=== PATIENT | male | born 1955 | race Caucasian/White ===

== ENCOUNTER → 2018-07-01 09:05 | Outpatient (CLI) | payer OTHER, SELFPAY ==
[2018-07-01 10:30] LABS: BUN Creatinine Ratio 22.5 (6-22); Blood Urea Nitrogen 27 mg/dL (9-20); Calcium 9.3 mg/dL (8.4-10.2); Carbon Dioxide 26 mmol/L (22-32); Chloride 105 mmol/L (98-107); Estimated Glomerular Filt Rate > 60.0 mL/min (>60); Glucose 111 mg/dL (80-110); HEMOLYSIS < 15 (0-50); Potassium 4.7 mmol/L (3.4-5.1); Sodium 139 mmol/L (137-145)
== END ==
PROVIDERS: Visit Provider Internal Medicine
DX: E11.9 Type 2 diabetes mellitus without complications (principal); I10 Essential (primary) hypertension
CPT/HCPCS: 36415; 80048; 83036; 83735

== ENCOUNTER → 2018-10-28 17:09 | Outpatient (CLI) | payer OTHER, SELFPAY ==
[2018-10-28 17:46] LABS: Add Manual Diff / Slide Review NO; Eosinophils Percent Auto 2.3 % (2-4); Hematocrit 39.1 % (41-53); Hemoglobin 13.2 g/dL (13.5-17.5); Lymphocytes Percent Auto 21.7 % (25-40); Mean Corpuscular HGB Conc 33.8 % (30-36); Mean Corpuscular Hemoglobin 30.4 PG (26-34); Mean Corpuscular Volume 89.9 fL (80-100); Monocytes Percent Auto 7.2 % (3-14); Neutrophils Absolute Auto 6500 /uL (3000-5900); Neutrophils Percent Auto 67.8 % (50-75); Platelet Count 205 X10^3/uL (150-400); Red Blood Cell Count 4.35 X10^6/uL (4.5-5.9); Red Cell Distribution Width 13.2 % (11.6-14.8); White Blood Cell Count 9.6 X10^3/uL (4.5-11.0)
[2018-10-28 18:18] LABS: Alanine Aminotransferase 30 IU/L (21-72); Albumin 4.3 g/dL (3.5-5.0); Albumin Globulin Ratio 1.7 (1.0-2.8); Alkaline Phosphatase 89 U/L (38-126); Aspartate Aminotransferase 23 IU/L (17-59); BUN Creatinine Ratio 17.5 (6-22); Bilirubin Total 0.2 mg/dL (0.2-1.3); Blood Urea Nitrogen 21 mg/dL (9-20); Calcium 9.9 mg/dL (8.4-10.2); Carbon Dioxide 26 mmol/L (22-32); Chloride 105 mmol/L (98-107); Estimated Glomerular Filt Rate > 60.0 mL/min (>60); Globulin 2.6 g/dL (1.7-4.1); Glucose 93 mg/dL (80-110); HEMOLYSIS < 15 (0-50); Magnesium 1.6 mg/dL (1.6-2.3); Potassium 4.9 mmol/L (3.4-5.1); Sodium 142 mmol/L (137-145); Total Protein 6.9 g/dL (6.3-8.2)
[2018-10-28 18:46] LABS: Thyroid Stimulating Hormone 2.14 uIU/mL (0.47-4.68)
[2018-10-28 19:10] LABS: Creatinine Urine Random 166.3 mg/dL
[2018-10-28 19:15] LABS: Microalbumin Urine Random 5.5 mg/dL (0-1.6)
== END ==
PROVIDERS: Family Provider Internal Medicine; PCP Orthopaedic Surgery; Visit Provider Internal Medicine
DX: E11.9 Type 2 diabetes mellitus without complications (principal); I10 Essential (primary) hypertension; I48.91 Unspecified atrial fibrillation; E66.9 Obesity, unspecified; E83.42 Hypomagnesemia
CPT/HCPCS: 36415; 80053; 82043; 82570; 83036; 83735; 84443; 85025

== ENCOUNTER 2018-12-18 16:45 | Outpatient (RCR) | payer OTHER, SELFPAY ==
--- NOTE | 2018-09-16 17:30 | PT.OPPOC ---
Current Diagnoses Pain in left knee (09/16/18) Stiffness of right knee, not elsewhere classified (09/16/18) Stiffness of left knee, not elsewhere classified (09/16/18) Weakness (09/16/18) Presence of right artificial knee joint (09/16/18) Presence of left artificial knee joint (09/16/18) Provider Visit Care Team Role Provider Type Spenser Dominguez MD Attending Provider Non-Staff Primary Care Provider Specialty: Orthopedics Address: [address] [place] [address] , [place], [address] Email: Plan Of Care PT-OP-T Assessment and Plan Start: 09/16/18 17:41 Freq: Status: Active Protocol: Document 09/16/18 16:45 DCW (Rec: 09/17/18 15:51 DCW [id number]) Physical Therapy Assessment Rehab Potential Rehabilitation Potential Excellent Evaluation Complexity Number of Personal Factors/Comorbidities 3 or More Number of Body Systems Impaired 1-2 Clinical Presentation at Evaluation Stable Impairments Impairments Activity Tolerance Functional Activities Gait Pain Strength Goals Four Impairment Increased pain at work due to stairs Short Term Goal (STG) Pt to ascend/descend 3 flights of stairs with no railing without increased pain STG Duration 10/18/18 Three Impairment 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 Bicycle Designer Goal (LTG) Pt to tolerate standing on a moving boat for two hours with no increase in pain LTG Duration 11/17/18 Two Impairment Left knee weakness Short Term Goal (STG) Left knee extension MMT to 4/5 STG Duration 10/18/18 Bicycle Designer Goal (LTG) Left knee extension MMT to 5/5 LTG Duration 11/17/18 One Impairment Pt does not have an appropriate Home Exercise Program Short Term Goal (STG) Pt to be independent and compliant with an appropriate HEP STG Duration 10/18/18 Assessment Summary Assessment Pt presents with left knee pain and stiffness nine years s/p B TKA. Pain is limiting pt 's ability on stairs, participation in boating and hunting, and making work difficult. Pt's goal to strengthen his quads should help improve stability in his knee, which may lead to decreased pain. Pt has been told there may be excess cement from his knee replacement, which may need to be surgically removed, however her is hopeful that therapy will help him avoid surgery. Physical Therapy Plan Frequency and Duration Frequency of Treatment 2x/Week Duration of Treatment 10 weeks Plan of Care Start Date 09/16/18 Plan of Care End Date 11/25/18 Therapeutic Interventions Therapeutic Interventions Aquatic Therapy Balance Training Gait Training Home Exercise Program Joint Mobilizations Manual Therapy Patient/Caregiver Education Self-Care/Home Management Soft Tissue Mobilization Therapeutic Activities Therapeutic Exercises Next Visit Focus/Plan Next Note Type Treatment Note Next Visit Plan Shuttle Balance, Quad strengthening, STM to left calf to decrease tone Plan of Care Dates Plan of Care Start Date 09/16/18 Plan of Care End Date 11/25/18 Please Sign and Return: I have reviewed this Plan of Care and certify that the skilled therapy services above are required to meet the patient?s needs. Physician Signature Date Printed Name and Credentials Clinical Instructor Signature Printed Name and Credentials
--- NOTE | 2018-09-16 17:30 | PT.OIE ---
Current Diagnoses Pain in left knee (09/16/18) Stiffness of right knee, not elsewhere classified (09/16/18) Stiffness of left knee, not elsewhere classified (09/16/18) Weakness (09/16/18) Presence of right artificial knee joint (09/16/18) Presence of left artificial knee joint (09/16/18) Provider Visit Care Team Role Provider Type Spenser Dominguez MD Attending Provider Non-Staff Primary Care Provider Specialty: Orthopedics Address: [address] [place] [address], [place], [address] Email: Physical Therapy Initial Evaluation PT-OP-A Visit Information Start: 09/16/18 17:41 Freq: Status: Active Protocol: Document 09/16/18 16:45 DCW (Rec: 09/16/18 17:58 DCW [id number]) Out-Patient Physical Therapy Visit Information Visit Information Visit Type Initial Evaluation Visit Start Time 16:45 Visit Stop Time 17:30 Total Visit Minutes 45 Visit Number 1 Number of COMPUTER SYSTEMS SECURITY ADMINISTRATOR Visits 0 Evaluation Information Evaluation Date 09/16/18 PT-OP-B Current Condition Start: 09/16/18 17:41 Freq: Status: Active Protocol: Document 09/16/18 16:45 DCW (Rec: 09/16/18 17:58 DCW [id number]) Current Condition History of Current Condition Onset Date Worsening over last three years Current Complaints Pain and weakness of L knee 9 years s/p TKA History of Current Condition Pt is a 62 year old male presenting with a three year history of progressive pain in his left anteriolateral knee. Pt notes he had bilateral TKAs six months apart in 2008, but his left knee trouble began in 1977, when he blew out the whole thing,and had a knee reconstruction using tissue harvested from his hamstring. Pt notes he got relief from his TKA for a few years, however for the past three, he has had difficulty with his knee buckling, and it is very painful when walking any distance, even on flat ground, and especially when descending steps. Pt notes he is now always consious of how I'm walking, and he needs to hold onto the railing when on steps. Prior Treatments and Tests Cortisone shot last month - Per pt, helped for three weeks . Future Testing and Treatments Planned Potential exploritory surgery if conservative trestment does not help. Treatment Goals Patient/Caregiver Goals I want to get my quads stronger, so they're back to where they used to be, so I can keep working, because I'm just not mentally ready to go on disability. Pt also notes he cannot currently stand on boats, or go hiking or hunting , which were all activities he used to enjoy. Prior Functional Status Baseline Function- ADL's Independent Baseline Function- Mobility Independent Current Functional Impairments (Reported) Functional Limitations- Mobility/Gait Pain ascending/descending stairs, requires railing. Knee occasionally chyna Functional Limitations- Recreation/ Unable to stand on boats, Hobbies unable to hike/leyva Personal Factors Other Personal Factors That May Effect Pacemaker, DM II, Hx of cancer Therapy/Recovery , Hx Low back pain, neuropathy PT-OP-C Subjective Start: 09/16/18 17:41 Freq: Status: Active Protocol: Document 09/16/18 16:45 DCW (Rec: 09/17/18 15:51 DCW [id number]) OP-PT Subjective Patient Comments Patient Comments Pt notes pain has been worsening over the last three years Patient Reported Progress Worse PT-OP-F Manual Assessment Start: 09/16/18 17:41 Freq: Status: Active Protocol: Document 09/16/18 16:45 DCW (Rec: 09/17/18 15:51 DCW [id number]) Manual Assessments Soft Tissue Assessment Soft Tissue Mobility Assessment Moderate tone and palpable tenderness 2/4 - Pain with wincing at medial gastroc Joint Mobility Assessment Joint Mobility Assessment Knee joint stability WNL, complaints of lateral pain with valgus stretch PT-OP-K Range of Motion Start: 09/16/18 17:41 Freq: Status: Active Protocol: Document 09/16/18 16:45 DCW (Rec: 09/17/18 15:51 DCW [id number]) Knee Goniometric Range of Motion Knee Measured in Degrees Right Knee ROM WFL No Patient Position Supine Flexion Active (degrees) 106 Extension Active (degrees) 0 Left Knee ROM WFL No Patient Position Supine Flexion Active (degrees) 102 Extension Active (degrees) 0 PT-OP-L Special Tests Start: 09/16/18 17:41 Freq: Status: Active Protocol: Document 09/16/18 16:45 DCW (Rec: 09/17/18 15:51 [id number] Special Tests Knee Special Tests Varus- 0 Degrees Test Results Negative Valgus- 0 Degrees Test Results Negative for instability, complaint of lateral pain Posterior Draw Test Results Negative Patellar Grind Test Test Results Negative Ang's Test Results Negative Mariano Test Test Results Negative Anterior Draw Test Results Negative PT-OP-M Strength Start: 09/16/18 17:41 Freq: Status: Active Protocol: Document 09/16/18 16:45 DCW (Rec: 09/17/18 15:51 DC [id number]) Hip Strength Hip Manual Muscle Testing Right Flexion (L2) 5 Normal Extension (S1) 5 Normal Abduction 5 Normal Adduction 5 Normal External Rotation 4+ Good+ Internal Rotation 5 Normal Left Flexion (L2) 5 Normal Extension (S1) 5 Normal Abduction 5 Normal Adduction 5 Normal External Rotation 5 Normal Internal Rotation 5 Normal Knee Strength Knee Manual Muscle Testing Right Flexion (S2) 5 Normal Extension (L3) 5 Normal Left Flexion (S2) 5 Normal Extension (L3) 3+ Fair+ PT-OP-Q Treatments Start: 09/16/18 17:41 Freq: Status: Active Protocol: Document 09/16/18 16:45 DCW (Rec: 09/17/18 15:51 [id number]) Therapeutic Exercises Supine Exercises Bridging /c Adduction Supine Exercise Name Bridging /c Add ball squeeze Equipment Used Small ball Reps/Minutes x15 SLR /c External Rotation Supine Exercise Name SLR /c ER of foot Side bilateral Comments x20 Straight Leg Raise Supine Exercise Name SLR Side bilateral Comments x20 Standing Exercises Terminal Knee Extension Standing Exercise Name TKE Side bilateral Resistance Lv 3 Equipment Used T-band PT-OP-T Assessment and Plan Start: 09/16/18 17:41 Freq: Status: Active Protocol: Document 09/16/18 16:45 DCW (Rec: 09/17/18 15:51 [id number] Physical Therapy Assessment Rehab Potential Rehabilitation Potential Excellent Evaluation Complexity Number of Personal Factors/Comorbidities 3 or More Number of Body Systems Impaired 1-2 Clinical Presentation at Evaluation Stable Impairments Impairments Activity Tolerance Functional Activities Gait Pain Strength Goals Four Impairment Increased pain at work due to stairs Short Term Goal (STG) Pt to ascend/descend 3 flights of stairs with no railing without increased pain STG Duration 10/18/18 Three Impairment 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 Retirement Goal (LTG) Pt to tolerate standing on a moving boat for two hours with no increase in pain LTG Duration 11/17/18 Two Impairment Left knee weakness Short Term Goal (STG) Left knee extension MMT to 4/5 STG Duration 10/18/18 Retirement Goal (LTG) Left knee extension MMT to 5/5 LTG Duration 11/17/18 One Impairment Pt does not have an appropriate Home Exercise Program Short Term Goal (STG) Pt to be independent and compliant with an appropriate HEP STG Duration 10/18/18 Assessment Summary Assessment Pt presents with left knee pain and stiffness nine years s/p B TKA. Pain is limiting pt 's ability on stairs, participation in boating and hunting, and making work difficult. Pt's goal to strengthen his quads should help improve stability in his knee, which may lead to decreased pain. Pt has been told there may be excess cement from his knee replacement, which may need to be surgically removed, however her is hopeful that therapy will help him avoid surgery. Physical Therapy Plan Frequency and Duration Frequency of Treatment 2x/Week Duration of Treatment 10 weeks Plan of Care Start Date 09/16/18 Plan of Care End Date 11/25/18 Therapeutic Interventions Therapeutic Interventions Aquatic Therapy Balance Training Gait Training Home Exercise Program Joint Mobilizations Manual Therapy Patient/Caregiver Education Self-Care/Home Management Soft Tissue Mobilization Therapeutic Activities Therapeutic Exercises Next Visit Focus/Plan Next Note Type Treatment Note Next Visit Plan Shuttle Balance, Quad strengthening, STM to left calf to decrease tone
--- NOTE | 2018-09-18 17:30 | PT.OTN ---
Current Diagnoses Presence of left artificial knee joint (09/18/18) Physical Therapy Treatment Note PT-OP-A Visit Information Start: 09/16/18 17:41 Freq: Status: Active Protocol: Document 09/18/18 16:45 DCW (Rec: 09/18/18 17:30 DCW [id number]) Out-Patient Physical Therapy Visit Information Visit Information Visit Type Treatment Note Visit Start Time 16:45 Visit Stop Time 17:30 Total Visit Minutes 45 Visit Number 2 Number of PULLING UNIT OPERATOR Visits 0 Evaluation Information Evaluation Date 09/16/18 PT-OP-B Current Condition Start: 09/16/18 17:41 Freq: Status: Active Protocol: Document 09/16/18 16:45 DCW (Rec: 09/16/18 17:58 DCW [id number]) Current Condition History of Current Condition Onset Date Worsening over last three years Current Complaints Pain and weakness of L knee 9 years s/p TKA History of Current Condition Pt is a 62 year old male presenting with a three year history of progressive pain in his left anteriolateral knee. Pt notes he had bilateral TKAs six months apart in 2008, but his left knee trouble began in 1977, when he blew out the whole thing,and had a knee reconstruction using tissue harvested from his hamstring. Pt notes he got relief from his TKA for a few years, however for the past three, he has had difficulty with his knee buckling, and it is very painful when walking any distance, even on flat ground, and especially when descending steps. Pt notes he is now always conscious of how I'm walking, and he needs to hold onto the railing when on steps. Prior Treatments and Tests Cortisone shot last month - Per pt, helped for three weeks . Future Testing and Treatments Planned Potential exploratory surgery if conservative treatment does not help. Treatment Goals Patient/Caregiver Goals I want to get my quads stronger, so they're back to where they used to be, so I can keep working, because I'm just not mentally ready to go on disability. Pt also notes he cannot currently stand on boats, or go hiking or hunting , which were all activities he used to enjoy. Prior Functional Status Baseline Function- ADL's Independent Baseline Function- Mobility Independent Current Functional Impairments (Reported) Functional Limitations- Mobility/Gait Pain ascending/descending stairs, requires railing. Knee occasionally chyna Functional Limitations- Recreation/ Unable to stand on boats, Hobbies unable to hike/leyva Personal Factors Other Personal Factors That May Effect Pacemaker, DM II, Hx of cancer Therapy/Recovery , Hx Low back pain, neuropathy PT-OP-C Subjective Start: 09/16/18 17:41 Freq: Status: Active Protocol: Document 09/18/18 16:45 DCW (Rec: 09/18/18 17:30 DCW [id number]) OP-PT Subjective Patient Comments Patient Comments Pt reports his knees are a little stiff after performing his HEP, because he had not been doing anything for so long. PT-OP-F Manual Assessment Start: 09/16/18 17:41 Freq: Status: Active Protocol: Document 09/16/18 16:45 DCW (Rec: 09/17/18 15:51 DCW [id number]) Manual Assessments Soft Tissue Assessment Soft Tissue Mobility Assessment Moderate tone and palpable tenderness 2/4 - Pain with wincing at medial gastroc Joint Mobility Assessment Joint Mobility Assessment Knee joint stability WNL, complaints of lateral pain with valgus stretch PT-OP-K Range of Motion Start: 09/16/18 17:41 Freq: Status: Active Protocol: Document 09/16/18 16:45 DCW (Rec: 09/17/18 15:51 DCW [id number]) Knee Goniometric Range of Motion Knee Measured in Degrees Right Knee ROM WFL No Patient Position Supine Flexion Active (degrees) 106 Extension Active (degrees) 0 Left Knee ROM WFL No Patient Position Supine Flexion Active (degrees) 102 Extension Active (degrees) 0 PT-OP-L Special Tests Start: 09/16/18 17:41 Freq: Status: Active Protocol: Document 09/16/18 16:45 DCW (Rec: 09/17/18 15:51 DCW [id number]) Special Tests Knee Special Tests Varus- 0 Degrees Test Results Negative Valgus- 0 Degrees Test Results Negative for instability, complaint of lateral pain Posterior Draw Test Results Negative Patellar Grind Test Test Results Negative Ang's Test Results Negative Mariano Test Test Results Negative Anterior Draw Test Results Negative PT-OP-M Strength Start: 09/16/18 17:41 Freq: Status: Active Protocol: Document 09/16/18 16:45 DCW (Rec: 09/17/18 15:51 DCW [id number]) Hip Strength Hip Manual Muscle Testing Right Flexion (L2) 5 Normal Extension (S1) 5 Normal Abduction 5 Normal Adduction 5 Normal External Rotation 4+ Good+ Internal Rotation 5 Normal Left Flexion (L2) 5 Normal Extension (S1) 5 Normal Abduction 5 Normal Adduction 5 Normal External Rotation 5 Normal Internal Rotation 5 Normal Knee Strength Knee Manual Muscle Testing Right Flexion (S2) 5 Normal Extension (L3) 5 Normal Left Flexion (S2) 5 Normal Extension (L3) 3+ Fair+ PT-OP-Q Treatments Start: 09/16/18 17:41 Freq: Status: Active Protocol: Document 09/18/18 16:45 DCW (Rec: 09/18/18 17:30 DCW [id number]) Cardio Equipment Recumbent Bicycle Duration (Minutes) 5 Resistance 5 Seat Position 8 Gym Equipment Shuttle Recovery Unilateral Squats Resistance 87# Shuttle Recovery Platform Stable Bilateral Squats Resistance 150# Shuttle Recovery Platform Stable Shuttle Balance Red Details Wide JOSÉ LUIS, Staggered Stance, Lateral Weight Shift Therapeutic Ball Bridging with Hamstring Curls Exercise Details Bridging /c HS curls Ball Size/Color Red - 55 cm Body Position Supine Bridging Exercise Details Bridging /c feet on ball Ball Size/Color Red - 55 cm Body Position Supine Therapeutic Exercises Standing Exercises Lunges Standing Exercise Name Lunge Side bilateral Comments Down to foam stacked 5-high PT-OP-T Assessment and Plan Start: 09/16/18 17:41 Freq: Status: Active Protocol: Document 09/18/18 16:45 DCW (Rec: 09/18/18 17:30 DCW [id number]) Physical Therapy Assessment Impairments Impairments Activity Tolerance Functional Activities Gait Pain Strength Goals Four Impairment Increased pain at work due to stairs Short Term Goal (STG) Pt to ascend/descend 3 flights of stairs with no railing without increased pain STG Duration 10/18/18 Three Impairment 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 Care Home Goal (LTG) Pt to tolerate standing on a moving boat for two hours with no increase in pain LTG Duration 11/17/18 Two Impairment Left knee weakness Short Term Goal (STG) Left knee extension MMT to 4/5 STG Duration 10/18/18 Director Franchise Sales Goal (LTG) Left knee extension MMT to 5/5 LTG Duration 11/17/18 One Impairment Pt does not have an appropriate Home Exercise Program Short Term Goal (STG) Pt to be independent and compliant with an appropriate HEP STG Duration 10/18/18 Assessment Summary Assessment Pt tolerated new exercises with minimal complaints, did note some biting pain when on the Shuttle balance. Physical Therapy Plan Frequency and Duration Frequency of Treatment 2x/Week Duration of Treatment 10 weeks Plan of Care Start Date 09/16/18 Plan of Care End Date 11/25/18 Therapeutic Interventions Therapeutic Interventions Aquatic Therapy Balance Training Gait Training Home Exercise Program Joint Mobilizations Manual Therapy Patient/Caregiver Education Self-Care/Home Management Soft Tissue Mobilization Therapeutic Activities Therapeutic Exercises Next Visit Focus/Plan Next Note Type Treatment Note Next Visit Plan Shuttle Balance, Quad strengthening, STM to left calf to decrease tone
--- NOTE | 2018-09-23 17:33 | PT.OTN ---
Current Diagnoses Presence of left artificial knee joint (09/23/18) Physical Therapy Treatment Note PT-OP-A Visit Information Start: 09/16/18 17:41 Freq: Status: Active Protocol: Document 09/23/18 16:45 DCW (Rec: 09/23/18 17:33 DCW [id number]) Out-Patient Physical Therapy Visit Information Visit Information Visit Type Treatment Note Visit Start Time 16:45 Visit Stop Time 17:40 Total Visit Minutes 55 Visit Number 3 Number of VAT WASHER Visits 0 Evaluation Information Evaluation Date 09/16/18 PT-OP-B Current Condition Start: 09/16/18 17:41 Freq: Status: Active Protocol: Document 09/16/18 16:45 DCW (Rec: 09/16/18 17:58 DCW [id number]) Current Condition History of Current Condition Onset Date Worsening over last three years Current Complaints Pain and weakness of L knee 9 years s/p TKA History of Current Condition Pt is a 62 year old male presenting with a three year history of progressive pain in his left anteriolateral knee. Pt notes he had bilateral TKAs six months apart in 2008, but his left knee trouble began in 1977, when he blew out the whole thing,and had a knee reconstruction using tissue harvested from his hamstring. Pt notes he got relief from his TKA for a few years, however for the past three, he has had difficulty with his knee buckling, and it is very painful when walking any distance, even on flat ground, and especially when descending steps. Pt notes he is now always conscious of how I'm walking, and he needs to hold onto the railing when on steps. Prior Treatments and Tests Cortisone shot last month - Per pt, helped for three weeks . Future Testing and Treatments Planned Potential exploratory surgery if conservative treatment does not help. Treatment Goals Patient/Caregiver Goals I want to get my quads stronger, so they're back to where they used to be, so I can keep working, because I'm just not mentally ready to go on disability. Pt also notes he cannot currently stand on boats, or go hiking or hunting , which were all activities he used to enjoy. Prior Functional Status Baseline Function- ADL's Independent Baseline Function- Mobility Independent Current Functional Impairments (Reported) Functional Limitations- Mobility/Gait Pain ascending/descending stairs, requires railing. Knee occasionally chyna Functional Limitations- Recreation/ Unable to stand on boats, Hobbies unable to hike/leyva Personal Factors Other Personal Factors That May Effect Pacemaker, DM II, Hx of cancer Therapy/Recovery , Hx Low back pain, neuropathy PT-OP-C Subjective Start: 09/16/18 17:41 Freq: Status: Active Protocol: Document 09/23/18 16:45 DCW (Rec: 09/23/18 17:33 DCW [id number]) OP-PT Subjective Patient Comments Patient Comments The knee is simmering down today after it was just really biting me yesterday at work. PT-OP-F Manual Assessment Start: 09/16/18 17:41 Freq: Status: Active Protocol: Document 09/16/18 16:45 DCW (Rec: 09/17/18 15:51 DCW [id number]) Manual Assessments Soft Tissue Assessment Soft Tissue Mobility Assessment Moderate tone and palpable tenderness 2/4 - Pain with wincing at medial gastroc Joint Mobility Assessment Joint Mobility Assessment Knee joint stability WNL, complaints of lateral pain with valgus stretch PT-OP-K Range of Motion Start: 09/16/18 17:41 Freq: Status: Active Protocol: Document 09/16/18 16:45 DCW (Rec: 09/17/18 15:51 DCW [id number]) Knee Goniometric Range of Motion Knee Measured in Degrees Right Knee ROM WFL No Patient Position Supine Flexion Active (degrees) 106 Extension Active (degrees) 0 Left Knee ROM WFL No Patient Position Supine Flexion Active (degrees) 102 Extension Active (degrees) 0 PT-OP-L Special Tests Start: 09/16/18 17:41 Freq: Status: Active Protocol: Document 09/16/18 16:45 DCW (Rec: 09/17/18 15:51 DCW [id number]) Special Tests Knee Special Tests Varus- 0 Degrees Test Results Negative Valgus- 0 Degrees Test Results Negative for instability, complaint of lateral pain Posterior Draw Test Results Negative Patellar Grind Test Test Results Negative Ang's Test Results Negative Mariano Test Test Results Negative Anterior Draw Test Results Negative PT-OP-M Strength Start: 09/16/18 17:41 Freq: Status: Active Protocol: Document 09/16/18 16:45 DCW (Rec: 09/17/18 15:51 DCW [id number]) Hip Strength Hip Manual Muscle Testing Right Flexion (L2) 5 Normal Extension (S1) 5 Normal Abduction 5 Normal Adduction 5 Normal External Rotation 4+ Good+ Internal Rotation 5 Normal Left Flexion (L2) 5 Normal Extension (S1) 5 Normal Abduction 5 Normal Adduction 5 Normal External Rotation 5 Normal Internal Rotation 5 Normal Knee Strength Knee Manual Muscle Testing Right Flexion (S2) 5 Normal Extension (L3) 5 Normal Left Flexion (S2) 5 Normal Extension (L3) 3+ Fair+ PT-OP-Q Treatments Start: 09/16/18 17:41 Freq: Status: Active Protocol: Document 09/23/18 16:45 DCW (Rec: 09/23/18 17:33 DCW [id number]) Cardio Equipment Recumbent Bicycle Duration (Minutes) 6 Resistance 5 Seat Position 8 Gym Equipment Shuttle Recovery Unilateral Squats Resistance 87# Shuttle Recovery Platform Stable Bilateral Squats Resistance 150# Shuttle Recovery Platform Stable Shuttle Balance Red Details Wide JOSÉ LUIS (EO/EC), Staggered Stance, Lateral Weight Shift Therapeutic Exercises Standing Exercises Lunges Standing Exercise Name Step Lunges Side bilateral Other Exercises Resisted Forward/Retro Ambulation Other Exercise Name Resisted Fwd/Retro Amb Resistance Yellow Equipment Used T-band Resisted Side-stepping Other Exercise Name Resisted side-stepping Resistance Yellow Equipment Used T-band PT-OP-R Modalities Start: 09/16/18 17:41 Freq: Status: Active Protocol: Document 09/23/18 16:45 DCW (Rec: 09/23/18 17:33 DCW [id number]) Hot Pack/Cold Pack Treatment Cold Pack Location Left knee Patient Position Hooklying Treatment Duration (minutes) 10 Patient Tolerance Good PT-OP-T Assessment and Plan Start: 09/16/18 17:41 Freq: Status: Active Protocol: Document 09/23/18 16:45 DCW (Rec: 09/23/18 17:33 DCW [id number]) Physical Therapy Assessment Impairments Impairments Activity Tolerance Functional Activities Gait Pain Strength Goals Four Impairment Increased pain at work due to stairs Short Term Goal (STG) Pt to ascend/descend 3 flights of stairs with no railing without increased pain STG Duration 10/18/18 Three Impairment 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 Retirement Goal (LTG) Pt to tolerate standing on a moving boat for two hours with no increase in pain LTG Duration 11/17/18 Two Impairment Left knee weakness Short Term Goal (STG) Left knee extension MMT to 4/5 STG Duration 10/18/18 Retirement Goal (LTG) Left knee extension MMT to 5/5 LTG Duration 11/17/18 One Impairment Pt does not have an appropriate Home Exercise Program Short Term Goal (STG) Pt to be independent and compliant with an appropriate HEP STG Duration 10/18/18 Assessment Summary Assessment Skipped lungdeanna today, after pt complained of persistent pain following his last visit, but pt tolerated other new exercises well. Physical Therapy Plan Frequency and Duration Frequency of Treatment 2x/Week Duration of Treatment 10 weeks Plan of Care Start Date 09/16/18 Plan of Care End Date 11/25/18 Therapeutic Interventions Therapeutic Interventions Aquatic Therapy Balance Training Gait Training Home Exercise Program Joint Mobilizations Manual Therapy Patient/Caregiver Education Self-Care/Home Management Soft Tissue Mobilization Therapeutic Activities Therapeutic Exercises Next Visit Focus/Plan Next Note Type Treatment Note Next Visit Plan Shuttle Balance, Quad strengthening, STM to left calf to decrease tone
--- NOTE | 2018-09-30 17:30 | PT.OTN ---
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 Pt notes he had bilateral TKAs six months apart in 2008, but his left knee trouble began in 1977, when he blew out the whole thing,and had a knee reconstruction using tissue harvested from his hamstring. Pt notes he got relief from his TKA for a few years, however for the past three, he has had difficulty with his knee buckling, and it is very painful when walking any distance, even on flat ground, and especially when descending steps. Pt notes he is now always conscious of how I'm walking, and he needs to hold onto the railing when on steps. Prior Treatments and Tests Cortisone shot last month - Per pt, helped for three weeks . Future Testing and Treatments Planned Potential exploratory surgery if conservative treatment does not help. Treatment Goals Patient/Caregiver Goals I want to get my quads stronger, so they're back to where they used to be, so I can keep working, because I'm just not mentally ready to go on disability. Pt also notes he cannot currently stand on boats, or go hiking or hunting , which were all activities he used to enjoy. Prior Functional Status Baseline Function- ADL's Independent Baseline Function- Mobility Independent Current Functional Impairments (Reported) Functional Limitations- Mobility/Gait Pain ascending/descending stairs, requires railing. Knee occasionally chyna Functional Limitations- Recreation/ Unable to stand on boats, Hobbies unable to hike/leyva Personal Factors Other Personal Factors That May Effect Pacemaker, DM II, Hx of cancer Therapy/Recovery , Hx Low back pain, neuropathy PT-OP-C Subjective Start: 09/16/18 17:41 Freq: Status: Active Protocol: Document 09/30/18 16:45 DCW (Rec: 09/30/18 17:26 DCW [id number]) OP-PT Subjective Patient Comments Patient Comments Pt reports his knee will occasionally give a pop, and it is just such a weird feeling, because I never know when it's going to happen. PT-OP-F Manual Assessment Start: 09/16/18 17:41 Freq: Status: Active Protocol: Document 09/16/18 16:45 DCW (Rec: 09/17/18 15:51 DCW [id number]) Manual Assessments Soft Tissue Assessment Soft Tissue Mobility Assessment Moderate tone and palpable tenderness 2/4 - Pain with wincing at medial gastroc Joint Mobility Assessment Joint Mobility Assessment Knee joint stability WNL, complaints of lateral pain with valgus stretch PT-OP-K Range of Motion Start: 09/16/18 17:41 Freq: Status: Active Protocol: Document 09/16/18 16:45 DCW (Rec: 09/17/18 15:51 DCW [id number]) Knee Goniometric Range of Motion Knee Measured in Degrees Right Knee ROM WFL No Patient Position Supine Flexion Active (degrees) 106 Extension Active (degrees) 0 Left Knee ROM WFL No Patient Position Supine Flexion Active (degrees) 102 Extension Active (degrees) 0 PT-OP-L Special Tests Start: 09/16/18 17:41 Freq: Status: Active Protocol: Document 09/16/18 16:45 DCW (Rec: 09/17/18 15:51 DCW [id number]) Special Tests Knee Special Tests Varus- 0 Degrees Test Results Negative Valgus- 0 Degrees Test Results Negative for instability, complaint of lateral pain Posterior Draw Test Results Negative Patellar Grind Test Test Results Negative Ang's Test Results Negative Mariano Test Test Results Negative Anterior Draw Test Results Negative PT-OP-M Strength Start: 09/16/18 17:41 Freq: Status: Active Protocol: Document 09/16/18 16:45 DCW (Rec: 09/17/18 15:51 DCW [id number]) Hip Strength Hip Manual Muscle Testing Right Flexion (L2) 5 Normal Extension (S1) 5 Normal Abduction 5 Normal Adduction 5 Normal External Rotation 4+ Good+ Internal Rotation 5 Normal Left Flexion (L2) 5 Normal Extension (S1) 5 Normal Abduction 5 Normal Adduction 5 Normal External Rotation 5 Normal Internal Rotation 5 Normal Knee Strength Knee Manual Muscle Testing Right Flexion (S2) 5 Normal Extension (L3) 5 Normal Left Flexion (S2) 5 Normal Extension (L3) 3+ Fair+ PT-OP-Q Treatments Start: 09/16/18 17:41 Freq: Status: Active Protocol: Document 09/30/18 16:45 DCW (Rec: 09/30/18 17:26 DCW [id number]) Cardio Equipment Recumbent Bicycle Duration (Minutes) 7 Resistance 5 Seat Position 8 Gym Equipment Shuttle Recovery Unilateral Squats Resistance 87# Shuttle Recovery Platform Stable Bilateral Squats Resistance 150# Shuttle Recovery Platform Stable Shuttle Balance Red Details Wide JOSÉ LUIS (EO/EC), Staggered Stance, Lateral Weight Shift Therapeutic Exercises Standing Exercises Lunges Standing Exercise Name Step Lunges Side bilateral Other Exercises Resisted Forward/Retro Ambulation Other Exercise Name Resisted Fwd/Retro Amb Resistance Yellow Equipment Used T-band Resisted Side-stepping Other Exercise Name Resisted side-stepping Resistance Yellow Equipment Used T-band PT-OP-R Modalities Start: 09/16/18 17:41 Freq: Status: Active Protocol: Document 09/30/18 16:45 DCW (Rec: 09/30/18 17:26 DCW [id number]) Hot Pack/Cold Pack Treatment Cold Pack Location Left knee Patient Position Hooklying Treatment Duration (minutes) 10 Patient Tolerance Good PT-OP-T Assessment and Plan Start: 09/16/18 17:41 Freq: Status: Active Protocol: Document 09/30/18 16:45 DCW (Rec: 09/30/18 17:26 DCW [id number]) Physical Therapy Assessment Impairments Impairments Activity Tolerance Functional Activities Gait Pain Strength Goals Four Impairment Increased pain at work due to stairs Short Term Goal (STG) Pt to ascend/descend 3 flights of stairs with no railing without increased pain STG Duration 10/18/18 Three Impairment 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 Operations 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 Physical Therapy Plan Frequency and Duration Frequency of Treatment 2x/Week Duration of Treatment 10 weeks Plan of Care Start Date 09/16/18 Plan of Care End Date 11/25/18 Therapeutic Interventions Therapeutic Interventions Aquatic Therapy Balance Training Gait Training Home Exercise Program Joint Mobilizations Manual Therapy Patient/Caregiver Education Self-Care/Home Management Soft Tissue Mobilization Therapeutic Activities Therapeutic Exercises Next Visit Focus/Plan Next Note Type Treatment Note Next Visit Plan Shuttle Balance, Quad strengthening, STM to left calf to decrease tone
--- NOTE | 2018-10-07 17:36 | PT.OTN ---
Current Diagnoses Presence of left artificial knee joint (10/07/18) Physical Therapy Treatment Note PT-OP-A Visit Information Start: 09/16/18 17:41 Freq: Status: Active Protocol: Document 10/07/18 16:45 DCW (Rec: 10/07/18 17:36 DCW [id number]) Out-Patient Physical Therapy Visit Information Visit Information Visit Type Treatment Note Visit Start Time 16:45 Visit Stop Time 17:30 Total Visit Minutes 45 Visit Number 5 Number of DIRECTOR GAME Visits 0 Evaluation Information Evaluation Date 09/16/18 PT-OP-B Current Condition Start: 09/16/18 17:41 Freq: Status: Active Protocol: Document 09/16/18 16:45 DCW (Rec: 09/16/18 17:58 DCW [id number]) Current Condition History of Current Condition Onset Date Worsening over last three years Current Complaints Pain and weakness of L knee 9 years s/p TKA History of Current Condition Pt is a 62 year old male presenting with a three year history of progressive pain in his left anteriolateral knee. Pt notes he had bilateral TKAs six months apart in 2008, but his left knee trouble began in 1977, when he blew out the whole thing,and had a knee reconstruction using tissue harvested from his hamstring. Pt notes he got relief from his TKA for a few years, however for the past three, he has had difficulty with his knee buckling, and it is very painful when walking any distance, even on flat ground, and especially when descending steps. Pt notes he is now always conscious of how I'm walking, and he needs to hold onto the railing when on steps. Prior Treatments and Tests Cortisone shot last month - Per pt, helped for three weeks . Future Testing and Treatments Planned Potential exploratory surgery if conservative treatment does not help. Treatment Goals Patient/Caregiver Goals I want to get my quads stronger, so they're back to where they used to be, so I can keep working, because I'm just not mentally ready to go on disability. Pt also notes he cannot currently stand on boats, or go hiking or hunting , which were all activities he used to enjoy. Prior Functional Status Baseline Function- ADL's Independent Baseline Function- Mobility Independent Current Functional Impairments (Reported) Functional Limitations- Mobility/Gait Pain ascending/descending stairs, requires railing. Knee occasionally chyna Functional Limitations- Recreation/ Unable to stand on boats, Hobbies unable to hike/leyva Personal Factors Other Personal Factors That May Effect Pacemaker, DM II, Hx of cancer Therapy/Recovery , Hx Low back pain, neuropathy PT-OP-C Subjective Start: 09/16/18 17:41 Freq: Status: Active Protocol: Document 10/07/18 16:45 DCW (Rec: 10/07/18 17:36 DCW [id number]) OP-PT Subjective Patient Comments Patient Comments Pt feels like he is slowly improving. PT-OP-F Manual Assessment Start: 09/16/18 17:41 Freq: Status: Active Protocol: Document 09/16/18 16:45 DCW (Rec: 09/17/18 15:51 DCW [id number]) Manual Assessments Soft Tissue Assessment Soft Tissue Mobility Assessment Moderate tone and palpable tenderness 2/4 - Pain with wincing at medial gastroc Joint Mobility Assessment Joint Mobility Assessment Knee joint stability WNL, complaints of lateral pain with valgus stretch PT-OP-K Range of Motion Start: 09/16/18 17:41 Freq: Status: Active Protocol: Document 09/16/18 16:45 DCW (Rec: 09/17/18 15:51 DCW [id number]) Knee Goniometric Range of Motion Knee Measured in Degrees Right Knee ROM WFL No Patient Position Supine Flexion Active (degrees) 106 Extension Active (degrees) 0 Left Knee ROM WFL No Patient Position Supine Flexion Active (degrees) 102 Extension Active (degrees) 0 PT-OP-L Special Tests Start: 09/16/18 17:41 Freq: Status: Active Protocol: Document 09/16/18 16:45 DCW (Rec: 09/17/18 15:51 DCW [id number]) Special Tests Knee Special Tests Varus- 0 Degrees Test Results Negative Valgus- 0 Degrees Test Results Negative for instability, complaint of lateral pain Posterior Draw Test Results Negative Patellar Grind Test Test Results Negative Ang's Test Results Negative Mariano Test Test Results Negative Anterior Draw Test Results Negative PT-OP-M Strength Start: 09/16/18 17:41 Freq: Status: Active Protocol: Document 09/16/18 16:45 DCW (Rec: 09/17/18 15:51 DCW [id number]) Hip Strength Hip Manual Muscle Testing Right Flexion (L2) 5 Normal Extension (S1) 5 Normal Abduction 5 Normal Adduction 5 Normal External Rotation 4+ Good+ Internal Rotation 5 Normal Left Flexion (L2) 5 Normal Extension (S1) 5 Normal Abduction 5 Normal Adduction 5 Normal External Rotation 5 Normal Internal Rotation 5 Normal Knee Strength Knee Manual Muscle Testing Right Flexion (S2) 5 Normal Extension (L3) 5 Normal Left Flexion (S2) 5 Normal Extension (L3) 3+ Fair+ PT-OP-Q Treatments Start: 09/16/18 17:41 Freq: Status: Active Protocol: Document 10/07/18 16:45 DCW (Rec: 10/07/18 17:36 DCW [id number]) Cardio Equipment Recumbent Bicycle Duration (Minutes) 8 Resistance 6 Seat Position 9 Gym Equipment Shuttle Recovery Unilateral Squats Resistance 100# Shuttle Recovery Platform Stable Bilateral Squats Resistance 175# Shuttle Recovery Platform Stable Shuttle Balance Red Details Wide JOSÉ LUIS (EO/EC), Staggered Stance, Lateral Weight Shift Therapeutic Ball Bridging with Hamstring Curls Exercise Details Bridging /c HS curls Ball Size/Color Red - 55 cm Body Position Supine Bridging Exercise Details Bridging /c feet on ball Ball Size/Color Red - 55 cm Body Position Supine Therapeutic Exercises Other Exercises Resisted Forward/Retro Ambulation Other Exercise Name Resisted Fwd/Retro Amb Resistance Yellow Equipment Used T-band Resisted Side-stepping Other Exercise Name Resisted side-stepping Resistance Yellow Equipment Used T-band PT-OP-R Modalities Start: 09/16/18 17:41 Freq: Status: Active Protocol: Document 09/30/18 16:45 DCW (Rec: 09/30/18 17:26 DCW [id number]) Hot Pack/Cold Pack Treatment Cold Pack Location Left knee Patient Position Hooklying Treatment Duration (minutes) 10 Patient Tolerance Good PT-OP-T Assessment and Plan Start: 09/16/18 17:41 Freq: Status: Active Protocol: Document 10/07/18 16:45 DCW (Rec: 10/07/18 17:36 DCW [id number]) Physical Therapy Assessment Impairments Impairments Activity Tolerance Functional Activities Gait Pain Strength Goals Four Impairment Increased pain at work due to stairs Short Term Goal (STG) Pt to ascend/descend 3 flights of stairs with no railing without increased pain STG Duration 10/18/18 Three Impairment 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 Terrazzo Layer Goal (LTG) Pt to tolerate standing on a moving boat for two hours with no increase in pain LTG Duration 11/17/18 Two Impairment Left knee weakness Short Term Goal (STG) Left knee extension MMT to 4/5 STG Duration 10/18/18 Terrazzo Layer Goal (LTG) Left knee extension MMT to 5/5 LTG Duration 11/17/18 One Impairment Pt does not have an appropriate Home Exercise Program Short Term Goal (STG) Pt to be independent and compliant with an appropriate HEP STG Duration 10/18/18 Assessment Summary Assessment Pt doing well, compliant with HEP. Continues to complain of occasional biting pain in left lateral knee, however appears to be less frequent. Physical Therapy Plan Frequency and Duration Frequency of Treatment 2x/Week Duration of Treatment 10 weeks Plan of Care Start Date 09/16/18 Plan of Care End Date 11/25/18 Therapeutic Interventions Therapeutic Interventions Aquatic Therapy Balance Training Gait Training Home Exercise Program Joint Mobilizations Manual Therapy Patient/Caregiver Education Self-Care/Home Management Soft Tissue Mobilization Therapeutic Activities Therapeutic Exercises Next Visit Focus/Plan Next Note Type Treatment Note Next Visit Plan Shuttle Balance, Quad strengthening, STM to left calf to decrease tone
--- NOTE | 2018-10-09 12:36 | PT.OTN ---
Current Diagnoses Presence of left artificial knee joint (10/09/18) Physical Therapy Treatment Note PT-OP-A Visit Information Start: 09/16/18 17:41 Freq: Status: Active Protocol: Document 10/09/18 12:00 DCW (Rec: 10/09/18 12:36 DCW [id number]) Out-Patient Physical Therapy Visit Information Visit Information Visit Type Treatment Note Visit Start Time 12:00 Visit Stop Time 12:45 Total Visit Minutes 45 Visit Number 6 Number of IN HOME AIDE Visits 0 Evaluation Information Evaluation Date 09/16/18 PT-OP-B Current Condition Start: 09/16/18 17:41 Freq: Status: Active Protocol: Document 09/16/18 16:45 DCW (Rec: 09/16/18 17:58 DCW [id number]) Current Condition History of Current Condition Onset Date Worsening over last three years Current Complaints Pain and weakness of L knee 9 years s/p TKA History of Current Condition Pt is a 62 year old male presenting with a three year history of progressive pain in his left anteriolateral knee. Pt notes he had bilateral TKAs six months apart in 2008, but his left knee trouble began in 1977, when he blew out the whole thing,and had a knee reconstruction using tissue harvested from his hamstring. Pt notes he got relief from his TKA for a few years, however for the past three, he has had difficulty with his knee buckling, and it is very painful when walking any distance, even on flat ground, and especially when descending steps. Pt notes he is now always conscious of how I'm walking, and he needs to hold onto the railing when on steps. Prior Treatments and Tests Cortisone shot last month - Per pt, helped for three weeks . Future Testing and Treatments Planned Potential exploratory surgery if conservative treatment does not help. Treatment Goals Patient/Caregiver Goals I want to get my quads stronger, so they're back to where they used to be, so I can keep working, because I'm just not mentally ready to go on disability. Pt also notes he cannot currently stand on boats, or go hiking or hunting , which were all activities he used to enjoy. Prior Functional Status Baseline Function- ADL's Independent Baseline Function- Mobility Independent Current Functional Impairments (Reported) Functional Limitations- Mobility/Gait Pain ascending/descending stairs, requires railing. Knee occasionally chyna Functional Limitations- Recreation/ Unable to stand on boats, Hobbies unable to hike/leyva Personal Factors Other Personal Factors That May Effect Pacemaker, DM II, Hx of cancer Therapy/Recovery , Hx Low back pain, neuropathy PT-OP-C Subjective Start: 09/16/18 17:41 Freq: Status: Active Protocol: Document 10/09/18 12:00 DCW (Rec: 10/09/18 12:36 DCW [id number]) OP-PT Subjective Patient Comments Patient Comments Pt reports he is wobbly, but feeling pretty good. PT-OP-F Manual Assessment Start: 09/16/18 17:41 Freq: Status: Active Protocol: Document 09/16/18 16:45 DCW (Rec: 09/17/18 15:51 DCW [id number]) Manual Assessments Soft Tissue Assessment Soft Tissue Mobility Assessment Moderate tone and palpable tenderness 2/4 - Pain with wincing at medial gastroc Joint Mobility Assessment Joint Mobility Assessment Knee joint stability WNL, complaints of lateral pain with valgus stretch PT-OP-K Range of Motion Start: 09/16/18 17:41 Freq: Status: Active Protocol: Document 09/16/18 16:45 DCW (Rec: 09/17/18 15:51 DCW [id number]) Knee Goniometric Range of Motion Knee Measured in Degrees Right Knee ROM WFL No Patient Position Supine Flexion Active (degrees) 106 Extension Active (degrees) 0 Left Knee ROM WFL No Patient Position Supine Flexion Active (degrees) 102 Extension Active (degrees) 0 PT-OP-L Special Tests Start: 09/16/18 17:41 Freq: Status: Active Protocol: Document 09/16/18 16:45 DCW (Rec: 09/17/18 15:51 DCW [id number]) Special Tests Knee Special Tests Varus- 0 Degrees Test Results Negative Valgus- 0 Degrees Test Results Negative for instability, complaint of lateral pain Posterior Draw Test Results Negative Patellar Grind Test Test Results Negative Ang's Test Results Negative Mariano Test Test Results Negative Anterior Draw Test Results Negative PT-OP-M Strength Start: 09/16/18 17:41 Freq: Status: Active Protocol: Document 09/16/18 16:45 DCW (Rec: 09/17/18 15:51 DCW [id number]) Hip Strength Hip Manual Muscle Testing Right Flexion (L2) 5 Normal Extension (S1) 5 Normal Abduction 5 Normal Adduction 5 Normal External Rotation 4+ Good+ Internal Rotation 5 Normal Left Flexion (L2) 5 Normal Extension (S1) 5 Normal Abduction 5 Normal Adduction 5 Normal External Rotation 5 Normal Internal Rotation 5 Normal Knee Strength Knee Manual Muscle Testing Right Flexion (S2) 5 Normal Extension (L3) 5 Normal Left Flexion (S2) 5 Normal Extension (L3) 3+ Fair+ PT-OP-Q Treatments Start: 09/16/18 17:41 Freq: Status: Active Protocol: Document 10/09/18 12:00 DCW (Rec: 10/09/18 12:36 DCW [id number]) Cardio Equipment Recumbent Bicycle Duration (Minutes) 6 Resistance 6 Seat Position 9 Gym Equipment Shuttle Recovery Unilateral Squats Resistance 100# Shuttle Recovery Platform Stable Bilateral Squats Resistance 175# Shuttle Recovery Platform Stable Shuttle Balance Red Details Wide JOSÉ LUIS (EO/EC), Staggered Stance, Lateral Weight Shift Therapeutic Ball Bridging with Hamstring Curls Exercise Details Bridging /c HS curls Ball Size/Color Red - 55 cm Body Position Supine Bridging Exercise Details Bridging /c feet on ball Ball Size/Color Red - 55 cm Body Position Supine Therapeutic Exercises Other Exercises Resisted Forward/Retro Ambulation Other Exercise Name Resisted Fwd/Retro Amb Resistance Green Equipment Used T-band Resisted Side-stepping Other Exercise Name Resisted side-stepping Resistance Green Equipment Used T-band PT-OP-R Modalities Start: 09/16/18 17:41 Freq: Status: Active Protocol: Document 09/30/18 16:45 DCW (Rec: 09/30/18 17:26 DCW [id number]) Hot Pack/Cold Pack Treatment Cold Pack Location Left knee Patient Position Hooklying Treatment Duration (minutes) 10 Patient Tolerance Good PT-OP-T Assessment and Plan Start: 09/16/18 17:41 Freq: Status: Active Protocol: Document 10/09/18 12:00 DCW (Rec: 10/09/18 12:36 DCW [id number]) Physical Therapy Assessment Impairments Impairments Activity Tolerance Functional Activities Gait Pain Strength Goals Four Impairment Increased pain at work due to stairs Short Term Goal (STG) Pt to ascend/descend 3 flights of stairs with no railing without increased pain STG Duration 10/18/18 Three Impairment 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 Pt should be rested by next week following the break. Physical Therapy Plan Frequency and Duration Frequency of Treatment 2x/Week Duration of Treatment 10 weeks Plan of Care Start Date 09/16/18 Plan of Care End Date 11/25/18 Therapeutic Interventions Therapeutic Interventions Aquatic Therapy Balance Training Gait Training Home Exercise Program Joint Mobilizations Manual Therapy Patient/Caregiver Education Self-Care/Home Management Soft Tissue Mobilization Therapeutic Activities Therapeutic Exercises Next Visit Focus/Plan Next Note Type Treatment Note Next Visit Plan Shuttle Balance, Quad strengthening, STM to left calf to decrease tone
--- NOTE | 2018-10-21 17:28 | PT.OTN ---
Current Diagnoses Presence of left artificial knee joint (10/21/18) Physical Therapy Treatment Note PT-OP-A Visit Information Start: 09/16/18 17:41 Freq: Status: Active Protocol: Document 10/21/18 16:45 DCW (Rec: 10/21/18 17:27 DCW [id number]) Out-Patient Physical Therapy Visit Information Visit Information Visit Type Treatment Note Visit Start Time 16:45 Visit Stop Time 17:35 Total Visit Minutes 50 Visit Number 7 Number of COUNTER STITCHER Visits 0 Evaluation Information Evaluation Date 09/16/18 PT-OP-B Current Condition Start: 09/16/18 17:41 Freq: Status: Active Protocol: Document 09/16/18 16:45 DCW (Rec: 09/16/18 17:58 DCW [id number]) Current Condition History of Current Condition Onset Date Worsening over last three years Current Complaints Pain and weakness of L knee 9 years s/p TKA History of Current Condition Pt is a 62 year old male presenting with a three year history of progressive pain in his left anteriolateral knee. Pt notes he had bilateral TKAs six months apart in 2008, but his left knee trouble began in 1977, when he blew out the whole thing,and had a knee reconstruction using tissue harvested from his hamstring. Pt notes he got relief from his TKA for a few years, however for the past three, he has had difficulty with his knee buckling, and it is very painful when walking any distance, even on flat ground, and especially when descending steps. Pt notes he is now always conscious of how I'm walking, and he needs to hold onto the railing when on steps. Prior Treatments and Tests Cortisone shot last month - Per pt, helped for three weeks . Future Testing and Treatments Planned Potential exploratory surgery if conservative treatment does not help. Treatment Goals Patient/Caregiver Goals I want to get my quads stronger, so they're back to where they used to be, so I can keep working, because I'm just not mentally ready to go on disability. Pt also notes he cannot currently stand on boats, or go hiking or hunting , which were all activities he used to enjoy. Prior Functional Status Baseline Function- ADL's Independent Baseline Function- Mobility Independent Current Functional Impairments (Reported) Functional Limitations- Mobility/Gait Pain ascending/descending stairs, requires railing. Knee occasionally chyna Functional Limitations- Recreation/ Unable to stand on boats, Hobbies unable to hike/leyva Personal Factors Other Personal Factors That May Effect Pacemaker, DM II, Hx of cancer Therapy/Recovery , Hx Low back pain, neuropathy PT-OP-C Subjective Start: 09/16/18 17:41 Freq: Status: Active Protocol: Document 10/21/18 16:45 DCW (Rec: 10/21/18 17:27 DCW [id number]) OP-PT Subjective Patient Comments Patient Comments I can tell my legs are getting stronger, and that's the good part, but that doggone knee where it keeps biting me, that's still there. PT-OP-F Manual Assessment Start: 09/16/18 17:41 Freq: Status: Active Protocol: Document 09/16/18 16:45 DCW (Rec: 09/17/18 15:51 DCW [id number]) Manual Assessments Soft Tissue Assessment Soft Tissue Mobility Assessment Moderate tone and palpable tenderness 2/4 - Pain with wincing at medial gastroc Joint Mobility Assessment Joint Mobility Assessment Knee joint stability WNL, complaints of lateral pain with valgus stretch PT-OP-K Range of Motion Start: 09/16/18 17:41 Freq: Status: Active Protocol: Document 09/16/18 16:45 DCW (Rec: 09/17/18 15:51 DCW [id number]) Knee Goniometric Range of Motion Knee Measured in Degrees Right Knee ROM WFL No Patient Position Supine Flexion Active (degrees) 106 Extension Active (degrees) 0 Left Knee ROM WFL No Patient Position Supine Flexion Active (degrees) 102 Extension Active (degrees) 0 PT-OP-L Special Tests Start: 09/16/18 17:41 Freq: Status: Active Protocol: Document 09/16/18 16:45 DCW (Rec: 09/17/18 15:51 DCW [id number]) Special Tests Knee Special Tests Varus- 0 Degrees Test Results Negative Valgus- 0 Degrees Test Results Negative for instability, complaint of lateral pain Posterior Draw Test Results Negative Patellar Grind Test Test Results Negative Ang's Test Results Negative Mariano Test Test Results Negative Anterior Draw Test Results Negative PT-OP-M Strength Start: 09/16/18 17:41 Freq: Status: Active Protocol: Document 09/16/18 16:45 DCW (Rec: 09/17/18 15:51 DCW [id number]) Hip Strength Hip Manual Muscle Testing Right Flexion (L2) 5 Normal Extension (S1) 5 Normal Abduction 5 Normal Adduction 5 Normal External Rotation 4+ Good+ Internal Rotation 5 Normal Left Flexion (L2) 5 Normal Extension (S1) 5 Normal Abduction 5 Normal Adduction 5 Normal External Rotation 5 Normal Internal Rotation 5 Normal Knee Strength Knee Manual Muscle Testing Right Flexion (S2) 5 Normal Extension (L3) 5 Normal Left Flexion (S2) 5 Normal Extension (L3) 3+ Fair+ PT-OP-Q Treatments Start: 09/16/18 17:41 Freq: Status: Active Protocol: Document 10/21/18 16:45 DCW (Rec: 10/21/18 17:27 DCW [id number]) Cardio Equipment Recumbent Bicycle Duration (Minutes) 7 Resistance 8 Seat Position 9 Gym Equipment Shuttle Recovery Unilateral Squats Resistance 100# Shuttle Recovery Platform Stable Bilateral Squats Resistance 175# Shuttle Recovery Platform Stable Therapeutic Ball Reverse Leg Press Exercise Details Hip, knee flexion/extension vs T-band resistance with feet on ball Ball Size/Color Red - 55 cm Body Position Supine Bridging with Hamstring Curls Exercise Details Bridging /c HS curls Ball Size/Color Red - 55 cm Body Position Supine Bridging Exercise Details Bridging /c feet on ball Ball Size/Color Red - 55 cm Body Position Supine Therapeutic Exercises Other Exercises Resisted Forward/Retro Ambulation Other Exercise Name Resisted Fwd/Retro Amb Resistance Green Equipment Used T-band Resisted Side-stepping Other Exercise Name Resisted side-stepping Resistance Green Equipment Used T-band PT-OP-R Modalities Start: 09/16/18 17:41 Freq: Status: Active Protocol: Document 10/21/18 16:45 DCW (Rec: 10/21/18 17:28 DCW [id number]) Hot Pack/Cold Pack Treatment Cold Pack Location Left knee Patient Position Hooklying Treatment Duration (minutes) 10 Patient Tolerance Good PT-OP-T Assessment and Plan Start: 09/16/18 17:41 Freq: Status: Active Protocol: Document 10/21/18 16:45 DCW (Rec: 10/21/18 17:27 DCW [id number]) Physical Therapy Assessment Impairments Impairments Activity Tolerance Functional Activities Gait Pain Strength Goals Four Impairment Increased pain at work due to stairs Short Term Goal (STG) Pt to ascend/descend 3 flights of stairs with no railing without increased pain STG Duration 10/18/18 Three Impairment 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 Halfway Goal (LTG) Pt to tolerate standing on a moving boat for two hours with no increase in pain LTG Duration 11/17/18 Two Impairment Left knee weakness Short Term Goal (STG) Left knee extension MMT to 4/5 STG Duration 10/18/18 Halfway Goal (LTG) Left knee extension MMT to 5/5 LTG Duration 11/17/18 One Impairment Pt does not have an appropriate Home Exercise Program Short Term Goal (STG) Pt to be independent and compliant with an appropriate HEP STG Duration 10/18/18 Assessment Summary Assessment Pt performed much better today vs last visit, decreased fatigue and improved quality of movement. Physical Therapy Plan Frequency and Duration Frequency of Treatment 2x/Week Duration of Treatment 10 weeks Plan of Care Start Date 09/16/18 Plan of Care End Date 11/25/18 Therapeutic Interventions Therapeutic Interventions Aquatic Therapy Balance Training Gait Training Home Exercise Program Joint Mobilizations Manual Therapy Patient/Caregiver Education Self-Care/Home Management Soft Tissue Mobilization Therapeutic Activities Therapeutic Exercises Next Visit Focus/Plan Next Note Type Treatment Note Next Visit Plan Shuttle Balance, Quad strengthening, STM to left calf to decrease tone
--- NOTE | 2018-10-23 17:28 | PT.OTN ---
Current Diagnoses Presence of left artificial knee joint (10/23/18) Physical Therapy Treatment Note PT-OP-A Visit Information Start: 09/16/18 17:41 Freq: Status: Active Protocol: Document 10/23/18 16:45 DCW (Rec: 10/23/18 17:28 DCW [id number]) Out-Patient Physical Therapy Visit Information Visit Information Visit Type Treatment Note Visit Start Time 16:45 Visit Stop Time 17:35 Total Visit Minutes 50 Visit Number 8 Number of TELEVISION ENGINEER Visits 0 Evaluation Information Evaluation Date 09/16/18 PT-OP-B Current Condition Start: 09/16/18 17:41 Freq: Status: Active Protocol: Document 09/16/18 16:45 DCW (Rec: 09/16/18 17:58 DCW [id number]) Current Condition History of Current Condition Onset Date Worsening over last three years Current Complaints Pain and weakness of L knee 9 years s/p TKA History of Current Condition Pt is a 62 year old male presenting with a three year history of progressive pain in his left anteriolateral knee. Pt notes he had bilateral TKAs six months apart in 2008, but his left knee trouble began in 1977, when he blew out the whole thing,and had a knee reconstruction using tissue harvested from his hamstring. Pt notes he got relief from his TKA for a few years, however for the past three, he has had difficulty with his knee buckling, and it is very painful when walking any distance, even on flat ground, and especially when descending steps. Pt notes he is now always conscious of how I'm walking, and he needs to hold onto the railing when on steps. Prior Treatments and Tests Cortisone shot last month - Per pt, helped for three weeks . Future Testing and Treatments Planned Potential exploratory surgery if conservative treatment does not help. Treatment Goals Patient/Caregiver Goals I want to get my quads stronger, so they're back to where they used to be, so I can keep working, because I'm just not mentally ready to go on disability. Pt also notes he cannot currently stand on boats, or go hiking or hunting , which were all activities he used to enjoy. Prior Functional Status Baseline Function- ADL's Independent Baseline Function- Mobility Independent Current Functional Impairments (Reported) Functional Limitations- Mobility/Gait Pain ascending/descending stairs, requires railing. Knee occasionally chyna Functional Limitations- Recreation/ Unable to stand on boats, Hobbies unable to hike/leyva Personal Factors Other Personal Factors That May Effect Pacemaker, DM II, Hx of cancer Therapy/Recovery , Hx Low back pain, neuropathy PT-OP-C Subjective Start: 09/16/18 17:41 Freq: Status: Active Protocol: Document 10/23/18 16:45 DCW (Rec: 10/23/18 17:28 DCW [id number]) OP-PT Subjective Patient Comments Patient Comments Pt feels his knee is improving overall, will still experience occasional instances of sharp biting pain. PT-OP-F Manual Assessment Start: 09/16/18 17:41 Freq: Status: Active Protocol: Document 09/16/18 16:45 DCW (Rec: 09/17/18 15:51 DCW [id number]) Manual Assessments Soft Tissue Assessment Soft Tissue Mobility Assessment Moderate tone and palpable tenderness 2/4 - Pain with wincing at medial gastroc Joint Mobility Assessment Joint Mobility Assessment Knee joint stability WNL, complaints of lateral pain with valgus stretch PT-OP-K Range of Motion Start: 09/16/18 17:41 Freq: Status: Active Protocol: Document 09/16/18 16:45 DCW (Rec: 09/17/18 15:51 DCW [id number]) Knee Goniometric Range of Motion Knee Measured in Degrees Right Knee ROM WFL No Patient Position Supine Flexion Active (degrees) 106 Extension Active (degrees) 0 Left Knee ROM WFL No Patient Position Supine Flexion Active (degrees) 102 Extension Active (degrees) 0 PT-OP-L Special Tests Start: 09/16/18 17:41 Freq: Status: Active Protocol: Document 09/16/18 16:45 DCW (Rec: 09/17/18 15:51 DCW [id number]) Special Tests Knee Special Tests Varus- 0 Degrees Test Results Negative Valgus- 0 Degrees Test Results Negative for instability, complaint of lateral pain Posterior Draw Test Results Negative Patellar Grind Test Test Results Negative Ang's Test Results Negative Mariano Test Test Results Negative Anterior Draw Test Results Negative PT-OP-M Strength Start: 09/16/18 17:41 Freq: Status: Active Protocol: Document 09/16/18 16:45 DCW (Rec: 09/17/18 15:51 DCW [id number]) Hip Strength Hip Manual Muscle Testing Right Flexion (L2) 5 Normal Extension (S1) 5 Normal Abduction 5 Normal Adduction 5 Normal External Rotation 4+ Good+ Internal Rotation 5 Normal Left Flexion (L2) 5 Normal Extension (S1) 5 Normal Abduction 5 Normal Adduction 5 Normal External Rotation 5 Normal Internal Rotation 5 Normal Knee Strength Knee Manual Muscle Testing Right Flexion (S2) 5 Normal Extension (L3) 5 Normal Left Flexion (S2) 5 Normal Extension (L3) 3+ Fair+ PT-OP-Q Treatments Start: 09/16/18 17:41 Freq: Status: Active Protocol: Document 10/23/18 16:45 DCW (Rec: 10/23/18 17:28 DCW [id number]) Cardio Equipment Recumbent Bicycle Duration (Minutes) 7 Resistance 8 Seat Position 9 Gym Equipment Shuttle Recovery Unilateral Squats Resistance 100# Shuttle Recovery Platform Stable Bilateral Squats Resistance 187# Shuttle Recovery Platform Stable Shuttle Balance Red Details Wide JOSÉ LUIS (EO/EC), Staggered Stance, Lateral Weight Shift Therapeutic Ball Bridging with Hamstring Curls Exercise Details Bridging /c HS curls Ball Size/Color Red - 55 cm Body Position Supine Bridging Exercise Details Bridging /c feet on ball Ball Size/Color Red - 55 cm Body Position Supine Therapeutic Exercises Other Exercises Resisted Forward/Retro Ambulation Other Exercise Name Resisted Fwd/Retro Amb Resistance Green Equipment Used T-band Resisted Side-stepping Other Exercise Name Resisted side-stepping Resistance Green Equipment Used T-band PT-OP-R Modalities Start: 09/16/18 17:41 Freq: Status: Active Protocol: Document 10/23/18 16:45 DCW (Rec: 10/23/18 17:28 DCW [id number]) Hot Pack/Cold Pack Treatment Cold Pack Location Left knee Patient Position Hooklying Treatment Duration (minutes) 10 Patient Tolerance Good PT-OP-T Assessment and Plan Start: 09/16/18 17:41 Freq: Status: Active Protocol: Document 10/23/18 16:45 DCW (Rec: 10/23/18 17:28 DCW [id number]) Physical Therapy Assessment Impairments Impairments Activity Tolerance Functional Activities Gait Pain Strength Goals Four Impairment Increased pain at work due to stairs Short Term Goal (STG) Pt to ascend/descend 3 flights of stairs with no railing without increased pain STG Duration 10/18/18 Three Impairment 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 Net Development Manager Goal (LTG) Pt to tolerate standing on a moving boat for two hours with no increase in pain LTG Duration 11/17/18 Two Impairment Left knee weakness Short Term Goal (STG) Left knee extension MMT to 4/5 STG Duration 10/18/18 Half-Way Goal (LTG) Left knee extension MMT to 5/5 LTG Duration 11/17/18 One Impairment Pt does not have an appropriate Home Exercise Program Short Term Goal (STG) Pt to be independent and compliant with an appropriate HEP STG Duration 10/18/18 Assessment Summary Assessment Pt has progressed well so far, decreased frequency of sharp pain and improvement with increased resistance. Physical Therapy Plan Frequency and Duration Frequency of Treatment 2x/Week Duration of Treatment 10 weeks Plan of Care Start Date 09/16/18 Plan of Care End Date 11/25/18 Therapeutic Interventions Therapeutic Interventions Aquatic Therapy Balance Training Gait Training Home Exercise Program Joint Mobilizations Manual Therapy Patient/Caregiver Education Self-Care/Home Management Soft Tissue Mobilization Therapeutic Activities Therapeutic Exercises Next Visit Focus/Plan Next Note Type Treatment Note Next Visit Plan Shuttle Balance, Quad strengthening, STM to left calf to decrease tone
--- NOTE | 2018-10-30 17:24 | PT.OTN ---
Current Diagnoses Presence of left artificial knee joint (10/30/18) Physical Therapy Treatment Note PT-OP-A Visit Information Start: 09/16/18 17:41 Freq: Status: Active Protocol: Document 10/30/18 16:45 DCW (Rec: 10/30/18 17:24 DCW [id number]) Out-Patient Physical Therapy Visit Information Visit Information Visit Type Treatment Note Visit Start Time 16:45 Visit Stop Time 17:35 Total Visit Minutes 50 Visit Number 9 Number of MOBILE UNIT ASSISTANT Visits 0 Evaluation Information Evaluation Date 09/16/18 PT-OP-B Current Condition Start: 09/16/18 17:41 Freq: Status: Active Protocol: Document 09/16/18 16:45 DCW (Rec: 09/16/18 17:58 DCW [id number]) Current Condition History of Current Condition Onset Date Worsening over last three years Current Complaints Pain and weakness of L knee 9 years s/p TKA History of Current Condition Pt is a 62 year old male presenting with a three year history of progressive pain in his left anteriolateral knee. Pt notes he had bilateral TKAs six months apart in 2008, but his left knee trouble began in 1977, when he blew out the whole thing,and had a knee reconstruction using tissue harvested from his hamstring. Pt notes he got relief from his TKA for a few years, however for the past three, he has had difficulty with his knee buckling, and it is very painful when walking any distance, even on flat ground, and especially when descending steps. Pt notes he is now always conscious of how I'm walking, and he needs to hold onto the railing when on steps. Prior Treatments and Tests Cortisone shot last month - Per pt, helped for three weeks . Future Testing and Treatments Planned Potential exploratory surgery if conservative treatment does not help. Treatment Goals Patient/Caregiver Goals I want to get my quads stronger, so they're back to where they used to be, so I can keep working, because I'm just not mentally ready to go on disability. Pt also notes he cannot currently stand on boats, or go hiking or hunting , which were all activities he used to enjoy. Prior Functional Status Baseline Function- ADL's Independent Baseline Function- Mobility Independent Current Functional Impairments (Reported) Functional Limitations- Mobility/Gait Pain ascending/descending stairs, requires railing. Knee occasionally chyna Functional Limitations- Recreation/ Unable to stand on boats, Hobbies unable to hike/leyva Personal Factors Other Personal Factors That May Effect Pacemaker, DM II, Hx of cancer Therapy/Recovery , Hx Low back pain, neuropathy PT-OP-C Subjective Start: 09/16/18 17:41 Freq: Status: Active Protocol: Document 10/30/18 16:45 DCW (Rec: 10/30/18 17:24 DCW [id number]) OP-PT Subjective Patient Comments Patient Comments Pt reports he has had a little setback after going up and down a lot of stairs at work recently. PT-OP-F Manual Assessment Start: 09/16/18 17:41 Freq: Status: Active Protocol: Document 09/16/18 16:45 DCW (Rec: 09/17/18 15:51 DCW [id number]) Manual Assessments Soft Tissue Assessment Soft Tissue Mobility Assessment Moderate tone and palpable tenderness 2/4 - Pain with wincing at medial gastroc Joint Mobility Assessment Joint Mobility Assessment Knee joint stability WNL, complaints of lateral pain with valgus stretch PT-OP-K Range of Motion Start: 09/16/18 17:41 Freq: Status: Active Protocol: Document 09/16/18 16:45 DCW (Rec: 09/17/18 15:51 DCW [id number]) Knee Goniometric Range of Motion Knee Measured in Degrees Right Knee ROM WFL No Patient Position Supine Flexion Active (degrees) 106 Extension Active (degrees) 0 Left Knee ROM WFL No Patient Position Supine Flexion Active (degrees) 102 Extension Active (degrees) 0 PT-OP-L Special Tests Start: 09/16/18 17:41 Freq: Status: Active Protocol: Document 09/16/18 16:45 DCW (Rec: 09/17/18 15:51 DCW [id number]) Special Tests Knee Special Tests Varus- 0 Degrees Test Results Negative Valgus- 0 Degrees Test Results Negative for instability, complaint of lateral pain Posterior Draw Test Results Negative Patellar Grind Test Test Results Negative Ang's Test Results Negative Mariano Test Test Results Negative Anterior Draw Test Results Negative PT-OP-M Strength Start: 09/16/18 17:41 Freq: Status: Active Protocol: Document 09/16/18 16:45 DCW (Rec: 10/30/18 15:51 DCW [id number]) Hip Strength Hip Manual Muscle Testing Right Flexion (L2) 5 Normal Extension (S1) 5 Normal Abduction 5 Normal Adduction 5 Normal External Rotation 4+ Good+ Internal Rotation 5 Normal Left Flexion (L2) 5 Normal Extension (S1) 5 Normal Abduction 5 Normal Adduction 5 Normal External Rotation 5 Normal Internal Rotation 5 Normal Knee Strength Knee Manual Muscle Testing Right Flexion (S2) 5 Normal Extension (L3) 5 Normal Left Flexion (S2) 5 Normal Extension (L3) 3+ Fair+ PT-OP-Q Treatments Start: 09/16/18 17:41 Freq: Status: Active Protocol: Document 10/30/18 16:45 DCW (Rec: 10/30/18 17:24 DCW [id number]) Cardio Equipment Recumbent Bicycle Duration (Minutes) 7 Resistance 8 Seat Position 9 Gym Equipment Shuttle Recovery Unilateral Squats Resistance 100# Shuttle Recovery Platform Stable Bilateral Squats Resistance 187# Shuttle Recovery Platform Stable Shuttle Balance Red Details Wide JOSÉ LUIS (EO/EC), Staggered Stance, Lateral Weight Shift Therapeutic Ball Reverse Leg Press Exercise Details Hip, knee flexion/extension vs T-band resistance with feet on ball Ball Size/Color Red - 55 cm Body Position Supine Bridging with Hamstring Curls Exercise Details Bridging /c HS curls Ball Size/Color Red - 55 cm Body Position Supine Bridging Exercise Details Bridging /c feet on ball Ball Size/Color Red - 55 cm Body Position Supine Therapeutic Exercises Other Exercises Resisted Forward/Retro Ambulation Other Exercise Name Resisted Fwd/Retro Amb Resistance Green Equipment Used T-band Resisted Side-stepping Other Exercise Name Resisted side-stepping Resistance Green Equipment Used T-band Comments /c mini squat PT-OP-R Modalities Start: 09/16/18 17:41 Freq: Status: Active Protocol: Document 10/30/18 16:45 DCW (Rec: 10/30/18 17:24 DCW [id number]) Hot Pack/Cold Pack Treatment Cold Pack Location Left knee Patient Position Hooklying Treatment Duration (minutes) 10 Patient Tolerance Good PT-OP-T Assessment and Plan Start: 09/16/18 17:41 Freq: Status: Active Protocol: Document 10/30/18 16:45 DCW (Rec: 10/30/18 17:24 DCW [id number]) Physical Therapy Assessment Impairments Impairments Activity Tolerance Functional Activities Gait Pain Strength Goals Four Impairment Increased pain at work due to stairs Short Term Goal (STG) Pt to ascend/descend 3 flights of stairs with no railing without increased pain STG Duration 10/18/18 Three Impairment 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 Correction Goal (LTG) Pt to tolerate standing on a moving boat for two hours with no increase in pain LTG Duration 11/17/18 Two Impairment Left knee weakness Short Term Goal (STG) Left knee extension MMT to 4/5 STG Duration 10/18/18 Correction Goal (LTG) Left knee extension MMT to 5/5 LTG Duration 11/17/18 One Impairment Pt does not have an appropriate Home Exercise Program Short Term Goal (STG) Pt to be independent and compliant with an appropriate HEP STG Duration 10/18/18 Assessment Summary Assessment Pt did have mild increase in complaints of a sharp, biting pain in his knee today, but was able to perform all activities Physical Therapy Plan Frequency and Duration Frequency of Treatment 2x/Week Duration of Treatment 10 weeks Plan of Care Start Date 09/16/18 Plan of Care End Date 11/25/18 Therapeutic Interventions Therapeutic Interventions Aquatic Therapy Balance Training Gait Training Home Exercise Program Joint Mobilizations Manual Therapy Patient/Caregiver Education Self-Care/Home Management Soft Tissue Mobilization Therapeutic Activities Therapeutic Exercises Next Visit Focus/Plan Next Note Type Treatment Note Next Visit Plan Shuttle Balance, Quad strengthening, STM to left calf to decrease tone
--- NOTE | 2018-11-05 17:28 | PT.OTN ---
Current Diagnoses Presence of left artificial knee joint (11/05/18) Physical Therapy Treatment Note PT-OP-A Visit Information Start: 09/16/18 17:41 Freq: Status: Active Protocol: Document 11/05/18 16:45 DCW (Rec: 11/05/18 17:28 DCW [id number]) Out-Patient Physical Therapy Visit Information Visit Information Visit Type Treatment Note Visit Start Time 16:45 Visit Stop Time 17:35 Total Visit Minutes 50 Visit Number 10 Number of DOLLYMAN Visits 0 Evaluation Information Evaluation Date 09/16/18 PT-OP-B Current Condition Start: 09/16/18 17:41 Freq: Status: Active Protocol: Document 09/16/18 16:45 DCW (Rec: 09/16/18 17:58 DCW [id number]) Current Condition History of Current Condition Onset Date Worsening over last three years Current Complaints Pain and weakness of L knee 9 years s/p TKA History of Current Condition Pt is a 62 year old male presenting with a three year history of progressive pain in his left anteriolateral knee. Pt notes he had bilateral TKAs six months apart in 2008, but his left knee trouble began in 1977, when he blew out the whole thing,and had a knee reconstruction using tissue harvested from his hamstring. Pt notes he got relief from his TKA for a few years, however for the past three, he has had difficulty with his knee buckling, and it is very painful when walking any distance, even on flat ground, and especially when descending steps. Pt notes he is now always conscious of how I'm walking, and he needs to hold onto the railing when on steps. Prior Treatments and Tests Cortisone shot last month - Per pt, helped for three weeks . Future Testing and Treatments Planned Potential exploratory surgery if conservative treatment does not help. Treatment Goals Patient/Caregiver Goals I want to get my quads stronger, so they're back to where they used to be, so I can keep working, because I'm just not mentally ready to go on disability. Pt also notes he cannot currently stand on boats, or go hiking or hunting , which were all activities he used to enjoy. Prior Functional Status Baseline Function- ADL's Independent Baseline Function- Mobility Independent Current Functional Impairments (Reported) Functional Limitations- Mobility/Gait Pain ascending/descending stairs, requires railing. Knee occasionally chyna Functional Limitations- Recreation/ Unable to stand on boats, Hobbies unable to hike/leyva Personal Factors Other Personal Factors That May Effect Pacemaker, DM II, Hx of cancer Therapy/Recovery , Hx Low back pain, neuropathy PT-OP-C Subjective Start: 09/16/18 17:41 Freq: Status: Active Protocol: Document 11/05/18 16:45 DCW (Rec: 11/05/18 17:28 DCW [id number]) OP-PT Subjective Patient Comments Patient Comments Pt reports he has had a little biting in his knee going downstairs, but feels good today since he didn't need to go to work. Does admit he feels a little weak today for some reason. PT-OP-F Manual Assessment Start: 09/16/18 17:41 Freq: Status: Active Protocol: Document 09/16/18 16:45 DCW (Rec: 09/17/18 15:51 DCW [id number]) Manual Assessments Soft Tissue Assessment Soft Tissue Mobility Assessment Moderate tone and palpable tenderness 2/4 - Pain with wincing at medial gastroc Joint Mobility Assessment Joint Mobility Assessment Knee joint stability WNL, complaints of lateral pain with valgus stretch PT-OP-K Range of Motion Start: 09/16/18 17:41 Freq: Status: Active Protocol: Document 09/16/18 16:45 DCW (Rec: 09/17/18 15:51 DCW [id number]) Knee Goniometric Range of Motion Knee Measured in Degrees Right Knee ROM WFL No Patient Position Supine Flexion Active (degrees) 106 Extension Active (degrees) 0 Left Knee ROM WFL No Patient Position Supine Flexion Active (degrees) 102 Extension Active (degrees) 0 PT-OP-L Special Tests Start: 09/16/18 17:41 Freq: Status: Active Protocol: Document 09/16/18 16:45 DCW (Rec: 09/17/18 15:51 DCW [id number]) Special Tests Knee Special Tests Varus- 0 Degrees Test Results Negative Valgus- 0 Degrees Test Results Negative for instability, complaint of lateral pain Posterior Draw Test Results Negative Patellar Grind Test Test Results Negative Ang's Test Results Negative Mariano Test Test Results Negative Anterior Draw Test Results Negative PT-OP-M Strength Start: 09/16/18 17:41 Freq: Status: Active Protocol: Document 09/16/18 16:45 DCW (Rec: 09/17/18 15:51 DCW [id number]) Hip Strength Hip Manual Muscle Testing Right Flexion (L2) 5 Normal Extension (S1) 5 Normal Abduction 5 Normal Adduction 5 Normal External Rotation 4+ Good+ Internal Rotation 5 Normal Left Flexion (L2) 5 Normal Extension (S1) 5 Normal Abduction 5 Normal Adduction 5 Normal External Rotation 5 Normal Internal Rotation 5 Normal Knee Strength Knee Manual Muscle Testing Right Flexion (S2) 5 Normal Extension (L3) 5 Normal Left Flexion (S2) 5 Normal Extension (L3) 3+ Fair+ PT-OP-Q Treatments Start: 09/16/18 17:41 Freq: Status: Active Protocol: Document 11/05/18 16:45 DCW (Rec: 11/05/18 17:28 DCW [id number]) Cardio Equipment Recumbent Bicycle Duration (Minutes) 7 Resistance 9 Seat Position 8 Gym Equipment Shuttle Recovery Unilateral Squats Resistance 100# Shuttle Recovery Platform Stable Bilateral Squats Resistance 187# Shuttle Recovery Platform Stable Shuttle Balance Red Details Wide JOSÉ LUIS (EO/EC), Staggered Stance, Lateral Weight Shift Therapeutic Ball Bridging with Hamstring Curls Exercise Details Bridging /c HS curls Ball Size/Color Red - 55 cm Body Position Supine Therapeutic Exercises Standing Exercises Lunges Standing Exercise Name Lunges Side bilateral Comments stopped d/t knee pain Other Exercises Resisted Forward/Retro Ambulation Other Exercise Name Resisted Fwd/Retro Amb Resistance Green Equipment Used T-band Resisted Side-stepping Other Exercise Name Resisted side-stepping Resistance Green Equipment Used T-band Comments /c mini squat PT-OP-R Modalities Start: 09/16/18 17:41 Freq: Status: Active Protocol: Document 11/05/18 16:45 DCW (Rec: 11/05/18 17:28 DCW [id number]) Hot Pack/Cold Pack Treatment Cold Pack Location Left knee Patient Position Hooklying Treatment Duration (minutes) 10 Patient Tolerance Good PT-OP-T Assessment and Plan Start: 09/16/18 17:41 Freq: Status: Active Protocol: Document 11/05/18 16:45 DCW (Rec: 11/05/18 17:28 DCW [id number]) Physical Therapy Assessment Impairments Impairments Activity Tolerance Functional Activities Gait Pain Strength Goals Four Impairment Increased pain at work due to stairs Short Term Goal (STG) Pt to ascend/descend 3 flights of stairs with no railing without increased pain STG Duration 10/18/18 Three Impairment 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 Care Home Goal (LTG) Pt to tolerate standing on a moving boat for two hours with no increase in pain LTG Duration 11/17/18 Two Impairment Left knee weakness Short Term Goal (STG) Left knee extension MMT to 4/5 STG Duration 10/18/18 Interpretive Naturalist Goal (LTG) Left knee extension MMT to 5/5 LTG Duration 11/17/18 One Impairment Pt does not have an appropriate Home Exercise Program Short Term Goal (STG) Pt to be independent and compliant with an appropriate HEP STG Duration 10/18/18 Assessment Summary Assessment Pt had no decrease in his ability during today's session despite complaints of feeling weak today. Physical Therapy Plan Frequency and Duration Frequency of Treatment 2x/Week Duration of Treatment 10 weeks Plan of Care Start Date 09/16/18 Plan of Care End Date 11/25/18 Therapeutic Interventions Therapeutic Interventions Aquatic Therapy Balance Training Gait Training Home Exercise Program Joint Mobilizations Manual Therapy Patient/Caregiver Education Self-Care/Home Management Soft Tissue Mobilization Therapeutic Activities Therapeutic Exercises Next Visit Focus/Plan Next Note Type Treatment Note Next Visit Plan Shuttle Balance, Quad strengthening, STM to left calf to decrease tone
--- NOTE | 2018-11-13 17:30 | PT.OTN ---
Current Diagnoses Presence of left artificial knee joint (11/13/18) Physical Therapy Treatment Note PT-OP-A Visit Information Start: 09/16/18 17:41 Freq: Status: Active Protocol: Document 11/13/18 16:45 DCW (Rec: 11/13/18 17:30 DCW [id number]) Out-Patient Physical Therapy Visit Information Visit Information Visit Type Treatment Note Visit Start Time 16:45 Visit Stop Time 17:35 Total Visit Minutes 50 Visit Number 11 Number of YARD LABOR SUPERVISOR Visits 0 Evaluation Information Evaluation Date 09/16/18 PT-OP-B Current Condition Start: 09/16/18 17:41 Freq: Status: Active Protocol: Document 09/16/18 16:45 DCW (Rec: 09/16/18 17:58 DCW [id number]) Current Condition History of Current Condition Onset Date Worsening over last three years Current Complaints Pain and weakness of L knee 9 years s/p TKA History of Current Condition Pt is a 62 year old male presenting with a three year history of progressive pain in his left anteriolateral knee. Pt notes he had bilateral TKAs six months apart in 2008, but his left knee trouble began in 1977, when he blew out the whole thing,and had a knee reconstruction using tissue harvested from his hamstring. Pt notes he got relief from his TKA for a few years, however for the past three, he has had difficulty with his knee buckling, and it is very painful when walking any distance, even on flat ground, and especially when descending steps. Pt notes he is now always conscious of how I'm walking, and he needs to hold onto the railing when on steps. Prior Treatments and Tests Cortisone shot last month - Per pt, helped for three weeks . Future Testing and Treatments Planned Potential exploratory surgery if conservative treatment does not help. Treatment Goals Patient/Caregiver Goals I want to get my quads stronger, so they're back to where they used to be, so I can keep working, because I'm just not mentally ready to go on disability. Pt also notes he cannot currently stand on boats, or go hiking or hunting , which were all activities he used to enjoy. Prior Functional Status Baseline Function- ADL's Independent Baseline Function- Mobility Independent Current Functional Impairments (Reported) Functional Limitations- Mobility/Gait Pain ascending/descending stairs, requires railing. Knee occasionally chyna Functional Limitations- Recreation/ Unable to stand on boats, Hobbies unable to hike/elyva Personal Factors Other Personal Factors That May Effect Pacemaker, DM II, Hx of cancer Therapy/Recovery , Hx Low back pain, neuropathy PT-OP-C Subjective Start: 09/16/18 17:41 Freq: Status: Active Protocol: Document 11/13/18 16:45 DCW (Rec: 11/13/18 17:30 DCW [id number]) OP-PT Subjective Patient Comments Patient Comments Pt reports his knee is feeling really well at the moment. PT-OP-F Manual Assessment Start: 09/16/18 17:41 Freq: Status: Active Protocol: Document 09/16/18 16:45 DCW (Rec: 09/17/18 15:51 DCW [id number]) Manual Assessments Soft Tissue Assessment Soft Tissue Mobility Assessment Moderate tone and palpable tenderness 2/4 - Pain with wincing at medial gastroc Joint Mobility Assessment Joint Mobility Assessment Knee joint stability WNL, complaints of lateral pain with valgus stretch PT-OP-K Range of Motion Start: 09/16/18 17:41 Freq: Status: Active Protocol: Document 09/16/18 16:45 DCW (Rec: 09/17/18 15:51 DCW [id number]) Knee Goniometric Range of Motion Knee Measured in Degrees Right Knee ROM WFL No Patient Position Supine Flexion Active (degrees) 106 Extension Active (degrees) 0 Left Knee ROM WFL No Patient Position Supine Flexion Active (degrees) 102 Extension Active (degrees) 0 PT-OP-L Special Tests Start: 09/16/18 17:41 Freq: Status: Active Protocol: Document 09/16/18 16:45 DCW (Rec: 09/17/18 15:51 DCW [id number]) Special Tests Knee Special Tests Varus- 0 Degrees Test Results Negative Valgus- 0 Degrees Test Results Negative for instability, complaint of lateral pain Posterior Draw Test Results Negative Patellar Grind Test Test Results Negative Ang's Test Results Negative Mariano Test Test Results Negative Anterior Draw Test Results Negative PT-OP-M Strength Start: 09/16/18 17:41 Freq: Status: Active Protocol: Document 09/16/18 16:45 DCW (Rec: 09/17/18 15:51 DCW [id number]) Hip Strength Hip Manual Muscle Testing Right Flexion (L2) 5 Normal Extension (S1) 5 Normal Abduction 5 Normal Adduction 5 Normal External Rotation 4+ Good+ Internal Rotation 5 Normal Left Flexion (L2) 5 Normal Extension (S1) 5 Normal Abduction 5 Normal Adduction 5 Normal External Rotation 5 Normal Internal Rotation 5 Normal Knee Strength Knee Manual Muscle Testing Right Flexion (S2) 5 Normal Extension (L3) 5 Normal Left Flexion (S2) 5 Normal Extension (L3) 3+ Fair+ PT-OP-Q Treatments Start: 09/16/18 17:41 Freq: Status: Active Protocol: Document 11/13/18 16:45 DCW (Rec: 11/13/18 17:30 DCW [id number]) Cardio Equipment Recumbent Bicycle Duration (Minutes) 7 Resistance 9 Seat Position 10 Gym Equipment Shuttle Recovery Unilateral Squats Resistance 100# Shuttle Recovery Platform Stable Bilateral Squats Resistance 187# Shuttle Recovery Platform Stable Shuttle Balance Red Details Wide JOSÉ LUIS (EO/EC), Staggered Stance, Lateral Weight Shift Therapeutic Ball Bridging with Hamstring Curls Exercise Details Bridging /c HS curls Ball Size/Color Red - 55 cm Body Position Supine Therapeutic Exercises Other Exercises Resisted Forward/Retro Ambulation Other Exercise Name Resisted Fwd/Retro Amb Resistance Green Equipment Used T-band Resisted Side-stepping Other Exercise Name Resisted side-stepping Resistance Green Equipment Used T-band Comments /c mini squat PT-OP-R Modalities Start: 09/16/18 17:41 Freq: Status: Active Protocol: Document 11/13/18 16:45 DCW (Rec: 11/13/18 17:30 DCW [id number]) Hot Pack/Cold Pack Treatment Cold Pack Location Left knee Patient Position Hooklying Treatment Duration (minutes) 10 Patient Tolerance Good PT-OP-T Assessment and Plan Start: 09/16/18 17:41 Freq: Status: Active Protocol: Document 11/13/18 16:45 DCW (Rec: 11/13/18 17:30 DCW [id number]) Physical Therapy Assessment Impairments Impairments Activity Tolerance Functional Activities Gait Pain Strength Goals Four Impairment Increased pain at work due to stairs Short Term Goal (STG) Pt to ascend/descend 3 flights of stairs with no railing without increased pain STG Duration 10/18/18 Three Impairment 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 Snf Goal (LTG) Pt to tolerate standing on a moving boat for two hours with no increase in pain LTG Duration 11/17/18 Two Impairment Left knee weakness Short Term Goal (STG) Left knee extension MMT to 4/5 STG Duration 10/18/18 Underbaster Goal (LTG) Left knee extension MMT to 5/5 LTG Duration 11/17/18 One Impairment Pt does not have an appropriate Home Exercise Program Short Term Goal (STG) Pt to be independent and compliant with an appropriate HEP STG Duration 10/18/18 Assessment Summary Assessment Pt experiencing decreased frequency of knee pain and giving out, and notes he has an easier time walking along the beach with his . Physical Therapy Plan Frequency and Duration Frequency of Treatment 2x/Week Duration of Treatment 10 weeks Plan of Care Start Date 09/16/18 Plan of Care End Date 11/25/18 Therapeutic Interventions Therapeutic Interventions Aquatic Therapy Balance Training Gait Training Home Exercise Program Joint Mobilizations Manual Therapy Patient/Caregiver Education Self-Care/Home Management Soft Tissue Mobilization Therapeutic Activities Therapeutic Exercises Next Visit Focus/Plan Next Note Type Treatment Note Next Visit Plan Shuttle Balance, Quad strengthening, STM to left calf to decrease tone
--- NOTE | 2018-11-27 17:28 | PT.OTN ---
Current Diagnoses Presence of left artificial knee joint (11/27/18) Physical Therapy Treatment Note PT-OP-A Visit Information Start: 09/16/18 17:41 Freq: Status: Active Protocol: Document 11/27/18 16:40 DCW (Rec: 11/27/18 17:26 DCW [id number]) Out-Patient Physical Therapy Visit Information Visit Information Visit Type Treatment Note Visit Start Time 16:40 Visit Stop Time 17:30 Total Visit Minutes 50 Visit Number 12 Number of JEWEL FLAT SURFACER Visits 0 Evaluation Information Evaluation Date 09/16/18 PT-OP-B Current Condition Start: 09/16/18 17:41 Freq: Status: Active Protocol: Document 09/16/18 16:45 DCW (Rec: 09/16/18 17:58 DCW [id number]) Current Condition History of Current Condition Onset Date Worsening over last three years Current Complaints Pain and weakness of L knee 9 years s/p TKA History of Current Condition Pt is a 62 year old male presenting with a three year history of progressive pain in his left anteriolateral knee. Pt notes he had bilateral TKAs six months apart in 2008, but his left knee trouble began in 1977, when he blew out the whole thing,and had a knee reconstruction using tissue harvested from his hamstring. Pt notes he got relief from his TKA for a few years, however for the past three, he has had difficulty with his knee buckling, and it is very painful when walking any distance, even on flat ground, and especially when descending steps. Pt notes he is now always conscious of how I'm walking, and he needs to hold onto the railing when on steps. Prior Treatments and Tests Cortisone shot last month - Per pt, helped for three weeks . Future Testing and Treatments Planned Potential exploratory surgery if conservative treatment does not help. Treatment Goals Patient/Caregiver Goals I want to get my quads stronger, so they're back to where they used to be, so I can keep working, because I'm just not mentally ready to go on disability. Pt also notes he cannot currently stand on boats, or go hiking or hunting , which were all activities he used to enjoy. Prior Functional Status Baseline Function- ADL's Independent Baseline Function- Mobility Independent Current Functional Impairments (Reported) Functional Limitations- Mobility/Gait Pain ascending/descending stairs, requires railing. Knee occasionally chyna Functional Limitations- Recreation/ Unable to stand on boats, Hobbies unable to hike/leyva Personal Factors Other Personal Factors That May Effect Pacemaker, DM II, Hx of cancer Therapy/Recovery , Hx Low back pain, neuropathy PT-OP-C Subjective Start: 09/16/18 17:41 Freq: Status: Active Protocol: Document 11/27/18 16:40 DCW (Rec: 11/27/18 17:26 DCW [id number]) OP-PT Subjective Patient Comments Patient Comments Pt reports his knee is doing well, despite being sick the past week and needing to cancel his PT appointments. PT-OP-F Manual Assessment Start: 09/16/18 17:41 Freq: Status: Active Protocol: Document 11/27/18 16:40 DCW (Rec: 11/27/18 17:27 DCW [id number]) Manual Assessments Soft Tissue Assessment Soft Tissue Mobility Assessment Moderate tone and palpable tenderness 1/4 - Complaint of pain at medial gastroc Joint Mobility Assessment Joint Mobility Assessment Knee joint stability WNL PT-OP-K Range of Motion Start: 09/16/18 17:41 Freq: Status: Active Protocol: Document 11/27/18 16:40 DCW (Rec: 11/27/18 17:27 DCW [id number]) Knee Goniometric Range of Motion Knee Measured in Degrees Right Knee ROM WFL No Patient Position Supine Flexion Active (degrees) 106 Extension Active (degrees) 0 Left Knee ROM WFL No Patient Position Supine Flexion Active (degrees) 116 Extension Active (degrees) 0 PT-OP-L Special Tests Start: 09/16/18 17:41 Freq: Status: Active Protocol: Document 11/27/18 16:40 DCW (Rec: 11/27/18 17:27 DCW [id number]) Special Tests Knee Special Tests Varus- 0 Degrees Test Results Negative Valgus- 0 Degrees Test Results Negative Posterior Draw Test Results Negative Patellar Grind Test Test Results Negative Ang's Test Results Negative Mariano Test Test Results Negative Anterior Draw Test Results Negative PT-OP-M Strength Start: 09/16/18 17:41 Freq: Status: Active Protocol: Document 11/27/18 16:40 DCW (Rec: 11/27/18 17:27 DCW [id number]) Hip Strength Hip Manual Muscle Testing Right Flexion (L2) 5 Normal Extension (S1) 5 Normal Abduction 5 Normal Adduction 5 Normal External Rotation 4+ Good+ Internal Rotation 5 Normal Left Flexion (L2) 5 Normal Extension (S1) 5 Normal Abduction 5 Normal Adduction 5 Normal External Rotation 5 Normal Internal Rotation 5 Normal Knee Strength Knee Manual Muscle Testing Right Flexion (S2) 5 Normal Extension (L3) 5 Normal Left Flexion (S2) 5 Normal Extension (L3) 5 Normal PT-OP-Q Treatments Start: 09/16/18 17:41 Freq: Status: Active Protocol: Document 11/27/18 16:40 DCW (Rec: 11/27/18 17:26 DCW [id number]) Cardio Equipment Recumbent Bicycle Duration (Minutes) 7 Resistance 10 Seat Position 8 Gym Equipment Shuttle Recovery Unilateral Squats Resistance 100# Shuttle Recovery Platform Stable Bilateral Squats Resistance 187# Shuttle Recovery Platform Stable Shuttle Balance Red Details Wide JOSÉ LUIS (EO/EC), Staggered Stance, Lateral Weight Shift Therapeutic Ball Bridging with Hamstring Curls Exercise Details Bridging /c HS curls Ball Size/Color Red - 55 cm Body Position Supine Therapeutic Exercises Other Exercises Resisted Side-stepping Other Exercise Name Resisted side-stepping Resistance Green Equipment Used T-band Comments /c mini squat PT-OP-R Modalities Start: 09/16/18 17:41 Freq: Status: Active Protocol: Document 11/27/18 16:40 DCW (Rec: 11/27/18 17:26 DCW [id number]) Hot Pack/Cold Pack Treatment Cold Pack Location Left knee Patient Position Hooklying Treatment Duration (minutes) 10 Patient Tolerance Good PT-OP-T Assessment and Plan Start: 09/16/18 17:41 Freq: Status: Active Protocol: Document 11/27/18 16:40 DCW (Rec: 11/27/18 17:26 DCW [id number]) Physical Therapy Assessment Impairments Impairments Activity Tolerance Functional Activities Gait Pain Strength Goals Four Impairment Increased pain at work due to stairs Short Term Goal (STG) Pt to ascend/descend 3 flights of stairs with no railing without increased pain STG Duration 12/28/18 - Improving Three Impairment 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 Transition Of Care Specialist Goal (LTG) Pt to tolerate standing on a moving boat for two hours with no increase in pain LTG Duration 01/25/19 - Improving Two Impairment Left knee weakness Short Term Goal (STG) Left knee extension MMT to 4/5 STG Duration Met Transition Of Care Specialist Goal (LTG) Left knee extension MMT to 5/5 LTG Duration Met One Impairment Pt does not have an appropriate Home Exercise Program Short Term Goal (STG) Pt to be independent and compliant with an appropriate HEP STG Duration Met Assessment Summary Assessment Pt improving greatly since initial evaluation, greatly decreased pain and fewer instances of biting. Pt strength has improved, mostly due to improved pain control, and L active flexion improved from 102 to 116 degrees. Physical Therapy Plan Frequency and Duration Frequency of Treatment 2x/Week Duration of Treatment 12 weeks Plan of Care Start Date 11/27/18 Plan of Care End Date 02/19/19 Therapeutic Interventions Therapeutic Interventions Aquatic Therapy Balance Training Gait Training Home Exercise Program Joint Mobilizations Manual Therapy Patient/Caregiver Education Self-Care/Home Management Soft Tissue Mobilization Therapeutic Activities Therapeutic Exercises Next Visit Focus/Plan Next Note Type Treatment Note Next Visit Plan Shuttle Balance, Quad strengthening, STM to left calf to decrease tone
--- NOTE | 2018-11-27 17:28 | PT.OPPOC ---
Current Diagnoses Presence of left artificial knee joint (11/27/18) Provider Visit Care Team Role Provider Type Spenser Dominguez MD Attending Provider Non-Staff Primary Care Provider Specialty: Orthopedics Address: [facility] [address], [place], [address] Email: Plan Of Care PT-OP-T Assessment and Plan Start: 09/16/18 17:41 Freq: Status: Active Protocol: Document 11/27/18 16:40 DCW (Rec: 11/27/18 17:26 DCW [id number]) Physical Therapy Assessment Impairments Impairments Activity Tolerance Functional Activities Gait Pain Strength Goals Four Impairment Increased pain at work due to stairs Short Term Goal (STG) Pt to ascend/descend 3 flights of stairs with no railing without increased pain STG Duration 12/28/18 - Improving Three Impairment 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 Lapping Machine Operator Goal (LTG) Pt to tolerate standing on a moving boat for two hours with no increase in pain LTG Duration 01/25/19 - Improving Two Impairment Left knee weakness Short Term Goal (STG) Left knee extension MMT to 4/5 STG Duration Met Gear Lapping Machine Operator Goal (LTG) Left knee extension MMT to 5/5 LTG Duration Met One Impairment Pt does not have an appropriate Home Exercise Program Short Term Goal (STG) Pt to be independent and compliant with an appropriate HEP STG Duration Met Assessment Summary Assessment Pt improving greatly since initial evaluation, greatly decreased pain and fewer instances of biting. Pt strength has improved, mostly due to improved pain control, and L active flexion improved from 102 to 116 degrees. Physical Therapy Plan Frequency and Duration Frequency of Treatment 2x/Week Duration of Treatment 12 weeks Plan of Care Start Date 11/27/18 Plan of Care End Date 02/19/19 Therapeutic Interventions Therapeutic Interventions Aquatic Therapy Balance Training Gait Training Home Exercise Program Joint Mobilizations Manual Therapy Patient/Caregiver Education Self-Care/Home Management Soft Tissue Mobilization Therapeutic Activities Therapeutic Exercises Next Visit Focus/Plan Next Note Type Treatment Note Next Visit Plan Shuttle Balance, Quad strengthening, STM to left calf to decrease tone Plan of Care Dates Plan of Care Start Date 11/27/18 Plan of Care End Date 02/19/19 Please Sign and Return: I have reviewed this Plan of Care and certify that the skilled therapy services above are required to meet the patient?s needs. Physician Signature Date Printed Name and Credentials Clinical Instructor Signature Printed Name and Credentials
--- NOTE | 2018-12-02 17:26 | PT.OTN ---
Current Diagnoses Presence of left artificial knee joint (12/02/18) Physical Therapy Treatment Note PT-OP-A Visit Information Start: 09/16/18 17:41 Freq: Status: Active Protocol: Document 12/02/18 16:45 DCW (Rec: 12/02/18 17:26 DCW [id number]) Out-Patient Physical Therapy Visit Information Visit Information Visit Type Treatment Note Visit Start Time 16:45 Visit Stop Time 17:35 Total Visit Minutes 50 Visit Number 13 Number of BOX OFFICE CLERK Visits 0 Evaluation Information Evaluation Date 09/16/18 PT-OP-B Current Condition Start: 09/16/18 17:41 Freq: Status: Active Protocol: Document 09/16/18 16:45 DCW (Rec: 09/16/18 17:58 DCW [id number]) Current Condition History of Current Condition Onset Date Worsening over last three years Current Complaints Pain and weakness of L knee 9 years s/p TKA History of Current Condition Pt is a 62 year old male presenting with a three year history of progressive pain in his left anteriolateral knee. Pt notes he had bilateral TKAs six months apart in 2008, but his left knee trouble began in 1977, when he blew out the whole thing,and had a knee reconstruction using tissue harvested from his hamstring. Pt notes he got relief from his TKA for a few years, however for the past three, he has had difficulty with his knee buckling, and it is very painful when walking any distance, even on flat ground, and especially when descending steps. Pt notes he is now always conscious of how I'm walking, and he needs to hold onto the railing when on steps. Prior Treatments and Tests Cortisone shot last month - Per pt, helped for three weeks . Future Testing and Treatments Planned Potential exploratory surgery if conservative treatment does not help. Treatment Goals Patient/Caregiver Goals I want to get my quads stronger, so they're back to where they used to be, so I can keep working, because I'm just not mentally ready to go on disability. Pt also notes he cannot currently stand on boats, or go hiking or hunting , which were all activities he used to enjoy. Prior Functional Status Baseline Function- ADL's Independent Baseline Function- Mobility Independent Current Functional Impairments (Reported) Functional Limitations- Mobility/Gait Pain ascending/descending stairs, requires railing. Knee occasionally chyna Functional Limitations- Recreation/ Unable to stand on boats, Hobbies unable to hike/leyva Personal Factors Other Personal Factors That May Effect Pacemaker, DM II, Hx of cancer Therapy/Recovery , Hx Low back pain, neuropathy PT-OP-C Subjective Start: 09/16/18 17:41 Freq: Status: Active Protocol: Document 12/02/18 16:45 DCW (Rec: 12/02/18 17:26 DCW [id number]) OP-PT Subjective Patient Comments Patient Comments Pt reports no new problems, his knee has been doing well. PT-OP-F Manual Assessment Start: 09/16/18 17:41 Freq: Status: Active Protocol: Document 11/27/18 16:40 DCW (Rec: 11/27/18 17:27 DCW [id number]) Manual Assessments Soft Tissue Assessment Soft Tissue Mobility Assessment Moderate tone and palpable tenderness 1/4 - Complaint of pain at medial gastroc Joint Mobility Assessment Joint Mobility Assessment Knee joint stability WNL PT-OP-K Range of Motion Start: 09/16/18 17:41 Freq: Status: Active Protocol: Document 11/27/18 16:40 DCW (Rec: 11/27/18 17:27 DCW [id number]) Knee Goniometric Range of Motion Knee Measured in Degrees Right Knee ROM WFL No Patient Position Supine Flexion Active (degrees) 106 Extension Active (degrees) 0 Left Knee ROM WFL No Patient Position Supine Flexion Active (degrees) 116 Extension Active (degrees) 0 PT-OP-L Special Tests Start: 09/16/18 17:41 Freq: Status: Active Protocol: Document 11/27/18 16:40 DCW (Rec: 11/27/18 17:27 DCW [id number]) Special Tests Knee Special Tests Varus- 0 Degrees Test Results Negative Valgus- 0 Degrees Test Results Negative Posterior Draw Test Results Negative Patellar Grind Test Test Results Negative Ang's Test Results Negative Mariano Test Test Results Negative Anterior Draw Test Results Negative PT-OP-M Strength Start: 09/16/18 17:41 Freq: Status: Active Protocol: Document 11/27/18 16:40 DCW (Rec: 11/27/18 17:27 DCW [id number]) Hip Strength Hip Manual Muscle Testing Right Flexion (L2) 5 Normal Extension (S1) 5 Normal Abduction 5 Normal Adduction 5 Normal External Rotation 4+ Good+ Internal Rotation 5 Normal Left Flexion (L2) 5 Normal Extension (S1) 5 Normal Abduction 5 Normal Adduction 5 Normal External Rotation 5 Normal Internal Rotation 5 Normal Knee Strength Knee Manual Muscle Testing Right Flexion (S2) 5 Normal Extension (L3) 5 Normal Left Flexion (S2) 5 Normal Extension (L3) 5 Normal PT-OP-Q Treatments Start: 09/16/18 17:41 Freq: Status: Active Protocol: Document 12/02/18 16:45 DCW (Rec: 12/02/18 17:26 DCW [id number]) Cardio Equipment Recumbent Bicycle Duration (Minutes) 7 Resistance 10 Seat Position 10 Gym Equipment Shuttle Recovery Unilateral Squats Resistance 112# Shuttle Recovery Platform Stable Bilateral Squats Resistance 187# Shuttle Recovery Platform Unstable Shuttle Balance Red Details Wide JOSÉ LUIS (EO/EC), Staggered Stance, Lateral Weight Shift Therapeutic Ball Bridging with Hamstring Curls Exercise Details Bridging /c HS curls Ball Size/Color Red - 55 cm Body Position Supine Therapeutic Exercises Standing Exercises Lunges Standing Exercise Name Mini Lunge Side bilateral Equipment Used BOSU (Blue) Other Exercises Resisted Forward/Retro Ambulation Other Exercise Name Resisted Fwd/Retro Amb Resistance Blue Equipment Used T-band Resisted Side-stepping Other Exercise Name Resisted side-stepping Resistance Blue Equipment Used T-band Comments /c mini squat PT-OP-R Modalities Start: 09/16/18 17:41 Freq: Status: Active Protocol: Document 12/02/18 16:45 DCW (Rec: 12/02/18 17:26 DCW [id number]) Hot Pack/Cold Pack Treatment Cold Pack Location Left knee Patient Position Hooklying Treatment Duration (minutes) 10 Patient Tolerance Good PT-OP-T Assessment and Plan Start: 09/16/18 17:41 Freq: Status: Active Protocol: Document 12/02/18 16:45 DCW (Rec: 12/02/18 17:26 DCW [id number]) Physical Therapy Assessment Impairments Impairments Activity Tolerance Functional Activities Gait Pain Strength Goals Four Impairment Increased pain at work due to stairs Short Term Goal (STG) Pt to ascend/descend 3 flights of stairs with no railing without increased pain STG Duration 12/28/18 - Improving Three Impairment 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 Nursing Home Goal (LTG) Pt to tolerate standing on a moving boat for two hours with no increase in pain LTG Duration 01/25/19 - Improving Two Impairment Left knee weakness Short Term Goal (STG) Left knee extension MMT to 4/5 STG Duration Met Ip Technology Transactions Attorney Goal (LTG) Left knee extension MMT to 5/5 LTG Duration Met One Impairment Pt does not have an appropriate Home Exercise Program Short Term Goal (STG) Pt to be independent and compliant with an appropriate HEP STG Duration Met Assessment Summary Assessment Pt able to tolerate increased resistance in most activities today with no complaints of his normal biting knee pain. Physical Therapy Plan Frequency and Duration Frequency of Treatment 2x/Week Duration of Treatment 12 weeks Plan of Care Start Date 11/27/18 Plan of Care End Date 02/19/19 Therapeutic Interventions Therapeutic Interventions Aquatic Therapy Balance Training Gait Training Home Exercise Program Joint Mobilizations Manual Therapy Patient/Caregiver Education Self-Care/Home Management Soft Tissue Mobilization Therapeutic Activities Therapeutic Exercises Next Visit Focus/Plan Next Note Type Treatment Note Next Visit Plan Shuttle Balance, Quad strengthening, STM to left calf to decrease tone
--- NOTE | 2018-12-09 17:28 | PT.OTN ---
Current Diagnoses Presence of left artificial knee joint (12/09/18) Physical Therapy Treatment Note PT-OP-A Visit Information Start: 09/16/18 17:41 Freq: Status: Active Protocol: Document 12/09/18 16:45 DCW (Rec: 12/09/18 17:28 DCW [id number]) Out-Patient Physical Therapy Visit Information Visit Information Visit Type Treatment Note Visit Start Time 16:45 Visit Stop Time 17:35 Total Visit Minutes 50 Visit Number 14 Number of HEBREW TEACHER Visits 0 Evaluation Information Evaluation Date 09/16/18 PT-OP-B Current Condition Start: 09/16/18 17:41 Freq: Status: Active Protocol: Document 09/16/18 16:45 DCW (Rec: 09/16/18 17:58 DCW [id number]) Current Condition History of Current Condition Onset Date Worsening over last three years Current Complaints Pain and weakness of L knee 9 years s/p TKA History of Current Condition Pt is a 62 year old male presenting with a three year history of progressive pain in his left anteriolateral knee. Pt notes he had bilateral TKAs six months apart in 2008, but his left knee trouble began in 1977, when he blew out the whole thing,and had a knee reconstruction using tissue harvested from his hamstring. Pt notes he got relief from his TKA for a few years, however for the past three, he has had difficulty with his knee buckling, and it is very painful when walking any distance, even on flat ground, and especially when descending steps. Pt notes he is now always conscious of how I'm walking, and he needs to hold onto the railing when on steps. Prior Treatments and Tests Cortisone shot last month - Per pt, helped for three weeks . Future Testing and Treatments Planned Potential exploratory surgery if conservative treatment does not help. Treatment Goals Patient/Caregiver Goals I want to get my quads stronger, so they're back to where they used to be, so I can keep working, because I'm just not mentally ready to go on disability. Pt also notes he cannot currently stand on boats, or go hiking or hunting , which were all activities he used to enjoy. Prior Functional Status Baseline Function- ADL's Independent Baseline Function- Mobility Independent Current Functional Impairments (Reported) Functional Limitations- Mobility/Gait Pain ascending/descending stairs, requires railing. Knee occasionally chyna Functional Limitations- Recreation/ Unable to stand on boats, Hobbies unable to hike/leyva Personal Factors Other Personal Factors That May Effect Pacemaker, DM II, Hx of cancer Therapy/Recovery , Hx Low back pain, neuropathy PT-OP-C Subjective Start: 09/16/18 17:41 Freq: Status: Active Protocol: Document 12/09/18 16:45 DCW (Rec: 12/09/18 17:28 DCW [id number]) OP-PT Subjective Patient Comments Patient Comments The knee is feeling much better, and stronger with all these exercises, but it still just bothers the heck out of me when I'm going down stairs. Pt feels he may just need to go see the surgeon and see what can be done. PT-OP-F Manual Assessment Start: 09/16/18 17:41 Freq: Status: Active Protocol: Document 11/27/18 16:40 DCW (Rec: 11/27/18 17:27 DCW [id number]) Manual Assessments Soft Tissue Assessment Soft Tissue Mobility Assessment Moderate tone and palpable tenderness 1/4 - Complaint of pain at medial gastroc Joint Mobility Assessment Joint Mobility Assessment Knee joint stability WNL PT-OP-K Range of Motion Start: 09/16/18 17:41 Freq: Status: Active Protocol: Document 11/27/18 16:40 DCW (Rec: 11/27/18 17:27 DCW [id number]) Knee Goniometric Range of Motion Knee Measured in Degrees Right Knee ROM WFL No Patient Position Supine Flexion Active (degrees) 106 Extension Active (degrees) 0 Left Knee ROM WFL No Patient Position Supine Flexion Active (degrees) 116 Extension Active (degrees) 0 PT-OP-L Special Tests Start: 09/16/18 17:41 Freq: Status: Active Protocol: Document 11/27/18 16:40 DCW (Rec: 11/27/18 17:27 DCW [id number]) Special Tests Knee Special Tests Varus- 0 Degrees Test Results Negative Valgus- 0 Degrees Test Results Negative Posterior Draw Test Results Negative Patellar Grind Test Test Results Negative Ang's Test Results Negative Mariano Test Test Results Negative Anterior Draw Test Results Negative PT-OP-M Strength Start: 09/16/18 17:41 Freq: Status: Active Protocol: Document 11/27/18 16:40 DCW (Rec: 11/27/18 17:27 DCW [id number]) Hip Strength Hip Manual Muscle Testing Right Flexion (L2) 5 Normal Extension (S1) 5 Normal Abduction 5 Normal Adduction 5 Normal External Rotation 4+ Good+ Internal Rotation 5 Normal Left Flexion (L2) 5 Normal Extension (S1) 5 Normal Abduction 5 Normal Adduction 5 Normal External Rotation 5 Normal Internal Rotation 5 Normal Knee Strength Knee Manual Muscle Testing Right Flexion (S2) 5 Normal Extension (L3) 5 Normal Left Flexion (S2) 5 Normal Extension (L3) 5 Normal PT-OP-Q Treatments Start: 09/16/18 17:41 Freq: Status: Active Protocol: Document 12/09/18 16:45 DCW (Rec: 12/09/18 17:28 DCW [id number]) Cardio Equipment Recumbent Bicycle Duration (Minutes) 8 Resistance 10 Seat Position 10 Gym Equipment Shuttle Recovery Unilateral Squats Resistance 112# Shuttle Recovery Platform Stable Bilateral Squats Resistance 187# Shuttle Recovery Platform Unstable Shuttle Balance Red Details Wide JOSÉ LUIS (EO/EC), Staggered Stance, Lateral Weight Shift Therapeutic Ball Bridging with Hamstring Curls Exercise Details Bridging /c HS curls Ball Size/Color Red - 55 cm Body Position Supine Therapeutic Exercises Standing Exercises Lunges Standing Exercise Name Mini Lunge Side bilateral Equipment Used BOSU (Blue) Other Exercises Resisted Forward/Retro Ambulation Other Exercise Name Resisted Fwd/Retro Amb Resistance Blue Equipment Used T-band Resisted Side-stepping Other Exercise Name Resisted side-stepping Resistance Blue Equipment Used T-band PT-OP-R Modalities Start: 09/16/18 17:41 Freq: Status: Active Protocol: Document 12/09/18 16:45 DCW (Rec: 12/09/18 17:28 DCW [id number]) Hot Pack/Cold Pack Treatment Cold Pack Location Left knee Patient Position Hooklying Treatment Duration (minutes) 10 Patient Tolerance Good PT-OP-T Assessment and Plan Start: 09/16/18 17:41 Freq: Status: Active Protocol: Document 12/09/18 16:45 DCW (Rec: 12/09/18 17:28 DCW [id number]) Physical Therapy Assessment Impairments Impairments Activity Tolerance Functional Activities Gait Pain Strength Goals Four Impairment Increased pain at work due to stairs Short Term Goal (STG) Pt to ascend/descend 3 flights of stairs with no railing without increased pain STG Duration 2/9/19 - Improving Three Impairment 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 Intermediate Goal (LTG) Pt to tolerate standing on a moving boat for two hours with no increase in pain LTG Duration 01/25/19 - Improving Two Impairment Left knee weakness Short Term Goal (STG) Left knee extension MMT to 4/5 STG Duration Met Intermediate Goal (LTG) Left knee extension MMT to 5/5 LTG Duration Met One Impairment Pt does not have an appropriate Home Exercise Program Short Term Goal (STG) Pt to be independent and compliant with an appropriate HEP STG Duration Met Assessment Summary Assessment Pt may benefit from return to Ortho to determine how to stop complaints of biting pain. Physical Therapy Plan Frequency and Duration Frequency of Treatment 2x/Week Duration of Treatment 12 weeks Plan of Care Start Date 11/27/18 Plan of Care End Date 02/19/19 Therapeutic Interventions Therapeutic Interventions Aquatic Therapy Balance Training Gait Training Home Exercise Program Joint Mobilizations Manual Therapy Patient/Caregiver Education Self-Care/Home Management Soft Tissue Mobilization Therapeutic Activities Therapeutic Exercises Next Visit Focus/Plan Next Note Type Treatment Note Next Visit Plan Shuttle Balance, Quad strengthening, STM to left calf to decrease tone
--- NOTE | 2018-12-11 17:28 | PT.OTN ---
Current Diagnoses Presence of left artificial knee joint (12/11/18) Physical Therapy Treatment Note PT-OP-A Visit Information Start: 09/16/18 17:41 Freq: Status: Active Protocol: Document 12/11/18 16:45 DCW (Rec: 12/11/18 17:28 DCW [id number]) Out-Patient Physical Therapy Visit Information Visit Information Visit Type Treatment Note Visit Start Time 16:45 Visit Stop Time 17:35 Total Visit Minutes 50 Visit Number 15 Number of AIR CONDITIONING UNIT TESTER Visits 0 Evaluation Information Evaluation Date 09/16/18 PT-OP-B Current Condition Start: 09/16/18 17:41 Freq: Status: Active Protocol: Document 09/16/18 16:45 DCW (Rec: 09/16/18 17:58 DCW [id number]) Current Condition History of Current Condition Onset Date Worsening over last three years Current Complaints Pain and weakness of L knee 9 years s/p TKA History of Current Condition Pt is a 62 year old male presenting with a three year history of progressive pain in his left anteriolateral knee. Pt notes he had bilateral TKAs six months apart in 2008, but his left knee trouble began in 1977, when he blew out the whole thing,and had a knee reconstruction using tissue harvested from his hamstring. Pt notes he got relief from his TKA for a few years, however for the past three, he has had difficulty with his knee buckling, and it is very painful when walking any distance, even on flat ground, and especially when descending steps. Pt notes he is now always conscious of how I'm walking, and he needs to hold onto the railing when on steps. Prior Treatments and Tests Cortisone shot last month - Per pt, helped for three weeks . Future Testing and Treatments Planned Potential exploratory surgery if conservative treatment does not help. Treatment Goals Patient/Caregiver Goals I want to get my quads stronger, so they're back to where they used to be, so I can keep working, because I'm just not mentally ready to go on disability. Pt also notes he cannot currently stand on boats, or go hiking or hunting , which were all activities he used to enjoy. Prior Functional Status Baseline Function- ADL's Independent Baseline Function- Mobility Independent Current Functional Impairments (Reported) Functional Limitations- Mobility/Gait Pain ascending/descending stairs, requires railing. Knee occasionally chyna Functional Limitations- Recreation/ Unable to stand on boats, Hobbies unable to hike/leyva Personal Factors Other Personal Factors That May Effect Pacemaker, DM II, Hx of cancer Therapy/Recovery , Hx Low back pain, neuropathy PT-OP-C Subjective Start: 09/16/18 17:41 Freq: Status: Active Protocol: Document 12/11/18 16:45 DCW (Rec: 12/11/18 17:28 DCW [id number]) OP-PT Subjective Patient Comments Patient Comments The knee feels good, I didn't need to do as many stairs today. PT-OP-F Manual Assessment Start: 09/16/18 17:41 Freq: Status: Active Protocol: Document 11/27/18 16:40 DCW (Rec: 11/27/18 17:27 DCW [id number]) Manual Assessments Soft Tissue Assessment Soft Tissue Mobility Assessment Moderate tone and palpable tenderness 1/4 - Complaint of pain at medial gastroc Joint Mobility Assessment Joint Mobility Assessment Knee joint stability WNL PT-OP-K Range of Motion Start: 09/16/18 17:41 Freq: Status: Active Protocol: Document 11/27/18 16:40 DCW (Rec: 11/27/18 17:27 DCW [id number]) Knee Goniometric Range of Motion Knee Measured in Degrees Right Knee ROM WFL No Patient Position Supine Flexion Active (degrees) 106 Extension Active (degrees) 0 Left Knee ROM WFL No Patient Position Supine Flexion Active (degrees) 116 Extension Active (degrees) 0 PT-OP-L Special Tests Start: 09/16/18 17:41 Freq: Status: Active Protocol: Document 11/27/18 16:40 DCW (Rec: 11/27/18 17:27 DCW [id number]) Special Tests Knee Special Tests Varus- 0 Degrees Test Results Negative Valgus- 0 Degrees Test Results Negative Posterior Draw Test Results Negative Patellar Grind Test Test Results Negative Ang's Test Results Negative Mariano Test Test Results Negative Anterior Draw Test Results Negative PT-OP-M Strength Start: 09/16/18 17:41 Freq: Status: Active Protocol: Document 11/27/18 16:40 DCW (Rec: 11/27/18 17:27 DCW [id number]) Hip Strength Hip Manual Muscle Testing Right Flexion (L2) 5 Normal Extension (S1) 5 Normal Abduction 5 Normal Adduction 5 Normal External Rotation 4+ Good+ Internal Rotation 5 Normal Left Flexion (L2) 5 Normal Extension (S1) 5 Normal Abduction 5 Normal Adduction 5 Normal External Rotation 5 Normal Internal Rotation 5 Normal Knee Strength Knee Manual Muscle Testing Right Flexion (S2) 5 Normal Extension (L3) 5 Normal Left Flexion (S2) 5 Normal Extension (L3) 5 Normal PT-OP-Q Treatments Start: 09/16/18 17:41 Freq: Status: Active Protocol: Document 12/11/18 16:45 DCW (Rec: 12/11/18 17:28 DCW [id number]) Cardio Equipment Recumbent Bicycle Duration (Minutes) 8 Resistance 10 Seat Position 10 Gym Equipment Shuttle Recovery Unilateral Squats Resistance 112# Shuttle Recovery Platform Stable Bilateral Squats Resistance 187# Shuttle Recovery Platform Unstable Shuttle Balance Red Details Wide JOSÉ LUIS (EO/EC), Staggered Stance, Lateral Weight Shift Therapeutic Ball Bridging with Hamstring Curls Exercise Details Bridging /c HS curls Ball Size/Color Red - 55 cm Body Position Supine Therapeutic Exercises Standing Exercises Lunges Standing Exercise Name Mini Lunge Side bilateral Equipment Used Stairs Other Exercises Resisted Forward/Retro Ambulation Other Exercise Name Resisted Fwd/Retro Amb Resistance Double Blue Equipment Used T-band Resisted Side-stepping Other Exercise Name Resisted side-stepping Resistance Double Blue Equipment Used T-band PT-OP-R Modalities Start: 09/16/18 17:41 Freq: Status: Active Protocol: Document 12/11/18 16:45 DCW (Rec: 12/11/18 17:28 DCW [id number]) Hot Pack/Cold Pack Treatment Cold Pack Location Left knee Patient Position Hooklying Treatment Duration (minutes) 10 Patient Tolerance Good PT-OP-T Assessment and Plan Start: 09/16/18 17:41 Freq: Status: Active Protocol: Document 12/11/18 16:45 DCW (Rec: 12/11/18 17:28 DCW [id number]) Physical Therapy Assessment Impairments Impairments Activity Tolerance Functional Activities Gait Pain Strength Goals Four Impairment Increased pain at work due to stairs Short Term Goal (STG) Pt to ascend/descend 3 flights of stairs with no railing without increased pain STG Duration 12/28/18 - Improving Three Impairment 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 Halfway Goal (LTG) Pt to tolerate standing on a moving boat for two hours with no increase in pain LTG Duration 01/25/19 - Improving Two Impairment Left knee weakness Short Term Goal (STG) Left knee extension MMT to 4/5 STG Duration Met Halfway Goal (LTG) Left knee extension MMT to 5/5 LTG Duration Met One Impairment Pt does not have an appropriate Home Exercise Program Short Term Goal (STG) Pt to be independent and compliant with an appropriate HEP STG Duration Met Assessment Summary Assessment Pt had increased complaints of knee pain during today's session, pt unsure of cause of aggravation. Physical Therapy Plan Frequency and Duration Frequency of Treatment 2x/Week Duration of Treatment 12 weeks Plan of Care Start Date 11/27/18 Plan of Care End Date 02/19/19 Therapeutic Interventions Therapeutic Interventions Aquatic Therapy Balance Training Gait Training Home Exercise Program Joint Mobilizations Manual Therapy Patient/Caregiver Education Self-Care/Home Management Soft Tissue Mobilization Therapeutic Activities Therapeutic Exercises Next Visit Focus/Plan Next Note Type Treatment Note Next Visit Plan Shuttle Balance, Quad strengthening, STM to left calf to decrease tone
--- NOTE | 2018-12-18 17:38 | PT.OTN ---
Current Diagnoses Presence of left artificial knee joint (12/18/18) Physical Therapy Treatment Note PT-OP-A Visit Information Start: 09/16/18 17:41 Freq: Status: Active Protocol: Document 12/18/18 16:45 DCW (Rec: 12/18/18 17:38 DCW [id number]) Out-Patient Physical Therapy Visit Information Visit Information Visit Type Treatment Note Visit Start Time 16:45 Visit Stop Time 17:35 Total Visit Minutes 50 Visit Number 16 Number of DESK LIEUTENANT Visits 0 Evaluation Information Evaluation Date 09/16/18 PT-OP-B Current Condition Start: 09/16/18 17:41 Freq: Status: Active Protocol: Document 09/16/18 16:45 DCW (Rec: 09/16/18 17:58 DCW [id number]) Current Condition History of Current Condition Onset Date Worsening over last three years Current Complaints Pain and weakness of L knee 9 years s/p TKA History of Current Condition Pt is a 62 year old male presenting with a three year history of progressive pain in his left anteriolateral knee. Pt notes he had bilateral TKAs six months apart in 2008, but his left knee trouble began in 1977, when he blew out the whole thing,and had a knee reconstruction using tissue harvested from his hamstring. Pt notes he got relief from his TKA for a few years, however for the past three, he has had difficulty with his knee buckling, and it is very painful when walking any distance, even on flat ground, and especially when descending steps. Pt notes he is now always conscious of how I'm walking, and he needs to hold onto the railing when on steps. Prior Treatments and Tests Cortisone shot last month - Per pt, helped for three weeks . Future Testing and Treatments Planned Potential exploratory surgery if conservative treatment does not help. Treatment Goals Patient/Caregiver Goals I want to get my quads stronger, so they're back to where they used to be, so I can keep working, because I'm just not mentally ready to go on disability. Pt also notes he cannot currently stand on boats, or go hiking or hunting , which were all activities he used to enjoy. Prior Functional Status Baseline Function- ADL's Independent Baseline Function- Mobility Independent Current Functional Impairments (Reported) Functional Limitations- Mobility/Gait Pain ascending/descending stairs, requires railing. Knee occasionally chyna Functional Limitations- Recreation/ Unable to stand on boats, Hobbies unable to hike/leyva Personal Factors Other Personal Factors That May Effect Pacemaker, DM II, Hx of cancer Therapy/Recovery , Hx Low back pain, neuropathy PT-OP-C Subjective Start: 09/16/18 17:41 Freq: Status: Active Protocol: Document 12/18/18 16:45 DCW (Rec: 12/18/18 17:38 DCW [id number]) OP-PT Subjective Patient Comments Patient Comments Pt has descided that despite the improvement in his ROM and strength, he continues to get the painful biting sensation along his left knee PT-OP-F Manual Assessment Start: 09/16/18 17:41 Freq: Status: Active Protocol: Document 12/18/18 16:45 DCW (Rec: 12/18/18 17:00 DCW [id number]) Manual Assessments Soft Tissue Assessment Soft Tissue Mobility Assessment Moderate tone and palpable tenderness 1/4 - Complaint of pain at medial gastroc Joint Mobility Assessment Joint Mobility Assessment Knee joint stability WNL PT-OP-K Range of Motion Start: 09/16/18 17:41 Freq: Status: Active Protocol: Document 12/18/18 16:45 DCW (Rec: 12/18/18 17:00 DCW [id number]) Knee Goniometric Range of Motion Knee Measured in Degrees Right Knee ROM WFL No Patient Position Supine Flexion Active (degrees) 107 Extension Active (degrees) 0 Left Knee ROM WFL No Patient Position Supine Flexion Active (degrees) 115 Extension Active (degrees) 0 PT-OP-L Special Tests Start: 09/16/18 17:41 Freq: Status: Active Protocol: Document 12/18/18 16:45 DCW (Rec: 12/18/18 17:00 DCW [id number]) Special Tests Knee Special Tests Varus- 0 Degrees Test Results Negative Valgus- 0 Degrees Test Results Negative Posterior Draw Test Results Negative Patellar Grind Test Test Results Negative Ang's Test Results Negative Mariano Test Test Results Negative Anterior Draw Test Results Negative PT-OP-M Strength Start: 09/16/18 17:41 Freq: Status: Active Protocol: Document 12/18/18 16:45 DCW (Rec: 12/18/18 17:00 DCW [id number]) Hip Strength Hip Manual Muscle Testing Right Flexion (L2) 5 Normal Extension (S1) 5 Normal Abduction 5 Normal Adduction 5 Normal External Rotation 4+ Good+ Internal Rotation 5 Normal Left Flexion (L2) 5 Normal Extension (S1) 5 Normal Abduction 5 Normal Adduction 5 Normal External Rotation 5 Normal Internal Rotation 5 Normal Knee Strength Knee Manual Muscle Testing Right Flexion (S2) 5 Normal Extension (L3) 5 Normal Left Flexion (S2) 5 Normal Extension (L3) 5 Normal PT-OP-Q Treatments Start: 09/16/18 17:41 Freq: Status: Active Protocol: Document 12/18/18 16:45 DCW (Rec: 12/18/18 17:38 DCW [id number]) Cardio Equipment Recumbent Bicycle Duration (Minutes) 8 Resistance 10 Seat Position 10 Gym Equipment Shuttle Recovery Unilateral Squats Resistance 112# Shuttle Recovery Platform Stable Bilateral Squats Resistance 187# Shuttle Recovery Platform Unstable Shuttle Balance Red Details Wide JOSÉ LUIS (EO/EC), Staggered Stance, Lateral Weight Shift Therapeutic Ball Bridging with Hamstring Curls Exercise Details Bridging /c HS curls Ball Size/Color Red - 55 cm Body Position Supine PT-OP-R Modalities Start: 09/16/18 17:41 Freq: Status: Active Protocol: Document 12/18/18 16:45 DCW (Rec: 12/18/18 17:38 DCW [id number]) Hot Pack/Cold Pack Treatment Cold Pack Location Left knee Patient Position Hooklying Treatment Duration (minutes) 10 Patient Tolerance Good PT-OP-T Assessment and Plan Start: 09/16/18 17:41 Freq: Status: Active Protocol: Document 12/18/18 16:45 DCW (Rec: 12/18/18 17:38 DCW [id number]) Physical Therapy Assessment Impairments Impairments Activity Tolerance Functional Activities Gait Pain Strength Goals Four Impairment Increased pain at work due to stairs Short Term Goal (STG) Pt to ascend/descend 3 flights of stairs with no railing without increased pain STG Duration 12/28/18 - Improving Three Impairment 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 Floor Care Technician Goal (LTG) Pt to tolerate standing on a moving boat for two hours with no increase in pain LTG Duration 01/25/19 - Improving Two Impairment Left knee weakness Short Term Goal (STG) Left knee extension MMT to 4/5 STG Duration Met Floor Care Technician Goal (LTG) Left knee extension MMT to 5/5 LTG Duration Met One Impairment Pt does not have an appropriate Home Exercise Program Short Term Goal (STG) Pt to be independent and compliant with an appropriate HEP STG Duration Met Assessment Summary Assessment Over the course of therapy, pt has made some progress in ROM (L knee flexion 102-115) and overall strength of his bilateral LEs, as well as decreased tenderness to palpation since his initial evaluation, 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 Additionally, his ongoing complaints of a biting pain in his left knee, particularly on stairs, while it has decreased, it still bothers him regularly enough that he would like to return to his orthopedic surgeon to discuss other options. Ptwill discharge from skilled PT at this time, and will require a new referral in order to return to therapy at a later date. Physical Therapy Plan Frequency and Duration Frequency of Treatment 2x/Week Duration of Treatment 12 weeks Plan of Care Start Date 11/27/18 Plan of Care End Date 02/19/19 Therapeutic Interventions Therapeutic Interventions Aquatic Therapy Balance Training Gait Training Home Exercise Program Joint Mobilizations Manual Therapy Patient/Caregiver Education Self-Care/Home Management Soft Tissue Mobilization Therapeutic Activities Therapeutic Exercises Discharge Physical Therapy Discharge Reasons Plateau in Progress Next Visit Focus/Plan Next Note Type Discharge Summary
== END 2019-01-08 09:55 ==
LOC: PHYS 16:45
PROVIDERS: PCP Orthopaedic Surgery; Visit Provider Orthopaedic Surgery
DX: Z96.652 Presence of left artificial knee joint (principal)
CPT/HCPCS: 97010; 97110; 97112; 97161

== ENCOUNTER → 2019-02-17 08:00 | Outpatient (CLI) | payer OTHER, SELFPAY ==
--- NOTE | 2019-02-17 | DI.US.S_ITS ---
PROCEDURE: US RENAL COMPLETE INDICATIONS: HISTORY OF BLADDER CANCER TECHNIQUE: Real-time scanning was performed of the kidneys and bladder, with image documentation. COMPARISON: [facility], CT, PE STUDY (CTA CHEST), 03/26/2016, 18:28. [facility], CT, KIDNEY/ URETER/BLADDER, 02/14/2012, 12:40. [facility], CT, ABDOMEN/PELVIS WITH CONTRAST, 02/16/2012, 11:13. FINDINGS: Kidneys: Kidneys are normal in size. Right kidney measures 12.8 cm long; left kidney measures 12.5 cm long. Right renal cortical thickness is 1.9 cm; left renal cortical thickness is 1.7 cm. Renal cortical echotexture is normal. No hydronephrosis or nephrolithiasis. No suspicious solid mass lesions. Bilateral simple appearing renal cysts are seen. The largest on the right measures up to 3.1 cm anteriorly. The largest on the left measures 3.9 cm anteriorly. Bladder: Pre-void bladder volume is 146 mL. Post-void residual is 74 mL. Pre-void images demonstrate no intraluminal masses or stones. On pre-void images, neither of the ureteral jets are noted with color Doppler interrogation. (Of note, ureteral jets may not be detectable in up to 25% of cases due to insufficient differences in specific gravity between ureteral and bladder urine). Miscellaneous: No free pelvic fluid. IMPRESSION: To the limits of this ultrasound study, no bladder masses are seen. Moderate postvoid residual measuring 74 cc. Several simple appearing bilateral renal cysts are seen. Dictated by: Gino Hutson M.D. on 02/17/2019 at 8:03 Approved by: Gino Hutson M.D. on 02/17/2019 at 8:05
== END ==
PROVIDERS: PCP Internal Medicine; Visit Provider Urology
DX: N28.1 Cyst of kidney, acquired (principal); Z85.51 Personal history of malignant neoplasm of bladder
CPT/HCPCS: 76770

== ENCOUNTER 2019-07-11 15:15 | Outpatient (RCR) | payer OTHER, SELFPAY ==
--- NOTE | 2019-05-28 17:45 | PT.OIE ---
Current Diagnoses Muscle weakness (generalized) (05/28/19) Presence of left artificial knee joint (05/28/19) Provider Visit Care Team Role Provider Type Hallie Gonzalez PA-C Referring Provider Non-Staff Specialty: Medical Address: [address] [place] [address], [place], [address] Email: Seamus Bolivar MD Primary Care Provider Physician Specialty: Internal Medicine Address: [address] [place] [address], [id number] Email: Spenser Dominguez MD Attending Provider Non-Staff Specialty: Orthopedics Address: [address] [place] [address], [id number] Email: Physical Therapy Initial Evaluation PT-OP-A Visit Information Start: 05/29/19 12:10 Freq: Status: Active Protocol: Document 05/28/19 16:45 DCW (Rec: 05/29/19 12:37 DCW [id number]) Out-Patient Physical Therapy Visit Information Visit Information Visit Type Initial Evaluation Visit Start Time 16:45 Visit Stop Time 17:35 Total Visit Minutes 50 Visit Number 1 Number of CARPET LAYER HELPER Visits 0 Evaluation Information Evaluation Date 05/28/19 PT-OP-B Current Condition Start: 05/29/19 12:10 Freq: Status: Active Protocol: Document 05/28/19 16:45 DCW (Rec: 05/29/19 12:37 DC [id number]) Current Condition History of Current Condition Onset Date 04/10/19 Current Complaints Left TKA History of Current Condition Pt is a 63 year old male presenting 7 weeks s/p L TKA. Pt had previously been seen at this clinic for conservative treatment of his left knee, which ultimately failed, and he chose to undergo a TKA. Pt was initially scheduled for a PT evaluation on 04/22/19, unfortunately pt was at work and forgot about his appointment, resulting in a long lay-off between surgery and the start of therapy. Luckily, due to pt's history of prior PT, pt was very good with doing home activities, and comes in today with full ROM and no gait or balance difficulties. Pt reports he used a walker for one day, then crutches for three days, and finally a cane for three days, and by one week post surgery was walking without an assistive device and no limp. Pt also reports he returned to work five days post-op. Pt complaints that his biggest difficulty at the moment is stairs due to left quad weakness. Pt would like to return to walking to work, which is three miles, and hiking in the hills in an effort to lose weight. Prior Treatments and Tests L TKA 04/10/19 Treatment Goals Patient/Caregiver Goals Walk three miles to work, ascend/descend stairs with no difficulty, return to hiking Prior Functional Status Baseline Function- ADL's Independent Baseline Function- Mobility Independent Current Functional Impairments (Reported) Functional Limitations- Mobility/Gait Unable to eccentrically lower his body when descending stairs without use of rail Functional Limitations- Recreation/ Unable to tolerate walking Hobbies three miles to work or hiking PT-OP-C Subjective Start: 05/29/19 12:10 Freq: Status: Active Protocol: Document 05/28/19 16:45 DCW (Rec: 05/29/19 12:37 DCW [id number]) OP-PT Subjective Patient Comments Patient Comments The 'bite' that I've had in my knee for years isn't there anymore. I'm already feeling so much better than I was before surgery. Patient Reported Progress Improving Patient Questionnaires Lower Extremity Functional Scale LEFS Score 49/80 = 61.25% LEFS Impairment 20 to 39% Impaired (Score 48- 62) OP-PT Pain Assessment Pain Assessment Grid Paper Pain Assessment Grid Completed Yes Location Left Anterior Knee Intensity 2 Scale Used Numeric (1 - 10) Pain Alleviating Factors Cold Inactivity PT-OP-F Manual Assessment Start: 05/29/19 12:10 Freq: Status: Active Protocol: Document 05/28/19 16:45 DCW (Rec: 05/29/19 12:37 DCW [id number]) Manual Assessments Joint Mobility Assessment Joint Mobility Assessment Excellent joint mobility, knee flexion only limited due to soft tissue of pt's thigh, pt has full knee extension PT-OP-G Mobility & Gait Start: 05/29/19 12:10 Freq: Status: Active Protocol: Document 05/28/19 16:45 DCW (Rec: 05/29/19 12:37 DCW [id number]) OP Gait Assessment Gait Gait Assistance Required: Independent Able to Maintain Weight Bearing Status Yes During Gait Assistive Devices Assistive Device None Gait Deviations General Gait Pattern Within Normal Limits Stair Climbing Evaluation Evaluation Level of Assist On Stairs Independent Devices Stair Climbing Assistive Devices Left Railing Right Railing Technique/Endurance Stair Climbing Direction Ascend and Descend Stair Climbing Technique Step Over Step Number of Steps Climbed 12 Stair Climbing Set # Repetitions (reps) 1 Comments Stair Climbing Comments Pt has uncontrolled descent when attempting to not use a railing PT-OP-J Posture/Palpation/Skin Start: 05/29/19 12:37 Freq: Status: Active Protocol: Document 05/28/19 16:45 DCW (Rec: 05/29/19 12:39 DCW [id number]) Skin Assessment Circumference Measurement 3 Location Left knee 10 cm inferior to joint line Measurement (Centimeters) 50.3 Comments Right:46.6 2 Location Left knee 10 cm superior to joint line Measurement (Centimeters) 63.4 Comments Right: 64.2 1 Location Left knee joint line Measurement (Centimeters) 57.0 Comments Right: 49.5 PT-OP-K Range of Motion Start: 05/29/19 12:10 Freq: Status: Active Protocol: Document 05/28/19 16:45 DCW (Rec: 05/29/19 12:37 DCW [id number]) Knee Goniometric Range of Motion Knee Right Knee ROM WFL Yes Patient Position Sitting Flexion Active (degrees) 115 Extension Active (degrees) 0 Left Knee ROM WFL Yes Patient Position Sitting Flexion Active (degrees) 115 Extension Active (degrees) 0 PT-OP-M Strength Start: 05/29/19 12:10 Freq: Status: Active Protocol: Document 05/28/19 16:45 DCW (Rec: 05/29/19 12:37 DCW [id number]) Knee Strength Knee Manual Muscle Testing Right Comments Single Leg Leg Press Max: 187# (max of machine) Single Leg Extension Max: 90# Left Comments Single Leg Leg Press Max: 137# Single Leg Extension Max: 20# PT-OP-Q Treatments Start: 05/29/19 12:10 Freq: Status: Active Protocol: Document 05/28/19 16:45 DCW (Rec: 05/29/19 12:37 DCW [id number]) Cardio Equipment Recumbent Bicycle Duration (Minutes) 6 Resistance 7 Gym Equipment Cable Column (Body Solid) Leg Extension Details Single leg max Resistance L: 20#, R: 90# Shuttle Recovery Unilateral Squats Details Single leg max Resistance L: 137#, R: 187# Shuttle Recovery Platform Stable PT-OP-R Modalities Start: 05/29/19 12:10 Freq: Status: Active Protocol: Document 05/28/19 16:45 DCW (Rec: 05/29/19 12:37 DCW [id number]) Hot Pack/Cold Pack Treatment Cold Pack Location Left knee Patient Position Hooklying Treatment Duration (minutes) 10 PT-OP-T Assessment and Plan Start: 05/29/19 12:10 Freq: Status: Active Protocol: Document 05/28/19 16:45 DCW (Rec: 05/29/19 12:37 DCW [id number]) Physical Therapy Assessment Rehab Potential Rehabilitation Potential Excellent Evaluation Complexity Number of Personal Factors/Comorbidities 0 Number of Body Systems Impaired 1-2 Clinical Presentation at Evaluation Stable Impairments Impairments Gait Strength Goals Two Impairment 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 descend stairs without use of rail due to left quad weakness Short Term Goal (STG) Pt to improve single leg max on the leg press to 175# STG Duration 06/29/19 Sales Floor Team Leader Goal (LTG) Pt to improve single leg max on the leg extension to 70# One Impairment 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 walk to work Sales Floor Team Leader Goal (LTG) Pt to report ability to walk the three miles to and from work with no increased knee pain LTG Duration 07/30/19 Assessment Summary Assessment Pt is doing incredibly well 7 weeks s/p L TKA with no formal skilled therapy. Pt has full ROM, no gait difficulty, and limited pain. Pt's biggest complaints are an inability to ambulate over uneven surfaces , difficulty on stairs ( especially descending), and fatigue resulting in being unable to walk the three miles from his home to work. Pt should progress quickly, with the typical necessary focuses of post TKA therapy not being a large issue (ROM, Gait), and skilled therapy should mainly focus on left quad strength and increasing activity tolerance. Pt does exhibit some mild L edema, which should decline as pt continues to heal. Physical Therapy Plan Frequency and Duration Frequency of Treatment 2x/Week Duration of Treatment 2 months Plan of Care Start Date 05/29/19 Plan of Care End Date 07/30/19 Therapeutic Interventions Therapeutic Interventions Aquatic Therapy Balance Training Home Exercise Program Joint Mobilizations Manual Therapy Neuromuscular Re-education Therapeutic Activities Therapeutic Exercises Modalities Cold Pack/Ice Massage Electric Stimulation Hot Packs Next Visit Focus/Plan Next Note Type Treatment Note Next Visit Plan LE/Quad strengthening
--- NOTE | 2019-05-28 17:45 | PT.OPPOC ---
Current Diagnoses Muscle weakness (generalized) (05/28/19) Presence of left artificial knee joint (05/28/19) Provider Visit Care Team Role Provider Type Hlalie Gonzalez PA-C Referring Provider Non-Staff Specialty: Medical Address: [address] [place] [address], [place], [address] Email: Seamus Bolivar MD Primary Care Provider Physician Specialty: Internal Medicine Address: [address] [place] [address], [id number] Email: Spenser Dominguez MD Attending Provider Non-Staff Specialty: Orthopedics Address: [address] [place] [address], [id number] Email: Plan Of Care PT-OP-T Assessment and Plan Start: 05/29/19 12:10 Freq: Status: Active Protocol: Document 05/28/19 16:45 DCW (Rec: 05/29/19 12:37 DCW [id number]) Physical Therapy Assessment Rehab Potential Rehabilitation Potential Excellent Evaluation Complexity Number of Personal Factors/Comorbidities 0 Number of Body Systems Impaired 1-2 Clinical Presentation at Evaluation Stable Impairments Impairments Gait Strength Goals Two Impairment 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 descend stairs without use of rail due to left quad weakness Short Term Goal (STG) Pt to improve single leg max on the leg press to 175# STG Duration 06/29/19 Bread Wrapper Goal (LTG) Pt to improve single leg max on the leg extension to 70# One Impairment 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 walk to work Bread Wrapper Goal (LTG) Pt to report ability to walk the three miles to and from work with no increased knee pain LTG Duration 07/30/19 Assessment Summary Assessment Pt is doing incredibly well 7 weeks s/p L TKA with no formal skilled therapy. Pt has full ROM, no gait difficulty, and limited pain. Pt's biggest complaints are an inability to ambulate over uneven surfaces , difficulty on stairs ( especially descending), and fatigue resulting in being unable to walk the three miles from his home to work. Pt should progress quickly, with the typical necessary focuses of post TKA therapy not being a large issue (ROM, Gait), and skilled therapy should mainly focus on left quad strength and increasing activity tolerance. Pt does exhibit some mild L edema, which should decline as pt continues to heal. Physical Therapy Plan Frequency and Duration Frequency of Treatment 2x/Week Duration of Treatment 2 months Plan of Care Start Date 05/29/19 Plan of Care End Date 07/30/19 Therapeutic Interventions Therapeutic Interventions Aquatic Therapy Balance Training Home Exercise Program Joint Mobilizations Manual Therapy Neuromuscular Re-education Therapeutic Activities Therapeutic Exercises Modalities Cold Pack/Ice Massage Electric Stimulation Hot Packs Next Visit Focus/Plan Next Note Type Treatment Note Next Visit Plan LE/Quad strengthening Plan of Care Dates Plan of Care Start Date 05/29/19 Plan of Care End Date 07/30/19 Please Sign and Return: I have reviewed this Plan of Care and certify that the skilled therapy services above are required to meet the patient?s needs. Physician Signature Date Printed Name and Credentials Clinical Instructor Signature Printed Name and Credentials
--- NOTE | 2019-06-02 17:31 | PT.OTN ---
Current Diagnoses Muscle weakness (generalized) (06/02/19) Presence of left artificial knee joint (06/02/19) Physical Therapy Treatment Note PT-OP-A Visit Information Start: 05/29/19 12:10 Freq: Status: Active Protocol: Document 06/02/19 16:50 DCW (Rec: 06/02/19 17:31 DCW [id number]) Out-Patient Physical Therapy Visit Information Visit Information Visit Type Treatment Note Visit Start Time 16:50 Visit Stop Time 17:40 Total Visit Minutes 50 Visit Number 2 Number of SOLAR SALES Visits 0 Evaluation Information Evaluation Date 05/28/19 PT-OP-B Current Condition Start: 05/29/19 12:10 Freq: Status: Active Protocol: Document 05/28/19 16:45 DCW (Rec: 05/29/19 12:37 DCW [id number]) Current Condition History of Current Condition Onset Date 04/10/19 Current Complaints Left TKA History of Current Condition Pt is a 63 year old male presenting 7 weeks s/p L TKA. Pt had previously been seen at this clinic for conservative treatment of his left knee, which ultimately failed, and he chose to undergo a TKA. Pt was initially scheduled for a PT evaluation on 04/22/19, unfortunately pt was at work and forgot about his appointment, resulting in a long lay-off between surgery and the start of therapy. Luckily, due to pt's history of prior PT, pt was very good with doing home activities, and comes in today with full ROM and no gait or balance difficulties. Pt reports he used a walker for one day, then crutches for three days, and finally a cane for three days, and by one week post surgery was walking without an assistive device and no limp. Pt also reports he returned to work five days post-op. Pt complaints that his biggest difficulty at the moment is stairs due to left quad weakness. Pt would like to return to walking to work, which is three miles, and hiking in the hills in an effort to lose weight. Prior Treatments and Tests L TKA 04/10/19 Treatment Goals Patient/Caregiver Goals Walk three miles to work, ascend/descend stairs with no difficulty, return to hiking Prior Functional Status Baseline Function- ADL's Independent Baseline Function- Mobility Independent Current Functional Impairments (Reported) Functional Limitations- Mobility/Gait Unable to eccentrically lower his body when descending stairs without use of rail Functional Limitations- Recreation/ Unable to tolerate walking Hobbies three miles to work or hiking PT-OP-C Subjective Start: 05/29/19 12:10 Freq: Status: Active Protocol: Document 06/02/19 16:50 DCW (Rec: 06/02/19 17:31 DCW [id number]) OP-PT Subjective Patient Comments Patient Comments Pt reports he has been walking around at work with a 4# ankle weight, and performs LAQs every chance I get. PT-OP-F Manual Assessment Start: 05/29/19 12:10 Freq: Status: Active Protocol: Document 05/28/19 16:45 DCW (Rec: 05/29/19 12:37 DCW [id number]) Manual Assessments Joint Mobility Assessment Joint Mobility Assessment Excellent joint mobility, knee flexion only limited due to soft tissue of pt's thigh, pt has full knee extension PT-OP-G Mobility & Gait Start: 05/29/19 12:10 Freq: Status: Active Protocol: Document 05/28/19 16:45 DCW (Rec: 05/29/19 12:37 DCW [id number]) OP Gait Assessment Gait Gait Assistance Required: Independent Able to Maintain Weight Bearing Status Yes During Gait Assistive Devices Assistive Device None Gait Deviations General Gait Pattern Within Normal Limits Stair Climbing Evaluation Evaluation Level of Assist On Stairs Independent Devices Stair Climbing Assistive Devices Left Railing Right Railing Technique/Endurance Stair Climbing Direction Ascend and Descend Stair Climbing Technique Step Over Step Number of Steps Climbed 12 Stair Climbing Set # Repetitions (reps) 1 Comments Stair Climbing Comments Pt has uncontrolled descent when attempting to not use a railing PT-OP-J Posture/Palpation/Skin Start: 05/29/19 12:37 Freq: Status: Active Protocol: Document 05/28/19 16:45 DCW (Rec: 05/29/19 12:39 DCW [id number]) Skin Assessment Circumference Measurement 3 Location Left knee 10 cm inferior to joint line Measurement (Centimeters) 50.3 Comments Right:46.6 2 Location Left knee 10 cm superior to joint line Measurement (Centimeters) 63.4 Comments Right: 64.2 1 Location Left knee joint line Measurement (Centimeters) 57.0 Comments Right: 49.5 PT-OP-K Range of Motion Start: 05/29/19 12:10 Freq: Status: Active Protocol: Document 05/28/19 16:45 DCW (Rec: 05/29/19 12:37 DCW [id number]) Knee Goniometric Range of Motion Knee Right Knee ROM WFL Yes Patient Position Sitting Flexion Active (degrees) 115 Extension Active (degrees) 0 Left Knee ROM WFL Yes Patient Position Sitting Flexion Active (degrees) 115 Extension Active (degrees) 0 PT-OP-M Strength Start: 05/29/19 12:10 Freq: Status: Active Protocol: Document 05/28/19 16:45 DCW (Rec: 05/29/19 12:37 DCW [id number]) Knee Strength Knee Manual Muscle Testing Right Comments Single Leg Leg Press Max: 187# (max of machine) Single Leg Extension Max: 90# Left Comments Single Leg Leg Press Max: 137# Single Leg Extension Max: 20# PT-OP-Q Treatments Start: 05/29/19 12:10 Freq: Status: Active Protocol: Document 06/02/19 16:50 DCW (Rec: 06/02/19 17:31 DCW [id number]) Cardio Equipment Recumbent Bicycle Duration (Minutes) 6 Resistance 10 Gym Equipment Cable Column (Body Solid) Leg Extension Resistance 15# L, 45# R Shuttle Recovery Unilateral Squats Resistance 100# Shuttle Recovery Platform Stable Therapeutic Ball Reverse Leg Press Exercise Details Hip, knee flexion/extension vs T-band resistance with feet on ball Ball Size/Color Red - 55 cm Body Position Supine Bridging Exercise Details Bridging /c feet on ball Ball Size/Color Red - 55 cm Body Position Supine Therapeutic Exercises Supine Exercises Bridging Supine Exercise Name Bridging /c R knee extension Standing Exercises Step-downs Standing Exercise Name Eccentric lowering Side left Equipment Used 4 step Comments rails for stability Terminal Knee Extension Standing Exercise Name TKE Side left Resistance Lv 4 Equipment Used T-band PT-OP-R Modalities Start: 05/29/19 12:10 Freq: Status: Active Protocol: Document 05/28/19 16:45 DCW (Rec: 05/29/19 12:37 DCW [id number]) Hot Pack/Cold Pack Treatment Cold Pack Location Left knee Patient Position Hooklying Treatment Duration (minutes) 10 PT-OP-T Assessment and Plan Start: 05/29/19 12:10 Freq: Status: Active Protocol: Document 06/02/19 16:50 DCW (Rec: 06/02/19 17:31 DCW [id number]) Physical Therapy Assessment Impairments Impairments Gait Strength Goals Two Impairment 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 descend stairs without use of rail due to left quad weakness Short Term Goal (STG) Pt to improve single leg max on the leg press to 175# STG Duration 06/29/19 [facility] Goal (LTG) Pt to improve single leg max on the leg extension to 70# One Impairment 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 walk to work 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 Pt continues to progress well, but did have difficulty with the step-downs, even on the shorter steps. Physical Therapy Plan Frequency and Duration Frequency of Treatment 2x/Week Duration of Treatment 2 months Plan of Care Start Date 05/29/19 Plan of Care End Date 07/30/19 Therapeutic Interventions Therapeutic Interventions Aquatic Therapy Balance Training Home Exercise Program Joint Mobilizations Manual Therapy Neuromuscular Re-education Therapeutic Activities Therapeutic Exercises Modalities Cold Pack/Ice Massage Electric Stimulation Hot Packs Next Visit Focus/Plan Next Note Type Treatment Note Next Visit Plan LE/Quad strengthening
--- NOTE | 2019-06-06 14:30 | PT.OTN ---
Current Diagnoses Muscle weakness (generalized) (06/06/19) Presence of left artificial knee joint (06/06/19) Physical Therapy Treatment Note PT-OP-A Visit Information Start: 05/29/19 12:10 Freq: Status: Active Protocol: Document 06/06/19 09:00 AMB (Rec: 06/06/19 14:30 AMB [email or web address]) Out-Patient Physical Therapy Visit Information Visit Information Visit Type Treatment Note Visit Start Time 09:00 Visit Stop Time 09:45 Total Visit Minutes 40 Visit Number 3 Number of LEGAL ASSISTANT Visits 0 PT-OP-B Current Condition Start: 05/29/19 12:10 Freq: Status: Active Protocol: Document 05/28/19 16:45 DCW (Rec: 05/29/19 12:37 DCW [id number]) Current Condition History of Current Condition Onset Date 04/10/19 Current Complaints Left TKA History of Current Condition Pt is a 63 year old male presenting 7 weeks s/p L TKA. Pt had previously been seen at this clinic for conservative treatment of his left knee, which ultimately failed, and he chose to undergo a TKA. Pt was initially scheduled for a PT evaluation on 04/22/19, unfortunately pt was at work and forgot about his appointment, resulting in a long lay-off between surgery and the start of therapy. Luckily, due to pt's history of prior PT, pt was very good with doing home activities, and comes in today with full ROM and no gait or balance difficulties. Pt reports he used a walker for one day, then crutches for three days, and finally a cane for three days, and by one week post surgery was walking without an assistive device and no limp. Pt also reports he returned to work five days post-op. Pt complaints that his biggest difficulty at the moment is stairs due to left quad weakness. Pt would like to return to walking to work, which is three miles, and hiking in the hills in an effort to lose weight. Prior Treatments and Tests L TKA 04/10/19 Treatment Goals Patient/Caregiver Goals Walk three miles to work, ascend/descend stairs with no difficulty, return to hiking Prior Functional Status Baseline Function- ADL's Independent Baseline Function- Mobility Independent Current Functional Impairments (Reported) Functional Limitations- Mobility/Gait Unable to eccentrically lower his body when descending stairs without use of rail Functional Limitations- Recreation/ Unable to tolerate walking Hobbies three miles to work or hiking PT-OP-C Subjective Start: 05/29/19 12:10 Freq: Status: Active Protocol: Document 06/06/19 09:00 AMB (Rec: 06/06/19 14:30 AMB [email or web address]) OP-PT Subjective Patient Comments Patient Comments Pt reports his goal is to walk to and from work [address]. He is walking around a lot at work, but has not tried walking to work yet. Stairs are still difficult. PT-OP-F Manual Assessment Start: 05/29/19 12:10 Freq: Status: Active Protocol: Document 05/28/19 16:45 DCW (Rec: 05/29/19 12:37 DCW [id number]) Manual Assessments Joint Mobility Assessment Joint Mobility Assessment Excellent joint mobility, knee flexion only limited due to soft tissue of pt's thigh, pt has full knee extension PT-OP-G Mobility & Gait Start: 05/29/19 12:10 Freq: Status: Active Protocol: Document 05/28/19 16:45 DCW (Rec: 05/29/19 12:37 DCW [id number]) OP Gait Assessment Gait Gait Assistance Required: Independent Able to Maintain Weight Bearing Status Yes During Gait Assistive Devices Assistive Device None Gait Deviations General Gait Pattern Within Normal Limits Stair Climbing Evaluation Evaluation Level of Assist On Stairs Independent Devices Stair Climbing Assistive Devices Left Railing Right Railing Technique/Endurance Stair Climbing Direction Ascend and Descend Stair Climbing Technique Step Over Step Number of Steps Climbed 12 Stair Climbing Set # Repetitions (reps) 1 Comments Stair Climbing Comments Pt has uncontrolled descent when attempting to not use a railing PT-OP-J Posture/Palpation/Skin Start: 05/29/19 12:37 Freq: Status: Active Protocol: Document 05/28/19 16:45 DCW (Rec: 05/29/19 12:39 DCW [id number]) Skin Assessment Circumference Measurement 3 Location Left knee 10 cm inferior to joint line Measurement (Centimeters) 50.3 Comments Right:46.6 2 Location Left knee 10 cm superior to joint line Measurement (Centimeters) 63.4 Comments Right: 64.2 1 Location Left knee joint line Measurement (Centimeters) 57.0 Comments Right: 49.5 PT-OP-K Range of Motion Start: 05/29/19 12:10 Freq: Status: Active Protocol: Document 05/28/19 16:45 DCW (Rec: 05/29/19 12:37 DCW [id number]) Knee Goniometric Range of Motion Knee Right Knee ROM WFL Yes Patient Position Sitting Flexion Active (degrees) 115 Extension Active (degrees) 0 Left Knee ROM WFL Yes Patient Position Sitting Flexion Active (degrees) 115 Extension Active (degrees) 0 PT-OP-M Strength Start: 05/29/19 12:10 Freq: Status: Active Protocol: Document 05/28/19 16:45 DCW (Rec: 05/29/19 12:37 DCW [id number]) Knee Strength Knee Manual Muscle Testing Right Comments Single Leg Leg Press Max: 187# (max of machine) Single Leg Extension Max: 90# Left Comments Single Leg Leg Press Max: 137# Single Leg Extension Max: 20# PT-OP-Q Treatments Start: 05/29/19 12:10 Freq: Status: Active Protocol: Document 06/06/19 09:00 AMB (Rec: 06/06/19 14:30 AMB [email or web address]) Cardio Equipment Recumbent Bicycle Duration (Minutes) 6 Resistance 10 Gym Equipment Cable Column (Body Solid) Leg Extension Resistance 15# L, 45# R Reps/Time 2x5on L, 2x12 on R Shuttle Recovery Unilateral Squats Resistance 100# Shuttle Recovery Platform Stable Reps/Time 2x15 Therapeutic Exercises Standing Exercises Step-downs Standing Exercise Name Eccentric lowering Side left Equipment Used 4 step Comments rails for stability PT-OP-R Modalities Start: 05/29/19 12:10 Freq: Status: Active Protocol: Document 05/28/19 16:45 DCW (Rec: 05/29/19 12:37 DCW [id number]) Hot Pack/Cold Pack Treatment Cold Pack Location Left knee Patient Position Hooklying Treatment Duration (minutes) 10 PT-OP-T Assessment and Plan Start: 05/29/19 12:10 Freq: Status: Active Protocol: Document 06/06/19 09:00 AMB (Rec: 06/06/19 14:30 AMB [email or web address]) Physical Therapy Assessment Assessment Summary Assessment Pt with pain by the end of the visit, but ice is helpful. Continues with weakness with knee extension and stairs. Physical Therapy Plan Next Visit Focus/Plan Next Note Type Treatment Note Next Visit Plan LE/Quad strengthening
--- NOTE | 2019-06-11 09:59 | PT.OTN ---
Current Diagnoses Muscle weakness (generalized) (06/11/19) Presence of left artificial knee joint (06/11/19) Physical Therapy Treatment Note PT-OP-A Visit Information Start: 05/29/19 12:10 Freq: Status: Active Protocol: Document 06/11/19 09:00 AMB (Rec: 06/11/19 09:10 AMB [id number]) Out-Patient Physical Therapy Visit Information Visit Information Visit Type Treatment Note Visit Start Time 09:00 Visit Stop Time 09:45 Total Visit Minutes 40 Visit Number 4 Number of FRONT OFFICE ASSOCIATE Visits 0 PT-OP-B Current Condition Start: 05/29/19 12:10 Freq: Status: Active Protocol: Document 05/28/19 16:45 DCW (Rec: 05/29/19 12:37 DCW [id number]) Current Condition History of Current Condition Onset Date 04/10/19 Current Complaints Left TKA History of Current Condition Pt is a 63 year old male presenting 7 weeks s/p L TKA. Pt had previously been seen at this clinic for conservative treatment of his left knee, which ultimately failed, and he chose to undergo a TKA. Pt was initially scheduled for a PT evaluation on 04/22/19, unfortunately pt was at work and forgot about his appointment, resulting in a long lay-off between surgery and the start of therapy. Luckily, due to pt's history of prior PT, pt was very good with doing home activities, and comes in today with full ROM and no gait or balance difficulties. Pt reports he used a walker for one day, then crutches for three days, and finally a cane for three days, and by one week post surgery was walking without an assistive device and no limp. Pt also reports he returned to work five days post-op. Pt complaints that his biggest difficulty at the moment is stairs due to left quad weakness. Pt would like to return to walking to work, which is three miles, and hiking in the hills in an effort to lose weight. Prior Treatments and Tests L TKA 04/10/19 Treatment Goals Patient/Caregiver Goals Walk three miles to work, ascend/descend stairs with no difficulty, return to hiking Prior Functional Status Baseline Function- ADL's Independent Baseline Function- Mobility Independent Current Functional Impairments (Reported) Functional Limitations- Mobility/Gait Unable to eccentrically lower his body when descending stairs without use of rail Functional Limitations- Recreation/ Unable to tolerate walking Hobbies three miles to work or hiking PT-OP-C Subjective Start: 05/29/19 12:10 Freq: Status: Active Protocol: Document 06/11/19 09:00 AMB (Rec: 06/11/19 09:10 AMB [id number]) OP-PT Subjective Patient Comments Patient Comments Pt reports a bit sore after last visit but not bad. PT-OP-F Manual Assessment Start: 05/29/19 12:10 Freq: Status: Active Protocol: Document 05/28/19 16:45 DCW (Rec: 05/29/19 12:37 DCW [id number]) Manual Assessments Joint Mobility Assessment Joint Mobility Assessment Excellent joint mobility, knee flexion only limited due to soft tissue of pt's thigh, pt has full knee extension PT-OP-G Mobility & Gait Start: 05/29/19 12:10 Freq: Status: Active Protocol: Document 05/28/19 16:45 DCW (Rec: 05/29/19 12:37 DCW [id number]) OP Gait Assessment Gait Gait Assistance Required: Independent Able to Maintain Weight Bearing Status Yes During Gait Assistive Devices Assistive Device None Gait Deviations General Gait Pattern Within Normal Limits Stair Climbing Evaluation Evaluation Level of Assist On Stairs Independent Devices Stair Climbing Assistive Devices Left Railing Right Railing Technique/Endurance Stair Climbing Direction Ascend and Descend Stair Climbing Technique Step Over Step Number of Steps Climbed 12 Stair Climbing Set # Repetitions (reps) 1 Comments Stair Climbing Comments Pt has uncontrolled descent when attempting to not use a railing PT-OP-J Posture/Palpation/Skin Start: 05/29/19 12:37 Freq: Status: Active Protocol: Document 05/28/19 16:45 DCW (Rec: 05/29/19 12:39 DCW [id number]) Skin Assessment Circumference Measurement 3 Location Left knee 10 cm inferior to joint line Measurement (Centimeters) 50.3 Comments Right:46.6 2 Location Left knee 10 cm superior to joint line Measurement (Centimeters) 63.4 Comments Right: 64.2 1 Location Left knee joint line Measurement (Centimeters) 57.0 Comments Right: 49.5 PT-OP-K Range of Motion Start: 05/29/19 12:10 Freq: Status: Active Protocol: Document 05/28/19 16:45 DCW (Rec: 05/29/19 12:37 DCW [id number]) Knee Goniometric Range of Motion Knee Right Knee ROM WFL Yes Patient Position Sitting Flexion Active (degrees) 115 Extension Active (degrees) 0 Left Knee ROM WFL Yes Patient Position Sitting Flexion Active (degrees) 115 Extension Active (degrees) 0 PT-OP-M Strength Start: 05/29/19 12:10 Freq: Status: Active Protocol: Document 05/28/19 16:45 DCW (Rec: 05/29/19 12:37 DCW [id number]) Knee Strength Knee Manual Muscle Testing Right Comments Single Leg Leg Press Max: 187# (max of machine) Single Leg Extension Max: 90# Left Comments Single Leg Leg Press Max: 137# Single Leg Extension Max: 20# PT-OP-Q Treatments Start: 05/29/19 12:10 Freq: Status: Active Protocol: Document 06/11/19 09:00 AMB (Rec: 06/11/19 09:42 AMB [id number]) Gym Equipment Cable Column (Body Solid) Leg Curl Details 30# Reps/Time 2x10 Leg Extension Resistance 10# on L Reps/Time 2x5 Shuttle Recovery Unilateral Squats Resistance 100# Shuttle Recovery Platform Stable Reps/Time 2x15 on L, 125#x10 Therapeutic Exercises Supine Exercises 1 Supine Exercise Name manual resisted knee extension Reps/Minutes 10 Standing Exercises 1 Standing Exercise Name wall squat Reps/Minutes 10 Step-downs Standing Exercise Name Eccentric lowering Side left Equipment Used 4 step Comments rails for stability PT-OP-R Modalities Start: 05/29/19 12:10 Freq: Status: Active Protocol: Document 05/28/19 16:45 DCW (Rec: 05/29/19 12:37 DCW [id number]) Hot Pack/Cold Pack Treatment Cold Pack Location Left knee Patient Position Hooklying Treatment Duration (minutes) 10 PT-OP-T Assessment and Plan Start: 05/29/19 12:10 Freq: Status: Active Protocol: Document 06/11/19 09:00 AMB (Rec: 06/11/19 09:49 AMB [email or web address]) Physical Therapy Assessment Assessment Summary Assessment Bassem had increased pain today with knee extension today. Tried to increase to 20# but pt unable due to pain. Encouraged pt to work on strengthening where he feels the muscle burn rather than pain at the lateral aspect of the knee that chronically swells. Physical Therapy Plan Next Visit Focus/Plan Next Note Type Treatment Note Next Visit Plan LE/Quad strengthening, continue to assess pain with stairs
--- NOTE | 2019-06-25 18:24 | PT.OTN ---
Current Diagnoses Muscle weakness (generalized) (06/25/19) Presence of left artificial knee joint (06/25/19) Physical Therapy Treatment Note PT-OP-A Visit Information Start: 05/29/19 12:10 Freq: Status: Active Protocol: Document 06/25/19 17:35 HH (Rec: 06/25/19 18:24 HH [email or web address]) Out-Patient Physical Therapy Visit Information Visit Information Visit Type Treatment Note Visit Start Time 17:35 Visit Stop Time 18:15 Total Visit Minutes 40 Visit Number 5 Number of CURING MACHINE OPERATOR Visits 0 PT-OP-B Current Condition Start: 05/29/19 12:10 Freq: Status: Active Protocol: Document 05/28/19 16:45 DCW (Rec: 05/29/19 12:37 DCW [id number]) Current Condition History of Current Condition Onset Date 04/10/19 Current Complaints Left TKA History of Current Condition Pt is a 63 year old male presenting 7 weeks s/p L TKA. Pt had previously been seen at this clinic for conservative treatment of his left knee, which ultimately failed, and he chose to undergo a TKA. Pt was initially scheduled for a PT evaluation on 04/22/19, unfortunately pt was at work and forgot about his appointment, resulting in a long lay-off between surgery and the start of therapy. Luckily, due to pt's history of prior PT, pt was very good with doing home activities, and comes in today with full ROM and no gait or balance difficulties. Pt reports he used a walker for one day, then crutches for three days, and finally a cane for three days, and by one week post surgery was walking without an assistive device and no limp. Pt also reports he returned to work five days post-op. Pt complaints that his biggest difficulty at the moment is stairs due to left quad weakness. Pt would like to return to walking to work, which is three miles, and hiking in the hills in an effort to lose weight. Prior Treatments and Tests L TKA 04/10/19 Treatment Goals Patient/Caregiver Goals Walk three miles to work, ascend/descend stairs with no difficulty, return to hiking Prior Functional Status Baseline Function- ADL's Independent Baseline Function- Mobility Independent Current Functional Impairments (Reported) Functional Limitations- Mobility/Gait Unable to eccentrically lower his body when descending stairs without use of rail Functional Limitations- Recreation/ Unable to tolerate walking Hobbies three miles to work or hiking PT-OP-C Subjective Start: 05/29/19 12:10 Freq: Status: Active Protocol: Document 06/25/19 17:35 HH (Rec: 06/25/19 18:24 HH [id number]) OP-PT Subjective Patient Comments Patient Comments I still have a lot of pain going downstairs. Seated knee extension with cable from last time hurts my knee a lot. Pt is going to see 07/02 PT-OP-F Manual Assessment Start: 05/29/19 12:10 Freq: Status: Active Protocol: Document 05/28/19 16:45 DCW (Rec: 05/29/19 12:37 DCW [id number]) Manual Assessments Joint Mobility Assessment Joint Mobility Assessment Excellent joint mobility, knee flexion only limited due to soft tissue of pt's thigh, pt has full knee extension PT-OP-G Mobility & Gait Start: 05/29/19 12:10 Freq: Status: Active Protocol: Document 05/28/19 16:45 DCW (Rec: 05/29/19 12:37 DCW [id number]) OP Gait Assessment Gait Gait Assistance Required: Independent Able to Maintain Weight Bearing Status Yes During Gait Assistive Devices Assistive Device None Gait Deviations General Gait Pattern Within Normal Limits Stair Climbing Evaluation Evaluation Level of Assist On Stairs Independent Devices Stair Climbing Assistive Devices Left Railing Right Railing Technique/Endurance Stair Climbing Direction Ascend and Descend Stair Climbing Technique Step Over Step Number of Steps Climbed 12 Stair Climbing Set # Repetitions (reps) 1 Comments Stair Climbing Comments Pt has uncontrolled descent when attempting to not use a railing PT-OP-J Posture/Palpation/Skin Start: 05/29/19 12:37 Freq: Status: Active Protocol: Document 05/28/19 16:45 DCW (Rec: 05/29/19 12:39 DCW [id number]) Skin Assessment Circumference Measurement 3 Location Left knee 10 cm inferior to joint line Measurement (Centimeters) 50.3 Comments Right:46.6 2 Location Left knee 10 cm superior to joint line Measurement (Centimeters) 63.4 Comments Right: 64.2 1 Location Left knee joint line Measurement (Centimeters) 57.0 Comments Right: 49.5 PT-OP-K Range of Motion Start: 05/29/19 12:10 Freq: Status: Active Protocol: Document 05/28/19 16:45 DCW (Rec: 05/29/19 12:37 DCW [id number]) Knee Goniometric Range of Motion Knee Right Knee ROM WFL Yes Patient Position Sitting Flexion Active (degrees) 115 Extension Active (degrees) 0 Left Knee ROM WFL Yes Patient Position Sitting Flexion Active (degrees) 115 Extension Active (degrees) 0 PT-OP-M Strength Start: 05/29/19 12:10 Freq: Status: Active Protocol: Document 05/28/19 16:45 DCW (Rec: 05/29/19 12:37 DCW [id number]) Knee Strength Knee Manual Muscle Testing Right Comments Single Leg Leg Press Max: 187# (max of machine) Single Leg Extension Max: 90# Left Comments Single Leg Leg Press Max: 137# Single Leg Extension Max: 20# PT-OP-Q Treatments Start: 05/29/19 12:10 Freq: Status: Active Protocol: Document 06/25/19 17:35 HH (Rec: 06/25/19 18:24 HH [email or web address]) Gym Equipment Shuttle Recovery Unilateral Squats Details with resisted hip abduction Resistance 75# Shuttle Recovery Platform Stable Therapeutic Exercises Supine Exercises hip ER Supine Exercise Name hip ER Side bilateral Equipment Used belt Comments belt locks ankle then active hip ER Sitting Exercises seated tibia IR Side left Equipment Used with slider Reps/Minutes 5 mins Comments cues on tibia and ankle IR Manual Therapy Treatment Joint Mobilizations tibial IR with ext Direction IR Grade III Body Position Sitting Comments tibial IR with active knee extension tibia ir Direction IR Grade III Body Position Sitting Comments tibial IR PT-OP-R Modalities Start: 05/29/19 12:10 Freq: Status: Active Protocol: Document 05/28/19 16:45 DCW (Rec: 05/29/19 12:37 DCW [id number]) Hot Pack/Cold Pack Treatment Cold Pack Location Left knee Patient Position Hooklying Treatment Duration (minutes) 10 PT-OP-T Assessment and Plan Start: 05/29/19 12:10 Freq: Status: Active Protocol: Document 06/25/19 17:35 HH (Rec: 06/25/19 18:24 HH [email or web address]) Physical Therapy Assessment Assessment Summary Assessment Pt reports significant reduced in L knee pain during stairs and active knee extension after tibial IR joint mobilization. Added HEP with seated tibial IR and supine hip ER. Physical Therapy Plan Next Visit Focus/Plan Next Note Type Treatment Note Next Visit Plan reassess pt's knee pain cont tibial IR joint mob as anahi knee foot alignment reeducation during standing, stair, ambulation
--- NOTE | 2019-06-27 10:13 | PT.OTN ---
Current Diagnoses Muscle weakness (generalized) (06/27/19) Presence of left artificial knee joint (06/27/19) Physical Therapy Treatment Note PT-OP-A Visit Information Start: 05/29/19 12:10 Freq: Status: Active Protocol: Document 06/27/19 09:00 DCW (Rec: 06/27/19 10:12 DCW [id number]) Out-Patient Physical Therapy Visit Information Visit Information Visit Type Treatment Note Visit Start Time 09:00 Visit Stop Time 09:45 Total Visit Minutes 45 Visit Number 6 Number of POLICY CANCELLATION CLERK Visits 0 PT-OP-B Current Condition Start: 05/29/19 12:10 Freq: Status: Active Protocol: Document 05/28/19 16:45 DCW (Rec: 05/29/19 12:37 DCW [id number]) Current Condition History of Current Condition Onset Date 04/10/19 Current Complaints Left TKA History of Current Condition Pt is a 63 year old male presenting 7 weeks s/p L TKA. Pt had previously been seen at this clinic for conservative treatment of his left knee, which ultimately failed, and he chose to undergo a TKA. Pt was initially scheduled for a PT evaluation on 04/22/19, unfortunately pt was at work and forgot about his appointment, resulting in a long lay-off between surgery and the start of therapy. Luckily, due to pt's history of prior PT, pt was very good with doing home activities, and comes in today with full ROM and no gait or balance difficulties. Pt reports he used a walker for one day, then crutches for three days, and finally a cane for three days, and by one week post surgery was walking without an assistive device and no limp. Pt also reports he returned to work five days post-op. Pt complaints that his biggest difficulty at the moment is stairs due to left quad weakness. Pt would like to return to walking to work, which is three miles, and hiking in the hills in an effort to lose weight. Prior Treatments and Tests L TKA 04/10/19 Treatment Goals Patient/Caregiver Goals Walk three miles to work, ascend/descend stairs with no difficulty, return to hiking Prior Functional Status Baseline Function- ADL's Independent Baseline Function- Mobility Independent Current Functional Impairments (Reported) Functional Limitations- Mobility/Gait Unable to eccentrically lower his body when descending stairs without use of rail Functional Limitations- Recreation/ Unable to tolerate walking Hobbies three miles to work or hiking PT-OP-C Subjective Start: 05/29/19 12:10 Freq: Status: Active Protocol: Document 06/27/19 09:00 DCW (Rec: 06/27/19 10:12 DCW [id number]) OP-PT Subjective Patient Comments Patient Comments Pt has been still experiencing a lot of pain and biting at his lateral knee inferior to the joint line, which was his main complaint prior to surgery, and had gone away following surgery, but has recently returned. PT-OP-F Manual Assessment Start: 05/29/19 12:10 Freq: Status: Active Protocol: Document 05/28/19 16:45 DCW (Rec: 05/29/19 12:37 DCW [id number]) Manual Assessments Joint Mobility Assessment Joint Mobility Assessment Excellent joint mobility, knee flexion only limited due to soft tissue of pt's thigh, pt has full knee extension PT-OP-G Mobility & Gait Start: 05/29/19 12:10 Freq: Status: Active Protocol: Document 05/28/19 16:45 DCW (Rec: 05/29/19 12:37 DCW [id number]) OP Gait Assessment Gait Gait Assistance Required: Independent Able to Maintain Weight Bearing Status Yes During Gait Assistive Devices Assistive Device None Gait Deviations General Gait Pattern Within Normal Limits Stair Climbing Evaluation Evaluation Level of Assist On Stairs Independent Devices Stair Climbing Assistive Devices Left Railing Right Railing Technique/Endurance Stair Climbing Direction Ascend and Descend Stair Climbing Technique Step Over Step Number of Steps Climbed 12 Stair Climbing Set # Repetitions (reps) 1 Comments Stair Climbing Comments Pt has uncontrolled descent when attempting to not use a railing PT-OP-J Posture/Palpation/Skin Start: 05/29/19 12:37 Freq: Status: Active Protocol: Document 05/28/19 16:45 DCW (Rec: 05/29/19 12:39 DCW [id number]) Skin Assessment Circumference Measurement 3 Location Left knee 10 cm inferior to joint line Measurement (Centimeters) 50.3 Comments Right:46.6 2 Location Left knee 10 cm superior to joint line Measurement (Centimeters) 63.4 Comments Right: 64.2 1 Location Left knee joint line Measurement (Centimeters) 57.0 Comments Right: 49.5 PT-OP-K Range of Motion Start: 05/29/19 12:10 Freq: Status: Active Protocol: Document 05/28/19 16:45 DCW (Rec: 05/29/19 12:37 DCW [id number]) Knee Goniometric Range of Motion Knee Right Knee ROM WFL Yes Patient Position Sitting Flexion Active (degrees) 115 Extension Active (degrees) 0 Left Knee ROM WFL Yes Patient Position Sitting Flexion Active (degrees) 115 Extension Active (degrees) 0 PT-OP-M Strength Start: 05/29/19 12:10 Freq: Status: Active Protocol: Document 05/28/19 16:45 DCW (Rec: 05/29/19 12:37 DCW [id number]) Knee Strength Knee Manual Muscle Testing Right Comments Single Leg Leg Press Max: 187# (max of machine) Single Leg Extension Max: 90# Left Comments Single Leg Leg Press Max: 137# Single Leg Extension Max: 20# PT-OP-Q Treatments Start: 05/29/19 12:10 Freq: Status: Active Protocol: Document 06/27/19 09:00 DCW (Rec: 06/27/19 10:12 DCW [id number]) Cardio Equipment Recumbent Bicycle Duration (Minutes) 6 Resistance 10 Gym Equipment Shuttle Recovery Unilateral Squats Details with resisted hip abduction Resistance 87# Shuttle Recovery Platform Stable Reps/Time focus on foot positioning Therapeutic Exercises Standing Exercises 1 Standing Exercise Name wall squat Reps/Minutes 10 Comments add ball squeeze Step-downs Standing Exercise Name Eccentric lowering Side left Equipment Used 4 step Comments rails for stability Lunges Standing Exercise Name Lunges onto step Side bilateral Comments focus on neutral foot placement Manual Therapy Treatment Soft Tissue Mobilization Gastroc Body Location L lateral gastroc/soleous Mobilization Type Strumming Sustained Pressure Trigger Point Release Intensity/Depth Moderate Body Position Sitting Joint Mobilizations tibial IR with ext Direction IR Grade III Body Position Sitting Comments tibial IR with active knee extension Taping 1 Body Location Medial Patella pull Type of Tape [place] PT-OP-R Modalities Start: 05/29/19 12:10 Freq: Status: Active Protocol: Document 05/28/19 16:45 DCW (Rec: 05/29/19 12:37 DCW [id number]) Hot Pack/Cold Pack Treatment Cold Pack Location Left knee Patient Position Hooklying Treatment Duration (minutes) 10 PT-OP-T Assessment and Plan Start: 05/29/19 12:10 Freq: Status: Active Protocol: Document 06/27/19 09:00 DCW (Rec: 06/27/19 10:12 DCW [id number]) Physical Therapy Assessment Impairments Impairments Gait Strength Goals Two Impairment 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 descend stairs without use of rail due to left quad weakness Short Term Goal (STG) Pt to improve single leg max on the leg press to 175# STG Duration 06/29/19 [facility] Goal (LTG) Pt to improve single leg max on the leg extension to 70# One Impairment 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 walk to work [facility] Goal (LTG) Pt to report ability to walk the three miles to and from work with no increased knee pain LTG Duration 07/30/19 Assessment Summary Assessment Pt appears to be having some patellofemoral dysfunction with resulting pain along his lateral knee due to VMO weakness. PT felt much better with Zambrano taping to pull patella medially. Focus on VMO strengthening and proper foot /leg alignment during gait and stairs. Physical Therapy Plan Frequency and Duration Frequency of Treatment 2x/Week Duration of Treatment 2 months Plan of Care Start Date 05/29/19 Plan of Care End Date 07/30/19 Therapeutic Interventions Therapeutic Interventions Aquatic Therapy Balance Training Home Exercise Program Joint Mobilizations Manual Therapy Neuromuscular Re-education Therapeutic Activities Therapeutic Exercises Modalities Cold Pack/Ice Massage Electric Stimulation Hot Packs Next Visit Focus/Plan Next Note Type Treatment Note Next Visit Plan VMO strengthening, foot positioning to decrease ER
--- NOTE | 2019-07-04 11:41 | PT.OTN ---
Current Diagnoses Muscle weakness (generalized) (07/03/19) Presence of left artificial knee joint (07/03/19) Physical Therapy Treatment Note PT-OP-A Visit Information Start: 05/29/19 12:10 Freq: Status: Active Protocol: Document 07/03/19 16:45 HH (Rec: 07/04/19 11:41 HH [id number]) Out-Patient Physical Therapy Visit Information Visit Information Visit Type Treatment Note Visit Start Time 16:45 Visit Stop Time 17:32 Total Visit Minutes 47 Visit Number 7 Number of BIOMEDICAL ANALYTICAL SCIENTIST Visits 0 PT-OP-B Current Condition Start: 05/29/19 12:10 Freq: Status: Active Protocol: Document 05/28/19 16:45 DCW (Rec: 05/29/19 12:37 DCW [id number]) Current Condition History of Current Condition Onset Date 04/10/19 Current Complaints Left TKA History of Current Condition Pt is a 63 year old male presenting 7 weeks s/p L TKA. Pt had previously been seen at this clinic for conservative treatment of his left knee, which ultimately failed, and he chose to undergo a TKA. Pt was initially scheduled for a PT evaluation on 04/22/19, unfortunately pt was at work and forgot about his appointment, resulting in a long lay-off between surgery and the start of therapy. Luckily, due to pt's history of prior PT, pt was very good with doing home activities, and comes in today with full ROM and no gait or balance difficulties. Pt reports he used a walker for one day, then crutches for three days, and finally a cane for three days, and by one week post surgery was walking without an assistive device and no limp. Pt also reports he returned to work five days post-op. Pt complaints that his biggest difficulty at the moment is stairs due to left quad weakness. Pt would like to return to walking to work, which is three miles, and hiking in the hills in an effort to lose weight. Prior Treatments and Tests L TKA 04/10/19 Treatment Goals Patient/Caregiver Goals Walk three miles to work, ascend/descend stairs with no difficulty, return to hiking Prior Functional Status Baseline Function- ADL's Independent Baseline Function- Mobility Independent Current Functional Impairments (Reported) Functional Limitations- Mobility/Gait Unable to eccentrically lower his body when descending stairs without use of rail Functional Limitations- Recreation/ Unable to tolerate walking Hobbies three miles to work or hiking PT-OP-C Subjective Start: 05/29/19 12:10 Freq: Status: Active Protocol: Document 07/03/19 16:45 HH (Rec: 07/04/19 11:41 HH [id number]) OP-PT Subjective Patient Comments Patient Comments Pt had an cortisone injection yesterday. He also stated the taping helped him for 5 days with less pain during stair climing. PT-OP-F Manual Assessment Start: 05/29/19 12:10 Freq: Status: Active Protocol: Document 05/28/19 16:45 DCW (Rec: 05/29/19 12:37 DCW [id number]) Manual Assessments Joint Mobility Assessment Joint Mobility Assessment Excellent joint mobility, knee flexion only limited due to soft tissue of pt's thigh, pt has full knee extension PT-OP-G Mobility & Gait Start: 05/29/19 12:10 Freq: Status: Active Protocol: Document 05/28/19 16:45 DCW (Rec: 05/29/19 12:37 DCW [id number]) OP Gait Assessment Gait Gait Assistance Required: Independent Able to Maintain Weight Bearing Status Yes During Gait Assistive Devices Assistive Device None Gait Deviations General Gait Pattern Within Normal Limits Stair Climbing Evaluation Evaluation Level of Assist On Stairs Independent Devices Stair Climbing Assistive Devices Left Railing Right Railing Technique/Endurance Stair Climbing Direction Ascend and Descend Stair Climbing Technique Step Over Step Number of Steps Climbed 12 Stair Climbing Set # Repetitions (reps) 1 Comments Stair Climbing Comments Pt has uncontrolled descent when attempting to not use a railing PT-OP-J Posture/Palpation/Skin Start: 05/29/19 12:37 Freq: Status: Active Protocol: Document 05/28/19 16:45 DCW (Rec: 05/29/19 12:39 DCW [id number]) Skin Assessment Circumference Measurement 3 Location Left knee 10 cm inferior to joint line Measurement (Centimeters) 50.3 Comments Right:46.6 2 Location Left knee 10 cm superior to joint line Measurement (Centimeters) 63.4 Comments Right: 64.2 1 Location Left knee joint line Measurement (Centimeters) 57.0 Comments Right: 49.5 PT-OP-K Range of Motion Start: 05/29/19 12:10 Freq: Status: Active Protocol: Document 05/28/19 16:45 DCW (Rec: 05/29/19 12:37 DCW [id number]) Knee Goniometric Range of Motion Knee Right Knee ROM WFL Yes Patient Position Sitting Flexion Active (degrees) 115 Extension Active (degrees) 0 Left Knee ROM WFL Yes Patient Position Sitting Flexion Active (degrees) 115 Extension Active (degrees) 0 PT-OP-M Strength Start: 05/29/19 12:10 Freq: Status: Active Protocol: Document 05/28/19 16:45 DCW (Rec: 05/29/19 12:37 DCW [id number]) Knee Strength Knee Manual Muscle Testing Right Comments Single Leg Leg Press Max: 187# (max of machine) Single Leg Extension Max: 90# Left Comments Single Leg Leg Press Max: 137# Single Leg Extension Max: 20# PT-OP-Q Treatments Start: 05/29/19 12:10 Freq: Status: Active Protocol: Document 07/03/19 16:45 HH (Rec: 07/04/19 11:41 HH [id number]) Therapeutic Exercises Supine Exercises Bridging Equipment Used band at thighs Reps/Minutes 3 secs hold x 6 x2 Comments cues for hip abd Bridging /c Adduction Equipment Used ball between thighs Reps/Minutes 3 secs hold x 6 x 2 Straight Leg Raise Supine Exercise Name with foot ER Side left Equipment Used ball between thighs Reps/Minutes 10 x2 Standing Exercises 1 Standing Exercise Name wall squat Reps/Minutes 10 Comments add ball squeeze Terminal Knee Extension Side left Equipment Used pink band Reps/Minutes 5 mins Comments foot ER to facilitate VMO Therapeutic Activity Therapeutic Activity stair climbing Reps/Minutes 4 flights x 4 steps Comments cues on foot alignment Manual Therapy Treatment Joint Mobilizations tibial IR with ext Direction IR Grade III Body Position Sitting Taping 1 Body Location Medial Patella pull Type of Tape [place] PT-OP-R Modalities Start: 05/29/19 12:10 Freq: Status: Active Protocol: Document 05/28/19 16:45 DCW (Rec: 05/29/19 12:37 DCW [id number]) Hot Pack/Cold Pack Treatment Cold Pack Location Left knee Patient Position Hooklying Treatment Duration (minutes) 10 PT-OP-T Assessment and Plan Start: 05/29/19 12:10 Freq: Status: Active Protocol: Document 07/03/19 16:45 HH (Rec: 07/04/19 11:41 [id number]) Physical Therapy Assessment Assessment Summary Assessment cont needed cues on foot alignment during eccentric movements. [place] tape cont to reduce his pain during stair climbing Physical Therapy Plan Next Visit Focus/Plan Next Note Type Treatment Note Next Visit Plan assess tape VMO strengthening, foot positioning to decrease ER discuss d/c planning?
--- NOTE | 2019-07-09 17:31 | PT.OTN ---
Current Diagnoses Muscle weakness (generalized) (07/09/19) Presence of left artificial knee joint (07/09/19) Physical Therapy Treatment Note PT-OP-A Visit Information Start: 05/29/19 12:10 Freq: Status: Active Protocol: Document 07/09/19 16:45 DCW (Rec: 07/09/19 17:31 DCW [id number]) Out-Patient Physical Therapy Visit Information Visit Information Visit Type Treatment Note Visit Start Time 16:45 Visit Stop Time 17:30 Total Visit Minutes 45 Visit Number 8 Number of SUPERVISOR WEBBING Visits 0 PT-OP-B Current Condition Start: 05/29/19 12:10 Freq: Status: Active Protocol: Document 05/28/19 16:45 DCW (Rec: 05/29/19 12:37 DCW [id number]) Current Condition History of Current Condition Onset Date 04/10/19 Current Complaints Left TKA History of Current Condition Pt is a 63 year old male presenting 7 weeks s/p L TKA. Pt had previously been seen at this clinic for conservative treatment of his left knee, which ultimately failed, and he chose to undergo a TKA. Pt was initially scheduled for a PT evaluation on 04/22/19, unfortunately pt was at work and forgot about his appointment, resulting in a long lay-off between surgery and the start of therapy. Luckily, due to pt's history of prior PT, pt was very good with doing home activities, and comes in today with full ROM and no gait or balance difficulties. Pt reports he used a walker for one day, then crutches for three days, and finally a cane for three days, and by one week post surgery was walking without an assistive device and no limp. Pt also reports he returned to work five days post-op. Pt complaints that his biggest difficulty at the moment is stairs due to left quad weakness. Pt would like to return to walking to work, which is three miles, and hiking in the hills in an effort to lose weight. Prior Treatments and Tests L TKA 04/10/19 Treatment Goals Patient/Caregiver Goals Walk three miles to work, ascend/descend stairs with no difficulty, return to hiking Prior Functional Status Baseline Function- ADL's Independent Baseline Function- Mobility Independent Current Functional Impairments (Reported) Functional Limitations- Mobility/Gait Unable to eccentrically lower his body when descending stairs without use of rail Functional Limitations- Recreation/ Unable to tolerate walking Hobbies three miles to work or hiking PT-OP-C Subjective Start: 05/29/19 12:10 Freq: Status: Active Protocol: Document 07/09/19 16:45 DCW (Rec: 07/09/19 17:31 DCW [id number]) OP-PT Subjective Patient Comments Patient Comments It feels a heck of a lot better than it has in years. Pt notes that stairs have been going much better, but it's still not quite there yet. PT-OP-F Manual Assessment Start: 05/29/19 12:10 Freq: Status: Active Protocol: Document 05/28/19 16:45 DCW (Rec: 05/29/19 12:37 DCW [id number]) Manual Assessments Joint Mobility Assessment Joint Mobility Assessment Excellent joint mobility, knee flexion only limited due to soft tissue of pt's thigh, pt has full knee extension PT-OP-G Mobility & Gait Start: 05/29/19 12:10 Freq: Status: Active Protocol: Document 05/28/19 16:45 DCW (Rec: 05/29/19 12:37 DCW [id number]) OP Gait Assessment Gait Gait Assistance Required: Independent Able to Maintain Weight Bearing Status Yes During Gait Assistive Devices Assistive Device None Gait Deviations General Gait Pattern Within Normal Limits Stair Climbing Evaluation Evaluation Level of Assist On Stairs Independent Devices Stair Climbing Assistive Devices Left Railing Right Railing Technique/Endurance Stair Climbing Direction Ascend and Descend Stair Climbing Technique Step Over Step Number of Steps Climbed 12 Stair Climbing Set # Repetitions (reps) 1 Comments Stair Climbing Comments Pt has uncontrolled descent when attempting to not use a railing PT-OP-J Posture/Palpation/Skin Start: 05/29/19 12:37 Freq: Status: Active Protocol: Document 05/28/19 16:45 DCW (Rec: 05/29/19 12:39 DCW [id number]) Skin Assessment Circumference Measurement 3 Location Left knee 10 cm inferior to joint line Measurement (Centimeters) 50.3 Comments Right:46.6 2 Location Left knee 10 cm superior to joint line Measurement (Centimeters) 63.4 Comments Right: 64.2 1 Location Left knee joint line Measurement (Centimeters) 57.0 Comments Right: 49.5 PT-OP-K Range of Motion Start: 05/29/19 12:10 Freq: Status: Active Protocol: Document 05/28/19 16:45 DCW (Rec: 05/29/19 12:37 DCW [id number]) Knee Goniometric Range of Motion Knee Right Knee ROM WFL Yes Patient Position Sitting Flexion Active (degrees) 115 Extension Active (degrees) 0 Left Knee ROM WFL Yes Patient Position Sitting Flexion Active (degrees) 115 Extension Active (degrees) 0 PT-OP-M Strength Start: 05/29/19 12:10 Freq: Status: Active Protocol: Document 05/28/19 16:45 DCW (Rec: 05/29/19 12:37 DCW [id number]) Knee Strength Knee Manual Muscle Testing Right Comments Single Leg Leg Press Max: 187# (max of machine) Single Leg Extension Max: 90# Left Comments Single Leg Leg Press Max: 137# Single Leg Extension Max: 20# PT-OP-Q Treatments Start: 05/29/19 12:10 Freq: Status: Active Protocol: Document 07/09/19 16:45 DCW (Rec: 07/09/19 17:31 DCW [id number]) Cardio Equipment Recumbent Bicycle Duration (Minutes) 6 Resistance 10 Gym Equipment Cable Column (Body Solid) Leg Curl Resistance on L Reps/Time 2x10 Leg Extension Resistance 15# on L Reps/Time 2x10 Shuttle Recovery Unilateral Squats Details with resisted hip adduction Resistance 87# Shuttle Recovery Platform Stable Reps/Time focus on foot positioning Bilateral Squats Details Adductor Ball Squeeze Resistance 150# Shuttle Recovery Platform Stable Therapeutic Ball Reverse Leg Press Exercise Details Hip, knee flexion/extension vs T-band resistance with feet on ball Ball Size/Color Red - 55 cm Lv 5 T-band Body Position Supine Bridging with Hamstring Curls Exercise Details Bridging /c HS curls and Adductor ball squeeze Ball Size/Color 55 cm - Red Body Position Supine Bridging Exercise Details Bridging /c Adductor Ball Squeeze Ball Size/Color 55 cm - Red Body Position Supine Therapeutic Activity Therapeutic Activity stair climbing Reps/Minutes 4 flights x 4 steps Comments cues on foot alignment Manual Therapy Treatment Taping 1 Body Location Medial Patella pull Type of Tape Kinesio Tape PT-OP-R Modalities Start: 05/29/19 12:10 Freq: Status: Active Protocol: Document 05/28/19 16:45 DCW (Rec: 05/29/19 12:37 DCW [id number]) Hot Pack/Cold Pack Treatment Cold Pack Location Left knee Patient Position Hooklying Treatment Duration (minutes) 10 PT-OP-T Assessment and Plan Start: 05/29/19 12:10 Freq: Status: Active Protocol: Document 07/09/19 16:45 DCW (Rec: 07/09/19 17:31 DCW [id number]) Physical Therapy Assessment Impairments Impairments Gait Strength Goals Two Impairment 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 descend stairs without use of rail due to left quad weakness Short Term Goal (STG) Pt to improve single leg max on the leg press to 175# STG Duration 06/29/19 [facility] Goal (LTG) Pt to improve single leg max on the leg extension to 70# One Impairment 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 walk to work [facility] Goal (LTG) Pt to report ability to walk the three miles to and from work with no increased knee pain LTG Duration 07/30/19 Assessment Summary Assessment Pt making great progress, likely nearing discharge from skilled therapy. Pt will return on Sunday for HEP review, testing, and training with self-taping, and then will likely be discharged. Physical Therapy Plan Frequency and Duration Frequency of Treatment 2x/Week Duration of Treatment 2 months Plan of Care Start Date 05/29/19 Plan of Care End Date 07/30/19 Therapeutic Interventions Therapeutic Interventions Aquatic Therapy Balance Training Home Exercise Program Joint Mobilizations Manual Therapy Neuromuscular Re-education Therapeutic Activities Therapeutic Exercises Modalities Cold Pack/Ice Massage Electric Stimulation Hot Packs Next Visit Focus/Plan Next Note Type Treatment Note Next Visit Plan VMO strengthening, foot positioning to decrease ER
--- NOTE | 2019-07-11 15:51 | PT.OTN ---
Current Diagnoses Muscle weakness (generalized) (07/11/19) Presence of left artificial knee joint (07/11/19) Physical Therapy Treatment Note PT-OP-A Visit Information Start: 05/29/19 12:10 Freq: Status: Active Protocol: Document 07/11/19 15:15 DCW (Rec: 07/11/19 15:51 DCW [id number]) Out-Patient Physical Therapy Visit Information Visit Information Visit Type Discharge Summary Visit Start Time 15:15 Visit Stop Time 15:45 Total Visit Minutes 30 Visit Number 9 Number of [employer]ACH[employer] TENDER Visits 0 PT-OP-B Current Condition Start: 05/29/19 12:10 Freq: Status: Active Protocol: Document 05/28/19 16:45 DCW (Rec: 05/29/19 12:37 DCW [id number]) Current Condition History of Current Condition Onset Date 04/10/19 Current Complaints Left TKA History of Current Condition Pt is a 63 year old male presenting 7 weeks s/p L TKA. Pt had previously been seen at this clinic for conservative treatment of his left knee, which ultimately failed, and he chose to undergo a TKA. Pt was initially scheduled for a PT evaluation on 04/22/19, unfortunately pt was at work and forgot about his appointment, resulting in a long lay-off between surgery and the start of therapy. Luckily, due to pt's history of prior PT, pt was very good with doing home activities, and comes in today with full ROM and no gait or balance difficulties. Pt reports he used a walker for one day, then crutches for three days, and finally a cane for three days, and by one week post surgery was walking without an assistive device and no limp. Pt also reports he returned to work five days post-op. Pt complaints that his biggest difficulty at the moment is stairs due to left quad weakness. Pt would like to return to walking to work, which is three miles, and hiking in the hills in an effort to lose weight. Prior Treatments and Tests L TKA 04/10/19 Treatment Goals Patient/Caregiver Goals Walk three miles to work, ascend/descend stairs with no difficulty, return to hiking Prior Functional Status Baseline Function- ADL's Independent Baseline Function- Mobility Independent Current Functional Impairments (Reported) Functional Limitations- Mobility/Gait Unable to eccentrically lower his body when descending stairs without use of rail Functional Limitations- Recreation/ Unable to tolerate walking Hobbies three miles to work or hiking PT-OP-C Subjective Start: 05/29/19 12:10 Freq: Status: Active Protocol: Document 07/11/19 15:15 DCW (Rec: 07/11/19 15:51 DCW [id number]) OP-PT Subjective Patient Comments Patient Comments Pt notes he is feeling great, and agreeable to discharge. Since I initially injured it in the 70s, I've constantly had to think about my steps and what I need to do to avoid it hurting. It will be nice to just be able to go without thinking about it too much. PT-OP-F Manual Assessment Start: 05/29/19 12:10 Freq: Status: Active Protocol: Document 05/28/19 16:45 DCW (Rec: 05/29/19 12:37 DCW [id number]) Manual Assessments Joint Mobility Assessment Joint Mobility Assessment Excellent joint mobility, knee flexion only limited due to soft tissue of pt's thigh, pt has full knee extension PT-OP-G Mobility & Gait Start: 05/29/19 12:10 Freq: Status: Active Protocol: Document 05/28/19 16:45 DCW (Rec: 05/29/19 12:37 DCW [id number]) OP Gait Assessment Gait Gait Assistance Required: Independent Able to Maintain Weight Bearing Status Yes During Gait Assistive Devices Assistive Device None Gait Deviations General Gait Pattern Within Normal Limits Stair Climbing Evaluation Evaluation Level of Assist On Stairs Independent Devices Stair Climbing Assistive Devices Left Railing Right Railing Technique/Endurance Stair Climbing Direction Ascend and Descend Stair Climbing Technique Step Over Step Number of Steps Climbed 12 Stair Climbing Set # Repetitions (reps) 1 Comments Stair Climbing Comments Pt has uncontrolled descent when attempting to not use a railing PT-OP-J Posture/Palpation/Skin Start: 05/29/19 12:37 Freq: Status: Active Protocol: Document 07/11/19 15:15 DCW (Rec: 07/11/19 15:28 DCW [id number]) Skin Assessment Circumference Measurement 3 Location Left knee 10 cm inferior to joint line Measurement (Centimeters) 47.3 Comments Right: 45.3 2 Location Left knee 10 cm superior to joint line Measurement (Centimeters) 63.1 Comments Right: 61.5 1 Location Left knee joint line Measurement (Centimeters) 50.8 Comments Right: 51.2 PT-OP-K Range of Motion Start: 05/29/19 12:10 Freq: Status: Active Protocol: Document 05/28/19 16:45 DCW (Rec: 05/29/19 12:37 DCW [id number]) Knee Goniometric Range of Motion Knee Right Knee ROM WFL Yes Patient Position Sitting Flexion Active (degrees) 115 Extension Active (degrees) 0 Left Knee ROM WFL Yes Patient Position Sitting Flexion Active (degrees) 115 Extension Active (degrees) 0 PT-OP-M Strength Start: 05/29/19 12:10 Freq: Status: Active Protocol: Document 07/11/19 15:15 DCW (Rec: 07/11/19 15:28 DCW [id number]) Knee Strength Knee Manual Muscle Testing Right Comments Single Leg Leg Press Max: 187# (max of machine) Single Leg Extension Max: 90# Left Comments Single Leg Leg Press Max: 175# Single Leg Extension Max: 50# PT-OP-Q Treatments Start: 05/29/19 12:10 Freq: Status: Active Protocol: Document 07/11/19 15:15 DCW (Rec: 07/11/19 15:51 DCW [id number]) Cardio Equipment Recumbent Bicycle Duration (Minutes) 10 Resistance 8 Gym Equipment Cable Column (Body Solid) Leg Extension Resistance 15# on L Reps/Time 2x10 Shuttle Recovery Unilateral Squats Details with resisted hip adduction Resistance 87# Shuttle Recovery Platform Stable Reps/Time focus on foot positioning Manual Therapy Treatment Other Other Manual Treatments Testing, Circumfrential measurement, MMT PT-OP-R Modalities Start: 05/29/19 12:10 Freq: Status: Active Protocol: Document 05/28/19 16:45 DCW (Rec: 05/29/19 12:37 DCW [id number]) Hot Pack/Cold Pack Treatment Cold Pack Location Left knee Patient Position Hooklying Treatment Duration (minutes) 10 PT-OP-T Assessment and Plan Start: 05/29/19 12:10 Freq: Status: Active Protocol: Document 07/11/19 15:15 DCW (Rec: 07/11/19 15:51 DCW [id number]) Physical Therapy Assessment Impairments Impairments Gait Strength Goals Two Impairment 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 descend stairs without use of rail due to left quad weakness Short Term Goal (STG) Pt to improve single leg max on the leg press to 175# STG Duration Met [employer] Goal (LTG) Pt to improve single leg max on the leg extension to 70# LTG Duration Improving, 20#->50# One Impairment 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 walk to work Half-Way Goal (LTG) Pt to report ability to walk the three miles to and from work with no increased knee pain LTG Duration 07/30/19 Improving Progress Towards Goals Progress Towards Goals Progressing Toward Goals Assessment Summary Assessment Pt doing incredibly well s/p L TKA, minimal deficit in normal function, has appropriate HEP for VMO strengthening. Pt agreeable to discharge at this time. Physical Therapy Plan Frequency and Duration Frequency of Treatment 2x/Week Duration of Treatment 2 months Plan of Care Start Date 05/29/19 Plan of Care End Date 07/30/19 Therapeutic Interventions Therapeutic Interventions Aquatic Therapy Balance Training Home Exercise Program Joint Mobilizations Manual Therapy Neuromuscular Re-education Therapeutic Activities Therapeutic Exercises Modalities Cold Pack/Ice Massage Electric Stimulation Hot Packs Discharge Physical Therapy Discharge Reasons Goals Met Next Visit Focus/Plan Next Note Type Discharge Summary
== END 2019-07-12 12:36 ==
LOC: PHYS 15:15
PROVIDERS: PCP Internal Medicine; Referring Provider Physician Assistant; Visit Provider Orthopaedic Surgery
DX: Z96.652 Presence of left artificial knee joint (principal); M62.81 Muscle weakness (generalized)
CPT/HCPCS: 97010; 97110; 97140; 97161

== ENCOUNTER → 2019-11-10 07:17 | Outpatient (CLI) | payer OTHER, SELFPAY ==
[2019-11-10 07:58] LABS: Alanine Aminotransferase 25 IU/L (<50); Albumin 3.9 g/dL (3.5-5.0); Albumin Globulin Ratio 1.3 (1.0-2.8); Alkaline Phosphatase 75 U/L (38-126); Aspartate Aminotransferase 23 IU/L (17-59); BUN Creatinine Ratio 15.4 (6-22); Bilirubin Total 0.5 mg/dL (0.2-1.3); Blood Urea Nitrogen 20 mg/dL (9-20); Calcium 9.3 mg/dL (8.4-10.2); Carbon Dioxide 26 mmol/L (22-32); Chloride 107 mmol/L (98-107); Cholesterol 144 mg/dL (140-199); Estimated Glomerular Filt Rate 55.8 mL/min (>60); Globulin 2.9 g/dL (1.7-4.1); Glucose 135 mg/dL (80-110); HDL Cholesterol 53 mg/dL (40-60); HEMOLYSIS < 15 (0-50); LDL Cholesterol Calculated 65 mg/dL (<100); Magnesium 1.5 mg/dL (1.6-2.3); Potassium 4.9 mmol/L (3.4-5.1); Sodium 139 mmol/L (137-145); Total Protein 6.8 g/dL (6.3-8.2); Triglycerides 130 mg/dL (35-150)
== END ==
PROVIDERS: PCP Internal Medicine; Visit Provider Internal Medicine
DX: E11.9 Type 2 diabetes mellitus without complications (principal); E78.00 Pure hypercholesterolemia, unspecified
CPT/HCPCS: 36415; 80053; 80061; 83036; 83735

== ENCOUNTER → 2020-07-14 06:59 | Outpatient (CLI) | payer OTHER, SELFPAY ==
[2020-07-14 07:33] LABS: Hemoglobin A1C% w Est Avg Glu 5.8 % (4.0-6.0)
[2020-07-14 07:41] LABS: Alanine Aminotransferase 19 IU/L (<50); Albumin 3.9 g/dL (3.5-5.0); Albumin Globulin Ratio 1.5 (1.0-2.8); Alkaline Phosphatase 80 U/L (38-126); Aspartate Aminotransferase 22 IU/L (17-59); BUN Creatinine Ratio 15.4 (6-22); Bilirubin Total 0.3 mg/dL (0.2-1.3); Blood Urea Nitrogen 19 mg/dL (9-20); Calcium 9.3 mg/dL (8.4-10.2); Carbon Dioxide 26 mmol/L (22-32); Chloride 109 mmol/L (98-107); Cholesterol 132 mg/dL (140-199); Estimated Glomerular Filt Rate 59.4 mL/min (>60); Globulin 2.6 g/dL (1.7-4.1); Glucose 99 mg/dL (80-110); HDL Cholesterol 61 mg/dL (40-60); HEMOLYSIS < 15 (0-50); LDL Cholesterol Calculated 44 mg/dL (<100); Potassium 5.1 mmol/L (3.4-5.1); Sodium 141 mmol/L (137-145); Total Protein 6.5 g/dL (6.3-8.2); Triglycerides 134 mg/dL (35-150)
[2020-07-14 07:47] LABS: Creatinine Urine Random 182.1 mg/dL
[2020-07-14 07:52] LABS: Microalbumi Creatinin Ratio Ur 16.4 ug/mg CR (<30)
== END ==
PROVIDERS: PCP Internal Medicine; Referring Provider Internal Medicine; Visit Provider Internal Medicine
DX: E78.5 Hyperlipidemia, unspecified (principal); E11.9 Type 2 diabetes mellitus without complications; I10 Essential (primary) hypertension
CPT/HCPCS: 36415; 80053; 80061; 82043; 82570; 83036

== ENCOUNTER → 2020-11-17 08:26 | Outpatient (CLI) | payer OTHER, SELFPAY ==
--- NOTE | 2020-11-17 08:29 | DI.CT.S_ITS ---
PROCEDURE: CT ABDOMEN PELVIS WO CON INDICATIONS: Personal history of malignant neoplasm of bladder TECHNIQUE: Noncontrast 5 mm thick sections acquired from the diaphragms to the symphysis. 5 mm coronal and sagittal reformats were then performed. For radiation dose reduction, the following was used: automated exposure control, adjustment of mA and/or kV according to patient size. COMPARISON: [facility], US, US RENAL COMPLETE, 02/17/2019, 8:10. [facility], CT, PE STUDY (CTA CHEST), 03/26/2016, 18:28. FINDINGS: Image quality: Excellent. ABDOMEN: Lung bases: Lung bases are clear. Heart size is normal. Solid organs: Liver is normal in size. Gallbladder negative . Pancreas is normal in contours. Spleen is normal in size. Low-attenuation left adrenal nodule presumably adenoma is unchanged Bilateral numerous simple appearing cysts, as demonstrated on a prior ultrasound 02/17/19. No hydronephrosis identified. No urolithiasis is seen. Circumferential bladder wall thickening although limited evaluation given partially collapsed state. Peritoneum and bowel: Unenhanced bowel loops demonstrate normal wall thickness and caliber. No free fluid or air. Normal appendix. Nodes and vessels: No retroperitoneal or mesenteric adenopathy by size criteria. Aorta and inferior vena cava are normal in caliber. Fat containing complex midline, supraumbilical ventral hernia. For example this measures approximately 3.7 x 3.3 cm on image 41 series 2 and 6.3 x 1.6 cm on image 27 series 2. Exact measurements difficult however due to irregular configuration. PELVIS: Genitourinary: Enlargement of the prostate. Small fat containing left inguinal hernia. Bones: No vertebral body compression fracture. Spondylytic changes and facet arthropathy. IMPRESSION: Circumferential mural thickening of the bladder although limited evaluation given partially collapsed state. Please correlate clinically and with urinalysis data Bilateral presumed renal cysts although limited evaluation given absence of IV contrast. Bilateral perinephric stranding, probably chronic given the appearance from prior study dated 03/26/16. Complex supraumbilical fat containing ventral hernia Enlargement of the prostate. Small fat containing left inguinal hernia No specific evidence of active metastatic disease Dictated by: Pérez Goss M.D. on 11/17/2020 at 15:16 Approved by: Pérez Goss M.D. on 11/17/2020 at 15:30
== END ==
PROVIDERS: PCP Internal Medicine; Referring Provider Internal Medicine; Visit Provider Urology
DX: K43.9 Ventral hernia without obstruction or gangrene (principal); K40.90 Unilateral inguinal hernia, without obstruction or gangrene, not specified as recurrent; Z85.51 Personal history of malignant neoplasm of bladder; N28.9 Disorder of kidney and ureter, unspecified
CPT/HCPCS: 74176

== ENCOUNTER → 2020-12-29 08:16 | Outpatient (CLI) | payer OTHER, SELFPAY ==
[2020-12-29 10:38] LABS: Prostate Specific Antigen 7.67 ng/mL (0.10-4.00)
== END ==
PROVIDERS: PCP Internal Medicine; Referring Provider Urology; Visit Provider Urology
DX: R97.20 Elevated prostate specific antigen [PSA] (principal)
CPT/HCPCS: 36415; 84153

== ENCOUNTER → 2021-01-12 15:19 | Outpatient (CLI) | payer OTHER, SELFPAY ==
[2021-01-12 15:49] LABS: COVID19 -Nasal RAPID Negative (Negative)
== END ==
PROVIDERS: PCP Internal Medicine; Visit Provider Surgery
DX: Z20.822 Contact with and (suspected) exposure to COVID-19 (principal)
CPT/HCPCS: 87635; C9803

== ENCOUNTER 2021-01-13 08:11 | Day surgery (SDC) | payer OTHER, SELFPAY ==
--- NOTE | 2021-01-13 | PATH_ITS ---
[facility] Accession Number: [id number] . 01 Material submitted: . PART A: colon - POLYPS TRANSVERSE COLON PART B: colon - POLYP ASCENDING COLON PART C: colon - POLYP AT 100CM PART D: colon - TRANSVERSE COLON @ 90CM PART E: colon - POLYP @ 70CM PART F: colon - POLYP @ 50CM PART G: colon - POLYPS @ 20CM . 01 Clinical history: . SDC . 02 Diagnosis: A. Transverse Colon, Polyps, Biopsies: Tubular adenoma in nine of multiple fragments. . B. Ascending Colon, Polyp, Biopsy: Sessile serrated adenoma. . C. Colon, Polyp at 100 cm, Biopsy: Tubular adenoma. . D. Transverse Colon, 90 cm, Biopsy: Fragments of tubulovillous adenoma, tubular adenoma and sessile serrated adenoma. No evidence of malignancy or high-grade dysplasia. . E. Colon Polyp at 70 cm, Biopsy: Tubular adenoma. . F. Colon, Polyp at 50 cm, Biopsy: Tubulovillous adenoma. No evidence of malignancy or high-grade dysplasia. . G. Colon, Polyps at 20 cm, Biopsies: Multiple fragments of tubular adenoma. Hyperplastic polyp in three fragments. [facility] 01/18/2021 1119 Local . 02 Electronically signed: . Modesta Fuller MD, Pathologist NPI- [id number] . 01 Gross description: . Part A: POLYPS TRANSVERSE COLON: Received in formalin are multiple fragment(s) of norwood, soft tissue measuring 1.0 x 0.8 x 0.2 cm in aggregate submitted entirely in 1 cassette(s) Part B: POLYP ASCENDING COLON: Received in formalin are 7 fragment(s) of [place]wood, soft tissue measuring 0.3 x 0.3 x 0.1 cm to 0.2 x 0.2 x 0.1 cm submitted entirely in 1 cassette(s) Part C: POLYP AT 100CM: Received in formalin are 2 fragment(s) of norwood, soft tissue measuring 0.5 x 0.3 x 0.1 cm to 0.3 x 0.3 x 0.2 cm submitted entirely in 1 cassette(s) Part D: TRANSVERSE COLON @ 90CM: Received in formalin are multiple fragment(s) of norwood, soft tissue measuring 0.8 x 0.5 x 0.5 cm to 0.3 x 0.3 x 0.2 cm submitted entirely in 2 cassette(s) Part E: POLYP @ 70CM: Received in formalin is 1 fragment(s) of norwood, soft tissue measuring 0.5 x 0.4 x 0.4 cm which is inked, bisected and submitted entirely in 1 cassette(s) Part F: POLYP @ 50CM: Received in formalin are 2 fragment(s) of yellow, homogenous tissue measuring 0.5 x 0.3 x 1.0 cm to 0.5 x 0.3 x 0.2 cm which is inked, transversely sectioned and submitted entirely in 2 cassette(s) Part G: POLYPS @ 20CM: Received in formalin are multiple fragment(s) of yellow, homogenous tissue measuring 1.0 x 0.8 x 0.7 cm to 0.3 x 0.3 x 0.3 cm which are inked, transversely sectioned and submitted entirely in 2 cassette(s) /QBJ . . A. Received in formalin are multiple fragments of norwood soft tissue measuring 1.0 x 0.8 x 0.2 cm in aggregate. All tissue is entirely submitted in cassette A1. B. Received in formalin and labeled with polyp ascending colon are seven fragments of norwood soft tissue measuring 0.3 x 0.3 x 0.1 to 0.2 x 0.2 x 0.1 cm. All seven fragments are entirely submitted in cassette A1. C. Received in formalin and labeled with polyp at 100 cm are two fragments of norwood soft tissue measuring 0.5 x 0.3 x 0.1 to 0.3 x 0.3 x 0.2 cm. Both fragments are entirely submitted in cassette C1. D. Received in formalin and labeled with transverse colon at 90 cm are multiple fragments of norwood soft tissue measuring 0.8 x 0.5 x 0.5 cm to 0.3 x 0.3 x 0.2 cm. The smaller fragments are submitted in aggregate in cassette D1. The three smaller fragments are submitted in cassette D2. E. Received in formalin and labeled with polyp at 70 cm is one fragment of norwood soft tissue measuring 0.5 x 0.4 x 0.4 cm. The tissue is inked, bisected and entirely submitted in cassette E1. F. Received in formalin and labeled with polyp at 50 cm are two fragments of norwood soft tissue. The first piece measures 0.5 x 0.3 x 1.0 cm and the second piece measures 0.5 x 0.3 x 0.2 cm. The larger piece is inked, serially sectioned into four slices and entirely submitted in cassette F1. The smaller piece is entirely submitted in cassette F2. G. Received in formalin and labeled with polyps at 20 cm are multiple fragments of norwood soft tissue measuring 1.0 x 0.8 x 0.7 cm to 0.3 x 0.3 x 0.3 cm. The largest piece is inked, serially sectioned into four slices and entirely submitted in cassette G1. During sectioning an additional piece fragments from the tissue resulting in a total of five pieces. The smaller fragments are entirely submitted in aggregate in cassette G2. (BJ:[id number]) /QBJ 01/17/2021 0925 Local . 02 Pathologist provided ICD-10: D12.2, D12.3, D12.6 . 02 CPT . 483943, 163825, 360245, 336143, 491831, [id number], [id number] Performed at: 01 [facility] [address] [place] [address], [place], [place] [id number] MD Melchor Harrison MD Phone: [phone] Performed at: 02 [facility] [place] [id number] [place], [place] [id number] MD Modesta Fuller MD Phone: [phone]
[2021-01-13 08:27] VITALS: BP 128/67; PULSE 60; RESP 18; TEMP 35.9; O2SAT 98; BMI 38.5
[2021-01-13] MEDS: LACTATED RINGERS 1,000 ML 200 ML IV (08:44)
--- NOTE | 2021-01-13 09:06 | PM.PREOP ---
Pre-operative Note COVID-19 COVID-19 status: Negative Result date/Date tested (Pos, Neg/Pending): 01/12/21 Interval Note History & Physical reviewed/Exam performed by Physician: Yes Changes to H&P: No ASA Class (for procedural sedation): III
[2021-01-13] MEDS: fentaNYL 250 MCG/5 ML INJ IV (09:40)
[2021-01-13] MEDS: MIDAZOLAM 5 MG/5 ML VIAL IV (09:42)
--- NOTE | 2021-01-13 10:26 | PM.OP.ENDO ---
Operative Date/Time/Diagnoses Date of procedure: 01/13/21 Time of procedure: 10:27 Pre-op diagnosis: Screening colonoscopy. This is his 1st colonoscopy. Post-op diagnosis: same (Multiple large polyps.) Procedure & Clinicians Study performed: Colonoscopy with cold biopsy and hot snare polypectomy Same procedure as scheduled: Yes Indications: Screening Procedure Notes SCOAP/Timeout: Performed Procedure in detail: The patient was placed in the left lateral decubitus position and underwent IV sedation directed by the surgeon consisting of fentanyl and Versed. Digital exam was remarkable for a lax sphincter tone and a prostate I could not feel well due to the short length of my finger. The scope was inserted and advanced through the rectum into the sigmoid, descending, transverse, and ascending colon. In the transverse colon there were 2 small polyps across from 1 another which I biopsied and appeared to be completely removed. A stiffener was added and we made our way into the cecum.. The cecum was reached identified by the ileocecal valve and the appendiceal opening. The scope was gradually brought out. Polyps were found at the ascending colon near the cecum, at 100 cm from the anal verge in the transverse colon, transverse colon at 90 cm, a polyp at 70 cm and at 50 cm in finally multiple polyps at 20 cm. Hot snare was used to remove most of these polyps because of their size. Two were larger than the others and ink was injected just distal to the lesion. Only 1 ink injection was made at each site. These were the polyps at 90 cm and in the rectum near 20 cm. Of note, magnet was placed on the patient's pacemaker each time cautery was used.. The scope ultimately was retroflexed in the rectum. The appearance was normal. The scope was removed and the patient tolerated the procedure well. A total of 10 polyps were removed. They were placed in 7 separate containers. Scope withdrawal time: 10 minutes(total 48) Sedation minutes: 65 Findings: polyp Specimen(s): other (Polyps) Complications: none Post-procedure Recommendations: Colonscopy in 1 year (Due to the large number polyps encountered) Follow up: as needed Disposition: PACU
[2021-01-13 10:28] VITALS: BP 128/62; PULSE 69; RESP 14; TEMP 36.6; O2SAT 96
[2021-01-13 10:33] VITALS: PULSE 67; RESP 16; O2SAT 95
--- NOTE | 2021-01-13 10:34 | SUR.PHASEI ---
Received to PACU after sedation anesthesia. Pt awake and alert. Monitor a-fib with rare paced beat and occasional PVC.
[2021-01-13 10:38] VITALS: BP 124/54; PULSE 70; RESP 12; O2SAT 96
[2021-01-13 10:43] VITALS: BP 118/58; PULSE 60; RESP 16; O2SAT 95
[2021-01-13 10:49] VITALS: BP 109/42; PULSE 64; RESP 17; TEMP 36.2; O2SAT 95
== END 2021-01-13 11:00 | disposition home or self-care (01) ==
PROVIDERS: PCP Internal Medicine; Referring Provider Internal Medicine; Visit Provider Specialist
PROC: 0DJD8ZZ Inspection of Lower Intestinal Tract, Via Natural or Artificial Opening Endoscopic (ICD-10-PCS; CPT 45378; principal; 2021-01-13 09:15)
DX: Z12.11 Encounter for screening for malignant neoplasm of colon (principal); Z95.0 Presence of cardiac pacemaker; I48.91 Unspecified atrial fibrillation; E11.9 Type 2 diabetes mellitus without complications; Z79.4 Long term (current) use of insulin; D12.3 Benign neoplasm of transverse colon; D12.2 Benign neoplasm of ascending colon; D12.6 Benign neoplasm of colon, unspecified
CPT/HCPCS: 45385; 45380; 99152; 99153; J2250; J3010

== ENCOUNTER → 2021-02-16 16:38 | Outpatient (CLI) | payer OTHER, SELFPAY ==
[2021-02-16 17:55] LABS: Add Manual Diff / Slide Review NO; Basophils Absolute Auto 100 /uL (0-100); Basophils Percent Auto 0.6 % (0-2); Eosinophils Absolute Auto 300 /uL (0-450); Eosinophils Percent Auto 2.5 % (2-4); Hematocrit 42.9 % (41-53); Hemoglobin 14.4 g/dL (13.5-17.5); Lymphocytes Absolute Auto 1800 /uL (1100-4500); Lymphocytes Percent Auto 14.7 % (25-40); Mean Corpuscular HGB Conc 33.5 % (30-36); Mean Corpuscular Hemoglobin 30.5 PG (26-34); Monocytes Absolute Auto 700 /uL (0-900); Monocytes Percent Auto 6.2 % (3-14); Neutrophils Absolute Auto 9100 /uL (1500-7000); Platelet Count 206 X10^3/uL (150-400); Red Blood Cell Count 4.72 X10^6/uL (4.5-5.9); Red Cell Distribution Width 13.2 % (11.6-14.8)
[2021-02-16 18:07] LABS: Alanine Aminotransferase 18 IU/L (<50); Albumin 4.5 g/dL (3.5-5.0); Albumin Globulin Ratio 1.4 (1.0-2.8); Alkaline Phosphatase 70 U/L (38-126); Aspartate Aminotransferase 26 IU/L (17-59); BUN Creatinine Ratio 21.3 (6-22); Bilirubin Total 0.4 mg/dL (0.2-1.3); Blood Urea Nitrogen 27 mg/dL (9-20); Calcium 10.1 mg/dL (8.4-10.2); Carbon Dioxide 24 mmol/L (22-32); Chloride 105 mmol/L (98-107); Estimated Glomerular Filt Rate 57.1 mL/min (>60); Globulin 3.2 g/dL (1.7-4.1); Glucose 87 mg/dL (80-110); HEMOLYSIS < 15 (0-50); Potassium 4.6 mmol/L (3.4-5.1); Sodium 137 mmol/L (137-145); Total Protein 7.7 g/dL (6.3-8.2)
[2021-02-16 18:55] LABS: Vitamin B12 672 pg/mL (239-931)
[2021-02-16 19:44] LABS: TSH w/ Reflex to FT4 2.61 uIU/mL (0.47-4.68)
[2021-02-17 14:25] LABS: Albumin 4.1 g/dL (2.9-4.4); Alpha-1-Globulin 0.3 g/dL (0.0-0.4); Alpha-2-Globulin 0.7 g/dL (0.4-1.0); Protein, Total 7.1 g/dL (6.0-8.5)
== END ==
PROVIDERS: PCP Internal Medicine; Referring Provider Internal Medicine; Visit Provider Internal Medicine
DX: E03.9 Hypothyroidism, unspecified (principal); E53.8 Deficiency of other specified B group vitamins; D47.2 Monoclonal gammopathy; R55 Syncope and collapse
CPT/HCPCS: 36415; 80053; 82607; 84155; 84165; 84443; 85025

== ENCOUNTER → 2021-02-18 15:39 | Outpatient (CLI) | payer OTHER, SELFPAY ==
[2021-02-18] MEDS: COVID-19 VACC #1, MRNA(MOD) 100 MCG/0.5 ML VIAL IM (15:44)
== END ==
PROVIDERS: PCP Internal Medicine; Visit Provider Internal Medicine
DX: Z23 Encounter for immunization (principal)
CPT/HCPCS: 0011A; 91301

== ENCOUNTER → 2021-03-18 10:47 | Outpatient (CLI) | payer OTHER, SELFPAY ==
[2021-03-18] MEDS: COVID-19 VACC #2, MRNA(MOD) 100 MCG/0.5 ML VIAL IM (11:03)
== END ==
PROVIDERS: PCP Internal Medicine; Visit Provider Internal Medicine
DX: Z23 Encounter for immunization (principal)
CPT/HCPCS: 0012A; 91301

== ENCOUNTER → 2021-05-13 09:30 | Outpatient (CLI) | payer OTHER, SELFPAY ==
[2021-05-13 10:23] LABS: BUN Creatinine Ratio 18.1 (6-22); Blood Urea Nitrogen 28 mg/dL (9-20); Calcium 9.5 mg/dL (8.4-10.2); Carbon Dioxide 27 mmol/L (22-32); Chloride 106 mmol/L (98-107); Estimated Glomerular Filt Rate 45.4 mL/min (>60); Glucose 133 mg/dL (80-110); HEMOLYSIS < 15 (0-50); Magnesium 1.5 mg/dL (1.6-2.3); Potassium 5.2 mmol/L (3.4-5.1); Sodium 138 mmol/L (137-145)
== END ==
PROVIDERS: PCP Internal Medicine; Referring Provider Internal Medicine; Visit Provider Internal Medicine
DX: E83.42 Hypomagnesemia (principal); E87.5 Hyperkalemia
CPT/HCPCS: 36415; 80048; 83735

== ENCOUNTER → 2022-12-21 07:00 | Outpatient (CLI) | payer MEDICARE, OTHER, SELFPAY ==
[2022-12-21 19:21] LABS: Cortisol AM (Before 10AM) 14.3 ug/dL (4.46-22.7)
== END ==
PROVIDERS: PCP Family Medicine; Referring Provider Internal Medicine; Visit Provider Internal Medicine
DX: R42 Dizziness and giddiness (principal)
CPT/HCPCS: 36415; 82533

== ENCOUNTER → 2023-05-21 09:28 | Outpatient (CLI) | payer MEDICARE, OTHER, SELFPAY ==
[2023-05-21 10:48] LABS: BUN Creatinine Ratio 19.7 (6-22); Blood Urea Nitrogen 26 mg/dL (9-20); Calcium 9.2 mg/dL (8.4-10.2); Carbon Dioxide 28 mmol/L (22-32); Chloride 103 mmol/L (98-107); Estimated Glomerular Filt Rate 59 mL/min (>60); Glucose 160 mg/dL (80-110); HEMOLYSIS < 15 (0-50); Potassium 4.8 mmol/L (3.4-5.1); Sodium 137 mmol/L (137-145)
== END ==
PROVIDERS: PCP Family Medicine; Referring Provider Internal Medicine; Visit Provider Internal Medicine
DX: I49.5 Sick sinus syndrome (principal)
CPT/HCPCS: 36415; 80048

== ENCOUNTER 2023-06-26 08:15 | Outpatient (CLI) | payer MEDICARE, OTHER, SELFPAY ==
[2023-06-26] VITALS (9 sets, daily range): BP systolic 130–155; BP diastolic 75–82; PULSE 60–66; RESP 12–19; TEMP 36.1–36.6; O2SAT 95–99; BMI 35.3
--- NOTE | 2023-06-26 | DI.CT.S_ITS ---
PROCEDURE: CT LUMBAR MYELOGRAM INDICATIONS: LUMBAR RADICULOPATHY TECHNIQUE: After the intrathecal administration of 15 mL intrathecal contrast, 3 mm thick sections acquired from T12 to the sacrum. Sagittal and coronal reformats were then constructed. For radiation dose reduction, the following was used: automated exposure control. COMPARISON: [facility], , [place] INJECT SPINE FOR CT MYELO, 06/26/2023, 9:19. [facility], CT, CT IVP, 10/10/2022, 15:19. [facility], CT, CT ABDOMEN PELVIS WO CON, 11/17/2020, 8:30. FINDINGS: Image quality: Excellent. There is adequate intrathecal injection. There is some epidural injection, as well. Imaging is diagnostic. Bones: Trace retrolisthesis of L5 on S1.. No suspicious bony lesions. No acute fractures. Spinal Cord: Conus terminates at L1. Normal caliber thoracic cord without cord compromise. Soft tissues: No retroperitoneal masses. Visualized aorta demonstrates normal caliber. T10-T11: No canal stenosis or foraminal stenosis. T11-T12: No canal stenosis or foraminal stenosis. T12-L1: No canal stenosis or foraminal stenosis. L1-L2: Posterior disc plus osteophyte. Mild facet and ligamentous hypertrophy. Mild canal stenosis. No significant foraminal stenosis. L2-L3: No canal stenosis or foraminal stenosis. L3-L4: Mild disc bulge. No significant canal stenosis or foraminal stenosis. L4-L5: Disc bulge. Facet and ligament hypertrophy. Moderate canal stenosis. Mild bilateral foraminal stenosis. L5-S1: Facet hypertrophy. Trace retrolisthesis of L5 on S1. No canal stenosis. Moderate right foraminal stenosis. Mild left foraminal stenosis. Miscellaneous: Nerve roots appear unremarkable throughout. No nerve root clumping to suggest arachnoiditis. IMPRESSION: 1. Some of the injection is epidural in location. Most of the contrast is within the thecal sac. Study is adequate for diagnosis. 2. Canal stenosis is mild at L1-L2 and moderate at L4-L5. 3. Mild multilevel facet arthropathy. 4. There is moderate right foraminal stenosis at L5-S1. Dictated by: Jair Jean-Baptiste M.D. on 06/26/2023 at 12:23 Approved by: Jair Jean-Baptiste M.D. on 06/26/2023 at 12:40
--- NOTE | 2023-06-26 08:17 | DI.RAD.S_ITS ---
PROCEDURE: [place] INJECT SPINE FOR CT MYELO INDICATIONS: BACK PAIN COMPARISON: None. TECHNIQUE: The indications, alternatives, benefits, risks and complications of the procedure were explained to the patient. Written informed consent was obtained and placed in the chart. The patient was placed in a prone position on the fluoroscopy table, and a level was chosen for percutaneous access under fluoroscopic guidance. The skin was prepped and draped in a sterile fashion. After local anaesthetic, a spinal needle was then used to enter the intrathecal space, with return of clear cerebrospinal fluid. 15 mL of Isovue M-200 were administered intrathecally under fluoroscopic visualization. The needle was then withdrawn, and a bandage applied to the puncture site. Fluoroscopic spot films were then acquired in various positions. FINDINGS: Standing frontal, lateral, and oblique views demonstrate no significant central canal stenoses. Access level: L3-4 Medications: 1% lidocaine for local anaesthesia. Complications: None. Patient was transferred to CT for subsequent CT myelogram. IMPRESSION: Successful fluoroscopically guided administration of iodinated contrast into the lumbar spine central canal for CT myelogram. Dictated by: Misael Paredes M.D. on 06/26/2023 at 13:46 Approved by: Misael Paredes M.D. on 06/26/2023 at 13:46
[2023-06-26 08:53] LABS: Platelet Count 221 X10^3/uL (150-400)
[2023-06-26 09:00] LABS: Prothrombin Time 11.6 SECONDS (10.1-12.7)
--- NOTE | 2023-06-26 10:06 | SUR.PHASEII ---
Pt from radiolody in stretcher. Alert, oriented. Denies new pain or numbness or tingling. Dressing C/D/I. Fluids given.
--- NOTE | 2023-06-26 11:18 | SUR.PHASEII ---
1010. puncture site bandaid dry and intact. pt laying with HOB approx 30 degrees. instructed will have to remain in this position x 2 hours.. Lunch ordered. See vital sign record. vital signs stable. No complaints voiced.
--- NOTE | 2023-06-26 11:21 | SUR.PHASEII ---
1100. Pt eating lunch. No complaints voiced. cont's to rest, side-lying position. VSS
[2023-06-26] MEDS: LIDOCAINE 1% (PF) 5 ML 1 ML SUBCUT (13:20)
== END 2023-06-26 12:15 | disposition home or self-care (01) ==
PROVIDERS: PCP Family Medicine; Referring Provider Orthopaedic Surgery; Visit Provider Orthopaedic Surgery
DX: M54.16 Radiculopathy, lumbar region (principal)
CPT/HCPCS: 36415; 62284; 72133; 77003; 85049; 85610; A9270

== ENCOUNTER → 2023-07-31 13:12 | Outpatient (CLI) | payer MEDICARE, OTHER, SELFPAY ==
[2023-07-31 13:32] LABS: Hematocrit 37.8 % (41-53); Hemoglobin 12.9 g/dL (13.5-17.5); Lymphocytes Percent Auto 20.3 % (25-40); Mean Corpuscular HGB Conc 34.1 % (30-36); Mean Corpuscular Hemoglobin 30.4 PG (26-34); Neutrophils Percent Auto 69.8 % (50-75); Platelet Count 179 X10^3/uL (150-400); Red Blood Cell Count 4.25 X10^6/uL (4.5-5.9); Red Cell Distribution Width 13.5 % (11.6-14.8); White Blood Cell Count 7.4 X10^3/uL (4.5-11.0)
[2023-07-31 13:33] LABS: Add Manual Diff / Slide Review NO; Basophils Absolute Auto 100 /uL (0-100); Basophils Percent Auto 0.8 % (0-2); Eosinophils Absolute Auto 300 /uL (0-450); Eosinophils Percent Auto 3.5 % (2-4); Lymphocytes Absolute Auto 1500 /uL (1100-4500); Monocytes Absolute Auto 400 /uL (0-900); Monocytes Percent Auto 5.6 % (3-14); Neutrophils Absolute Auto 5200 /uL (1500-7000)
[2023-07-31 13:42] LABS: INR 1.3 (0.9-1.3); Prothrombin Time 14.6 SECONDS (10.1-12.7)
[2023-07-31 13:44] LABS: PTT Partial Thromboplastin Tim 37 SECONDS (26-36)
[2023-07-31 13:59] LABS: BUN Creatinine Ratio 20.9 (6-22); Blood Urea Nitrogen 27 mg/dL (9-20); Calcium 9.6 mg/dL (8.4-10.2); Carbon Dioxide 29 mmol/L (22-32); Chloride 105 mmol/L (98-107); Estimated Glomerular Filt Rate > 60 mL/min (>60); Glucose 132 mg/dL (80-110); HEMOLYSIS < 15 (0-50); Potassium 5.1 mmol/L (3.4-5.1); Sodium 139 mmol/L (137-145)
[2023-07-31 14:01] LABS: Hemoglobin A1C% w Est Avg Glu 6.9 % (4.0-6.0)
[2023-07-31 14:33] LABS: Appearance Urine UA SL CLOUDY; Bilirubin Urine UA NEGATIVE (NEGATIVE); Color Urine UA YELLOW; Glucose Urine UA NEGATIVE (Negative); Ketones Urine UA NEGATIVE (NEGATIVE); Leukocyte Esterase Urine UA 1+ (NEGATIVE); Nitrite Urine UA POSITIVE (Negative); Occult Blood Urine UA NEGATIVE (Negative); Protein Urine UA NEGATIVE (Negative); Specific Gravity Urine UA 1.015 (1.000-1.035); Urobilinogen Urine UA 0.2 E.U./dL (0.2); pH Urine UA 6.5 (4.5-8.0)
[2023-07-31 14:46] LABS: Bacteria Urine Few (2-10); Culture Indicated Urine Specimen Cultured; RBC Urine None Seen (0-5/HPF); Squamous Epithelial Cell Urine 0-1 /HPF (0-5/HPF); WBC Urine 5-10/HPF (0-5/HPF)
== END ==
PROVIDERS: Radiology Diagnostic Radiology; Family Provider Family Medicine; PCP Family Medicine; Referring Provider Orthopaedic Surgery; Visit Provider Orthopaedic Surgery
DX: Z01.818 Encounter for other preprocedural examination (principal); Z01.812 Encounter for preprocedural laboratory examination; N39.0 Urinary tract infection, site not specified; R73.9 Hyperglycemia, unspecified
CPT/HCPCS: 36415; 80048; 81001; 83036; 85025; 85610; 85730; 87077; 87086; 87147; 87186; 93005; 93010

== ENCOUNTER 2023-08-06 09:45 | Outpatient (RCR) | payer MEDICARE, OTHER, SELFPAY ==
--- NOTE | 2023-07-16 09:45 | PT.OPPOC ---
Physical, Occupational & Speech Therapy At [facility] Current Diagnoses Unilateral primary osteoarthritis, right hip (07/16/23) Pain in right hip (07/16/23) Visit Care Team Role Provider Type Sydney Montesinos DO Family Provider Physician Primary Care Provider Specialty: Family Practice Address: [address] [place] [address], [facility] [address], [place], [address] Email: [email or web address] Priti Tilley MD Attending Provider Physician Referring Provider Specialty: Orthopedics Orthopedic Surgery Address: [address] [place] [address], [id number] Email: [email or web address] Plan Of Care PT-OP-T Assessment and Plan Start: 07/13/23 16:48 Freq: Status: Active Protocol: Document 07/16/23 09:45 AM (Rec: 07/16/23 11:15 AM [id number]) Physical Therapy Assessment Rehab Potential Rehabilitation Potential Fair Evaluation Complexity Number of Personal Factors/Comorbidities 3 or More Number of Body Systems Impaired 1-2 Clinical Presentation at Evaluation Stable Impairments Impairments Activity Tolerance,Balance, Functional Activities, Functional Mobility,Gait,Pain, ROM,Soft Tissue Mobility, Strength Goals Six Impairment HEP Impairment Pt has not been doing HEP because he is unsure of appropriate exercises. Torch Straightener Goal (LTG) Pt independent with HEP. LTG Duration 08/13/23 Five Impairment Bike Impairment 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 use stationary recumbent bike secondary to increase in hip pain. Short Term Goal (STG) Pt able to ride stationary bike for 5 min without increase in R hip pain. STG Duration 07/30/23 Torch Straightener Goal (LTG) Pt able to ride stationary bike at home for 10 min without increase in R hip pain . LTG Duration 08/13/23 Four Impairment Balance Impairment 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 SLS on R secondary to pain and balance impairment. Short Term Goal (STG) Pt able to SLS for 5 seconds on R LE. STG Duration 07/30/23 Chcf Goal (LTG) Pt able to SLS for 10 seconds on R LE. Three Impairment Pain assessment Impairment Pt with reported pain at 8/10 at worst. Short Term Goal (STG) Pt to report pain at worst at 5/10. STG Duration 07/30/23 Torch Straightener Goal (LTG) Pt to report pain at worst at 3/10. LTG Duration 08/13/23 Two Impairment LEFS Impairment Pt with LEFS score of 26/80. Short Term Goal (STG) Pt with LEFS score of 38/80. STG Duration 07/30/23 Torch Straightener Goal (LTG) Pt with LEFS of 48/80. LTG Duration 08/13/23 One Impairment Gait Impairment 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 walk more than 100 ft before need to stop secondary to pain. Short Term Goal (STG) Pt able to ambulate 300 ft before need to stop secondary to pain. STG Duration 07/30/23 Chcf Goal (LTG) Pt able to ambulate 500 ft before need to stop secondary to pain. LTG Duration 08/13/23 Assessment Summary Assessment Bassem Holloway presents to PT to address R hip pain. Pt demonstrates R hip ROM limitations, particularly with functional hip flexion, secondary to pain. Pt demonstrates weakness at R LE compared to L. Pt with reduction of symptoms with gentle grade II manual hip traction today. Pt with tenderness along glutes, hip flexors and ITB with palpation . Pt demonstrates antalgic gait pattern, ambulating with SPC. Pt with difficulty with STS transfer without utilization of UE, secondary to pain and strength. Pt has not yet scheduled SUSIE, though is considering procedure if symptoms do not improve with conservative care. Pt would benefit from continue PT to progress hip mobility and strength to improve tolerance to functional and higher level recreational activities. Physical Therapy Plan Frequency and Duration Frequency of Treatment 2x/Week Duration of treatment (weeks) 4 Plan of Care Start Date 07/16/23 Plan of Care End Date 08/13/23 Therapeutic Interventions Therapeutic Interventions Balance Training,Gait Training ,Home Exercise Program,Joint Mobilizations,Manual Therapy, Neuromuscular Re-education, Patient/Caregiver Education, Self-Care/Home Management,Soft Tissue Mobilization, Therapeutic Activities, Therapeutic Exercises Modalities Cold Pack/Ice Massage,Hot Packs Next Visit Focus/Plan Next Note Type Treatment Note Next Visit Plan Progress hip ROM and strength as tolerated, initiate STM and joint mobilization as appropriate, progress pre-SUSIE HEP. Plan of Care Dates Plan of Care Start Date 07/16/23 Plan of Care End Date 08/13/23 Electronically Signed by: Atiya Huggins, PT 07/16/23 1119 If you are in agreement with this Plan of Care, please return a signed and dated copy. I have reviewed this Plan of Care and certify that the skilled therapy services above are required to meet the patient?s needs. Physician Signature Date Printed Name and Credentials Clinical Instructor Signature Printed Name and Credentials
--- NOTE | 2023-07-16 09:45 | PT.OIE ---
Current Diagnoses Unilateral primary osteoarthritis, right hip (07/16/23) Pain in right hip (07/16/23) Past Medical History (Last Updated 06/12/23 @ 15:14 by Sydney Montesinos DO) Bladder cancer (~2015) CKD (chronic kidney disease) stage 3, GFR 30-59 ml/min CTS (carpal tunnel syndrome) (~2009) Depression (~2009) Hernia History of elevated PSA (~2021) History of urinary incontinence (~2009) Hypertension (~1999) Low testosterone (~1999) Orthostatic syncope Paroxysmal A-fib (~2015) Sleep apnea (~1999) Type 2 diabetes mellitus without complication, with no history of insulin use (~1999) Past Surgical History (Last Updated 04/17/23 @ 21:11 by Deborah Jackson) Anesthesia H/O knee surgery History of cystoscopy History of hernia repair (~1984) History of permanent cardiac pacemaker placement (~2015) History of testicular biopsy (~1982) Visit Care Team Role Provider Type Sydney Montesinos DO Family Provider Physician Primary Care Provider Specialty: Family Practice Address: [address] [place] [address], [address], [address] Email: [email or web address] Priti Tilley MD Attending Provider Physician Referring Provider Specialty: Orthopedics Orthopedic Surgery Address: [address] [place] [address], [id number] Email: [email or web address] Physical Therapy Initial Evaluation PT-OP-A Visit Information Start: 07/13/23 16:48 Freq: Status: Active Protocol: Document 07/16/23 09:45 AM (Rec: 07/16/23 11:15 AM [id number]) Out-Patient Physical Therapy Visit Information Visit Information Visit Type Initial Evaluation Visit Start Time 09:45 Visit Stop Time 10:35 Total Visit Minutes 45 Visit Number 1 Number of ELECTRIC TRIPPER MACHINE 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 SUSIE TBD History of Current Condition Pt reports that he was having LBP in Dec 2022. He had gone to the chiropractor for a while, though started noticing an increase in R hip. Pt had a cortisone injection that made his hip feel worse. Pt tried elliptical and recumbent bike, which made him feel worse. Pt had previous bilateral TKA Prior Treatments and Tests Chiropractor, cortisone injection, x-ray showed bone on bone. Treatment Goals Patient/Caregiver Goals walk, short hikes, riding bike , walking on the beach Prior Functional Status Baseline Function- ADL's Independent Baseline Function- Mobility Independent Baseline Function- Gait Pt was not using SPC prior to hip pain. Current Functional Impairments (Reported) Functional Limitations- Mobility/Gait Pt reports that he is only able to walk 100 ft before pain makes him want to stop. Functional Limitations- Recreation/ Walking on the beach, biking Hobbies PT-OP-C Subjective Start: 07/13/23 16:48 Freq: Status: Active Protocol: Document 07/16/23 09:45 AM (Rec: 07/16/23 11:15 AM [id number]) Patient Questionnaires Lower Extremity Functional Scale LEFS Score 26 LEFS Impairment 60 to 79% Impaired (Score 17- 31) OP-PT Pain Assessment Pain Assessment Grid Paper Pain Assessment Grid Completed Yes Location Right Hip Pain Location Details Pt reports R groin and lateral hip pain. Pt reports radicular LBP symptoms. Intensity 6 Scale Used Numeric (0 - 10) Description Aching,Radiating,Sharp,Tender Description- Other Pt reports pain increases to 8 /10 at worst. Frequency Constant Radiating Location Pt also has sciatic pain Pain Aggravating Factors ADL's,Activity,Exercise, Standing,Sitting,Walking, Bending Other Pain Aggravating Factors Pt reports difficulty with sleep. Pt sleeps only a couple hours at a time Pain Alleviating Factors Cold,Heat,Medication,Rest Other Pain Alleviating Factors Tylenol Patient Stated Pain Goal walking, riding bike, walking on beach Home Pain Medication Use Pain Medications Used Yes: Tylenol Home Pain Medication Frequency PRN, Pt tried gabapentin though had side effects. PT-OP-D Balance Start: 07/13/23 16:48 Freq: Status: Active Protocol: Document 07/16/23 09:45 AM (Rec: 07/16/23 11:15 AM [id number]) OP-PT Balance Assessment Standing Balance Static Standing Balance Ability Poor Dynamic Standing Balance Ability Poor Balance Tests Single Limb Standing Single Limb- Right 0 Single Limb- Left 4 Oshea Fall Scale Copyright Permission PT-OP-E Functional Tests Start: 07/13/23 16:48 Freq: Status: Active Protocol: Document 07/16/23 09:45 AM (Rec: 07/16/23 11:15 AM [id number]) Functional Tests Five Times Sit to Stand Test Score 25.66 Comments hi-low table at 24.5 inches PT-OP-F Manual Assessment Start: 07/13/23 16:48 Freq: Status: Active Protocol: Document 07/16/23 09:45 AM (Rec: 07/16/23 11:15 AM [id number]) Manual Assessments Joint Mobility Assessment Joint Mobility Assessment R hip, hypomobile all directions, traction decreased symptoms PT-OP-G Mobility & Gait Start: 07/13/23 16:48 Freq: Status: Active Protocol: Document 07/16/23 09:45 AM (Rec: 07/16/23 11:15 AM [id number]) OP Mobility Evaluation Bed Mobility Supine to and from Sit Independent, though uses hands to assist R LE OP Gait Assessment Gait Gait Assistance Required: Independent Assistive Devices Assistive Device Straight Cane Gait Deviations General Gait Pattern Antalgic Factors Limiting Gait Function Factors Limiting Gait Function Decreased Activity Tolerance, Decreased Strength,Limited Range of Motion,Pain PT-OP-J Posture/Palpation/Skin Start: 07/13/23 16:48 Freq: Status: Active Protocol: Document 07/16/23 09:45 AM (Rec: 07/16/23 11:15 AM [id number]) Posture Evaluation Position Standing L-Spine Posture Flattened Ankle/Foot Posture (L) Pronated,(R) Pronated,(L) Calcaneal Eversion,(R) Calcaneal Eversion Palpation Assessment Location One Palpation Location R ITB, hip flexors, glute med/ min Palpation Findings Edema,Tenderness Palpation Details Edema at BLE PT-OP-K Range of Motion Start: 07/13/23 16:48 Freq: Status: Active Protocol: Document 07/16/23 09:45 AM (Rec: 07/16/23 11:15 AM [id number]) Hip Goniometric Range of Motion Hip Left Active Hip ROM WFL Yes Flexion w/Knee Flexed 120 Internal Rotation 30 External Rotation 38 Comments Hamstring 90/90: 30 deg Right Active Hip ROM WFL No Testing Position Sitting and supine Flexion w/Knee Flexed 85 Abduction 35 Internal Rotation 28 External Rotation 25 Comments Hamstring 90/90: 28 deg Hip ROM Limitations Hip ROM Limitations Soft Tissue Tightness,Bony Restriction,Pain PT-OP-L Special Tests Start: 07/13/23 16:48 Freq: Status: Active Protocol: Document 07/16/23 09:45 AM (Rec: 07/16/23 11:15 AM [id number]) Special Tests Hip Special Tests MARK Test Results + on R Scour Test Test Results Positive R PT-OP-M Strength Start: 07/13/23 16:48 Freq: Status: Active Protocol: Document 07/16/23 09:45 AM (Rec: 07/16/23 11:15 AM [id number]) Hip Strength Hip Manual Muscle Testing Left Flexion (L2) 4- Good- Extension (S1) 4 Good Abduction 4- Good- Adduction 4 Good External Rotation 4+ Good+ Internal Rotation 4+ Good+ Right Flexion (L2) 3 Fair Extension (S1) 3+ Fair+ Abduction 4- Good- Adduction 4 Good External Rotation 4- Good- Internal Rotation 4- Good- Comments Painful ROM Knee Strength Knee Manual Muscle Testing Left Flexion (S2) 4+ Good+ Extension (L3) 4+ Good+ Right Flexion (S2) 4+ Good+ Extension (L3) 4- Good- PT-OP-Q Treatments Start: 07/13/23 16:48 Freq: Status: Active Protocol: Document 07/16/23 09:45 AM (Rec: 07/16/23 11:15 AM [id number]) Therapeutic Exercises Supine Exercises 4 Supine Exercise Name SAQ Side right Equipment Used pillow under knee Reps/Minutes 5x5 sec hold 3 Supine Exercise Name Hip adduction isometric Side bilateral Equipment Used pillow between knees Reps/Minutes 5x5 sec 2 Supine Exercise Name BKFO Side bilateral Reps/Minutes 5 1 Supine Exercise Name PPT Side bilateral Reps/Minutes 5x5 sec hold Comments In hookling position PT-OP-T Assessment and Plan Start: 07/13/23 16:48 Freq: Status: Active Protocol: Document 07/16/23 09:45 AM (Rec: 07/16/23 11:15 AM [id number]) Physical Therapy Assessment Rehab Potential Rehabilitation Potential Fair Evaluation Complexity Number of Personal Factors/Comorbidities 3 or More Number of Body Systems Impaired 1-2 Clinical Presentation at Evaluation Stable Impairments Impairments Activity Tolerance,Balance, Functional Activities, Functional Mobility,Gait,Pain, ROM,Soft Tissue Mobility, Strength Goals Six Impairment HEP Impairment Pt has not been doing HEP because he is unsure of appropriate exercises. Lead Nurse Goal (LTG) Pt independent with HEP. LTG Duration 08/13/23 Five Impairment Bike Impairment 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 use stationary recumbent bike secondary to increase in hip pain. Short Term Goal (STG) Pt able to ride stationary bike for 5 min without increase in R hip pain. STG Duration 07/30/23 Snf Goal (LTG) Pt able to ride stationary bike at home for 10 min without increase in R hip pain . LTG Duration 08/13/23 Four Impairment Balance Impairment 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 SLS on R secondary to pain and balance impairment. Short Term Goal (STG) Pt able to SLS for 5 seconds on R LE. STG Duration 07/30/23 Lead Nurse Goal (LTG) Pt able to SLS for 10 seconds on R LE. Three Impairment Pain assessment Impairment Pt with reported pain at 8/10 at worst. Short Term Goal (STG) Pt to report pain at worst at 5/10. STG Duration 07/30/23 Snf Goal (LTG) Pt to report pain at worst at 3/10. LTG Duration 08/13/23 Two Impairment LEFS Impairment Pt with LEFS score of 26/80. Short Term Goal (STG) Pt with LEFS score of 38/80. STG Duration 07/30/23 Lead Nurse Goal (LTG) Pt with LEFS of 48/80. LTG Duration 08/13/23 One Impairment Gait Impairment 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 walk more than 100 ft before need to stop secondary to pain. Short Term Goal (STG) Pt able to ambulate 300 ft before need to stop secondary to pain. STG Duration 07/30/23 Snf Goal (LTG) Pt able to ambulate 500 ft before need to stop secondary to pain. LTG Duration 08/13/23 Assessment Summary Assessment Bassem Holloway presents to PT to address R hip pain. Pt demonstrates R hip ROM limitations, particularly with functional hip flexion, secondary to pain. Pt demonstrates weakness at R LE compared to L. Pt with reduction of symptoms with gentle grade II manual hip traction today. Pt with tenderness along glutes, hip flexors and ITB with palpation . Pt demonstrates antalgic gait pattern, ambulating with SPC. Pt with difficulty with STS transfer without utilization of UE, secondary to pain and strength. Pt has not yet scheduled SUSIE, though is considering procedure if symptoms do not improve with conservative care. Pt would benefit from continue PT to progress hip mobility and strength to improve tolerance to functional and higher level recreational activities. Physical Therapy Plan Frequency and Duration Frequency of Treatment 2x/Week Duration of treatment (weeks) 4 Plan of Care Start Date 07/16/23 Plan of Care End Date 08/13/23 Therapeutic Interventions Therapeutic Interventions Balance Training,Gait Training ,Home Exercise Program,Joint Mobilizations,Manual Therapy, Neuromuscular Re-education, Patient/Caregiver Education, Self-Care/Home Management,Soft Tissue Mobilization, Therapeutic Activities, Therapeutic Exercises Modalities Cold Pack/Ice Massage,Hot Packs Next Visit Focus/Plan Next Note Type Treatment Note Next Visit Plan Progress hip ROM and strength as tolerated, initiate STM and joint mobilization as appropriate, progress pre-SUSIE HEP.
--- NOTE | 2023-07-19 09:49 | PT.OTN ---
Current Diagnoses Unilateral primary osteoarthritis, right hip (07/19/23) Pain in right hip (07/19/23) Physical Therapy Treatment Note PT-OP-A Visit Information Start: 07/13/23 16:48 Freq: Status: Active Protocol: Document 07/19/23 09:49 AM (Rec: 07/19/23 11:44 AM [id number]) Out-Patient Physical Therapy Visit Information Visit Information Visit Type Treatment Note Visit Start Time 09:49 Visit Stop Time 10:34 Total Visit Minutes 45 Precautions Precautions Pacemaker PT-OP-B Current Condition Start: 07/13/23 16:48 Freq: Status: Active Protocol: Document 07/19/23 09:49 AM (Rec: 07/19/23 11:44 AM [id number]) Current Condition History of Current Condition Onset Date Dec 2022 Current Complaints R hip pain. SUSIE TBD History of Current Condition Pt reports that he was having LBP in Dec 2022. He had gone to the chiropractor for a while, though started noticing an increase in R hip. Pt had a cortisone injection that made his hip feel worse. Pt tried elliptical and recumbent bike, which made him feel worse. Pt had previous bilateral TKA Prior Treatments and Tests Chiropractor, cortisone injection, x-ray showed bone on bone. PT-OP-C Subjective Start: 07/13/23 16:48 Freq: Status: Active Protocol: Document 07/19/23 09:49 AM (Rec: 07/19/23 11:44 AM [id number]) OP-PT Subjective Patient Comments Patient Comments Pt reports pain at 5/10 today. Pt has been taking tylenol only. Pt reports that he has been sore since IE. PT-OP-D Balance Start: 07/13/23 16:48 Freq: Status: Active Protocol: Document 07/16/23 09:45 AM (Rec: 07/16/23 11:15 AM [id number]) OP-PT Balance Assessment Standing Balance Static Standing Balance Ability Poor Dynamic Standing Balance Ability Poor Balance Tests Single Limb Standing Single Limb- Right 0 Single Limb- Left 4 Oshea Fall Scale Copyright Permission PT-OP-E Functional Tests Start: 07/13/23 16:48 Freq: Status: Active Protocol: Document 07/16/23 09:45 AM (Rec: 07/16/23 11:15 AM [id number]) Functional Tests Five Times Sit to Stand Test Score 25.66 Comments hi-low table at 24.5 inches PT-OP-F Manual Assessment Start: 07/13/23 16:48 Freq: Status: Active Protocol: Document 07/16/23 09:45 AM (Rec: 07/16/23 11:15 AM [id number]) Manual Assessments Joint Mobility Assessment Joint Mobility Assessment R hip, hypomobile all directions, traction decreased symptoms PT-OP-G Mobility & Gait Start: 07/13/23 16:48 Freq: Status: Active Protocol: Document 07/16/23 09:45 AM (Rec: 07/16/23 11:15 AM [id number]) OP Mobility Evaluation Bed Mobility Supine to and from Sit Independent, though uses hands to assist R LE OP Gait Assessment Gait Gait Assistance Required: Independent Assistive Devices Assistive Device Straight Cane Gait Deviations General Gait Pattern Antalgic Factors Limiting Gait Function Factors Limiting Gait Function Decreased Activity Tolerance, Decreased Strength,Limited Range of Motion,Pain PT-OP-J Posture/Palpation/Skin Start: 07/13/23 16:48 Freq: Status: Active Protocol: Document 07/16/23 09:45 AM (Rec: 07/16/23 11:15 AM [id number]) Posture Evaluation Position Standing L-Spine Posture Flattened Ankle/Foot Posture (L) Pronated,(R) Pronated,(L) Calcaneal Eversion,(R) Calcaneal Eversion Palpation Assessment Location One Palpation Location R ITB, hip flexors, glute med/ min Palpation Findings Edema,Tenderness Palpation Details Edema at BLE PT-OP-K Range of Motion Start: 07/13/23 16:48 Freq: Status: Active Protocol: Document 07/16/23 09:45 AM (Rec: 07/16/23 11:15 AM [id number]) Hip Goniometric Range of Motion Hip Left Active Hip ROM WFL Yes Flexion w/Knee Flexed 120 Internal Rotation 30 External Rotation 38 Comments Hamstring 90/90: 30 deg Right Active Hip ROM WFL No Testing Position Sitting and supine Flexion w/Knee Flexed 85 Abduction 35 Internal Rotation 28 External Rotation 25 Comments Hamstring 90/90: 28 deg Hip ROM Limitations Hip ROM Limitations Soft Tissue Tightness,Bony Restriction,Pain PT-OP-L Special Tests Start: 07/13/23 16:48 Freq: Status: Active Protocol: Document 07/16/23 09:45 AM (Rec: 07/16/23 11:15 AM [id number]) Special Tests Hip Special Tests MARK Test Results + on R Scour Test Test Results Positive R PT-OP-M Strength Start: 07/13/23 16:48 Freq: Status: Active Protocol: Document 07/16/23 09:45 AM (Rec: 07/16/23 11:15 AM [id number]) Hip Strength Hip Manual Muscle Testing Left Flexion (L2) 4- Good- Extension (S1) 4 Good Abduction 4- Good- Adduction 4 Good External Rotation 4+ Good+ Internal Rotation 4+ Good+ Right Flexion (L2) 3 Fair Extension (S1) 3+ Fair+ Abduction 4- Good- Adduction 4 Good External Rotation 4- Good- Internal Rotation 4- Good- Comments Painful ROM Knee Strength Knee Manual Muscle Testing Left Flexion (S2) 4+ Good+ Extension (L3) 4+ Good+ Right Flexion (S2) 4+ Good+ Extension (L3) 4- Good- PT-OP-Q Treatments Start: 07/13/23 16:48 Freq: Status: Active Protocol: Document 07/19/23 09:49 AM (Rec: 07/19/23 11:44 AM [id number]) Cardio Equipment Recumbent Stepper (Sci-Fit) Duration (Minutes) 5 Resistance 1 Seat Position 15 Therapeutic Exercises Supine Exercises Hooklying abduction isometric Supine Exercise Name Hooklying abduction isometric with manual resistance Side bilateral Resistance Manual Equipment Used 10x3 sec Hamstring set Supine Exercise Name Hamstring set Side right Reps/Minutes 5x5 sec Comments hooklying glute set Supine Exercise Name glute set Side bilateral Reps/Minutes 10x3 sec 4 Supine Exercise Name SAQ Side right Equipment Used pillow under knee Reps/Minutes 10x5 sec hold 3 Supine Exercise Name Hip adduction isometric Side bilateral Equipment Used pillow between knees Reps/Minutes 5x5 sec 1 Supine Exercise Name PPT Side bilateral Reps/Minutes 10x5 sec hold Comments In hookling position Manual Therapy Treatment Soft Tissue Mobilization R hip Body Location R ITB, quads, HS, glutes, hip flexor Intensity/Depth Deep Body Position Sidelying PT-OP-T Assessment and Plan Start: 07/13/23 16:48 Freq: Status: Active Protocol: Document 07/19/23 09:49 AM (Rec: 07/19/23 11:44 AM [id number]) Physical Therapy Assessment Impairments Impairments Activity Tolerance,Balance, Functional Activities, Functional Mobility,Gait,Pain, ROM,Soft Tissue Mobility, Strength Goals Six Impairment HEP Impairment Pt has not been doing HEP because he is unsure of appropriate exercises. Chief Scientist Goal (LTG) Pt independent with HEP. LTG Duration 08/13/23 Five Impairment Bike Impairment 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 use stationary recumbent bike secondary to increase in hip pain. Short Term Goal (STG) Pt able to ride stationary bike for 5 min without increase in R hip pain. STG Duration 07/30/23 Detention Goal (LTG) Pt able to ride stationary bike at home for 10 min without increase in R hip pain . LTG Duration 08/13/23 Four Impairment Balance Impairment 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 SLS on R secondary to pain and balance impairment. Short Term Goal (STG) Pt able to SLS for 5 seconds on R LE. STG Duration 07/30/23 Detention Goal (LTG) Pt able to SLS for 10 seconds on R LE. Three Impairment Pain assessment Impairment Pt with reported pain at 8/10 at worst. Short Term Goal (STG) Pt to report pain at worst at 5/10. STG Duration 07/30/23 Chief Scientist Goal (LTG) Pt to report pain at worst at 3/10. LTG Duration 08/13/23 Two Impairment LEFS Impairment Pt with LEFS score of 26/80. Short Term Goal (STG) Pt with LEFS score of 38/80. STG Duration 07/30/23 Chief Scientist Goal (LTG) Pt with LEFS of 48/80. LTG Duration 08/13/23 One Impairment Gait Impairment 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 walk more than 100 ft before need to stop secondary to pain. Short Term Goal (STG) Pt able to ambulate 300 ft before need to stop secondary to pain. STG Duration 07/30/23 Detention Goal (LTG) Pt able to ambulate 500 ft before need to stop secondary to pain. LTG Duration 08/13/23 Assessment Summary Assessment Pt demonstrated improved gait pattern following tx session today. Pt with tenderness along glutes and ITB with STM. Pt requires assistance at R LE with hip flexion in supine to decrease pain at R hip. Pt with pain with AROM hip flexors. Pt able to tolerate isometrics well without production of increase symptoms. Pain relief was primary focus in tx today. Will continue to progress strength as tolerated. Physical Therapy Plan Frequency and Duration Frequency of Treatment 2x/Week Duration of treatment (weeks) 4 Plan of Care Start Date 07/16/23 Plan of Care End Date 08/13/23 Therapeutic Interventions Therapeutic Interventions Balance Training,Gait Training ,Home Exercise Program,Joint Mobilizations,Manual Therapy, Neuromuscular Re-education, Patient/Caregiver Education, Self-Care/Home Management,Soft Tissue Mobilization, Therapeutic Activities, Therapeutic Exercises Modalities Cold Pack/Ice Massage,Hot Packs Next Visit Focus/Plan Next Note Type Treatment Note Next Visit Plan Progress hip ROM and strength as tolerated, initiate STM and joint mobilization as appropriate, progress pre-SUSIE HEP.
--- NOTE | 2023-07-25 09:49 | PT.OTN ---
Current Diagnoses Unilateral primary osteoarthritis, right hip (07/25/23) Pain in right hip (07/25/23) Physical Therapy Treatment Note PT-OP-A Visit Information Start: 07/13/23 16:48 Freq: Status: Active Protocol: Document 07/25/23 09:49 AM (Rec: 07/25/23 10:05 AM [id number]) Out-Patient Physical Therapy Visit Information Visit Information Visit Type Cancellation Visit Note Pt presented to PT today, though reports that he is feeling ill this morning and not sure that he shoulder participate in PT. PT on hold today. PT-OP-B Current Condition Start: 07/13/23 16:48 Freq: Status: Active Protocol: Document 07/19/23 09:49 AM (Rec: 07/19/23 11:44 AM [id number]) Current Condition History of Current Condition Onset Date Dec 2022 Current Complaints R hip pain. SUSIE TBD History of Current Condition Pt reports that he was having LBP in Dec 2022. He had gone to the chiropractor for a while, though started noticing an increase in R hip. Pt had a cortisone injection that made his hip feel worse. Pt tried elliptical and recumbent bike, which made him feel worse. Pt had previous bilateral TKA Prior Treatments and Tests Chiropractor, cortisone injection, x-ray showed bone on bone. PT-OP-C Subjective Start: 07/13/23 16:48 Freq: Status: Active Protocol: Document 07/19/23 09:49 AM (Rec: 07/19/23 11:44 AM [id number]) OP-PT Subjective Patient Comments Patient Comments Pt reports pain at 5/10 today. Pt has been taking tylenol only. Pt reports that he has been sore since IE. PT-OP-D Balance Start: 07/13/23 16:48 Freq: Status: Active Protocol: Document 07/16/23 09:45 AM (Rec: 07/16/23 11:15 AM [id number]) OP-PT Balance Assessment Standing Balance Static Standing Balance Ability Poor Dynamic Standing Balance Ability Poor Balance Tests Single Limb Standing Single Limb- Right 0 Single Limb- Left 4 Oshea Fall Scale Copyright Permission PT-OP-E Functional Tests Start: 07/13/23 16:48 Freq: Status: Active Protocol: Document 07/16/23 09:45 AM (Rec: 07/16/23 11:15 AM [id number]) Functional Tests Five Times Sit to Stand Test Score 25.66 Comments hi-low table at 24.5 inches PT-OP-F Manual Assessment Start: 07/13/23 16:48 Freq: Status: Active Protocol: Document 07/16/23 09:45 AM (Rec: 07/16/23 11:15 AM [id number]) Manual Assessments Joint Mobility Assessment Joint Mobility Assessment R hip, hypomobile all directions, traction decreased symptoms PT-OP-G Mobility & Gait Start: 07/13/23 16:48 Freq: Status: Active Protocol: Document 07/16/23 09:45 AM (Rec: 07/16/23 11:15 AM [id number]) OP Mobility Evaluation Bed Mobility Supine to and from Sit Independent, though uses hands to assist R LE OP Gait Assessment Gait Gait Assistance Required: Independent Assistive Devices Assistive Device Straight Cane Gait Deviations General Gait Pattern Antalgic Factors Limiting Gait Function Factors Limiting Gait Function Decreased Activity Tolerance, Decreased Strength,Limited Range of Motion,Pain PT-OP-J Posture/Palpation/Skin Start: 07/13/23 16:48 Freq: Status: Active Protocol: Document 07/16/23 09:45 AM (Rec: 07/16/23 11:15 AM [id number]) Posture Evaluation Position Standing L-Spine Posture Flattened Ankle/Foot Posture (L) Pronated,(R) Pronated,(L) Calcaneal Eversion,(R) Calcaneal Eversion Palpation Assessment Location One Palpation Location R ITB, hip flexors, glute med/ min Palpation Findings Edema,Tenderness Palpation Details Edema at BLE PT-OP-K Range of Motion Start: 07/13/23 16:48 Freq: Status: Active Protocol: Document 07/16/23 09:45 AM (Rec: 07/16/23 11:15 AM [id number]) Hip Goniometric Range of Motion Hip Left Active Hip ROM WFL Yes Flexion w/Knee Flexed 120 Internal Rotation 30 External Rotation 38 Comments Hamstring 90/90: 30 deg Right Active Hip ROM WFL No Testing Position Sitting and supine Flexion w/Knee Flexed 85 Abduction 35 Internal Rotation 28 External Rotation 25 Comments Hamstring 90/90: 28 deg Hip ROM Limitations Hip ROM Limitations Soft Tissue Tightness,Bony Restriction,Pain PT-OP-L Special Tests Start: 07/13/23 16:48 Freq: Status: Active Protocol: Document 07/16/23 09:45 AM (Rec: 07/16/23 11:15 AM [id number]) Special Tests Hip Special Tests MARK Test Results + on R Scour Test Test Results Positive R PT-OP-M Strength Start: 07/13/23 16:48 Freq: Status: Active Protocol: Document 07/16/23 09:45 AM (Rec: 07/16/23 11:15 AM [id number]) Hip Strength Hip Manual Muscle Testing Left Flexion (L2) 4- Good- Extension (S1) 4 Good Abduction 4- Good- Adduction 4 Good External Rotation 4+ Good+ Internal Rotation 4+ Good+ Right Flexion (L2) 3 Fair Extension (S1) 3+ Fair+ Abduction 4- Good- Adduction 4 Good External Rotation 4- Good- Internal Rotation 4- Good- Comments Painful ROM Knee Strength Knee Manual Muscle Testing Left Flexion (S2) 4+ Good+ Extension (L3) 4+ Good+ Right Flexion (S2) 4+ Good+ Extension (L3) 4- Good- PT-OP-Q Treatments Start: 07/13/23 16:48 Freq: Status: Active Protocol: Document 07/19/23 09:49 AM (Rec: 07/19/23 11:44 AM [id number]) Cardio Equipment Recumbent Stepper (Sci-Fit) Duration (Minutes) 5 Resistance 1 Seat Position 15 Therapeutic Exercises Supine Exercises Hooklying abduction isometric Supine Exercise Name Hooklying abduction isometric with manual resistance Side bilateral Resistance Manual Equipment Used 10x3 sec Hamstring set Supine Exercise Name Hamstring set Side right Reps/Minutes 5x5 sec Comments hooklying glute set Supine Exercise Name glute set Side bilateral Reps/Minutes 10x3 sec 4 Supine Exercise Name SAQ Side right Equipment Used pillow under knee Reps/Minutes 10x5 sec hold 3 Supine Exercise Name Hip adduction isometric Side bilateral Equipment Used pillow between knees Reps/Minutes 5x5 sec 1 Supine Exercise Name PPT Side bilateral Reps/Minutes 10x5 sec hold Comments In hookling position Manual Therapy Treatment Soft Tissue Mobilization R hip Body Location R ITB, quads, HS, glutes, hip flexor Intensity/Depth Deep Body Position Sidelying PT-OP-T Assessment and Plan Start: 07/13/23 16:48 Freq: Status: Active Protocol: Document 07/25/23 09:49 AM (Rec: 07/25/23 10:07 AM [id number]) Physical Therapy Assessment Assessment Summary Assessment PT on hold today secondary to illness.
--- NOTE | 2023-07-31 12:22 | PT.OTN ---
Current Diagnoses Unilateral primary osteoarthritis, right hip (07/31/23) Pain in right hip (07/31/23) Physical Therapy Treatment Note PT-OP-A Visit Information Start: 07/13/23 16:48 Freq: Status: Active Protocol: Document 07/31/23 12:22 AM (Rec: 07/31/23 13:22 AM [id number]) Out-Patient Physical Therapy Visit Information Visit Information Visit Type Progress Note Visit Start Time 12:22 Visit Stop Time 13:04 Total Visit Minutes 42 Visit Number 3 Number of HEARING AID MECHANIC Visits 0 Precautions Precautions Pacemaker PT-OP-B Current Condition Start: 07/13/23 16:48 Freq: Status: Active Protocol: Document 07/31/23 12:22 AM (Rec: 07/31/23 13:22 AM [id number]) Current Condition History of Current Condition Onset Date Dec 2022 Current Complaints R hip pain. SUSIE TBD History of Current Condition Pt reports that he was having LBP in Dec 2022. He had gone to the chiropractor for a while, though started noticing an increase in R hip. Pt had a cortisone injection that made his hip feel worse. Pt tried elliptical and recumbent bike, which made him feel worse. Pt had previous bilateral TKA Prior Treatments and Tests Chiropractor, cortisone injection, x-ray showed bone on bone. PT-OP-C Subjective Start: 07/13/23 16:48 Freq: Status: Active Protocol: Document 07/31/23 12:22 AM (Rec: 07/31/23 13:22 AM [id number]) OP-PT Subjective Patient Comments Patient Comments Pt reports that he will be meeting with his gill net stringer tomorrow to see if he can get off of blood thinner for SUSIE. Pt reports that he occasionally gets shooting pain down R LE that he thinks might be from lumbar stenosis. Pt reports pain at 5/10 today and pain gets up to 7/10 at the worst. PT-OP-D Balance Start: 07/13/23 16:48 Freq: Status: Active Protocol: Document 07/16/23 09:45 AM (Rec: 07/16/23 11:15 AM [id number]) OP-PT Balance Assessment Standing Balance Static Standing Balance Ability Poor Dynamic Standing Balance Ability Poor Balance Tests Single Limb Standing Single Limb- Right 0 Single Limb- Left 4 Oshea Fall Scale Copyright Permission PT-OP-E Functional Tests Start: 07/13/23 16:48 Freq: Status: Active Protocol: Document 07/16/23 09:45 AM (Rec: 07/16/23 11:15 AM [id number]) Functional Tests Five Times Sit to Stand Test Score 25.66 Comments hi-low table at 24.5 inches PT-OP-F Manual Assessment Start: 07/13/23 16:48 Freq: Status: Active Protocol: Document 07/16/23 09:45 AM (Rec: 07/16/23 11:15 AM [id number]) Manual Assessments Joint Mobility Assessment Joint Mobility Assessment R hip, hypomobile all directions, traction decreased symptoms PT-OP-G Mobility & Gait Start: 07/13/23 16:48 Freq: Status: Active Protocol: Document 07/16/23 09:45 AM (Rec: 07/16/23 11:15 AM [id number]) OP Mobility Evaluation Bed Mobility Supine to and from Sit Independent, though uses hands to assist R LE OP Gait Assessment Gait Gait Assistance Required: Independent Assistive Devices Assistive Device Straight Cane Gait Deviations General Gait Pattern Antalgic Factors Limiting Gait Function Factors Limiting Gait Function Decreased Activity Tolerance, Decreased Strength,Limited Range of Motion,Pain PT-OP-J Posture/Palpation/Skin Start: 07/13/23 16:48 Freq: Status: Active Protocol: Document 07/16/23 09:45 AM (Rec: 07/16/23 11:15 AM [id number]) Posture Evaluation Position Standing L-Spine Posture Flattened Ankle/Foot Posture (L) Pronated,(R) Pronated,(L) Calcaneal Eversion,(R) Calcaneal Eversion Palpation Assessment Location One Palpation Location R ITB, hip flexors, glute med/ min Palpation Findings Edema,Tenderness Palpation Details Edema at BLE PT-OP-K Range of Motion Start: 07/13/23 16:48 Freq: Status: Active Protocol: Document 07/16/23 09:45 AM (Rec: 07/16/23 11:15 AM [id number]) Hip Goniometric Range of Motion Hip Left Active Hip ROM WFL Yes Flexion w/Knee Flexed 120 Internal Rotation 30 External Rotation 38 Comments Hamstring 90/90: 30 deg Right Active Hip ROM WFL No Testing Position Sitting and supine Flexion w/Knee Flexed 85 Abduction 35 Internal Rotation 28 External Rotation 25 Comments Hamstring 90/90: 28 deg Hip ROM Limitations Hip ROM Limitations Soft Tissue Tightness,Bony Restriction,Pain PT-OP-L Special Tests Start: 07/13/23 16:48 Freq: Status: Active Protocol: Document 07/16/23 09:45 AM (Rec: 07/16/23 11:15 AM [id number]) Special Tests Hip Special Tests MARK Test Results + on R Scour Test Test Results Positive R PT-OP-M Strength Start: 07/13/23 16:48 Freq: Status: Active Protocol: Document 07/16/23 09:45 AM (Rec: 07/16/23 11:15 AM [id number]) Hip Strength Hip Manual Muscle Testing Left Flexion (L2) 4- Good- Extension (S1) 4 Good Abduction 4- Good- Adduction 4 Good External Rotation 4+ Good+ Internal Rotation 4+ Good+ Right Flexion (L2) 3 Fair Extension (S1) 3+ Fair+ Abduction 4- Good- Adduction 4 Good External Rotation 4- Good- Internal Rotation 4- Good- Comments Painful ROM Knee Strength Knee Manual Muscle Testing Left Flexion (S2) 4+ Good+ Extension (L3) 4+ Good+ Right Flexion (S2) 4+ Good+ Extension (L3) 4- Good- PT-OP-Q Treatments Start: 07/13/23 16:48 Freq: Status: Active Protocol: Document 07/31/23 12:22 AM (Rec: 07/31/23 13:22 AM [id number]) Cardio Equipment Recumbent Stepper (Sci-Fit) Duration (Minutes) 5 Resistance 1 Seat Position 15 Therapeutic Exercises Supine Exercises Hooklying abduction isometric Supine Exercise Name Hooklying abduction isometric with manual resistance Side bilateral Resistance Manual Equipment Used 10x3 sec Hamstring set Supine Exercise Name Hamstring set Side right Reps/Minutes 5x5 sec Comments hooklying glute set Supine Exercise Name glute set Side bilateral Reps/Minutes 10x3 sec 4 Supine Exercise Name SAQ Side right Equipment Used pillow under knee Reps/Minutes 10x5 sec hold 3 Supine Exercise Name Hip adduction isometric Side bilateral Equipment Used pillow between knees Reps/Minutes 5x5 sec 1 Supine Exercise Name PPT Side bilateral Reps/Minutes 10x5 sec hold Comments In hookling position Sitting Exercises LAQ Sitting Exercise Name LAQ Side bilateral Resistance 5# Reps/Minutes 2x10 Standing Exercises Chair squat Standing Exercise Name Sit-stand squat Side bilateral Equipment Used hi-low table Comments Table height at 25 inches Hip extension Standing Exercise Name Standing hip extension Side bilateral Equipment Used // bars Reps/Minutes x10 Hip abduction Standing Exercise Name Standing hip abduction Side bilateral Equipment Used // bars Reps/Minutes x10 Manual Therapy Treatment Soft Tissue Mobilization R hip Body Location R ITB, quads, HS, glutes, hip flexor Intensity/Depth Deep Body Position Sidelying PT-OP-T Assessment and Plan Start: 07/13/23 16:48 Freq: Status: Active Protocol: Document 07/31/23 12:22 AM (Rec: 07/31/23 13:22 AM [id number]) Physical Therapy Assessment Impairments Impairments Activity Tolerance,Balance, Functional Activities, Functional Mobility,Gait,Pain, ROM,Soft Tissue Mobility, Strength Goals Six Impairment HEP Impairment Pt has not been doing HEP because he is unsure of appropriate exercises. President Goal (LTG) Pt independent with HEP. LTG Duration 08/13/23 Five Impairment Bike Impairment 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 use stationary recumbent bike secondary to increase in hip pain. Short Term Goal (STG) Pt able to ride stationary bike for 5 min without increase in R hip pain. GOAL UNMET on 07/31/23: Pt has been able to tolerate Sci-fit in PT sessions for 6 min. STG Duration 07/30/23 Senior Living Goal (LTG) Pt able to ride stationary bike at home for 10 min without increase in R hip pain . LTG Duration 08/13/23 Four Impairment Balance Impairment 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 SLS on R secondary to pain and balance impairment. Short Term Goal (STG) Pt able to SLS for 5 seconds on R LE. GOAL UNMET on 07/31/23, Pt with difficulty weightbearing on R LE without UE support secondary to pain. STG Duration 07/30/23 President Goal (LTG) Pt able to SLS for 10 seconds on R LE. Three Impairment Pain assessment Impairment Pt with reported pain at 8/10 at worst. Short Term Goal (STG) Pt to report pain at worst at 5/10. GOAL UNMET on 07/31/23. Pt reports pain at 7/10 at the worst STG Duration 07/30/23 President Goal (LTG) Pt to report pain at worst at 3/10. LTG Duration 08/13/23 Two Impairment LEFS Impairment Pt with LEFS score of 26/80. Short Term Goal (STG) Pt with LEFS score of 38/80. GOAL UNMET on 07/31/23 at 26/80 . STG Duration 07/30/23 President Goal (LTG) Pt with LEFS of 48/80. LTG Duration 08/13/23 One Impairment Gait Impairment 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 walk more than 100 ft before need to stop secondary to pain. Short Term Goal (STG) Pt able to ambulate 300 ft before need to stop secondary to pain. GOAL PARTIALLY MET: Pt reports that he would be able to walk 300 ft with standing rest break. STG Duration 07/30/23 President Goal (LTG) Pt able to ambulate 500 ft before need to stop secondary to pain. LTG Duration 08/13/23 Progress Towards Goals Progress Towards Goals Slow Progress due to Activity Tolerance,Slow Progress - Other Progress Comments Slow progress due to pain levels Assessment Summary Assessment Pt able to tolerate weight bearing exercises today, though required increased support from UE for activities that required R LE weightbearing only. Pt with decreased reported tenderness with STM of R LE. Pt with reported decrease in symptoms with STM. Pt will return later this week to progress R LE strength and mobility as tolerated. Physical Therapy Plan Frequency and Duration Frequency of Treatment 2x/Week Duration of treatment (weeks) 4 Plan of Care Start Date 07/16/23 Plan of Care End Date 08/13/23 Therapeutic Interventions Therapeutic Interventions Balance Training,Gait Training ,Home Exercise Program,Joint Mobilizations,Manual Therapy, Neuromuscular Re-education, Patient/Caregiver Education, Self-Care/Home Management,Soft Tissue Mobilization, Therapeutic Activities, Therapeutic Exercises Modalities Cold Pack/Ice Massage,Hot Packs Next Visit Focus/Plan Next Note Type Treatment Note Next Visit Plan Progress hip ROM and strength as tolerated, initiate STM and joint mobilization as appropriate, progress pre-SUSIE HEP.
--- NOTE | 2023-08-02 13:00 | PT.OTN ---
Current Diagnoses Unilateral primary osteoarthritis, right hip (08/02/23) Pain in right hip (08/02/23) Physical Therapy Treatment Note PT-OP-A Visit Information Start: 07/13/23 16:48 Freq: Status: Active Protocol: Document 08/02/23 10:53 SW (Rec: 08/02/23 11:44 [id number]) Out-Patient Physical Therapy Visit Information Visit Information Visit Type Treatment Note Visit Start Time 11:00 Visit Stop Time 11:44 Total Visit Minutes 44 Visit Number 4 Number of TACTICAL DEBRIEFER OFFICER Visits 1 Precautions Precautions Pacemaker PT-OP-B Current Condition Start: 07/13/23 16:48 Freq: Status: Active Protocol: Document 07/31/23 12:22 AM (Rec: 07/31/23 13:22 AM [id number]) Current Condition History of Current Condition Onset Date Dec 2022 Current Complaints R hip pain. SUSIE TBD History of Current Condition Pt reports that he was having LBP in Dec 2022. He had gone to the chiropractor for a while, though started noticing an increase in R hip. Pt had a cortisone injection that made his hip feel worse. Pt tried elliptical and recumbent bike, which made him feel worse. Pt had previous bilateral TKA Prior Treatments and Tests Chiropractor, cortisone injection, x-ray showed bone on bone. PT-OP-C Subjective Start: 07/13/23 16:48 Freq: Status: Active Protocol: Document 08/02/23 10:53 SW (Rec: 08/02/23 11:44 [id number]) OP-PT Subjective Patient Comments Patient Comments Pt reports that he was cleared from his inflatable buildings laminator for surgery, he is hoping in the next few weeks PT-OP-D Balance Start: 07/13/23 16:48 Freq: Status: Active Protocol: Document 07/16/23 09:45 AM (Rec: 07/16/23 11:15 AM [id number]) OP-PT Balance Assessment Standing Balance Static Standing Balance Ability Poor Dynamic Standing Balance Ability Poor Balance Tests Single Limb Standing Single Limb- Right 0 Single Limb- Left 4 Oshea Fall Scale Copyright Permission PT-OP-E Functional Tests Start: 07/13/23 16:48 Freq: Status: Active Protocol: Document 07/16/23 09:45 AM (Rec: 07/16/23 11:15 AM [id number]) Functional Tests Five Times Sit to Stand Test Score 25.66 Comments hi-low table at 24.5 inches PT-OP-F Manual Assessment Start: 07/13/23 16:48 Freq: Status: Active Protocol: Document 07/16/23 09:45 AM (Rec: 07/16/23 11:15 AM [id number]) Manual Assessments Joint Mobility Assessment Joint Mobility Assessment R hip, hypomobile all directions, traction decreased symptoms PT-OP-G Mobility & Gait Start: 07/13/23 16:48 Freq: Status: Active Protocol: Document 07/16/23 09:45 AM (Rec: 07/16/23 11:15 AM [id number]) OP Mobility Evaluation Bed Mobility Supine to and from Sit Independent, though uses hands to assist R LE OP Gait Assessment Gait Gait Assistance Required: Independent Assistive Devices Assistive Device Straight Cane Gait Deviations General Gait Pattern Antalgic Factors Limiting Gait Function Factors Limiting Gait Function Decreased Activity Tolerance, Decreased Strength,Limited Range of Motion,Pain PT-OP-J Posture/Palpation/Skin Start: 07/13/23 16:48 Freq: Status: Active Protocol: Document 07/16/23 09:45 AM (Rec: 07/16/23 11:15 AM [id number]) Posture Evaluation Position Standing L-Spine Posture Flattened Ankle/Foot Posture (L) Pronated,(R) Pronated,(L) Calcaneal Eversion,(R) Calcaneal Eversion Palpation Assessment Location One Palpation Location R ITB, hip flexors, glute med/ min Palpation Findings Edema,Tenderness Palpation Details Edema at BLE PT-OP-K Range of Motion Start: 07/13/23 16:48 Freq: Status: Active Protocol: Document 07/16/23 09:45 AM (Rec: 07/16/23 11:15 AM [id number]) Hip Goniometric Range of Motion Hip Left Active Hip ROM WFL Yes Flexion w/Knee Flexed 120 Internal Rotation 30 External Rotation 38 Comments Hamstring 90/90: 30 deg Right Active Hip ROM WFL No Testing Position Sitting and supine Flexion w/Knee Flexed 85 Abduction 35 Internal Rotation 28 External Rotation 25 Comments Hamstring 90/90: 28 deg Hip ROM Limitations Hip ROM Limitations Soft Tissue Tightness,Bony Restriction,Pain PT-OP-L Special Tests Start: 07/13/23 16:48 Freq: Status: Active Protocol: Document 07/16/23 09:45 AM (Rec: 07/16/23 11:15 AM [id number]) Special Tests Hip Special Tests MARK Test Results + on R Scour Test Test Results Positive R PT-OP-M Strength Start: 07/13/23 16:48 Freq: Status: Active Protocol: Document 07/16/23 09:45 AM (Rec: 07/16/23 11:15 AM [id number]) Hip Strength Hip Manual Muscle Testing Left Flexion (L2) 4- Good- Extension (S1) 4 Good Abduction 4- Good- Adduction 4 Good External Rotation 4+ Good+ Internal Rotation 4+ Good+ Right Flexion (L2) 3 Fair Extension (S1) 3+ Fair+ Abduction 4- Good- Adduction 4 Good External Rotation 4- Good- Internal Rotation 4- Good- Comments Painful ROM Knee Strength Knee Manual Muscle Testing Left Flexion (S2) 4+ Good+ Extension (L3) 4+ Good+ Right Flexion (S2) 4+ Good+ Extension (L3) 4- Good- PT-OP-Q Treatments Start: 07/13/23 16:48 Freq: Status: Active Protocol: Document 08/02/23 10:53 SW (Rec: 08/02/23 11:44 SW [id number]) Cardio Equipment Recumbent Stepper (Sci-Fit) Duration (Minutes) 5 Resistance 1 Seat Position 15 Therapeutic Exercises Supine Exercises Quad set Side right Reps/Minutes 10 x 5 Hooklying abduction isometric Supine Exercise Name Hooklying abduction isometric with manual resistance Side bilateral Resistance Manual Equipment Used 10x3 sec Hamstring set Supine Exercise Name Hamstring set Side right Reps/Minutes 5x5 sec Comments hooklying glute set Supine Exercise Name glute set Side bilateral Reps/Minutes 10x3 sec 4 Supine Exercise Name SAQ Side right Equipment Used pillow under knee Reps/Minutes 10x5 sec hold 3 Supine Exercise Name Hip adduction isometric Side bilateral Equipment Used pillow between knees Reps/Minutes 5x5 sec Sidelying Exercises Hip Abd Side right Reps/Minutes x10 Comments 2 pillows between knees Sitting Exercises LAQ Sitting Exercise Name LAQ Side bilateral Resistance 5# Reps/Minutes 2x10 Standing Exercises Hip Adduction Standing Exercise Name Standing hip adduction Side bilateral Equipment Used // bars Reps/Minutes x10 Chair squat Standing Exercise Name Sit-stand squat Side bilateral Equipment Used hi-low table Comments Table height at 25 inches Hip extension Standing Exercise Name Standing hip extension Side bilateral Equipment Used // bars Reps/Minutes x10 Hip abduction Standing Exercise Name Standing hip abduction Side bilateral Equipment Used // bars Reps/Minutes x10 PT-OP-T Assessment and Plan Start: 07/13/23 16:48 Freq: Status: Active Protocol: Document 08/02/23 10:53 SW (Rec: 08/02/23 11:44 SW [id number]) Physical Therapy Assessment Goals Six Impairment HEP Impairment Pt has not been doing HEP because he is unsure of appropriate exercises. Scientist/Engineer Goal (LTG) Pt independent with HEP. LTG Duration 08/13/23 Five Impairment Bike Impairment 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 use stationary recumbent bike secondary to increase in hip pain. Short Term Goal (STG) Pt able to ride stationary bike for 5 min without increase in R hip pain. GOAL UNMET on 07/31/23: Pt has been able to tolerate Sci-fit in PT sessions for 6 min. STG Duration 07/30/23 Scientist/Engineer Goal (LTG) Pt able to ride stationary bike at home for 10 min without increase in R hip pain . LTG Duration 08/13/23 Four Impairment Balance Impairment 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 SLS on R secondary to pain and balance impairment. Short Term Goal (STG) Pt able to SLS for 5 seconds on R LE. GOAL UNMET on 07/31/23, Pt with difficulty weightbearing on R LE without UE support secondary to pain. STG Duration 07/30/23 Scientist/Engineer Goal (LTG) Pt able to SLS for 10 seconds on R LE. Three Impairment Pain assessment Impairment Pt with reported pain at 8/10 at worst. Short Term Goal (STG) Pt to report pain at worst at 5/10. GOAL UNMET on 07/31/23. Pt reports pain at 7/10 at the worst STG Duration 07/30/23 Group Home Goal (LTG) Pt to report pain at worst at 3/10. LTG Duration 08/13/23 Two Impairment LEFS Impairment Pt with LEFS score of 26/80. Short Term Goal (STG) Pt with LEFS score of 38/80. GOAL UNMET on 07/31/23 at 26/80 . STG Duration 07/30/23 Scientist/Engineer Goal (LTG) Pt with LEFS of 48/80. LTG Duration 08/13/23 One Impairment Gait Impairment 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 walk more than 100 ft before need to stop secondary to pain. Short Term Goal (STG) Pt able to ambulate 300 ft before need to stop secondary to pain. GOAL PARTIALLY MET: Pt reports that he would be able to walk 300 ft with standing rest break. STG Duration 07/30/23 Group Home Goal (LTG) Pt able to ambulate 500 ft before need to stop secondary to pain. LTG Duration 08/13/23 Assessment Summary Assessment Pt reports he was cleared by his inflatable buildings laminator for hip surgery, he is hoping it will be scheduled within the next few weeks. Pain continues to be worse with weight bearing. Pt needed min assist with transfering of RLE. Continued pre SUSIE strengthening exercises this session in posistions of pt tolerance. Patient may benefit from continued strengthening to prepare for anticipation of surgery. Physical Therapy Plan Frequency and Duration Frequency of Treatment 2x/Week Duration of treatment (weeks) 4 Plan of Care Start Date 07/16/23 Plan of Care End Date 08/13/23 Therapeutic Interventions Therapeutic Interventions Balance Training,Gait Training ,Home Exercise Program,Joint Mobilizations,Manual Therapy, Neuromuscular Re-education, Patient/Caregiver Education, Self-Care/Home Management,Soft Tissue Mobilization, Therapeutic Activities, Therapeutic Exercises Modalities Cold Pack/Ice Massage,Hot Packs Next Visit Focus/Plan Next Note Type Treatment Note Next Visit Plan Progress hip ROM and strength as tolerated, initiate STM and joint mobilization as appropriate, progress pre-SUSIE HEP.
--- NOTE | 2023-08-06 09:52 | PT.OTN ---
Current Diagnoses Unilateral primary osteoarthritis, right hip (08/06/23) Pain in right hip (08/06/23) Physical Therapy Treatment Note PT-OP-A Visit Information Start: 07/13/23 16:48 Freq: Status: Active Protocol: Document 08/06/23 09:52 AM (Rec: 08/06/23 10:43 AM [id number]) Out-Patient Physical Therapy Visit Information Visit Information Visit Type Treatment Note Visit Start Time 09:52 Visit Stop Time 10:37 Total Visit Minutes 45 Visit Number 5 Number of GEOSPATIAL IMAGERY INTELLIGENCE ANALYST Visits 1 PT-OP-B Current Condition Start: 07/13/23 16:48 Freq: Status: Active Protocol: Document 07/31/23 12:22 AM (Rec: 07/31/23 13:22 AM [id number]) Current Condition History of Current Condition Onset Date Dec 2022 Current Complaints R hip pain. SUSIE TBD History of Current Condition Pt reports that he was having LBP in Dec 2022. He had gone to the chiropractor for a while, though started noticing an increase in R hip. Pt had a cortisone injection that made his hip feel worse. Pt tried elliptical and recumbent bike, which made him feel worse. Pt had previous bilateral TKA Prior Treatments and Tests Chiropractor, cortisone injection, x-ray showed bone on bone. PT-OP-C Subjective Start: 07/13/23 16:48 Freq: Status: Active Protocol: Document 08/06/23 09:52 AM (Rec: 08/06/23 10:43 AM [id number]) OP-PT Subjective Patient Comments Patient Comments Pt reports that he is unable to get in for surgery until Nov 06. He would like to get in sooner and will be reaching out to another surgeon. Pt reports that he continues to have quite a bit of hip pain. PT-OP-D Balance Start: 07/13/23 16:48 Freq: Status: Active Protocol: Document 07/16/23 09:45 AM (Rec: 07/16/23 11:15 AM [id number]) OP-PT Balance Assessment Standing Balance Static Standing Balance Ability Poor Dynamic Standing Balance Ability Poor Balance Tests Single Limb Standing Single Limb- Right 0 Single Limb- Left 4 Oshea Fall Scale Copyright Permission PT-OP-E Functional Tests Start: 07/13/23 16:48 Freq: Status: Active Protocol: Document 07/16/23 09:45 AM (Rec: 07/16/23 11:15 AM [id number]) Functional Tests Five Times Sit to Stand Test Score 25.66 Comments hi-low table at 24.5 inches PT-OP-F Manual Assessment Start: 07/13/23 16:48 Freq: Status: Active Protocol: Document 07/16/23 09:45 AM (Rec: 07/16/23 11:15 AM [id number]) Manual Assessments Joint Mobility Assessment Joint Mobility Assessment R hip, hypomobile all directions, traction decreased symptoms PT-OP-G Mobility & Gait Start: 07/13/23 16:48 Freq: Status: Active Protocol: Document 07/16/23 09:45 AM (Rec: 07/16/23 11:15 AM [id number]) OP Mobility Evaluation Bed Mobility Supine to and from Sit Independent, though uses hands to assist R LE OP Gait Assessment Gait Gait Assistance Required: Independent Assistive Devices Assistive Device Straight Cane Gait Deviations General Gait Pattern Antalgic Factors Limiting Gait Function Factors Limiting Gait Function Decreased Activity Tolerance, Decreased Strength,Limited Range of Motion,Pain PT-OP-J Posture/Palpation/Skin Start: 07/13/23 16:48 Freq: Status: Active Protocol: Document 07/16/23 09:45 AM (Rec: 07/16/23 11:15 AM [id number]) Posture Evaluation Position Standing L-Spine Posture Flattened Ankle/Foot Posture (L) Pronated,(R) Pronated,(L) Calcaneal Eversion,(R) Calcaneal Eversion Palpation Assessment Location One Palpation Location R ITB, hip flexors, glute med/ min Palpation Findings Edema,Tenderness Palpation Details Edema at BLE PT-OP-K Range of Motion Start: 07/13/23 16:48 Freq: Status: Active Protocol: Document 07/16/23 09:45 AM (Rec: 07/16/23 11:15 AM [id number]) Hip Goniometric Range of Motion Hip Left Active Hip ROM WFL Yes Flexion w/Knee Flexed 120 Internal Rotation 30 External Rotation 38 Comments Hamstring 90/90: 30 deg Right Active Hip ROM WFL No Testing Position Sitting and supine Flexion w/Knee Flexed 85 Abduction 35 Internal Rotation 28 External Rotation 25 Comments Hamstring 90/90: 28 deg Hip ROM Limitations Hip ROM Limitations Soft Tissue Tightness,Bony Restriction,Pain PT-OP-L Special Tests Start: 07/13/23 16:48 Freq: Status: Active Protocol: Document 07/16/23 09:45 AM (Rec: 07/16/23 11:15 AM [id number]) Special Tests Hip Special Tests MARK Test Results + on R Scour Test Test Results Positive R PT-OP-M Strength Start: 07/13/23 16:48 Freq: Status: Active Protocol: Document 07/16/23 09:45 AM (Rec: 07/16/23 11:15 AM [id number]) Hip Strength Hip Manual Muscle Testing Left Flexion (L2) 4- Good- Extension (S1) 4 Good Abduction 4- Good- Adduction 4 Good External Rotation 4+ Good+ Internal Rotation 4+ Good+ Right Flexion (L2) 3 Fair Extension (S1) 3+ Fair+ Abduction 4- Good- Adduction 4 Good External Rotation 4- Good- Internal Rotation 4- Good- Comments Painful ROM Knee Strength Knee Manual Muscle Testing Left Flexion (S2) 4+ Good+ Extension (L3) 4+ Good+ Right Flexion (S2) 4+ Good+ Extension (L3) 4- Good- PT-OP-Q Treatments Start: 07/13/23 16:48 Freq: Status: Active Protocol: Document 08/06/23 09:52 AM (Rec: 08/06/23 10:43 AM [id number]) Cardio Equipment Recumbent Stepper (Sci-Fit) Duration (Minutes) 6 Resistance 2 Seat Position 15 Therapeutic Exercises Sitting Exercises LAQ Sitting Exercise Name LAQ Side bilateral Resistance 5# Reps/Minutes 2x10 Standing Exercises Calf Raise Standing Exercise Name Calf raise Side bilateral Equipment Used // bars Chair squat Standing Exercise Name Sit-stand squat Side bilateral Equipment Used hi-low table Comments Table height at 25 inches Hip extension Standing Exercise Name Standing hip extension Side bilateral Equipment Used // bars Reps/Minutes x10 Hip abduction Standing Exercise Name Standing hip abduction Side bilateral Equipment Used // bars Reps/Minutes x10 Manual Therapy Treatment Soft Tissue Mobilization R hip Body Location R ITB, quads, HS, glutes, hip flexor Intensity/Depth Deep Body Position Sidelying PT-OP-T Assessment and Plan Start: 07/13/23 16:48 Freq: Status: Active Protocol: Document 08/06/23 09:52 AM (Rec: 08/06/23 10:43 AM [id number]) Physical Therapy Assessment Goals Six Impairment HEP Impairment Pt has not been doing HEP because he is unsure of appropriate exercises. Penitentiary Goal (LTG) Pt independent with HEP. LTG Duration 08/13/23 Five Impairment Bike Impairment 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 use stationary recumbent bike secondary to increase in hip pain. Short Term Goal (STG) Pt able to ride stationary bike for 5 min without increase in R hip pain. GOAL UNMET on 07/31/23: Pt has been able to tolerate Sci-fit in PT sessions for 6 min. STG Duration 07/30/23 Leather Sorter Goal (LTG) Pt able to ride stationary bike at home for 10 min without increase in R hip pain . LTG Duration 08/13/23 Four Impairment Balance Impairment 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 SLS on R secondary to pain and balance impairment. Short Term Goal (STG) Pt able to SLS for 5 seconds on R LE. GOAL UNMET on 07/31/23, Pt with difficulty weightbearing on R LE without UE support secondary to pain. STG Duration 07/30/23 Leather Sorter Goal (LTG) Pt able to SLS for 10 seconds on R LE. Three Impairment Pain assessment Impairment Pt with reported pain at 8/10 at worst. Short Term Goal (STG) Pt to report pain at worst at 5/10. GOAL UNMET on 07/31/23. Pt reports pain at 7/10 at the worst STG Duration 07/30/23 Leather Sorter Goal (LTG) Pt to report pain at worst at 3/10. LTG Duration 08/13/23 Two Impairment LEFS Impairment Pt with LEFS score of 26/80. Short Term Goal (STG) Pt with LEFS score of 38/80. GOAL UNMET on 07/31/23 at 26/80 . STG Duration 07/30/23 Leather Sorter Goal (LTG) Pt with LEFS of 48/80. LTG Duration 08/13/23 One Impairment Gait Impairment 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 walk more than 100 ft before need to stop secondary to pain. Short Term Goal (STG) Pt able to ambulate 300 ft before need to stop secondary to pain. GOAL PARTIALLY MET: Pt reports that he would be able to walk 300 ft with standing rest break. STG Duration 07/30/23 Leather Sorter Goal (LTG) Pt able to ambulate 500 ft before need to stop secondary to pain. LTG Duration 08/13/23 Assessment Summary Assessment Pt tolerated tx session well today. Pt continues to demonstrate difficulty activities that require active hip flexion motion. Pt will return to PT later this week to continued to progress LE strength and mobility as tolerated. Physical Therapy Plan Frequency and Duration Frequency of Treatment 2x/Week Duration of treatment (weeks) 4 Plan of Care Start Date 07/16/23 Plan of Care End Date 08/13/23 Therapeutic Interventions Therapeutic Interventions Balance Training,Gait Training ,Home Exercise Program,Joint Mobilizations,Manual Therapy, Neuromuscular Re-education, Patient/Caregiver Education, Self-Care/Home Management,Soft Tissue Mobilization, Therapeutic Activities, Therapeutic Exercises Modalities Cold Pack/Ice Massage,Hot Packs Next Visit Focus/Plan Next Note Type Treatment Note Next Visit Plan Progress hip ROM and strength as tolerated, initiate STM and joint mobilization as appropriate, progress pre-SUSIE HEP.
--- NOTE | 2023-08-08 13:40 | PT.OPDS ---
Current Diagnoses Unilateral primary osteoarthritis, right hip (08/06/23) Pain in right hip (08/06/23) Visit Care Team Role Provider Type Sydney Montesinos DO Family Provider Physician Primary Care Provider Specialty: Family Practice Address: [address] [place] [address], [facility] [address], [place], [address] Email: [email or web address] [email or web address] Tilley MD Attending Provider Physician Referring Provider Specialty: Orthopedics Orthopedic Surgery Address: [address] [place] [address], [id number] Email: [email or web address] Visit Number Visit Number 5 Discharge Summary PT-OP-B Current Condition Start: 07/13/23 16:48 Freq: Status: Active Protocol: Document 07/31/23 12:22 AM (Rec: 07/31/23 13:22 AM [id number]) Current Condition History of Current Condition Onset Date Dec 2022 Current Complaints R hip pain. SUSIE TBD History of Current Condition Pt reports that he was having LBP in Dec 2022. He had gone to the chiropractor for a while, though started noticing an increase in R hip. Pt had a cortisone injection that made his hip feel worse. Pt tried elliptical and recumbent bike, which made him feel worse. Pt had previous bilateral TKA Prior Treatments and Tests Chiropractor, cortisone injection, x-ray showed bone on bone. PT-OP-C Subjective Start: 07/13/23 16:48 Freq: Status: Active Protocol: Document 08/06/23 09:52 AM (Rec: 08/06/23 10:43 AM [id number]) OP-PT Subjective Patient Comments Patient Comments Pt reports that he is unable to get in for surgery until Nov 06. He would like to get in sooner and will be reaching out to another surgeon. Pt reports that he continues to have quite a bit of hip pain. PT-OP-D Balance Start: 07/13/23 16:48 Freq: Status: Active Protocol: Document 07/16/23 09:45 AM (Rec: 07/16/23 11:15 AM [id number]) OP-PT Balance Assessment Standing Balance Static Standing Balance Ability Poor Dynamic Standing Balance Ability Poor Balance Tests Single Limb Standing Single Limb- Right 0 Single Limb- Left 4 Oshea Fall Scale Copyright Permission PT-OP-E Functional Tests Start: 07/13/23 16:48 Freq: Status: Active Protocol: Document 07/16/23 09:45 AM (Rec: 07/16/23 11:15 AM [id number]) Functional Tests Five Times Sit to Stand Test Score 25.66 Comments hi-low table at 24.5 inches PT-OP-F Manual Assessment Start: 07/13/23 16:48 Freq: Status: Active Protocol: Document 07/16/23 09:45 AM (Rec: 07/16/23 11:15 AM [id number]) Manual Assessments Joint Mobility Assessment Joint Mobility Assessment R hip, hypomobile all directions, traction decreased symptoms PT-OP-G Mobility & Gait Start: 07/13/23 16:48 Freq: Status: Active Protocol: Document 07/16/23 09:45 AM (Rec: 07/16/23 11:15 AM [id number]) OP Mobility Evaluation Bed Mobility Supine to and from Sit Independent, though uses hands to assist R LE OP Gait Assessment Gait Gait Assistance Required: Independent Assistive Devices Assistive Device Straight Cane Gait Deviations General Gait Pattern Antalgic Factors Limiting Gait Function Factors Limiting Gait Function Decreased Activity Tolerance, Decreased Strength,Limited Range of Motion,Pain PT-OP-J Posture/Palpation/Skin Start: 07/13/23 16:48 Freq: Status: Active Protocol: Document 07/16/23 09:45 AM (Rec: 07/16/23 11:15 AM [id number]) Posture Evaluation Position Standing L-Spine Posture Flattened Ankle/Foot Posture (L) Pronated,(R) Pronated,(L) Calcaneal Eversion,(R) Calcaneal Eversion Palpation Assessment Location One Palpation Location R ITB, hip flexors, glute med/ min Palpation Findings Edema,Tenderness Palpation Details Edema at BLE PT-OP-K Range of Motion Start: 07/13/23 16:48 Freq: Status: Active Protocol: Document 07/16/23 09:45 AM (Rec: 07/16/23 11:15 AM [id number]) Hip Goniometric Range of Motion Hip Left Active Hip ROM WFL Yes Flexion w/Knee Flexed 120 Internal Rotation 30 External Rotation 38 Comments Hamstring 90/90: 30 deg Right Active Hip ROM WFL No Testing Position Sitting and supine Flexion w/Knee Flexed 85 Abduction 35 Internal Rotation 28 External Rotation 25 Comments Hamstring 90/90: 28 deg Hip ROM Limitations Hip ROM Limitations Soft Tissue Tightness,Bony Restriction,Pain PT-OP-L Special Tests Start: 07/13/23 16:48 Freq: Status: Active Protocol: Document 07/16/23 09:45 AM (Rec: 07/16/23 11:15 AM [id number]) Special Tests Hip Special Tests MARK Test Results + on R Scour Test Test Results Positive R PT-OP-M Strength Start: 07/13/23 16:48 Freq: Status: Active Protocol: Document 07/16/23 09:45 AM (Rec: 07/16/23 11:15 AM [id number]) Hip Strength Hip Manual Muscle Testing Left Flexion (L2) 4- Good- Extension (S1) 4 Good Abduction 4- Good- Adduction 4 Good External Rotation 4+ Good+ Internal Rotation 4+ Good+ Right Flexion (L2) 3 Fair Extension (S1) 3+ Fair+ Abduction 4- Good- Adduction 4 Good External Rotation 4- Good- Internal Rotation 4- Good- Comments Painful ROM Knee Strength Knee Manual Muscle Testing Left Flexion (S2) 4+ Good+ Extension (L3) 4+ Good+ Right Flexion (S2) 4+ Good+ Extension (L3) 4- Good- PT-OP-T Assessment and Plan Start: 07/13/23 16:48 Freq: Status: Active Protocol: Document 08/08/23 13:40 AM (Rec: 08/08/23 13:42 AM [id number]) Physical Therapy Assessment Assessment Summary Assessment PT spoke with pt and pt is cancelling appts at this time. Pt reports good understanding of HEP. Pt scheduled for SUSIE in October. Physical Therapy Plan Discharge Physical Therapy Discharge Reasons Patient Request Discharge Comments Pt called to cancel all future appts secondary to continued hip pain that does not appear to improve with PT. PT called pt to follow-up with questions or concerns. Pt is scheduled for a SUSIE in October.
== END 2023-08-09 11:59 ==
LOC: PHYS 09:45
PROVIDERS: Family Provider Family Medicine; PCP Family Medicine; Referring Provider Orthopaedic Surgery; Visit Provider Orthopaedic Surgery
DX: M16.11 Unilateral primary osteoarthritis, right hip (principal); M25.551 Pain in right hip
CPT/HCPCS: 97110; 97140; 97161

== ENCOUNTER → 2024-01-10 08:48 | Outpatient (CLI) | payer MEDICARE, OTHER, SELFPAY ==
[2024-01-10 09:22] LABS: Add Manual Diff / Slide Review NO; Basophils Absolute Auto 100 /uL (0-100); Eosinophils Absolute Auto 300 /uL (0-450); Eosinophils Percent Auto 5.1 % (2-4); Hematocrit 32.2 % (41-53); Lymphocytes Absolute Auto 1800 /uL (1100-4500); Lymphocytes Percent Auto 29.2 % (25-40); Mean Corpuscular HGB Conc 34.1 % (30-36); Mean Corpuscular Hemoglobin 31.8 PG (26-34); Mean Corpuscular Volume 93.4 fL (80-100); Monocytes Absolute Auto 500 /uL (0-900); Monocytes Percent Auto 8.8 % (3-14); Neutrophils Absolute Auto 3400 /uL (1500-7000); Neutrophils Percent Auto 55.9 % (50-75); Platelet Count 171 X10^3/uL (150-400); Red Blood Cell Count 3.45 X10^6/uL (4.5-5.9); Red Cell Distribution Width 12.8 % (11.6-14.8); White Blood Cell Count 6.1 X10^3/uL (4.5-11.0)
[2024-01-10 09:35] LABS: BUN Creatinine Ratio 23.8 (6-22); Blood Urea Nitrogen 31 mg/dL (9-20); Calcium 9.2 mg/dL (8.4-10.2); Carbon Dioxide 24 mmol/L (22-32); Chloride 107 mmol/L (98-107); Estimated Glomerular Filt Rate > 60 mL/min (>60); Glucose 142 mg/dL (80-110); HEMOLYSIS < 15 (0-50); Potassium 4.8 mmol/L (3.4-5.1); Sodium 139 mmol/L (137-145)
[2024-01-10 10:09] LABS: Testosterone 173 ng/dL (71.8-623)
[2024-01-10 11:36] LABS: Creatinine Urine Random 152.3 mg/dL
[2024-01-10 11:41] LABS: Microalbumi Creatinin Ratio Ur 14.4 ug/mg CR (<30); Microalbumin Urine Random 2.2 mg/dL (0-1.6)
== END ==
PROVIDERS: Family Provider Family Medicine; PCP Family Medicine; Referring Provider Family Medicine; Visit Provider Family Medicine
DX: Z00.00 Encounter for general adult medical examination without abnormal findings (principal); E11.9 Type 2 diabetes mellitus without complications; N18.30 Chronic kidney disease, stage 3 unspecified; R79.89 Other specified abnormal findings of blood chemistry; I48.0 Paroxysmal atrial fibrillation; G47.30 Sleep apnea, unspecified; Z87.898 Personal history of other specified conditions
CPT/HCPCS: 36415; 80048; 82043; 82570; 83036; 84403; 85025

== ENCOUNTER 2024-03-03 08:15 | Outpatient (RCR) | payer MEDICARE, OTHER, SELFPAY ==
--- NOTE | 2023-12-31 14:00 | PT.OIE ---
Current Diagnoses Unilateral primary osteoarthritis, right hip (12/31/23) Difficulty in walking, not elsewhere classified (12/31/23) Abnormal posture (12/31/23) Weakness (12/31/23) Past Medical History (Last Updated 09/07/23 @ 09:19 by Sydney Montesinos DO) Bladder cancer (~2015) CKD (chronic kidney disease) stage 3, GFR 30-59 ml/min CTS (carpal tunnel syndrome) (~2009) Depression (~2009) Hernia History of elevated PSA (~2021) History of urinary incontinence (~2009) Hypertension (~1999) Low testosterone (~1999) Opiate use Orthostatic syncope Paroxysmal A-fib (~2015) Sleep apnea (~1999) Type 2 diabetes mellitus without complication, with no history of insulin use (~1999) Past Surgical History (Last Updated 04/17/23 @ 21:11 by Deborah Jackson) Anesthesia H/O knee surgery History of cystoscopy History of hernia repair (~1984) History of permanent cardiac pacemaker placement (~2015) History of testicular biopsy (~1982) Visit Care Team Role Provider Type Sydney Montesinos DO Family Provider Physician Primary Care Provider Specialty: Family Practice Address: [address] [place] [address], [address], [address] Email: [email or web address] Mati Cole DO Attending Provider Non-Staff Referring Provider Specialty: Orthopedic Surgery Address: [address] [place] [address], [phone] Email: Physical Therapy Initial Evaluation PT-OP-A Visit Information Start: 12/19/23 08:04 Freq: Status: Active Protocol: Document 12/31/23 11:03 [facility] (Rec: 12/31/23 12:19 [facility] [id number]) Out-Patient Physical Therapy Visit Information Visit Information Visit Type Initial Evaluation Visit Note 11/28 Visit Start Time 11:19 Visit Stop Time 12:00 Visit Number 1 Number of FERRYBOAT CAPTAIN Visits 0 Precautions Precautions allergies to tape and latex; afib w/pacemaker PT-OP-B Current Condition Start: 12/19/23 08:04 Freq: Status: Active Protocol: Document 12/31/23 11:03 [facility] (Rec: 12/31/23 12:19 [facility] [id number]) Current Condition History of Current Condition Onset Date 12/11/23 Current Complaints R ant SUSIE History of Current Condition Pt reports SUSIE R on 12/11/23. He has had some lightheadness and dizziness since surgerya nd doctor lower his meds which has helped some. He was able to go to the store today and that was his first time he felt well enough to go. He has had some issues w/ orthostatic hypotension also. ortho is pleased w/pt progress . 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 Pt told to avoid uneven ground, hip ext, hip ER for 3 months.Pt instructed not to lay on R side yet. It took pt 9-10 months to get in to get surgery and got out of shape d /t this. He has a stationary recumbant bike that he hopes to get back on. He noramlly likes to hike and is always careful but typically doesn't use walking poles but has them . Pt has been using the cane/ crutch for hip for about 10 months. Walks in the house w/o the cane now. His first few steps are stiff. 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 He does have allergies to tape and latex. Pt reports no specific injury for hips. pt has afib w/pacemaker Treatment Goals Patient/Caregiver Goals Return to walking, return to beach combing. return to using recumbant bike. Get back to being active, do yard work, hike PT-OP-C Subjective Start: 12/19/23 08:04 Freq: Status: Active Protocol: Document 12/31/23 11:03 [facility] (Rec: 12/31/23 12:19 [facility] [id number]) Patient Questionnaires Lower Extremity Functional Scale LEFS Score 50/80 OP-PT Pain Assessment Location R hip Pain Location Details incision PT-OP-D Balance Start: 12/19/23 08:04 Freq: Status: Active Protocol: Document 12/31/23 11:03 [facility] (Rec: 12/31/23 12:19 [facility] [id number]) Balance Tests Single Limb Standing Single Limb- Right 1 sec Single Limb- Left 3 sec PT-OP-G Mobility & Gait Start: 12/19/23 08:04 Freq: Status: Active Protocol: Document 12/31/23 11:03 [facility] (Rec: 12/31/23 12:19 [facility] [id number]) OP Gait Assessment Comments Gait Comments dec stance time on RLE w/use of cane PT-OP-M Strength Start: 12/19/23 08:04 Freq: Status: Active Protocol: Document 12/31/23 11:03 [facility] (Rec: 12/31/23 12:19 [facility] [id number]) Hip Strength Hip Manual Muscle Testing Right Flexion (L2) 3 Fair External Rotation 3+ Fair+ Internal Rotation 3+ Fair+ Comments IR/ER in neutral Left Flexion (L2) 4- Good- External Rotation 4 Good Internal Rotation 4 Good Knee Strength Knee Manual Muscle Testing Right Flexion (S2) 4 Good Extension (L3) 4+ Good+ Left Flexion (S2) 5 Normal Extension (L3) 5 Normal Ankle/Foot Strength Ankle and Foot Manual Muscle Testing Right Dorsiflexion (L4) 5 Normal Plantarflexion (S1) 5 Normal Left Dorsiflexion (L4) 5 Normal Plantarflexion (S1) 5 Normal Comments B PF tested seated PT-OP-Q Treatments Start: 12/19/23 08:04 Freq: Status: Active Protocol: Document 12/31/23 11:03 [facility] (Rec: 12/31/23 12:19 [facility] [id number]) Self-Care/Home Management Treatment Education Other Education 12 min: edu of safety with orthostacic hypotension (not walking away until lightheadedness or dizziness subsides); edu to cont to drink plenty of fluids and consider electrolytes and encoruaged to eat healthy; edu to follow up w/MD re: that pt BP is still low. Discussed return to biking w/ pt and encoruaged to discuss w /MD when he would be cleared for this and concern re: not biking for a few years and plan to get e-bike and they are heavier. Activities Self-Care/Home Management Activities seated BP 108/60 standing BP 78/56 PT-OP-T Assessment and Plan Start: 12/19/23 08:04 Freq: Status: Active Protocol: Document 12/31/23 11:03 [facility] (Rec: 12/31/23 12:19 [facility] [id number]) Physical Therapy Assessment Rehab Potential Rehabilitation Potential Excellent Evaluation Complexity Number of Personal Factors/Comorbidities 3 or More Number of Body Systems Impaired 4 or More Clinical Presentation at Evaluation Evolving Impairments Impairments Balance,Functional Activities, Functional Mobility,Gait,Pain, Posture,ROM,Soft Tissue Mobility,Strength Goals Four Impairment dec activity Short Term Goal (STG) Pt will be able to use recumbant bike for at least 15 -20 min at least 4-5 days a week w/o inc pain STG Duration 02/18/24 Valve Repairer Goal (LTG) Pt will be able to return to yard work w/o inc pain or instability LTG Duration 03/24/24 Three Short Term Goal (STG) Pt will be indep w/HEP STG Duration 02/18/24 Snf Goal (LTG) Pt will score at least 4+/5 on BLE MMT to show improved strength and stability in order to allow greater ease w/ activity. LTG Duration 03/24/24 Two Impairment walking Impairment pt unable to go for walks Short Term Goal (STG) Pt will be able to walk for at least .75 mile w/o inc pain greater than 2/10 STG Duration 02/18/24 Valve Repairer Goal (LTG) Pt will be able to walk at least 1.5 miles and over uneven terrain w/o inc pain LTG Duration 03/24/24 One Impairment balance Impairment SLS Short Term Goal (STG) Pt will be able to do SLS for 5 sec B to show improved balance Snf Goal (LTG) Pt will score at least 25/30 on FGA to show improved balance and stability and dec fall risk. LTG Duration 03/24/24 Assessment Summary Assessment Pt presents 3 weeks s/p R ant SUSIE with good pain control, but w/current limiting factor of low BP and orthostatic hypotension. He was educated on safety with this and is very understanding on precautions. He is ambulating w/SPC at this time w/slight dec stance time on R hip and does show hip weakness as expected 3 weeks after surgery . He is trypically very active and is hoping to return to walking on the beach and trails and biking w/e-bike ( has not done this-used to use reg bike). He would benefit from skilled PT to work on gait, balance, strength and ROM in order to returnt o typical activity w/o inc pain or instability. Physical Therapy Plan Frequency and Duration Frequency of Treatment 1-2x/wk Duration of treatment (weeks) 12 Plan of Care Start Date 12/31/23 Plan of Care End Date 03/24/24 Therapeutic Interventions Therapeutic Interventions Balance Training,Gait Training ,Home Exercise Program,Joint Mobilizations,Manual Therapy, Neuromuscular Re-education, Patient/Caregiver Education, Self-Care/Home Management,Soft Tissue Mobilization, Therapeutic Activities, Therapeutic Exercises Modalities Cold Pack/Ice Massage,Hot Packs Next Visit Focus/Plan Next Note Type Treatment Note Next Visit Plan monitor pt's lightheaded/ dizziness seated exercises for pt in chair : marching, knee ext/ flex w/bands standing exercises: heel raises, Hip abd, mini squat ( very mini) supine core exercises try recumbant bike, leg press
--- NOTE | 2023-12-31 14:01 | PT.OPPOC ---
Physical, Occupational & Speech Therapy At [facility] Current Diagnoses Unilateral primary osteoarthritis, right hip (12/31/23) Difficulty in walking, not elsewhere classified (12/31/23) Abnormal posture (12/31/23) Weakness (12/31/23) Visit Care Team Role Provider Type Sydney Montesinos DO Family Provider Physician Primary Care Provider Specialty: Family Practice Address: [address] [place] [address], [facility] [address], [address] Email: [email or web address] Mati Cole DO Attending Provider Non-Staff Referring Provider Specialty: Orthopedic Surgery Address: [facility] [place], [address] Email: Plan Of Care PT-OP-T Assessment and Plan Start: 12/19/23 08:04 Freq: Status: Active Protocol: Document 12/31/23 11:03 [facility] (Rec: 12/31/23 12:19 [facility] [id number]) Physical Therapy Assessment Rehab Potential Rehabilitation Potential Excellent Evaluation Complexity Number of Personal Factors/Comorbidities 3 or More Number of Body Systems Impaired 4 or More Clinical Presentation at Evaluation Evolving Impairments Impairments Balance,Functional Activities, Functional Mobility,Gait,Pain, Posture,ROM,Soft Tissue Mobility,Strength Goals Four Impairment dec activity Short Term Goal (STG) Pt will be able to use recumbant bike for at least 15 -20 min at least 4-5 days a week w/o inc pain STG Duration 02/18/24 Half-Way Goal (LTG) Pt will be able to return to yard work w/o inc pain or instability LTG Duration 03/24/24 Three Short Term Goal (STG) Pt will be indep w/HEP STG Duration 02/18/24 [employer] Goal (LTG) Pt will score at least 4+/5 on BLE MMT to show improved strength and stability in order to allow greater ease w/ activity. LTG Duration 03/24/24 Two Impairment walking Impairment pt unable to go for walks Short Term Goal (STG) Pt will be able to walk for at least .75 mile w/o inc pain greater than 2/10 STG Duration 02/18/24 Half-Way Goal (LTG) Pt will be able to walk at least 1.5 miles and over uneven terrain w/o inc pain LTG Duration 03/24/24 One Impairment balance Impairment SLS Short Term Goal (STG) Pt will be able to do SLS for 5 sec B to show improved balance Half-Way Goal (LTG) Pt will score at least 25/30 on FGA to show improved balance and stability and dec fall risk. LTG Duration 03/24/24 Assessment Summary Assessment Pt presents 3 weeks s/p R ant SUSIE with good pain control, but w/current limiting factor of low BP and orthostatic hypotension. He was educated on safety with this and is very understanding on precautions. He is ambulating w/SPC at this time w/slight dec stance time on R hip and does show hip weakness as expected 3 weeks after surgery . He is trypically very active and is hoping to return to walking on the beach and trails and biking w/e-bike ( has not done this-used to use reg bike). He would benefit from skilled PT to work on gait, balance, strength and ROM in order to returnt o typical activity w/o inc pain or instability. Physical Therapy Plan Frequency and Duration Frequency of Treatment 1-2x/wk Duration of treatment (weeks) 12 Plan of Care Start Date 12/31/23 Plan of Care End Date 03/24/24 Therapeutic Interventions Therapeutic Interventions Balance Training,Gait Training ,Home Exercise Program,Joint Mobilizations,Manual Therapy, Neuromuscular Re-education, Patient/Caregiver Education, Self-Care/Home Management,Soft Tissue Mobilization, Therapeutic Activities, Therapeutic Exercises Modalities Cold Pack/Ice Massage,Hot Packs Next Visit Focus/Plan Next Note Type Treatment Note Next Visit Plan monitor pt's lightheaded/ dizziness seated exercises for pt in chair : marching, knee ext/ flex w/bands standing exercises: heel raises, Hip abd, mini squat ( very mini) supine core exercises try recumbant bike, leg press Plan of Care Dates Plan of Care Start Date 12/31/23 Plan of Care End Date 03/24/24 Electronically Signed by: Sonal Manjarrez, PT 12/31/23 1725 If you are in agreement with this Plan of Care, please return a signed and dated copy. I have reviewed this Plan of Care and certify that the skilled therapy services above are required to meet the patient?s needs. Physician Signature Date Printed Name and Credentials Clinical Instructor Signature Printed Name and Credentials
--- NOTE | 2024-01-02 12:23 | PT.OTN ---
Current Diagnoses Unilateral primary osteoarthritis, right hip (01/02/24) Difficulty in walking, not elsewhere classified (01/02/24) Abnormal posture (01/02/24) Weakness (01/02/24) Physical Therapy Treatment Note PT-OP-A Visit Information Start: 12/19/23 08:04 Freq: Status: Active Protocol: Document 01/02/24 11:21 [facility] (Rec: 01/02/24 12:23 [facility] [id number]) Out-Patient Physical Therapy Visit Information Visit Information Visit Type Treatment Note Visit Note 12/29 Visit Start Time 11:20 Visit Stop Time 12:00 Visit Number 2 Number of ROLL PICKER Visits 0 PT-OP-B Current Condition Start: 12/19/23 08:04 Freq: Status: Active Protocol: Document 12/31/23 11:03 [facility] (Rec: 12/31/23 12:19 [facility] [id number]) Current Condition History of Current Condition Onset Date 12/11/23 Current Complaints R ant SUSIE History of Current Condition Pt reports SUSIE R on 12/11/23. He has had some lightheadness and dizziness since surgerya nd doctor lower his meds which has helped some. He was able to go to the store today and that was his first time he felt well enough to go. He has had some issues w/ orthostatic hypotension also. ortho is pleased w/pt progress . 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 Pt told to avoid uneven ground, hip ext, hip ER for 3 months.Pt instructed not to lay on R side yet. It took pt 9-10 months to get in to get surgery and got out of shape d /t this. He has a stationary recumbant bike that he hopes to get back on. He noramlly likes to hike and is always careful but typically doesn't use walking poles but has them . Pt has been using the cane/ crutch for hip for about 10 months. Walks in the house w/o the cane now. His first few steps are stiff. 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 He does have allergies to tape and latex. Pt reports no specific injury for hips. pt has afib w/pacemaker Treatment Goals Patient/Caregiver Goals Return to walking, return to beach combing. return to using recumbant bike. Get back to being active, do yard work, hike PT-OP-C Subjective Start: 12/19/23 08:04 Freq: Status: Active Protocol: Document 01/02/24 11:21 [facility] (Rec: 01/02/24 12:23 [facility] [id number]) OP-PT Subjective Patient Comments Patient Comments pt reports talked to doctor about orthostatics. doctor notes it could take weeks to adjust PT-OP-D Balance Start: 12/19/23 08:04 Freq: Status: Active Protocol: Document 12/31/23 11:03 [facility] (Rec: 12/31/23 12:19 [facility] [id number]) Balance Tests Single Limb Standing Single Limb- Right 1 sec Single Limb- Left 3 sec PT-OP-G Mobility & Gait Start: 12/19/23 08:04 Freq: Status: Active Protocol: Document 12/31/23 11:03 [facility] (Rec: 12/31/23 12:19 [facility] [id number]) OP Gait Assessment Comments Gait Comments dec stance time on RLE w/use of cane PT-OP-M Strength Start: 12/19/23 08:04 Freq: Status: Active Protocol: Document 12/31/23 11:03 [facility] (Rec: 12/31/23 12:19 [facility] [id number]) Hip Strength Hip Manual Muscle Testing Right Flexion (L2) 3 Fair External Rotation 3+ Fair+ Internal Rotation 3+ Fair+ Comments IR/ER in neutral Left Flexion (L2) 4- Good- External Rotation 4 Good Internal Rotation 4 Good Knee Strength Knee Manual Muscle Testing Right Flexion (S2) 4 Good Extension (L3) 4+ Good+ Left Flexion (S2) 5 Normal Extension (L3) 5 Normal Ankle/Foot Strength Ankle and Foot Manual Muscle Testing Right Dorsiflexion (L4) 5 Normal Plantarflexion (S1) 5 Normal Left Dorsiflexion (L4) 5 Normal Plantarflexion (S1) 5 Normal Comments B PF tested seated PT-OP-Q Treatments Start: 12/19/23 08:04 Freq: Status: Active Protocol: Document 01/02/24 11:21 [facility] (Rec: 01/02/24 12:23 [facility] [id number]) Cardio Equipment Recumbent Bicycle Duration (Minutes) 6 Resistance 3 Seat Position 12 Gym Equipment Shuttle Recovery Unilateral Squats Resistance 37# Shuttle Recovery Platform Stable Reps/Time 20 Bilateral Squats Details cues for control Resistance 75# Shuttle Recovery Platform Stable Reps/Time 20 Therapeutic Exercises Sitting Exercises knee flex Side right Equipment Used orange tband Reps/Minutes 20 knee ext Side right Equipment Used orange tband Reps/Minutes 20 marches Side bilateral Reps/Minutes 15 ea Standing Exercises mini squats Standing Exercise Name very small range Side bilateral Equipment Used hand on raill Reps/Minutes 15 marches Standing Exercise Name hand on rail Side bilateral Reps/Minutes 15 ea hip abd Side bilateral Equipment Used rail Reps/Minutes 15 ea heel raises Side bilateral Reps/Minutes 20 Self-Care/Home Management Treatment Education Other Education 8 min: reminder of standing to wait when walking at least 30 sec after subsiding fo lightheaded and dizzy feeling. Discussed w/pt re: making sure he does this at home. Discussed iron levels could be low and trying to eat healthy and discuss w/doctor PT-OP-T Assessment and Plan Start: 12/19/23 08:04 Freq: Status: Active Protocol: Document 01/02/24 11:21 [facility] (Rec: 01/02/24 12:23 [facility] [id number]) Physical Therapy Assessment Goals Four Impairment dec activity Short Term Goal (STG) Pt will be able to use recumbant bike for at least 15 -20 min at least 4-5 days a week w/o inc pain STG Duration 02/18/24 Nursing Home Goal (LTG) Pt will be able to return to yard work w/o inc pain or instability LTG Duration 03/24/24 Three Impairment Pt with reported pain at 8/10 at worst. Short Term Goal (STG) Pt will be indep w/HEP STG Duration 02/18/24 Nursing Home Goal (LTG) Pt will score at least 4+/5 on BLE MMT to show improved strength and stability in order to allow greater ease w/ activity. LTG Duration 03/24/24 Two Impairment walking Impairment pt unable to go for walks Short Term Goal (STG) Pt will be able to walk for at least .75 mile w/o inc pain greater than 2/10 STG Duration 02/18/24 [employer] Developer Goal (LTG) Pt will be able to walk at least 1.5 miles and over uneven terrain w/o inc pain LTG Duration 03/24/24 One Impairment balance Impairment SLS Short Term Goal (STG) Pt will be able to do SLS for 5 sec B to show improved balance [employer] Developer Goal (LTG) Pt will score at least 25/30 on FGA to show improved balance and stability and dec fall risk. LTG Duration 03/24/24 Assessment Summary Assessment Pt idd tolerate exercises well and was cued to slow down w/ transitions btwn activities w/ supien to sit and sit to stand . He did require one sitting break on way out d/t feeling lightheaded Physical Therapy Plan Frequency and Duration Frequency of Treatment 1-2x/wk Duration of treatment (weeks) 12 Plan of Care Start Date 12/31/23 Plan of Care End Date 03/24/24 Next Visit Focus/Plan Next Note Type Treatment Note Next Visit Plan monitor pt's lightheaded/ dizziness seated exercises for pt in chair : marching, knee ext/ flex w/bands standing exercises: heel raises, Hip abd, mini squat ( very mini) supine core exercises recumbant bike, leg press
--- NOTE | 2024-01-07 14:32 | PT.OTN ---
Current Diagnoses Unilateral primary osteoarthritis, right hip (01/07/24) Difficulty in walking, not elsewhere classified (01/07/24) Abnormal posture (01/07/24) Weakness (01/07/24) Physical Therapy Treatment Note PT-OP-A Visit Information Start: 12/19/23 08:04 Freq: Status: Active Protocol: Document 01/07/24 13:54 [facility] (Rec: 01/07/24 14:35 [facility] [id number]) Out-Patient Physical Therapy Visit Information Visit Information Visit Type Treatment Note Visit Note 01/26 Visit Start Time 13:54 Visit Stop Time 14:32 Visit Number 3 Number of WEIGHMASTER Visits 1 Precautions Precautions allergies to tape and latex; afib w/pacemaker PT-OP-B Current Condition Start: 12/19/23 08:04 Freq: Status: Active Protocol: Document 12/31/23 11:03 [facility] (Rec: 12/31/23 12:19 [facility] [id number]) Current Condition History of Current Condition Onset Date 12/11/23 Current Complaints R ant SUSIE History of Current Condition Pt reports SUSIE R on 12/11/23. He has had some lightheadness and dizziness since surgerya nd doctor lower his meds which has helped some. He was able to go to the store today and that was his first time he felt well enough to go. He has had some issues w/ orthostatic hypotension also. ortho is pleased w/pt progress . 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 Pt told to avoid uneven ground, hip ext, hip ER for 3 months.Pt instructed not to lay on R side yet. It took pt 9-10 months to get in to get surgery and got out of shape d /t this. He has a stationary recumbant bike that he hopes to get back on. He noramlly likes to hike and is always careful but typically doesn't use walking poles but has them . Pt has been using the cane/ crutch for hip for about 10 months. Walks in the house w/o the cane now. His first few steps are stiff. 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 He does have allergies to tape and latex. Pt reports no specific injury for hips. pt has afib w/pacemaker Treatment Goals Patient/Caregiver Goals Return to walking, return to beach combing. return to using recumbant bike. Get back to being active, do yard work, hike PT-OP-C Subjective Start: 12/19/23 08:04 Freq: Status: Active Protocol: Document 01/07/24 13:54 [facility] (Rec: 01/07/24 14:35 [facility] [id number]) OP-PT Subjective Patient Comments Patient Comments Pt arrives no use SPC, reports was tired after last tx but did ok, compliant with HEP. He reports using pillows between BLEs on L side, physician states hold off on laying on R side and continue to use elevated toilets seat til next appt in January. Pt asked if can cross legs to don socks? PT-OP-D Balance Start: 12/19/23 08:04 Freq: Status: Active Protocol: Document 12/31/23 11:03 [facility] (Rec: 12/31/23 12:19 [facility] [id number]) Balance Tests Single Limb Standing Single Limb- Right 1 sec Single Limb- Left 3 sec PT-OP-G Mobility & Gait Start: 12/19/23 08:04 Freq: Status: Active Protocol: Document 12/31/23 11:03 [facility] (Rec: 12/31/23 12:19 [facility] [id number]) OP Gait Assessment Comments Gait Comments dec stance time on RLE w/use of cane PT-OP-M Strength Start: 12/19/23 08:04 Freq: Status: Active Protocol: Document 12/31/23 11:03 [facility] (Rec: 12/31/23 12:19 [facility] [id number]) Hip Strength Hip Manual Muscle Testing Right Flexion (L2) 3 Fair External Rotation 3+ Fair+ Internal Rotation 3+ Fair+ Comments IR/ER in neutral Left Flexion (L2) 4- Good- External Rotation 4 Good Internal Rotation 4 Good Knee Strength Knee Manual Muscle Testing Right Flexion (S2) 4 Good Extension (L3) 4+ Good+ Left Flexion (S2) 5 Normal Extension (L3) 5 Normal Ankle/Foot Strength Ankle and Foot Manual Muscle Testing Right Dorsiflexion (L4) 5 Normal Plantarflexion (S1) 5 Normal Left Dorsiflexion (L4) 5 Normal Plantarflexion (S1) 5 Normal Comments B PF tested seated PT-OP-Q Treatments Start: 12/19/23 08:04 Freq: Status: Active Protocol: Document 01/07/24 13:54 [facility] (Rec: 01/07/24 14:35 [facility] [id number]) Cardio Equipment Recumbent Bicycle Duration (Minutes) 6 Resistance 3 (2 min) > 4 Seat Position 12 Other good pacing, 46 RPMs Gym Equipment Shuttle Recovery Unilateral Squats Resistance 37# (1 dark band) Shuttle Recovery Platform Stable Reps/Time 20 Bilateral Squats Details cues for control Resistance 75# (dark blue) Shuttle Recovery Platform Stable Reps/Time 20 Therapeutic Exercises Sidelying Exercises clamshell Sidelying Exercise Name Hold precaution at this time. Side right Resistance AROM Reps/Minutes 8 reps Comments painfree, report glut tiring Standing Exercises step ups Standing Exercise Name trialed in PT Equipment Used rail BUE support Reps/Minutes x20 reps Comments painfree mini squats Standing Exercise Name very small range Side bilateral Resistance OTB around knees Equipment Used light contact rail Reps/Minutes 15 Comments cued hip hinge buttocks back hover chair marches Standing Exercise Name hand on rail Side bilateral Resistance OTB at forefoot Equipment Used light contact 1 HR Reps/Minutes 15 ea Comments cued slow, scap/core stab midline hip abd Side bilateral Resistance OTB around shins Equipment Used rail support Reps/Minutes 15 ea heel raises Side bilateral Resistance AROM Reps/Minutes 20 Gait Training Gait Activity gait Device Used 0 Distance/Duration 30 ft x multiple laps Treatment Focus midline trunk, equal hernan, precaution no excessive R LE ext Comments Cued elongated posturing, core /scap complex engagement don' t drop the egg on your head, improved midline trunk, R LE WB with core & glut support, less heavy LLE heel strike Self-Care/Home Management Treatment Education Other Education Reviewed use pillows for hip/ trunk support side sleeping on L. Discussed as physician suggested continue use elevated toilet riser, not sleeping on R side and use pillows between BLEs and at back for support alignment/ under thighs on back. Also continue precautions limited R hip ER and not long strides during gait with LLE, excessive hip ext on R. PT-OP-T Assessment and Plan Start: 12/19/23 08:04 Freq: Status: Active Protocol: Document 01/07/24 13:54 [facility] (Rec: 01/07/24 14:35 [facility] [id number]) Physical Therapy Assessment Goals Four Impairment dec activity Short Term Goal (STG) Pt will be able to use recumbant bike for at least 15 -20 min at least 4-5 days a week w/o inc pain STG Duration 02/18/24 [facility] Goal (LTG) Pt will be able to return to yard work w/o inc pain or instability LTG Duration 03/24/24 Three Impairment Pt with reported pain at 8/10 at worst. Short Term Goal (STG) Pt will be indep w/HEP STG Duration 02/18/24 [employer] Programmer Goal (LTG) Pt will score at least 4+/5 on BLE MMT to show improved strength and stability in order to allow greater ease w/ activity. LTG Duration 03/24/24 Two Impairment walking Impairment pt unable to go for walks Short Term Goal (STG) Pt will be able to walk for at least .75 mile w/o inc pain greater than 2/10 STG Duration 02/18/24 [employer] Programmer Goal (LTG) Pt will be able to walk at least 1.5 miles and over uneven terrain w/o inc pain LTG Duration 03/24/24 One Impairment balance Impairment SLS Short Term Goal (STG) Pt will be able to do SLS for 5 sec B to show improved balance [employer] Programmer Goal (LTG) Pt will score at least 25/30 on FGA to show improved balance and stability and dec fall risk. LTG Duration 03/24/24 Assessment Summary Assessment Pt denied any lightheadeness this tx, pauses position changes for safety. Good tolerance and muscle tiring with added resistance to standing ex and trialed step ups this tx, discussed possible soreness. WEIGHMASTER education sleeping, precautions continue R hip. Improved lessening lateral wt shift during gait with improved glut engagement during midstance RLE and core/ trunk midline righting during gait to normalize gait awareness, good pt feedback feels better. Physical Therapy Plan Frequency and Duration Frequency of Treatment 1-2x/wk Duration of treatment (weeks) 12 Plan of Care Start Date 12/31/23 Plan of Care End Date 03/24/24 Therapeutic Interventions Therapeutic Interventions Balance Training,Gait Training ,Home Exercise Program,Joint Mobilizations,Manual Therapy, Neuromuscular Re-education, Patient/Caregiver Education, Self-Care/Home Management,Soft Tissue Mobilization, Therapeutic Activities, Therapeutic Exercises Modalities Cold Pack/Ice Massage,Hot Packs Next Visit Focus/Plan Next Note Type Treatment Note Next Visit Plan monitor pt's lightheaded/ dizziness Next tx: ask how responded added resistance standing ex and steps ups, continue gait wt shift into RLE WB. POC: seated exercises for pt in chair : marching, knee ext/ flex w/bands standing exercises: heel raises, Hip abd, mini squat ( very mini) supine core exercises recumbant bike, leg press
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
--- NOTE | 2024-01-15 11:16 | PT.OTN ---
Current Diagnoses Unilateral primary osteoarthritis, right hip (01/15/24) Difficulty in walking, not elsewhere classified (01/15/24) Abnormal posture (01/15/24) Weakness (01/15/24) Physical Therapy Treatment Note PT-OP-A Visit Information Start: 12/19/23 08:04 Freq: Status: Active Protocol: Document 01/15/24 10:28 [facility] (Rec: 01/15/24 11:41 [facility] [id number]) Out-Patient Physical Therapy Visit Information Visit Information Visit Type Treatment Note Visit Note 03/28 Visit Start Time 10:30 Visit Stop Time 11:16 Visit Number 5 Number of WELT INSOLE CHANNELER Visits 1 Precautions Precautions allergies to tape and latex; afib w/pacemaker PT-OP-B Current Condition Start: 12/19/23 08:04 Freq: Status: Active Protocol: Document 12/31/23 11:03 [facility] (Rec: 12/31/23 12:19 [facility] [id number]) Current Condition History of Current Condition Onset Date 12/11/23 Current Complaints R ant SUSIE History of Current Condition Pt reports SUSIE R on 12/11/23. He has had some lightheadness and dizziness since surgerya nd doctor lower his meds which has helped some. He was able to go to the store today and that was his first time he felt well enough to go. He has had some issues w/ orthostatic hypotension also. ortho is pleased w/pt progress . 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 Pt told to avoid uneven ground, hip ext, hip ER for 3 months.Pt instructed not to lay on R side yet. It took pt 9-10 months to get in to get surgery and got out of shape d /t this. He has a stationary recumbant bike that he hopes to get back on. He noramlly likes to hike and is always careful but typically doesn't use walking poles but has them . Pt has been using the cane/ crutch for hip for about 10 months. Walks in the house w/o the cane now. His first few steps are stiff. 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 He does have allergies to tape and latex. Pt reports no specific injury for hips. pt has afib w/pacemaker Treatment Goals Patient/Caregiver Goals Return to walking, return to beach combing. return to using recumbant bike. Get back to being active, do yard work, hike PT-OP-C Subjective Start: 12/19/23 08:04 Freq: Status: Active Protocol: Document 01/15/24 10:28 [facility] (Rec: 01/15/24 11:41 [facility] [id number]) OP-PT Subjective Patient Comments Patient Comments Pt reported compliant with HEP , balance still a challenge but feels improving. Arrives with continued use SPC in LUE. PT-OP-D Balance Start: 12/19/23 08:04 Freq: Status: Active Protocol: Document 12/31/23 11:03 [facility] (Rec: 12/31/23 12:19 [facility] [id number]) Balance Tests Single Limb Standing Single Limb- Right 1 sec Single Limb- Left 3 sec PT-OP-G Mobility & Gait Start: 12/19/23 08:04 Freq: Status: Active Protocol: Document 12/31/23 11:03 [facility] (Rec: 12/31/23 12:19 [facility] [id number]) OP Gait Assessment Comments Gait Comments dec stance time on RLE w/use of cane PT-OP-M Strength Start: 12/19/23 08:04 Freq: Status: Active Protocol: Document 12/31/23 11:03 [facility] (Rec: 12/31/23 12:19 [facility] [id number]) Hip Strength Hip Manual Muscle Testing Right Flexion (L2) 3 Fair External Rotation 3+ Fair+ Internal Rotation 3+ Fair+ Comments IR/ER in neutral Left Flexion (L2) 4- Good- External Rotation 4 Good Internal Rotation 4 Good Knee Strength Knee Manual Muscle Testing Right Flexion (S2) 4 Good Extension (L3) 4+ Good+ Left Flexion (S2) 5 Normal Extension (L3) 5 Normal Ankle/Foot Strength Ankle and Foot Manual Muscle Testing Right Dorsiflexion (L4) 5 Normal Plantarflexion (S1) 5 Normal Left Dorsiflexion (L4) 5 Normal Plantarflexion (S1) 5 Normal Comments B PF tested seated PT-OP-Q Treatments Start: 12/19/23 08:04 Freq: Status: Active Protocol: Document 01/15/24 10:28 [facility] (Rec: 01/15/24 11:41 [facility] [id number]) Gym Equipment Cable Column (Body Solid) Leg Curl Resistance on L Reps/Time 2x10 Leg Extension Resistance DL 30#, 15# on L & R Reps/Time x20, 10 x2 each LE Shuttle Balance Red Details Wide JOSÉ LUIS (EO/EC), Staggered Stance, Lateral Weight Shift Comments WBOS: HTs, EC 3 sec NBOS: HTs Stagger stance: HTs CG- 15%A, cues for direction wt shift midline stab. Therapeutic Exercises Standing Exercises resisted stepping Standing Exercise Name lateral 01/15; fwd/bwd (next tx ): added to HEP Resistance TB Equipment Used near rail PRN contact Reps/Minutes 15 ft x1 laps Comments cued posture, rhomboid and core fac, improved less SB wt shift hip abd Standing Exercise Name HEP reviewed Side bilateral Resistance TB #2 around shins Equipment Used rail support Reps/Minutes 2x20 Comments cued elongated posturing Gait Training Gait Activity gait Device Used 0 Distance/Duration around gym between stations Treatment Focus midline trunk, equal hernan, precaution no excessive R LE ext Comments Cued elongated posturing, core /scap complex engagement don' t drop the egg on your head, improved midline trunk, R LE WB with core & glut support, less heavy LLE heel strike, leaving ed corporate traffic manager LUE WB into SPC needed to support midline support. Neuro Re-Education Treatment Balance Activities star taps Details SLS cone <> floor then progressed opposite ramos taps Surface floor Equipment 3 cones, side shuttle balance bar PRN contact Reps/Duration 3 sets of 3 cones, alternate LE sets Comments cued tall elongated posturing, rhomboid and core midline fac wt shift over stance LE, more challenged stability over LLE than R. Improved decreased UE contact rail during RLE stance time able to complete 3 set no contact support, LLE brief contact 1/3 cones last set. hurdles Details fwd: step to x1 laps, receiprocal stepping Equipment 6 hurdles, foam rail prn Reps/Duration 5 laps total Comments cued elongated posturing, rhomboid and core fac midline wt shift over stance LE, soft stepping, knee flexion & heel toe LOB x2 Min recovery over RLE due to over wt shift, PRN contact as needed during LLE stance time PT-OP-T Assessment and Plan Start: 12/19/23 08:04 Freq: Status: Active Protocol: Document 01/15/24 10:28 [facility] (Rec: 01/15/24 11:41 [facility] [id number]) Physical Therapy Assessment Goals Four Impairment dec activity Short Term Goal (STG) Pt will be able to use recumbant bike for at least 15 -20 min at least 4-5 days a week w/o inc pain STG Duration 02/18/24 Mcfp Goal (LTG) Pt will be able to return to yard work w/o inc pain or instability LTG Duration 03/24/24 Three Impairment Pt with reported pain at 8/10 at worst. Short Term Goal (STG) Pt will be indep w/HEP STG Duration 02/18/24 Talent Acquisition Lead Goal (LTG) Pt will score at least 4+/5 on BLE MMT to show improved strength and stability in order to allow greater ease w/ activity. LTG Duration 03/24/24 Two Impairment walking Impairment pt unable to go for walks Short Term Goal (STG) Pt will be able to walk for at least .75 mile w/o inc pain greater than 2/10 STG Duration 02/18/24 Mcfp Goal (LTG) Pt will be able to walk at least 1.5 miles and over uneven terrain w/o inc pain LTG Duration 03/24/24 One Impairment balance Impairment SLS Short Term Goal (STG) Pt will be able to do SLS for 5 sec B to show improved balance Talent Acquisition Lead Goal (LTG) Pt will score at least 25/30 on FGA to show improved balance and stability and dec fall risk. LTG Duration 03/24/24 Assessment Summary Assessment Pt improved postural corrections with cuing posture /core and rhomboid engagement midline able to progress uneven chana stepping, LOB x2 Min A recovery due to over wt shift into each LE. Good carryover midline strategies into resisted side stepping and SLS star/cone taps lessening UE contact support added to HEP for carryover strengthening. Noted decreased WB into SPC LUE leaving and elongated posturing. Next tx take time to walk front mirror for equal WB and midline trunk awareness gave education /instruction today to support normalize gait even hernan and less use of AD needed. Physical Therapy Plan Frequency and Duration Frequency of Treatment 1-2x/wk Duration of treatment (weeks) 12 Plan of Care Start Date 12/31/23 Plan of Care End Date 03/24/24 Therapeutic Interventions Therapeutic Interventions Balance Training,Gait Training ,Home Exercise Program,Joint Mobilizations,Manual Therapy, Neuromuscular Re-education, Patient/Caregiver Education, Self-Care/Home Management,Soft Tissue Mobilization, Therapeutic Activities, Therapeutic Exercises Modalities Cold Pack/Ice Massage,Hot Packs Next Visit Focus/Plan Next Note Type Treatment Note Next Visit Plan monitor pt's lightheaded/ dizziness Next tx: recheck and ask response to SLS star and band walk, steps ups, continue gait wt shift into RLE WB. Gait mechanics in mirror POC: seated exercises for pt in chair : marching, knee ext/ flex w/bands standing exercises: heel raises, Hip abd, mini squat ( very mini) supine core exercises recumbant bike, leg press
--- NOTE | 2024-01-24 09:08 | PT.OTN ---
Current Diagnoses Unilateral primary osteoarthritis, right hip (01/24/24) Difficulty in walking, not elsewhere classified (01/24/24) Abnormal posture (01/24/24) Weakness (01/24/24) Physical Therapy Treatment Note PT-OP-A Visit Information Start: 12/19/23 08:04 Freq: Status: Active Protocol: Document 01/24/24 07:34 [facility] (Rec: 01/24/24 09:08 [facility] [id number]) Out-Patient Physical Therapy Visit Information Visit Information Visit Type Treatment Note Visit Note 04/28 Visit Start Time 08:20 Visit Stop Time 09:00 Visit Number 6 Number of JACKET PREPARER Visits 0 PT-OP-B Current Condition Start: 12/19/23 08:04 Freq: Status: Active Protocol: Document 12/31/23 11:03 [facility] (Rec: 12/31/23 12:19 [facility] [id number]) Current Condition History of Current Condition Onset Date 12/11/23 Current Complaints R ant SUSIE History of Current Condition Pt reports SUSIE R on 12/11/23. He has had some lightheadness and dizziness since surgerya nd doctor lower his meds which has helped some. He was able to go to the store today and that was his first time he felt well enough to go. He has had some issues w/ orthostatic hypotension also. ortho is pleased w/pt progress . 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 Pt told to avoid uneven ground, hip ext, hip ER for 3 months.Pt instructed not to lay on R side yet. It took pt 9-10 months to get in to get surgery and got out of shape d /t this. He has a stationary recumbant bike that he hopes to get back on. He noramlly likes to hike and is always careful but typically doesn't use walking poles but has them . Pt has been using the cane/ crutch for hip for about 10 months. Walks in the house w/o the cane now. His first few steps are stiff. 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 He does have allergies to tape and latex. Pt reports no specific injury for hips. pt has afib w/pacemaker Treatment Goals Patient/Caregiver Goals Return to walking, return to beach combing. return to using recumbant bike. Get back to being active, do yard work, hike PT-OP-C Subjective Start: 12/19/23 08:04 Freq: Status: Active Protocol: Document 01/24/24 07:34 [facility] (Rec: 01/24/24 09:08 [facility] [id number]) OP-PT Subjective Patient Comments Patient Comments pt reports MD is happy w/ recovery so far. Pt has started going for walks and has worked up to 6 blocks then sits then walks again. PT-OP-D Balance Start: 12/19/23 08:04 Freq: Status: Active Protocol: Document 12/31/23 11:03 [facility] (Rec: 12/31/23 12:19 [facility] [id number]) Balance Tests Single Limb Standing Single Limb- Right 1 sec Single Limb- Left 3 sec PT-OP-G Mobility & Gait Start: 12/19/23 08:04 Freq: Status: Active Protocol: Document 12/31/23 11:03 [facility] (Rec: 12/31/23 12:19 [facility] [id number]) OP Gait Assessment Comments Gait Comments dec stance time on RLE w/use of cane PT-OP-M Strength Start: 12/19/23 08:04 Freq: Status: Active Protocol: Document 12/31/23 11:03 [facility] (Rec: 12/31/23 12:19 [facility] [id number]) Hip Strength Hip Manual Muscle Testing Right Flexion (L2) 3 Fair External Rotation 3+ Fair+ Internal Rotation 3+ Fair+ Comments IR/ER in neutral Left Flexion (L2) 4- Good- External Rotation 4 Good Internal Rotation 4 Good Knee Strength Knee Manual Muscle Testing Right Flexion (S2) 4 Good Extension (L3) 4+ Good+ Left Flexion (S2) 5 Normal Extension (L3) 5 Normal Ankle/Foot Strength Ankle and Foot Manual Muscle Testing Right Dorsiflexion (L4) 5 Normal Plantarflexion (S1) 5 Normal Left Dorsiflexion (L4) 5 Normal Plantarflexion (S1) 5 Normal Comments B PF tested seated PT-OP-Q Treatments Start: 12/19/23 08:04 Freq: Status: Active Protocol: Document 01/24/24 07:34 [facility] (Rec: 01/24/24 09:08 [facility] [id number]) Gym Equipment Shuttle Recovery Unilateral Squats Resistance 50# (2 navy) Shuttle Recovery Platform Stable Reps/Time 20 Bilateral Squats Details cues for control Resistance 100# (dark blue) Shuttle Recovery Platform Stable Reps/Time 30 Shuttle Balance Red Comments fwd: WBOS, NBOS, Squats, STAGGERED STANCE Side:WBOS, NBOS, squats Therapeutic Exercises Standing Exercises step ups Side bilateral Equipment Used 4in step Reps/Minutes x10 Manual Therapy Treatment Soft Tissue Mobilization ITB Body Location R Mobilization Type Rolling Intensity/Depth Moderate Body Position Hooklying Neuro Re-Education Treatment Balance Activities foam Details WBOS, NBOS, staggered stance B Surface blue foam Comments EC and head turn trials PT-OP-T Assessment and Plan Start: 12/19/23 08:04 Freq: Status: Active Protocol: Document 01/24/24 07:34 [facility] (Rec: 01/24/24 09:08 [facility] [id number]) Physical Therapy Assessment Goals Four Impairment dec activity Short Term Goal (STG) Pt will be able to use recumbant bike for at least 15 -20 min at least 4-5 days a week w/o inc pain STG Duration 02/18/24 Jail Goal (LTG) Pt will be able to return to yard work w/o inc pain or instability LTG Duration 03/24/24 Three Impairment Pt with reported pain at 8/10 at worst. Short Term Goal (STG) Pt will be indep w/HEP STG Duration 02/18/24 Jail Goal (LTG) Pt will score at least 4+/5 on BLE MMT to show improved strength and stability in order to allow greater ease w/ activity. LTG Duration 03/24/24 Two Impairment walking Impairment pt unable to go for walks Short Term Goal (STG) Pt will be able to walk for at least .75 mile w/o inc pain greater than 2/10 STG Duration 02/18/24 Technology Auditor Goal (LTG) Pt will be able to walk at least 1.5 miles and over uneven terrain w/o inc pain LTG Duration 03/24/24 One Impairment balance Impairment SLS Short Term Goal (STG) Pt will be able to do SLS for 5 sec B to show improved balance Jail Goal (LTG) Pt will score at least 25/30 on FGA to show improved balance and stability and dec fall risk. LTG Duration 03/24/24 Assessment Summary Assessment Pt did well with uneven surfaces and shows less loss of balance with balance tasks today. He does still have weakenss on RLE w/step up activities Physical Therapy Plan Frequency and Duration Frequency of Treatment 1-2x/wk Duration of treatment (weeks) 12 Plan of Care Start Date 12/31/23 Plan of Care End Date 03/24/24 Next Visit Focus/Plan Next Note Type Treatment Note Next Visit Plan advance RLE strength and balance
--- NOTE | 2024-01-29 09:50 | PT.OTN ---
Current Diagnoses Unilateral primary osteoarthritis, right hip (01/29/24) Difficulty in walking, not elsewhere classified (01/29/24) Abnormal posture (01/29/24) Weakness (01/29/24) Physical Therapy Treatment Note PT-OP-A Visit Information Start: 12/19/23 08:04 Freq: Status: Active Protocol: Document 01/29/24 09:19 [facility] (Rec: 01/29/24 09:50 [facility] [id number]) Out-Patient Physical Therapy Visit Information Visit Information Visit Type Treatment Note Visit Note 05/28 Visit Start Time 09:05 Visit Stop Time 09:45 Visit Number 7 Number of GAS DESULFURIZER Visits 0 PT-OP-B Current Condition Start: 12/19/23 08:04 Freq: Status: Active Protocol: Document 12/31/23 11:03 [facility] (Rec: 12/31/23 12:19 [facility] [id number]) Current Condition History of Current Condition Onset Date 12/11/23 Current Complaints R ant SUSIE History of Current Condition Pt reports SUSIE R on 12/11/23. He has had some lightheadness and dizziness since surgerya nd doctor lower his meds which has helped some. He was able to go to the store today and that was his first time he felt well enough to go. He has had some issues w/ orthostatic hypotension also. ortho is pleased w/pt progress . 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 Pt told to avoid uneven ground, hip ext, hip ER for 3 months.Pt instructed not to lay on R side yet. It took pt 9-10 months to get in to get surgery and got out of shape d /t this. He has a stationary recumbant bike that he hopes to get back on. He noramlly likes to hike and is always careful but typically doesn't use walking poles but has them . Pt has been using the cane/ crutch for hip for about 10 months. Walks in the house w/o the cane now. His first few steps are stiff. 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 He does have allergies to tape and latex. Pt reports no specific injury for hips. pt has afib w/pacemaker Treatment Goals Patient/Caregiver Goals Return to walking, return to beach combing. return to using recumbant bike. Get back to being active, do yard work, hike PT-OP-C Subjective Start: 12/19/23 08:04 Freq: Status: Active Protocol: Document 01/29/24 09:19 [facility] (Rec: 01/29/24 09:50 [facility] [id number]) OP-PT Subjective Patient Comments Patient Comments Pt reports he is retaining fluid in RLE and knee has been stiff. Did a 1 mile walk Sunday and still feels some R knee stiffness but R hip feels good. PT-OP-D Balance Start: 12/19/23 08:04 Freq: Status: Active Protocol: Document 12/31/23 11:03 [facility] (Rec: 12/31/23 12:19 [facility] [id number]) Balance Tests Single Limb Standing Single Limb- Right 1 sec Single Limb- Left 3 sec PT-OP-G Mobility & Gait Start: 12/19/23 08:04 Freq: Status: Active Protocol: Document 12/31/23 11:03 [facility] (Rec: 12/31/23 12:19 [facility] [id number]) OP Gait Assessment Comments Gait Comments dec stance time on RLE w/use of cane PT-OP-M Strength Start: 12/19/23 08:04 Freq: Status: Active Protocol: Document 12/31/23 11:03 [facility] (Rec: 12/31/23 12:19 [facility] [id number]) Hip Strength Hip Manual Muscle Testing Right Flexion (L2) 3 Fair External Rotation 3+ Fair+ Internal Rotation 3+ Fair+ Comments IR/ER in neutral Left Flexion (L2) 4- Good- External Rotation 4 Good Internal Rotation 4 Good Knee Strength Knee Manual Muscle Testing Right Flexion (S2) 4 Good Extension (L3) 4+ Good+ Left Flexion (S2) 5 Normal Extension (L3) 5 Normal Ankle/Foot Strength Ankle and Foot Manual Muscle Testing Right Dorsiflexion (L4) 5 Normal Plantarflexion (S1) 5 Normal Left Dorsiflexion (L4) 5 Normal Plantarflexion (S1) 5 Normal Comments B PF tested seated PT-OP-Q Treatments Start: 12/19/23 08:04 Freq: Status: Active Protocol: Document 01/29/24 09:19 [facility] (Rec: 01/29/24 09:50 [facility] [id number]) Gym Equipment Shuttle Recovery Unilateral Squats Resistance 50# (2 navy) Shuttle Recovery Platform Stable Reps/Time 20 Bilateral Squats Details cues for control Resistance 112# (dark blue) Shuttle Recovery Platform Stable Reps/Time 25 Manual Therapy Treatment Soft Tissue Mobilization ITB Body Location R Mobilization Type Rolling Intensity/Depth Moderate Body Position Hooklying Taping swelling Comments at knee 2 fan strip Neuro Re-Education Treatment Balance Activities bosu Equipment rail prn Comments 1. standing balance blue side 2. mini squats x10 hurdles Equipment 6 hurdles Comments 1. fwd recip w/foam btwn x6 2. sidestep w/o foam foam Details WBOS, NBOS, staggered stance, tandem B Surface blue foam Comments EC and head turn trials PT-OP-T Assessment and Plan Start: 12/19/23 08:04 Freq: Status: Active Protocol: Document 01/29/24 09:19 [facility] (Rec: 01/29/24 09:50 [facility] [id number]) Physical Therapy Assessment Goals Four Impairment dec activity Short Term Goal (STG) Pt will be able to use recumbant bike for at least 15 -20 min at least 4-5 days a week w/o inc pain STG Duration 02/18/24 Assisted Goal (LTG) Pt will be able to return to yard work w/o inc pain or instability LTG Duration 03/24/24 Three Impairment Pt with reported pain at 8/10 at worst. Short Term Goal (STG) Pt will be indep w/HEP STG Duration 02/18/24 Mica Plate Layer Goal (LTG) Pt will score at least 4+/5 on BLE MMT to show improved strength and stability in order to allow greater ease w/ activity. LTG Duration 03/24/24 Two Impairment walking Impairment pt unable to go for walks Short Term Goal (STG) Pt will be able to walk for at least .75 mile w/o inc pain greater than 2/10 STG Duration 02/18/24 Mica Plate Layer Goal (LTG) Pt will be able to walk at least 1.5 miles and over uneven terrain w/o inc pain LTG Duration 03/24/24 One Impairment balance Impairment SLS Short Term Goal (STG) Pt will be able to do SLS for 5 sec B to show improved balance Mica Plate Layer Goal (LTG) Pt will score at least 25/30 on FGA to show improved balance and stability and dec fall risk. LTG Duration 03/24/24 Assessment Summary Assessment Pt showed more control w/ balance today and tolerated inc wt w/leg press. Showing improved leg strength overall but more limit from R Knee at this time. Does see cardioloigist later this week Physical Therapy Plan Frequency and Duration Frequency of Treatment 1-2x/wk Duration of treatment (weeks) 12 Plan of Care Start Date 12/31/23 Plan of Care End Date 03/24/24 Next Visit Focus/Plan Next Note Type Treatment Note Next Visit Plan advance RLE strength and balance
--- NOTE | 2024-02-05 10:28 | PT.OTN ---
Current Diagnoses Unilateral primary osteoarthritis, right hip (02/05/24) Difficulty in walking, not elsewhere classified (02/05/24) Abnormal posture (02/05/24) Weakness (02/05/24) Physical Therapy Treatment Note PT-OP-A Visit Information Start: 12/19/23 08:04 Freq: Status: Active Protocol: Document 02/05/24 09:48 [facility] (Rec: 02/05/24 10:29 [facility] [id number]) Out-Patient Physical Therapy Visit Information Visit Information Visit Type Treatment Note Visit Note 06/28 Visit Start Time 09:48 Visit Stop Time 10:28 Visit Number 8 Number of OYSTER PREPARER Visits 1 Precautions Precautions allergies to tape and latex; afib w/pacemaker PT-OP-B Current Condition Start: 12/19/23 08:04 Freq: Status: Active Protocol: Document 12/31/23 11:03 [facility] (Rec: 12/31/23 12:19 [facility] [id number]) Current Condition History of Current Condition Onset Date 12/11/23 Current Complaints R ant SUSIE History of Current Condition Pt reports SUSIE R on 12/11/23. He has had some lightheadness and dizziness since surgerya nd doctor lower his meds which has helped some. He was able to go to the store today and that was his first time he felt well enough to go. He has had some issues w/ orthostatic hypotension also. ortho is pleased w/pt progress . 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 Pt told to avoid uneven ground, hip ext, hip ER for 3 months.Pt instructed not to lay on R side yet. It took pt 9-10 months to get in to get surgery and got out of shape d /t this. He has a stationary recumbant bike that he hopes to get back on. He noramlly likes to hike and is always careful but typically doesn't use walking poles but has them . Pt has been using the cane/ crutch for hip for about 10 months. Walks in the house w/o the cane now. His first few steps are stiff. 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 He does have allergies to tape and latex. Pt reports no specific injury for hips. pt has afib w/pacemaker Treatment Goals Patient/Caregiver Goals Return to walking, return to beach combing. return to using recumbant bike. Get back to being active, do yard work, hike PT-OP-C Subjective Start: 12/19/23 08:04 Freq: Status: Active Protocol: Document 02/05/24 09:48 [facility] (Rec: 02/05/24 10:29 SP [id number]) OP-PT Subjective Patient Comments Patient Comments Pt reports did ok felt like 1/2 cooked noodles when done, not pain. Pt reports MD changed dose of diuretic lowered then increased past 3 days. He thinks swelling contributer to knee discomfort . He report going to attempt to mow lawn, has push mower and little uneven ground. PT-OP-D Balance Start: 12/19/23 08:04 Freq: Status: Active Protocol: Document 12/31/23 11:03 [facility] (Rec: 12/31/23 12:19 [facility] [id number]) Balance Tests Single Limb Standing Single Limb- Right 1 sec Single Limb- Left 3 sec PT-OP-G Mobility & Gait Start: 12/19/23 08:04 Freq: Status: Active Protocol: Document 12/31/23 11:03 [facility] (Rec: 12/31/23 12:19 [facility] [id number]) OP Gait Assessment Comments Gait Comments dec stance time on RLE w/use of cane PT-OP-M Strength Start: 12/19/23 08:04 Freq: Status: Active Protocol: Document 12/31/23 11:03 [facility] (Rec: 12/31/23 12:19 [facility] [id number]) Hip Strength Hip Manual Muscle Testing Right Flexion (L2) 3 Fair External Rotation 3+ Fair+ Internal Rotation 3+ Fair+ Comments IR/ER in neutral Left Flexion (L2) 4- Good- External Rotation 4 Good Internal Rotation 4 Good Knee Strength Knee Manual Muscle Testing Right Flexion (S2) 4 Good Extension (L3) 4+ Good+ Left Flexion (S2) 5 Normal Extension (L3) 5 Normal Ankle/Foot Strength Ankle and Foot Manual Muscle Testing Right Dorsiflexion (L4) 5 Normal Plantarflexion (S1) 5 Normal Left Dorsiflexion (L4) 5 Normal Plantarflexion (S1) 5 Normal Comments B PF tested seated PT-OP-Q Treatments Start: 12/19/23 08:04 Freq: Status: Active Protocol: Document 02/05/24 09:48 [facility] (Rec: 02/05/24 10:29 [facility] [id number]) Gym Equipment Shuttle Recovery Unilateral Squats Resistance 50# (2 navy) Shuttle Recovery Platform Stable Reps/Time 25 Bilateral Squats Details cues for control Resistance 112# (dark blue) Shuttle Recovery Platform Stable Reps/Time 25 Therapeutic Exercises Sitting Exercises HS stretch Sitting Exercise Name post standing ex Side bilateral Reps/Minutes 30 x2 each Comments good HS stretch reported Standing Exercises HS curls Standing Exercise Name triale in PT Side bilateral Resistance 4# leg wt Equipment Used rail support Reps/Minutes x10 each Comments good form, tiring reports, pnfree step ups Side bilateral Resistance 4# leg wt Equipment Used 4in step Reps/Minutes 2x5 reps each LE Comments near rail, not needed, report knee tiring, pn free mini squats Standing Exercise Name very small range Side bilateral Resistance 4# leg wt Equipment Used light contact rail Reps/Minutes 2x10 Comments cued hip hinge buttocks back hover chair marches Standing Exercise Name hand on rail Side bilateral Resistance 4# leg wt Equipment Used light contact 1 HR Reps/Minutes x10, 20 Comments cued slow, scap/core stab midline hip abd Standing Exercise Name HEP reviewed Side bilateral Resistance TB #2 around shins Equipment Used rail support Reps/Minutes 2x20 Comments cued elongated posturing heel raises Side bilateral Resistance 4# leg wt Equipment Used rail support Reps/Minutes 10 Comments good form, tiring reports, pnfree Manual Therapy Treatment Soft Tissue Mobilization quad Body Location VL Mobilization Type Rolling Intensity/Depth Moderate Body Position Hooklying Comments rolling pin ITB Body Location R Mobilization Type Rolling Intensity/Depth Moderate Body Position Hooklying Comments rolling pin PT-OP-T Assessment and Plan Start: 12/19/23 08:04 Freq: Status: Active Protocol: Document 02/05/24 09:48 [facility] (Rec: 02/05/24 10:29 SP [id number]) Physical Therapy Assessment Goals Four Impairment dec activity Short Term Goal (STG) Pt will be able to use recumbant bike for at least 15 -20 min at least 4-5 days a week w/o inc pain 02/05/24: MET goal: uses 15 min everyother day and walk alternate days. TOday will be lawn mowing as activity. STG Duration 02/18/24 met goal 02/05/24 Licensing And Registration Director Goal (LTG) Pt will be able to return to yard work w/o inc pain or instability LTG Duration 03/24/24 Three Impairment Pt with reported pain at 8/10 at worst. Short Term Goal (STG) Pt will be indep w/HEP STG Duration 02/18/24 Licensing And Registration Director Goal (LTG) Pt will score at least 4+/5 on BLE MMT to show improved strength and stability in order to allow greater ease w/ activity. LTG Duration 03/24/24 Two Impairment walking Impairment pt unable to go for walks Short Term Goal (STG) Pt will be able to walk for at least .75 mile w/o inc pain greater than 2/10 02/05/24: GOAL MET .5-1 mil weekly level but gradual incline. STG Duration 02/18/24 GOAL MET 02/05/24 Intermediate Goal (LTG) Pt will be able to walk at least 1.5 miles and over uneven terrain w/o inc pain 02/05/24: GOAL MET .5-1 mil weekly level but gradual incline. LTG Duration 03/24/24 progressing 02/05/24 One Impairment balance Impairment SLS Short Term Goal (STG) Pt will be able to do SLS for 5 sec B to show improved balance Licensing And Registration Director Goal (LTG) Pt will score at least 25/30 on FGA to show improved balance and stability and dec fall risk. LTG Duration 03/24/24 Progress Towards Goals Progress Comments MET STM 4 and walking STG. Assessment Summary Assessment Pt good response to increased resistance to standing ther ex today, cued to perform range tolerant and pnfree. Reported distal quad tiring but no pain today. Good response to stretch androlling end tx. Pt meeting some STGs and wants to progress uneven surface during tx to assist return to hiking trails. No pain throughout tx. Physical Therapy Plan Frequency and Duration Frequency of Treatment 1-2x/wk Duration of treatment (weeks) 12 Plan of Care Start Date 12/31/23 Plan of Care End Date 03/24/24 Therapeutic Interventions Therapeutic Interventions Balance Training,Gait Training ,Home Exercise Program,Joint Mobilizations,Manual Therapy, Neuromuscular Re-education, Patient/Caregiver Education, Self-Care/Home Management,Soft Tissue Mobilization, Therapeutic Activities, Therapeutic Exercises Modalities Cold Pack/Ice Massage,Hot Packs Next Visit Focus/Plan Next Note Type Treatment Note Next Visit Plan Wants to progress hike uneven trails /c trek poles: hurdles, ueven mat assimulation future . POC: advance RLE strength and balance
--- NOTE | 2024-02-08 10:30 | PT.OTN ---
Current Diagnoses Unilateral primary osteoarthritis, right hip (02/08/24) Difficulty in walking, not elsewhere classified (02/08/24) Abnormal posture (02/08/24) Weakness (02/08/24) Physical Therapy Treatment Note PT-OP-A Visit Information Start: 12/19/23 08:04 Freq: Status: Active Protocol: Document 02/08/24 09:46 [facility] (Rec: 02/08/24 10:34 SP [id number]) Out-Patient Physical Therapy Visit Information Visit Information Visit Type Treatment Note Visit Note 07/29 Visit Start Time 09:46 Visit Stop Time 10:30 Visit Number 9 Number of ASSISTANT HALL DIRECTOR Visits 2 Precautions Precautions allergies to tape and latex; afib w/pacemaker PT-OP-B Current Condition Start: 12/19/23 08:04 Freq: Status: Active Protocol: Document 12/31/23 11:03 [facility] (Rec: 12/31/23 12:19 [facility] [id number]) Current Condition History of Current Condition Onset Date 12/11/23 Current Complaints R ant SUSIE History of Current Condition Pt reports SUSIE R on 12/11/23. He has had some lightheadness and dizziness since surgerya nd doctor lower his meds which has helped some. He was able to go to the store today and that was his first time he felt well enough to go. He has had some issues w/ orthostatic hypotension also. ortho is pleased w/pt progress . 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 Pt told to avoid uneven ground, hip ext, hip ER for 3 months.Pt instructed not to lay on R side yet. It took pt 9-10 months to get in to get surgery and got out of shape d /t this. He has a stationary recumbant bike that he hopes to get back on. He noramlly likes to hike and is always careful but typically doesn't use walking poles but has them . Pt has been using the cane/ crutch for hip for about 10 months. Walks in the house w/o the cane now. His first few steps are stiff. 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 He does have allergies to tape and latex. Pt reports no specific injury for hips. pt has afib w/pacemaker Treatment Goals Patient/Caregiver Goals Return to walking, return to beach combing. return to using recumbant bike. Get back to being active, do yard work, hike PT-OP-C Subjective Start: 12/19/23 08:04 Freq: Status: Active Protocol: Document 02/08/24 09:46 SP (Rec: 02/08/24 10:34 SP [id number]) OP-PT Subjective Patient Comments Patient Comments Pt PT-OP-D Balance Start: 12/19/23 08:04 Freq: Status: Active Protocol: Document 12/31/23 11:03 [facility] (Rec: 12/31/23 12:19 [facility] [id number]) Balance Tests Single Limb Standing Single Limb- Right 1 sec Single Limb- Left 3 sec PT-OP-G Mobility & Gait Start: 12/19/23 08:04 Freq: Status: Active Protocol: Document 12/31/23 11:03 [facility] (Rec: 12/31/23 12:19 [facility] [id number]) OP Gait Assessment Comments Gait Comments dec stance time on RLE w/use of cane PT-OP-M Strength Start: 12/19/23 08:04 Freq: Status: Active Protocol: Document 12/31/23 11:03 [facility] (Rec: 12/31/23 12:19 [facility] [id number]) Hip Strength Hip Manual Muscle Testing Right Flexion (L2) 3 Fair External Rotation 3+ Fair+ Internal Rotation 3+ Fair+ Comments IR/ER in neutral Left Flexion (L2) 4- Good- External Rotation 4 Good Internal Rotation 4 Good Knee Strength Knee Manual Muscle Testing Right Flexion (S2) 4 Good Extension (L3) 4+ Good+ Left Flexion (S2) 5 Normal Extension (L3) 5 Normal Ankle/Foot Strength Ankle and Foot Manual Muscle Testing Right Dorsiflexion (L4) 5 Normal Plantarflexion (S1) 5 Normal Left Dorsiflexion (L4) 5 Normal Plantarflexion (S1) 5 Normal Comments B PF tested seated PT-OP-Q Treatments Start: 12/19/23 08:04 Freq: Status: Active Protocol: Document 02/08/24 09:46 SP (Rec: 02/08/24 10:34 SP [id number]) Gym Equipment Shuttle Recovery Unilateral Squats Resistance 50#> 62# (2 navy) Shuttle Recovery Platform Stable Reps/Time 20 (max reps quiver tiring) Bilateral Squats Details cues for control Resistance 112# (dark blue) Shuttle Recovery Platform Stable Reps/Time 25 Therapeutic Exercises Sitting Exercises HS stretch Sitting Exercise Name post standing ex Side bilateral Reps/Minutes 30 x2 each Comments good HS stretch reported Standing Exercises HS curls Side bilateral Resistance 4# leg wt Equipment Used rail support Reps/Minutes x10 each Comments good form, tiring reports, pnfree resisted stepping Standing Exercise Name lateral/fwd/bwd added to HEP Resistance GTB in PT (#4 dark blue TB provided for home 02/08/24) Equipment Used open area Reps/Minutes 15 ft x3 laps each direction Comments good form and eccentric pacing together, DF clearance step ups Standing Exercise Name fwd/bk step, lateral up/overs Side bilateral Resistance 4# leg wt Equipment Used 6 step Reps/Minutes x5 reps lead each LE Comments near rail, not needed, report knee tiring, pn free Neuro Re-Education Treatment Balance Activities obstacle course Details stability Surface B trek poles SBA, no UE support CG-5%A Equipment 6 step, balls, hurdles, wedges under mat PT-OP-T Assessment and Plan Start: 12/19/23 08:04 Freq: Status: Active Protocol: Document 02/08/24 09:46 SP (Rec: 02/08/24 10:34 SP [id number]) Physical Therapy Assessment Goals Four Impairment dec activity Short Term Goal (STG) Pt will be able to use recumbant bike for at least 15 -20 min at least 4-5 days a week w/o inc pain 02/05/24: MET goal: uses 15 min everyother day and walk alternate days. TOday will be lawn mowing as activity. STG Duration 02/18/24 met goal 02/05/24 Usp Goal (LTG) Pt will be able to return to yard work w/o inc pain or instability 02/08/24: progressing was able to perform mowing lawn over uneven ground, found best sat down for 10-15 min after emptied a bag and completed all yard in 3 stents. REported no pain but was pretty tired, being cautious recovery took extra time. LTG Duration 03/24/24 Three Impairment Pt with reported pain at 8/10 at worst. Short Term Goal (STG) Pt will be indep w/HEP STG Duration 02/18/24 Usp Goal (LTG) Pt will score at least 4+/5 on BLE MMT to show improved strength and stability in order to allow greater ease w/ activity. LTG Duration 03/24/24 Two Impairment walking Impairment pt unable to go for walks Short Term Goal (STG) Pt will be able to walk for at least .75 mile w/o inc pain greater than 2/10 02/05/24: GOAL MET .5-1 mil weekly level but gradual incline. STG Duration 02/18/24 GOAL MET 02/05/24 Usp Goal (LTG) Pt will be able to walk at least 1.5 miles and over uneven terrain w/o inc pain 02/05/24: GOAL MET .5-1 mil weekly level but gradual incline. LTG Duration 03/24/24 progressing 02/05/24 One Impairment balance Impairment SLS Short Term Goal (STG) Pt will be able to do SLS for 5 sec B to show improved balance Usp Goal (LTG) Pt will score at least 25/30 on FGA to show improved balance and stability and dec fall risk. LTG Duration 03/24/24 Assessment Summary Assessment Pt good repsonse to increase resistance to ther ex, standing rest breaks between when needed for recovery. Improved wt shift over stance LE during dynamic gait uneven surface with trek poles initially then able CGA no UE support, sways but no LOB. He is pleased with progress making and will add resistance to HEP. Physical Therapy Plan Frequency and Duration Frequency of Treatment 1-2x/wk Duration of treatment (weeks) 12 Plan of Care Start Date 12/31/23 Plan of Care End Date 03/24/24 Therapeutic Interventions Therapeutic Interventions Balance Training,Gait Training ,Home Exercise Program,Joint Mobilizations,Manual Therapy, Neuromuscular Re-education, Patient/Caregiver Education, Self-Care/Home Management,Soft Tissue Mobilization, Therapeutic Activities, Therapeutic Exercises Modalities Cold Pack/Ice Massage,Hot Packs Next Visit Focus/Plan Next Note Type Treatment Note Next Visit Plan Wants to progress hike uneven trails /c trek poles: hurdles, ueven mat assimulation future . POC: advance RLE strength and balance
--- NOTE | 2024-02-11 12:21 | PT.OTN ---
Current Diagnoses Unilateral primary osteoarthritis, right hip (02/11/24) Difficulty in walking, not elsewhere classified (02/11/24) Abnormal posture (02/11/24) Weakness (02/11/24) Physical Therapy Treatment Note PT-OP-A Visit Information Start: 12/19/23 08:04 Freq: Status: Active Protocol: Document 02/11/24 11:37 [facility] (Rec: 02/11/24 12:21 [facility] [id number]) Out-Patient Physical Therapy Visit Information Visit Information Visit Type Progress Note Visit Note 11/28 Visit Start Time 11:36 Visit Stop Time 12:05 Visit Number 10 Number of GRANULATOR MACHINE OPERATOR Visits 0 PT-OP-B Current Condition Start: 12/19/23 08:04 Freq: Status: Active Protocol: Document 12/31/23 11:03 [facility] (Rec: 12/31/23 12:19 [facility] [id number]) Current Condition History of Current Condition Onset Date 12/11/23 Current Complaints R ant SUSIE History of Current Condition Pt reports SUSIE R on 12/11/23. He has had some lightheadness and dizziness since surgerya nd doctor lower his meds which has helped some. He was able to go to the store today and that was his first time he felt well enough to go. He has had some issues w/ orthostatic hypotension also. ortho is pleased w/pt progress . 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 Pt told to avoid uneven ground, hip ext, hip ER for 3 months.Pt instructed not to lay on R side yet. It took pt 9-10 months to get in to get surgery and got out of shape d /t this. He has a stationary recumbant bike that he hopes to get back on. He noramlly likes to hike and is always careful but typically doesn't use walking poles but has them . Pt has been using the cane/ crutch for hip for about 10 months. Walks in the house w/o the cane now. His first few steps are stiff. 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 He does have allergies to tape and latex. Pt reports no specific injury for hips. pt has afib w/pacemaker Treatment Goals Patient/Caregiver Goals Return to walking, return to beach combing. return to using recumbant bike. Get back to being active, do yard work, hike PT-OP-C Subjective Start: 12/19/23 08:04 Freq: Status: Active Protocol: Document 02/11/24 11:37 [facility] (Rec: 02/11/24 12:21 [facility] [id number]) OP-PT Subjective Patient Comments Patient Comments pt reports walking a little on beach but it didn't have as loose of rocks. Used walking stick PT-OP-D Balance Start: 12/19/23 08:04 Freq: Status: Active Protocol: Document 12/31/23 11:03 [facility] (Rec: 12/31/23 12:19 [facility] [id number]) Balance Tests Single Limb Standing Single Limb- Right 1 sec Single Limb- Left 3 sec PT-OP-G Mobility & Gait Start: 12/19/23 08:04 Freq: Status: Active Protocol: Document 12/31/23 11:03 [facility] (Rec: 12/31/23 12:19 [facility] [id number]) OP Gait Assessment Comments Gait Comments dec stance time on RLE w/use of cane PT-OP-M Strength Start: 12/19/23 08:04 Freq: Status: Active Protocol: Document 02/11/24 11:37 [facility] (Rec: 02/11/24 12:21 [facility] [id number]) Hip Strength Hip Manual Muscle Testing Right Flexion (L2) 4- Good- Abduction 4 Good External Rotation 4 Good Internal Rotation 4+ Good+ Comments IR/ER in neutral Left Flexion (L2) 4 Good Abduction 5 Normal External Rotation 5 Normal Internal Rotation 5 Normal Knee Strength Knee Manual Muscle Testing Right Flexion (S2) 5 Normal Extension (L3) 5 Normal Left Flexion (S2) 5 Normal Extension (L3) 5 Normal Ankle/Foot Strength Ankle and Foot Manual Muscle Testing Right Dorsiflexion (L4) 5 Normal Plantarflexion (S1) 4+ Good+ Comments 18 heel raises Left Dorsiflexion (L4) 5 Normal Plantarflexion (S1) 5 Normal Comments 20 heel raises PT-OP-Q Treatments Start: 12/19/23 08:04 Freq: Status: Active Protocol: Document 02/11/24 11:37 [facility] (Rec: 02/11/24 12:21 [facility] [id number]) Therapeutic Exercises Standing Exercises step downs Standing Exercise Name rail prn Side bilateral Equipment Used 4 in step Reps/Minutes 10 ea step ups Side right Equipment Used 6 step Reps/Minutes 10 Comments cues for wt shift into LE Other Exercises isometrics Other Exercise Name hip MMT Side bilateral Neuro Re-Education Treatment Balance Activities FGA Comments bosu Equipment rail prn Comments 1. standing balance blue side 2. mini squats x10 3. step ups x10 B SLS Comments B trials PT-OP-T Assessment and Plan Start: 12/19/23 08:04 Freq: Status: Active Protocol: Document 02/11/24 11:37 [facility] (Rec: 02/11/24 12:21 [facility] [id number]) Physical Therapy Assessment Goals Four Impairment dec activity Short Term Goal (STG) Pt will be able to use recumbant bike for at least 15 -20 min at least 4-5 days a week w/o inc pain 02/05/24: MET goal: uses 15 min everyother day and walk alternate days. TOday will be lawn mowing as activity. STG Duration 02/18/24 met goal 02/05/24 Residential Goal (LTG) Pt will be able to return to yard work w/o inc pain or instability 02/08/24: progressing was able to perform mowing lawn over uneven ground, found best sat down for 10-15 min after emptied a bag and completed all yard in 3 stents. REported no pain but was pretty tired, being cautious recovery took extra time. 02/10-feels weak doing it 90% back to normal LTG Duration 03/24/24 Three Impairment Pt with reported pain at 8/10 at worst. Short Term Goal (STG) Pt will be indep w/HEP STG Duration achieved advancing as able Early Head Start Director Goal (LTG) Pt will score at least 4+/5 on BLE MMT to show improved strength and stability in order to allow greater ease w/ activity. 02/10-improving LTG Duration 03/24/24 Two Impairment walking Impairment pt unable to go for walks Short Term Goal (STG) Pt will be able to walk for at least .75 mile w/o inc pain greater than 2/10 02/05/24: GOAL MET .5-1 mil weekly level but gradual incline. STG Duration 02/18/24 GOAL MET 02/05/24 Residential Goal (LTG) Pt will be able to walk at least 1.5 miles and over uneven terrain w/o inc pain 02/05/24: GOAL MET .5-1 mil weekly level but gradual incline. LTG Duration 03/24/24 progressing 02/05/24 One Impairment balance Impairment SLS Short Term Goal (STG) Pt will be able to do SLS for 5 sec B to show improved balance 02/10-3 sec R; 7 sec L STG Duration 02/18 Early Head Start Director Goal (LTG) Pt will score at least 25/30 on FGA to show improved balance and stability and dec fall risk. LTG Duration achieved 02/10 Assessment Summary Assessment Pt is making excellent progress w/PT and showing improved balance adn strength but does still show dec balance w/dec SLS and dec R hip strength which makes high level activity more difficult. Cont PT to wrok on balance on uneven surfaces and hip strength. Physical Therapy Plan Frequency and Duration Frequency of Treatment 1-2x/wk Duration of treatment (weeks) 12 Plan of Care Start Date 12/31/23 Plan of Care End Date 03/24/24 Therapeutic Interventions Therapeutic Interventions Balance Training,Gait Training ,Home Exercise Program,Joint Mobilizations,Manual Therapy, Neuromuscular Re-education, Patient/Caregiver Education, Self-Care/Home Management,Soft Tissue Mobilization, Therapeutic Activities, Therapeutic Exercises Modalities Cold Pack/Ice Massage,Hot Packs Next Visit Focus/Plan Next Note Type Treatment Note Next Visit Plan Wants to progress hike uneven trails /c trek poles: hurdles, ueven mat assimulation future . POC: advance RLE strength and balance
--- NOTE | 2024-02-11 18:20 | PT.OPPN ---
Current Diagnoses Unilateral primary osteoarthritis, right hip (02/11/24) Difficulty in walking, not elsewhere classified (02/11/24) Abnormal posture (02/11/24) Weakness (02/11/24) Physical Therapy Progress Note PT-OP-A Visit Information Start: 12/19/23 08:04 Freq: Status: Active Protocol: Document 02/11/24 11:37 [facility] (Rec: 02/11/24 12:21 [facility] [id number]) Out-Patient Physical Therapy Visit Information Visit Information Visit Type Progress Note Visit Note 11/28 Visit Start Time 11:36 Visit Stop Time 12:05 Visit Number [address] CR[address]ING GUARD Visits 0 PT-OP-B Current Condition Start: 12/19/23 08:04 Freq: Status: Active Protocol: Document 12/31/23 11:03 [facility] (Rec: 12/31/23 12:19 [facility] [id number]) Current Condition History of Current Condition Onset Date 12/11/23 Current Complaints R ant SUSIE History of Current Condition Pt reports SUSIE R on 12/11/23. He has had some lightheadness and dizziness since surgerya nd doctor lower his meds which has helped some. He was able to go to the store today and that was his first time he felt well enough to go. He has had some issues w/ orthostatic hypotension also. ortho is pleased w/pt progress . 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 Pt told to avoid uneven ground, hip ext, hip ER for 3 months.Pt instructed not to lay on R side yet. It took pt 9-10 months to get in to get surgery and got out of shape d /t this. He has a stationary recumbant bike that he hopes to get back on. He noramlly likes to hike and is always careful but typically doesn't use walking poles but has them . Pt has been using the cane/ crutch for hip for about 10 months. Walks in the house w/o the cane now. His first few steps are stiff. 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 He does have allergies to tape and latex. Pt reports no specific injury for hips. pt has afib w/pacemaker Treatment Goals Patient/Caregiver Goals Return to walking, return to beach combing. return to using recumbant bike. Get back to being active, do yard work, hike PT-OP-C Subjective Start: 12/19/23 08:04 Freq: Status: Active Protocol: Document 02/11/24 11:37 [facility] (Rec: 02/11/24 12:21 [facility] [id number]) OP-PT Subjective Patient Comments Patient Comments pt reports walking a little on beach but it didn't have as loose of rocks. Used walking stick PT-OP-D Balance Start: 12/19/23 08:04 Freq: Status: Active Protocol: Document 12/31/23 11:03 [facility] (Rec: 12/31/23 12:19 [facility] [id number]) Balance Tests Single Limb Standing Single Limb- Right 1 sec Single Limb- Left 3 sec PT-OP-G Mobility & Gait Start: 12/19/23 08:04 Freq: Status: Active Protocol: Document 12/31/23 11:03 [facility] (Rec: 12/31/23 12:19 [facility] [id number]) OP Gait Assessment Comments Gait Comments dec stance time on RLE w/use of cane PT-OP-M Strength Start: 12/19/23 08:04 Freq: Status: Active Protocol: Document 02/11/24 11:37 [facility] (Rec: 02/11/24 12:21 [facility] [id number]) Hip Strength Hip Manual Muscle Testing Right Flexion (L2) 4- Good- Abduction 4 Good External Rotation 4 Good Internal Rotation 4+ Good+ Comments IR/ER in neutral Left Flexion (L2) 4 Good Abduction 5 Normal External Rotation 5 Normal Internal Rotation 5 Normal Knee Strength Knee Manual Muscle Testing Right Flexion (S2) 5 Normal Extension (L3) 5 Normal Left Flexion (S2) 5 Normal Extension (L3) 5 Normal Ankle/Foot Strength Ankle and Foot Manual Muscle Testing Right Dorsiflexion (L4) 5 Normal Plantarflexion (S1) 4+ Good+ Comments 18 heel raises Left Dorsiflexion (L4) 5 Normal Plantarflexion (S1) 5 Normal Comments 20 heel raises PT-OP-T Assessment and Plan Start: 12/19/23 08:04 Freq: Status: Active Protocol: Document 02/11/24 11:37 [facility] (Rec: 02/11/24 12:21 [facility] [id number]) Physical Therapy Assessment Goals Four Impairment dec activity Short Term Goal (STG) Pt will be able to use recumbant bike for at least 15 -20 min at least 4-5 days a week w/o inc pain 02/05/24: MET goal: uses 15 min everyother day and walk alternate days. TOday will be lawn mowing as activity. STG Duration 02/18/24 met goal 02/05/24 Longterm Goal (LTG) Pt will be able to return to yard work w/o inc pain or instability 02/08/24: progressing was able to perform mowing lawn over uneven ground, found best sat down for 10-15 min after emptied a bag and completed all yard in 3 stents. REported no pain but was pretty tired, being cautious recovery took extra time. 02/10-feels weak doing it 90% back to normal LTG Duration 03/24/24 Three Impairment Pt with reported pain at 8/10 at worst. Short Term Goal (STG) Pt will be indep w/HEP STG Duration achieved advancing as able Principal Systems Architect Goal (LTG) Pt will score at least 4+/5 on BLE MMT to show improved strength and stability in order to allow greater ease w/ activity. 02/10-improving LTG Duration 03/24/24 Two Impairment walking Impairment pt unable to go for walks Short Term Goal (STG) Pt will be able to walk for at least .75 mile w/o inc pain greater than 2/10 02/05/24: GOAL MET .5-1 mil weekly level but gradual incline. STG Duration 02/18/24 GOAL MET 02/05/24 Longterm Goal (LTG) Pt will be able to walk at least 1.5 miles and over uneven terrain w/o inc pain 02/05/24: GOAL MET .5-1 mil weekly level but gradual incline. LTG Duration 03/24/24 progressing 02/05/24 One Impairment balance Impairment SLS Short Term Goal (STG) Pt will be able to do SLS for 5 sec B to show improved balance 02/10-3 sec R; 7 sec L STG Duration 02/18 Longterm Goal (LTG) Pt will score at least 25/30 on FGA to show improved balance and stability and dec fall risk. LTG Duration achieved 02/10 Assessment Summary Assessment Pt is making excellent progress w/PT and showing improved balance adn strength but does still show dec balance w/dec SLS and dec R hip strength which makes high level activity more difficult. Cont PT to wrok on balance on uneven surfaces and hip strength. Physical Therapy Plan Frequency and Duration Frequency of Treatment 1-2x/wk Duration of treatment (weeks) 12 Plan of Care Start Date 12/31/23 Plan of Care End Date 03/24/24 Therapeutic Interventions Therapeutic Interventions Balance Training,Gait Training ,Home Exercise Program,Joint Mobilizations,Manual Therapy, Neuromuscular Re-education, Patient/Caregiver Education, Self-Care/Home Management,Soft Tissue Mobilization, Therapeutic Activities, Therapeutic Exercises Modalities Cold Pack/Ice Massage,Hot Packs Next Visit Focus/Plan Next Note Type Treatment Note Next Visit Plan Wants to progress hike uneven trails /c trek poles: hurdles, ueven mat assimulation future . POC: advance RLE strength and balance
--- NOTE | 2024-02-13 12:20 | PT.OTN ---
Current Diagnoses Unilateral primary osteoarthritis, right hip (02/13/24) Difficulty in walking, not elsewhere classified (02/13/24) Abnormal posture (02/13/24) Weakness (02/13/24) Physical Therapy Treatment Note PT-OP-A Visit Information Start: 12/19/23 08:04 Freq: Status: Active Protocol: Document 02/13/24 11:20 [facility] (Rec: 02/13/24 12:20 [facility] [id number]) Out-Patient Physical Therapy Visit Information Visit Information Visit Type Treatment Note Visit Note 12/29 Visit Start Time 11:22 Visit Stop Time 12: Visit Number 11 Number of LEGAL PRACTICE MANAGER Visits 0 PT-OP-B Current Condition Start: 12/19/23 08:04 Freq: Status: Active Protocol: Document 12/31/23 11:03 [facility] (Rec: 12/31/23 12:19 [facility] [id number]) Current Condition History of Current Condition Onset Date 12/11/23 Current Complaints R ant SUSIE History of Current Condition Pt reports SUSIE R on 12/11/23. He has had some lightheadness and dizziness since surgerya nd doctor lower his meds which has helped some. He was able to go to the store today and that was his first time he felt well enough to go. He has had some issues w/ orthostatic hypotension also. ortho is pleased w/pt progress . 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 Pt told to avoid uneven ground, hip ext, hip ER for 3 months.Pt instructed not to lay on R side yet. It took pt 9-10 months to get in to get surgery and got out of shape d /t this. He has a stationary recumbant bike that he hopes to get back on. He noramlly likes to hike and is always careful but typically doesn't use walking poles but has them . Pt has been using the cane/ crutch for hip for about 10 months. Walks in the house w/o the cane now. His first few steps are stiff. 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 He does have allergies to tape and latex. Pt reports no specific injury for hips. pt has afib w/pacemaker Treatment Goals Patient/Caregiver Goals Return to walking, return to beach combing. return to using recumbant bike. Get back to being active, do yard work, hike PT-OP-C Subjective Start: 12/19/23 08:04 Freq: Status: Active Protocol: Document 02/13/24 11:20 [facility] (Rec: 02/13/24 12:20 [facility] [id number]) OP-PT Subjective Patient Comments Patient Comments Pt reports his B knees were sore after all the steps after last time PT-OP-D Balance Start: 12/19/23 08:04 Freq: Status: Active Protocol: Document 12/31/23 11:03 [facility] (Rec: 12/31/23 12:19 [facility] [id number]) Balance Tests Single Limb Standing Single Limb- Right 1 sec Single Limb- Left 3 sec PT-OP-G Mobility & Gait Start: 12/19/23 08:04 Freq: Status: Active Protocol: Document 12/31/23 11:03 [facility] (Rec: 12/31/23 12:19 [facility] [id number]) OP Gait Assessment Comments Gait Comments dec stance time on RLE w/use of cane PT-OP-M Strength Start: 12/19/23 08:04 Freq: Status: Active Protocol: Document 02/11/24 11:37 [facility] (Rec: 02/11/24 12:21 [facility] [id number]) Hip Strength Hip Manual Muscle Testing Right Flexion (L2) 4- Good- Abduction 4 Good External Rotation 4 Good Internal Rotation 4+ Good+ Comments IR/ER in neutral Left Flexion (L2) 4 Good Abduction 5 Normal External Rotation 5 Normal Internal Rotation 5 Normal Knee Strength Knee Manual Muscle Testing Right Flexion (S2) 5 Normal Extension (L3) 5 Normal Left Flexion (S2) 5 Normal Extension (L3) 5 Normal Ankle/Foot Strength Ankle and Foot Manual Muscle Testing Right Dorsiflexion (L4) 5 Normal Plantarflexion (S1) 4+ Good+ Comments 18 heel raises Left Dorsiflexion (L4) 5 Normal Plantarflexion (S1) 5 Normal Comments 20 heel raises PT-OP-Q Treatments Start: 12/19/23 08:04 Freq: Status: Active Protocol: Document 02/13/24 11:20 [facility] (Rec: 02/13/24 12:20 [facility] [id number]) Gym Equipment Shuttle Balance Red Details head turns and wt shifts8 Comments fwd: WBOS, NBOS, STAGGERED STANCE Side:WBOS, NBOS Manual Therapy Treatment Soft Tissue Mobilization scar Body Location R Mobilization Type Myofascial Release,Rolling Intensity/Depth sup to mod Body Position Supine Joint Mobilizations hip Joint R inf glide Neuro Re-Education Treatment Balance Activities walking Comments w/changes in speed and vertical/horizontal head turns thruout 2x50ft 2. EC fwd/back x50ft ea hurdles Equipment 6 hurdles Comments 1. fwd recip w/foam btwn x6 2. sidestep w/o foamx2 B PT-OP-T Assessment and Plan Start: 12/19/23 08:04 Freq: Status: Active Protocol: Document 02/13/24 11:20 [facility] (Rec: 02/13/24 12:20 [facility] [id number]) Physical Therapy Assessment Goals Four Impairment dec activity Short Term Goal (STG) Pt will be able to use recumbant bike for at least 15 -20 min at least 4-5 days a week w/o inc pain 02/05/24: MET goal: uses 15 min everyother day and walk alternate days. TOday will be lawn mowing as activity. STG Duration 02/18/24 met goal 02/05/24 E Commerce Marketing Manager Goal (LTG) Pt will be able to return to yard work w/o inc pain or instability 02/08/24: progressing was able to perform mowing lawn over uneven ground, found best sat down for 10-15 min after emptied a bag and completed all yard in 3 stents. REported no pain but was pretty tired, being cautious recovery took extra time. 02/10-feels weak doing it 90% back to normal LTG Duration 03/24/24 Three Impairment Pt with reported pain at 8/10 at worst. Short Term Goal (STG) Pt will be indep w/HEP STG Duration achieved advancing as able Snf Goal (LTG) Pt will score at least 4+/5 on BLE MMT to show improved strength and stability in order to allow greater ease w/ activity. 02/10-improving LTG Duration 03/24/24 Two Impairment walking Impairment pt unable to go for walks Short Term Goal (STG) Pt will be able to walk for at least .75 mile w/o inc pain greater than 2/10 02/05/24: GOAL MET .5-1 mil weekly level but gradual incline. STG Duration 02/18/24 GOAL MET 02/05/24 Snf Goal (LTG) Pt will be able to walk at least 1.5 miles and over uneven terrain w/o inc pain 02/05/24: GOAL MET .5-1 mil weekly level but gradual incline. LTG Duration 03/24/24 progressing 02/05/24 One Impairment balance Impairment SLS Short Term Goal (STG) Pt will be able to do SLS for 5 sec B to show improved balance 02/10-3 sec R; 7 sec L STG Duration 02/18 E Commerce Marketing Manager Goal (LTG) Pt will score at least 25/30 on FGA to show improved balance and stability and dec fall risk. LTG Duration achieved 02/10 Assessment Summary Assessment Pt did well with balance tasks today and verbalized understanding re: working on his scar at home. Avoided steps d/t knee soreness Physical Therapy Plan Frequency and Duration Frequency of Treatment 1-2x/wk Duration of treatment (weeks) 12 Plan of Care Start Date 12/31/23 Plan of Care End Date 03/24/24 Next Visit Focus/Plan Next Note Type Treatment Note Next Visit Plan Wants to progress hike uneven trails /c trek poles: hurdles, ueven mat assimulation future . work on R hip mobility; work on step and appropriate mechanics
--- NOTE | 2024-02-21 08:11 | PT.OTN ---
Current Diagnoses Unilateral primary osteoarthritis, right hip (02/21/24) Difficulty in walking, not elsewhere classified (02/21/24) Abnormal posture (02/21/24) Weakness (02/21/24) Physical Therapy Treatment Note PT-OP-A Visit Information Start: 12/19/23 08:04 Freq: Status: Active Protocol: Document 02/21/24 07:31 SP (Rec: 02/21/24 08:35 SP [id number]) Out-Patient Physical Therapy Visit Information Visit Information Visit Type Treatment Note Visit Note 01/26 Visit Start Time 07:31 Visit Stop Time 08:11 Visit Number 12 Number of ASSISTANT QUALITY MANAGER Visits 1 Precautions Precautions allergies to tape and latex; afib w/pacemaker PT-OP-B Current Condition Start: 12/19/23 08:04 Freq: Status: Active Protocol: Document 12/31/23 11:03 [facility] (Rec: 12/31/23 12:19 [facility] [id number]) Current Condition History of Current Condition Onset Date 12/11/23 Current Complaints R ant SUSIE History of Current Condition Pt reports SUSIE R on 12/11/23. He has had some lightheadness and dizziness since surgerya nd doctor lower his meds which has helped some. He was able to go to the store today and that was his first time he felt well enough to go. He has had some issues w/ orthostatic hypotension also. ortho is pleased w/pt progress . 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 Pt told to avoid uneven ground, hip ext, hip ER for 3 months.Pt instructed not to lay on R side yet. It took pt 9-10 months to get in to get surgery and got out of shape d /t this. He has a stationary recumbant bike that he hopes to get back on. He noramlly likes to hike and is always careful but typically doesn't use walking poles but has them . Pt has been using the cane/ crutch for hip for about 10 months. Walks in the house w/o the cane now. His first few steps are stiff. 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 He does have allergies to tape and latex. Pt reports no specific injury for hips. pt has afib w/pacemaker Treatment Goals Patient/Caregiver Goals Return to walking, return to beach combing. return to using recumbant bike. Get back to being active, do yard work, hike PT-OP-C Subjective Start: 12/19/23 08:04 Freq: Status: Active Protocol: Document 02/21/24 07:31 SP (Rec: 02/21/24 08:35 SP [id number]) OP-PT Subjective Patient Comments Patient Comments Pt PT-OP-D Balance Start: 12/19/23 08:04 Freq: Status: Active Protocol: Document 12/31/23 11:03 [facility] (Rec: 12/31/23 12:19 [facility] [id number]) Balance Tests Single Limb Standing Single Limb- Right 1 sec Single Limb- Left 3 sec PT-OP-G Mobility & Gait Start: 12/19/23 08:04 Freq: Status: Active Protocol: Document 12/31/23 11:03 [facility] (Rec: 12/31/23 12:19 [facility] [id number]) OP Gait Assessment Comments Gait Comments dec stance time on RLE w/use of cane PT-OP-M Strength Start: 12/19/23 08:04 Freq: Status: Active Protocol: Document 02/11/24 11:37 [facility] (Rec: 02/11/24 12:21 [facility] [id number]) Hip Strength Hip Manual Muscle Testing Right Flexion (L2) 4- Good- Abduction 4 Good External Rotation 4 Good Internal Rotation 4+ Good+ Comments IR/ER in neutral Left Flexion (L2) 4 Good Abduction 5 Normal External Rotation 5 Normal Internal Rotation 5 Normal Knee Strength Knee Manual Muscle Testing Right Flexion (S2) 5 Normal Extension (L3) 5 Normal Left Flexion (S2) 5 Normal Extension (L3) 5 Normal Ankle/Foot Strength Ankle and Foot Manual Muscle Testing Right Dorsiflexion (L4) 5 Normal Plantarflexion (S1) 4+ Good+ Comments 18 heel raises Left Dorsiflexion (L4) 5 Normal Plantarflexion (S1) 5 Normal Comments 20 heel raises PT-OP-Q Treatments Start: 12/19/23 08:04 Freq: Status: Active Protocol: Document 02/21/24 07:31 SP (Rec: 02/21/24 08:35 SP [id number]) Gym Equipment Shuttle Balance Red Details head turns, wt shifts, EO WBOS Comments fwd: WBOS (EC 18sec), NBOS (EC 4 sec), STAGGERED STANCE Side:WBOS, NBOS Manual Therapy Treatment Soft Tissue Mobilization scar Body Location R Mobilization Type Myofascial Release,Rolling Intensity/Depth sup to mod Body Position Supine Comments cupping sup/inf/lateral Joint Mobilizations knee Joint B tib femoral, tibfib Direction PA Grade II Comments various knee flexion progressed ROM Neuro Re-Education Treatment Balance Activities uneven hill Equipment 4 step, 3 wt small balls, blue mat Reps/Duration 3 laps Comments cGA>close SBA obstacle course Details stability Surface B>1 trek poles Equipment bal beam, foam stones, bosu, 5 hurdles, tilt bd, pods Reps/Duration 3 flandreau laps Comments CG-Min A, LOB x1 with most challenge coming off BOSU to air stone- ed cues for scap engagment and PF eccentric PF to eccentric DF wt shift into WB stance advanced LE assist better midline, utilize trekpoles needed to increased self stability and corrections . PT-OP-T Assessment and Plan Start: 12/19/23 08:04 Freq: Status: Active Protocol: Document 02/21/24 07:31 SP (Rec: 02/21/24 08:35 SP [id number]) Physical Therapy Assessment Goals Four Impairment dec activity Short Term Goal (STG) Pt will be able to use recumbant bike for at least 15 -20 min at least 4-5 days a week w/o inc pain 02/05/24: MET goal: uses 15 min everyother day and walk alternate days. TOday will be lawn mowing as activity. STG Duration 02/18/24 met goal 02/05/24 Monotype Caster Goal (LTG) Pt will be able to return to yard work w/o inc pain or instability 02/08/24: progressing was able to perform mowing lawn over uneven ground, found best sat down for 10-15 min after emptied a bag and completed all yard in 3 stents. REported no pain but was pretty tired, being cautious recovery took extra time. 02/10-feels weak doing it 90% back to normal LTG Duration 03/24/24 Three Impairment Pt with reported pain at 8/10 at worst. Short Term Goal (STG) Pt will be indep w/HEP STG Duration achieved advancing as able Monotype Caster Goal (LTG) Pt will score at least 4+/5 on BLE MMT to show improved strength and stability in order to allow greater ease w/ activity. 02/10-improving LTG Duration 03/24/24 improving 02/10 Two Impairment walking Impairment pt unable to go for walks Short Term Goal (STG) Pt will be able to walk for at least .75 mile w/o inc pain greater than 2/10 02/05/24: GOAL MET .5-1 mil weekly level but gradual incline. STG Duration 02/18/24 GOAL MET 02/05/24 Prison Goal (LTG) Pt will be able to walk at least 1.5 miles and over uneven terrain w/o inc pain 02/05/24: GOAL MET .5-1 mil weekly level but gradual incline. LTG Duration 03/24/24 GOAL MET 02/05/24 One Impairment balance Impairment SLS Short Term Goal (STG) Pt will be able to do SLS for 5 sec B to show improved balance 02/10-3 sec R; 7 sec L STG Duration 02/18 Prison Goal (LTG) Pt will score at least 25/30 on FGA to show improved balance and stability and dec fall risk. LTG Duration achieved 02/10 Assessment Summary Assessment Pt improved wt shift with less UE contact during shuttle balanace, able to complete EC in 2 stance position. Progressed obstacle course for assimulation trail challenge, was able to decrease from 2 to 1 trek pole use Heavy to moderate support, Min>CGA. Uneven hill no UE support improved slower pacing step and better midline corrections Close SBA. Physical Therapy Plan Frequency and Duration Frequency of Treatment 1-2x/wk Duration of treatment (weeks) 12 Plan of Care Start Date 12/31/23 Plan of Care End Date 03/24/24 Therapeutic Interventions Therapeutic Interventions Balance Training,Gait Training ,Home Exercise Program,Joint Mobilizations,Manual Therapy, Neuromuscular Re-education, Patient/Caregiver Education, Self-Care/Home Management,Soft Tissue Mobilization, Therapeutic Activities, Therapeutic Exercises Modalities Cold Pack/Ice Massage,Hot Packs Next Visit Focus/Plan Next Note Type Treatment Note Next Visit Plan Continue progress hike uneven trails /c trek poles: hurdles, ueven mat assimulation future . work on R hip mobility; work on step and appropriate mechanics
--- NOTE | 2024-02-27 08:58 | PT.OTN ---
Current Diagnoses Unilateral primary osteoarthritis, right hip (02/27/24) Difficulty in walking, not elsewhere classified (02/27/24) Abnormal posture (02/27/24) Weakness (02/27/24) Physical Therapy Treatment Note PT-OP-A Visit Information Start: 12/19/23 08:04 Freq: Status: Active Protocol: Document 02/27/24 08:18 SP (Rec: 02/27/24 09:03 SP [id number]) Out-Patient Physical Therapy Visit Information Visit Information Visit Type Treatment Note Visit Note 02/26 Visit Start Time 08:18 Visit Stop Time 08:58 Visit Number 13 Number of PAGEANT DIRECTOR Visits 2 Precautions Precautions allergies to tape and latex; afib w/pacemaker PT-OP-B Current Condition Start: 12/19/23 08:04 Freq: Status: Active Protocol: Document 12/31/23 11:03 [facility] (Rec: 12/31/23 12:19 [facility] [id number]) Current Condition History of Current Condition Onset Date 12/11/23 Current Complaints R ant SUSIE History of Current Condition Pt reports SUSIE R on 12/11/23. He has had some lightheadness and dizziness since surgerya nd doctor lower his meds which has helped some. He was able to go to the store today and that was his first time he felt well enough to go. He has had some issues w/ orthostatic hypotension also. ortho is pleased w/pt progress . 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 Pt told to avoid uneven ground, hip ext, hip ER for 3 months.Pt instructed not to lay on R side yet. It took pt 9-10 months to get in to get surgery and got out of shape d /t this. He has a stationary recumbant bike that he hopes to get back on. He noramlly likes to hike and is always careful but typically doesn't use walking poles but has them . Pt has been using the cane/ crutch for hip for about 10 months. Walks in the house w/o the cane now. His first few steps are stiff. 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 He does have allergies to tape and latex. Pt reports no specific injury for hips. pt has afib w/pacemaker Treatment Goals Patient/Caregiver Goals Return to walking, return to beach combing. return to using recumbant bike. Get back to being active, do yard work, hike PT-OP-C Subjective Start: 12/19/23 08:04 Freq: Status: Active Protocol: Document 02/27/24 08:18 SP (Rec: 02/27/24 09:03 SP [id number]) OP-PT Subjective Patient Comments Patient Comments Pt reports little sore from walking in rm about 45 min with trek poles. Later today, is headed to [facility] [place] to walk on beach with basket trek poles looking for drift wood and agettes. PT-OP-D Balance Start: 12/19/23 08:04 Freq: Status: Active Protocol: Document 12/31/23 11:03 [facility] (Rec: 12/31/23 12:19 [facility] [id number]) Balance Tests Single Limb Standing Single Limb- Right 1 sec Single Limb- Left 3 sec PT-OP-G Mobility & Gait Start: 12/19/23 08:04 Freq: Status: Active Protocol: Document 12/31/23 11:03 [facility] (Rec: 12/31/23 12:19 [facility] [id number]) OP Gait Assessment Comments Gait Comments dec stance time on RLE w/use of cane PT-OP-M Strength Start: 12/19/23 08:04 Freq: Status: Active Protocol: Document 02/11/24 11:37 [facility] (Rec: 02/11/24 12:21 [facility] [id number]) Hip Strength Hip Manual Muscle Testing Right Flexion (L2) 4- Good- Abduction 4 Good External Rotation 4 Good Internal Rotation 4+ Good+ Comments IR/ER in neutral Left Flexion (L2) 4 Good Abduction 5 Normal External Rotation 5 Normal Internal Rotation 5 Normal Knee Strength Knee Manual Muscle Testing Right Flexion (S2) 5 Normal Extension (L3) 5 Normal Left Flexion (S2) 5 Normal Extension (L3) 5 Normal Ankle/Foot Strength Ankle and Foot Manual Muscle Testing Right Dorsiflexion (L4) 5 Normal Plantarflexion (S1) 4+ Good+ Comments 18 heel raises Left Dorsiflexion (L4) 5 Normal Plantarflexion (S1) 5 Normal Comments 20 heel raises PT-OP-Q Treatments Start: 12/19/23 08:04 Freq: Status: Active Protocol: Document 02/27/24 08:18 SP (Rec: 02/27/24 09:03 SP [id number]) Cardio Equipment Recumbent Bicycle Duration (Minutes) 8 Resistance 15 Seat Position 9 Other 42 RPMs- has home utilizes Therapeutic Exercises Sitting Exercises STS Sitting Exercise Name added to HEP- declined HO Equipment Used mesh chair Reps/Minutes 3 reps with foam warm up, Timed: 6 reps in 30 sec Comments last activity, little effort on R knee end Standing Exercises step downs Side bilateral Equipment Used 2 foam, near rail- not used Reps/Minutes 10 ea LE Comments good stab resisted stepping Standing Exercise Name lateral/fwd/bwd added to HEP Resistance GTB Reps/Minutes 15 ft x2 laps each direction Comments cued increase maintain WBOS- good hip tiring-pnfree Neuro Re-Education Treatment Balance Activities resisted step taps, step up/back down Details 4# leg wt Equipment 6 step then added 2 foam cushion, //bar Comments 1. step taps 2. step up/back down 5 reps step then step+foam: fwd x10 each LE then lateral x4 reps- PRN rail last x2 lateral reps SLS Comments L 11sec, R 3sec pre ther ex L 11 sec, R 3, 4, 5 sec (ed ABD fac) post ther ex foam Details tandem Equipment foam Comments R LE fwd: 4, 30 sec LLE fwd: 2, 30 sec PT-OP-T Assessment and Plan Start: 12/19/23 08:04 Freq: Status: Active Protocol: Document 02/27/24 08:18 SP (Rec: 02/27/24 09:03 SP [id number]) Physical Therapy Assessment Goals Four Impairment dec activity Short Term Goal (STG) Pt will be able to use recumbant bike for at least 15 -20 min at least 4-5 days a week w/o inc pain 02/05/24: MET goal: uses 15 min everyother day and walk alternate days. TOday will be lawn mowing as activity. STG Duration 02/18/24 met goal 02/05/24 Entrepreneurial Finance Professor Goal (LTG) Pt will be able to return to yard work w/o inc pain or instability 02/08/24: progressing was able to perform mowing lawn over uneven ground, found best sat down for 10-15 min after emptied a bag and completed all yard in 3 stents. REported no pain but was pretty tired, being cautious recovery took extra time. 02/10-feels weak doing it 90% back to normal 02/27/24: GOAL MET: pnfree yard work and walking in rm. LTG Duration 03/24/24 GOAL MET 02/27/24 Three Impairment Pt with reported pain at 8/10 at worst. Short Term Goal (STG) Pt will be indep w/HEP STG Duration achieved advancing as able Entrepreneurial Finance Professor Goal (LTG) Pt will score at least 4+/5 on BLE MMT to show improved strength and stability in order to allow greater ease w/ activity. 02/10-improving LTG Duration 03/24/24 improving 02/10 One Impairment balance Impairment SLS Short Term Goal (STG) Pt will be able to do SLS for 5 sec B to show improved balance 02/10-3 sec R; 7 sec L 02/27/24: progressing: L 11sec, R 3sec STG Duration 02/18 progressing 02/27/24 Detention Goal (LTG) Pt will score at least 25/30 on FGA to show improved balance and stability and dec fall risk. LTG Duration achieved 02/10 Assessment Summary Assessment Pt meeting goals of no pain in R hip. He had good effort with dynamic strengthening today, improves awareness of COG over [place] during wt step taps and step ups on uneven surface. Not significant improvement in SLS pre/end tx but less contact rail self corrections with cues needed tall/core fac to support increased balance over uneven community surfaces is working on outside PT. Pt would benefit from continued advanced balance activities over uneven surfaces. Added STS to HEP, declined HO for LE strengthening. Physical Therapy Plan Frequency and Duration Frequency of Treatment 1-2x/wk Duration of treatment (weeks) 12 Plan of Care Start Date 12/31/23 Plan of Care End Date 03/24/24 Therapeutic Interventions Therapeutic Interventions Balance Training,Gait Training ,Home Exercise Program,Joint Mobilizations,Manual Therapy, Neuromuscular Re-education, Patient/Caregiver Education, Self-Care/Home Management,Soft Tissue Mobilization, Therapeutic Activities, Therapeutic Exercises Modalities Cold Pack/Ice Massage,Hot Packs Next Visit Focus/Plan Next Note Type Treatment Note Next Visit Plan Continue progress hike uneven trails /c trek poles: hurdles, ueven mat assimulation future . work on R hip mobility; work on step and appropriate mechanics
--- NOTE | 2024-03-03 09:01 | PT.OTN ---
Current Diagnoses Unilateral primary osteoarthritis, right hip (03/03/24) Difficulty in walking, not elsewhere classified (03/03/24) Abnormal posture (03/03/24) Weakness (03/03/24) Physical Therapy Treatment Note PT-OP-A Visit Information Start: 12/19/23 08:04 Freq: Status: Active Protocol: Document 03/03/24 08:19 [facility] (Rec: 03/03/24 08:21 [facility] [id number]) Out-Patient Physical Therapy Visit Information Visit Information Visit Type Discharge Summary Visit Start Time 08:18 Visit Stop Time 08:58 Visit Number 14 Number of INSURANCE CLAIMS PROCESSOR Visits 0 PT-OP-B Current Condition Start: 12/19/23 08:04 Freq: Status: Active Protocol: Document 12/31/23 11:03 [facility] (Rec: 12/31/23 12:19 [facility] [id number]) Current Condition History of Current Condition Onset Date 12/11/23 Current Complaints R ant SUSIE History of Current Condition Pt reports SUSIE R on 12/11/23. He has had some lightheadness and dizziness since surgerya nd doctor lower his meds which has helped some. He was able to go to the store today and that was his first time he felt well enough to go. He has had some issues w/ orthostatic hypotension also. ortho is pleased w/pt progress . 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 Pt told to avoid uneven ground, hip ext, hip ER for 3 months.Pt instructed not to lay on R side yet. It took pt 9-10 months to get in to get surgery and got out of shape d /t this. He has a stationary recumbant bike that he hopes to get back on. He noramlly likes to hike and is always careful but typically doesn't use walking poles but has them . Pt has been using the cane/ crutch for hip for about 10 months. Walks in the house w/o the cane now. His first few steps are stiff. 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 He does have allergies to tape and latex. Pt reports no specific injury for hips. pt has afib w/pacemaker Treatment Goals Patient/Caregiver Goals Return to walking, return to beach combing. return to using recumbant bike. Get back to being active, do yard work, hike PT-OP-C Subjective Start: 12/19/23 08:04 Freq: Status: Active Protocol: Document 03/03/24 08:19 [facility] (Rec: 03/03/24 08:21 [facility] [id number]) OP-PT Subjective Patient Comments Patient Comments Pt reports feels ready to be done. Has had no issues PT-OP-D Balance Start: 12/19/23 08:04 Freq: Status: Active Protocol: Document 03/03/24 08:22 [facility] (Rec: 03/03/24 08:27 [facility] [id number]) Balance Tests Single Limb Standing Single Limb- Right 11 sec PT-OP-G Mobility & Gait Start: 12/19/23 08:04 Freq: Status: Active Protocol: Document 12/31/23 11:03 [facility] (Rec: 12/31/23 12:19 [facility] [id number]) OP Gait Assessment Comments Gait Comments dec stance time on RLE w/use of cane PT-OP-M Strength Start: 12/19/23 08:04 Freq: Status: Active Protocol: Document 03/03/24 08:22 [facility] (Rec: 03/03/24 08:27 [facility] [id number]) Hip Strength Hip Manual Muscle Testing Right Flexion (L2) 4+ Good+ Abduction 5 Normal External Rotation 4 Good Internal Rotation 5 Normal Comments IR/ER in sm amt of range Left Flexion (L2) 5 Normal Abduction 5 Normal External Rotation 5 Normal Internal Rotation 5 Normal Knee Strength Knee Manual Muscle Testing Right Flexion (S2) 5 Normal Extension (L3) 5 Normal Left Flexion (S2) 5 Normal Extension (L3) 5 Normal Ankle/Foot Strength Ankle and Foot Manual Muscle Testing Right Dorsiflexion (L4) 5 Normal Plantarflexion (S1) 5 Normal Comments 20 heel raises Left Dorsiflexion (L4) 5 Normal Plantarflexion (S1) 5 Normal Comments 20 heel raises PT-OP-Q Treatments Start: 12/19/23 08:04 Freq: Status: Active Protocol: Document 03/03/24 08:19 [facility] (Rec: 03/03/24 08:21 [facility] [id number]) Therapeutic Exercises Sitting Exercises abd Side right Equipment Used L4 Reps/Minutes 5 STS Sitting Exercise Name cues for control down Side bilateral Equipment Used mesh chair Reps/Minutes 5 knee ext Side right Equipment Used L4 Reps/Minutes 5 Standing Exercises step downs Side bilateral Equipment Used 2 foam, near rail- not used Reps/Minutes 10 ea LE Comments good stab resisted stepping Standing Exercise Name 1.fwd 2. lat Resistance L4 Reps/Minutes 1.20ft x2 2.20ft ea Comments cues for posture hip abd Side bilateral Equipment Used L4 Reps/Minutes 5 heel raises Standing Exercise Name SL Side right Reps/Minutes 20 Other Exercises isometrics Other Exercise Name hip MMT Side bilateral Manual Therapy Treatment Soft Tissue Mobilization ITB Body Location R VL and ITB Mobilization Type Rolling Intensity/Depth Moderate Body Position Hooklying Neuro Re-Education Treatment Balance Activities resisted step taps, step up/back down Details 4# leg wt Equipment 6 step then added 2 foam cushion, //bar Comments 1. step taps 2. step up/back down 5 reps step then step+foam: fwd x10 each LE then lateral x5 reps- PRN rail SLS Comments B trials foam Details tandem Equipment foam Comments B trials PT-OP-T Assessment and Plan Start: 12/19/23 08:04 Freq: Status: Active Protocol: Document 03/03/24 08:19 [facility] (Rec: 03/03/24 08:21 [facility] [id number]) Physical Therapy Assessment Goals Four Impairment dec activity Short Term Goal (STG) Pt will be able to use recumbant bike for at least 15 -20 min at least 4-5 days a week w/o inc pain 02/05/24: MET goal: uses 15 min everyother day and walk alternate days. TOday will be lawn mowing as activity. STG Duration 02/18/24 met goal 02/05/24 Guidance Director Goal (LTG) Pt will be able to return to yard work w/o inc pain or instability 02/08/24: progressing was able to perform mowing lawn over uneven ground, found best sat down for 10-15 min after emptied a bag and completed all yard in 3 stents. REported no pain but was pretty tired, being cautious recovery took extra time. 02/10-feels weak doing it 90% back to normal 02/27/24: GOAL MET: pnfree yard work and walking in rm. LTG Duration 03/24/24 GOAL MET 4/10/24 Three Impairment Pt with reported pain at 8/10 at worst. Short Term Goal (STG) Pt will be indep w/HEP STG Duration achieved advancing as able Guidance Director Goal (LTG) Pt will score at least 4+/5 on BLE MMT to show improved strength and stability in order to allow greater ease w/ activity. 02/10-improving LTG Duration achieved except ER One Impairment balance Impairment SLS Short Term Goal (STG) Pt will be able to do SLS for 5 sec B to show improved balance 02/10-3 sec R; 7 sec L 02/27/24: progressing: L 11sec, R 3sec STG Duration achieved to >10 sec B 03/03 Detention Goal (LTG) Pt will score at least 25/30 on FGA to show improved balance and stability and dec fall risk. LTG Duration achieved 02/10 Assessment Summary Assessment Pt shows much improved balance and strenght and does not feel limited by his hip. Some weakness still w/stairs but able to recip up/down 6 in stairs w/o rail. He is indep w /HEP and walking mult days a week. Pt to cont to work on HEP. Edu to do resisted walks by counter for safety Physical Therapy Plan Discharge Physical Therapy Discharge Reasons Goals Met
== END 2024-03-03 12:29 | disposition home or self-care (01) ==
LOC: PHYS 08:15
PROVIDERS: Family Provider Family Medicine; PCP Family Medicine; Referring Provider Orthopaedic Surgery; Visit Provider Orthopaedic Surgery
DX: M16.11 Unilateral primary osteoarthritis, right hip (principal); R53.1 Weakness; R26.2 Difficulty in walking, not elsewhere classified; R29.3 Abnormal posture
CPT/HCPCS: 97110; 97112; 97116; 97140; 97162; 97535

== ENCOUNTER → 2024-03-18 12:34 | Outpatient (CLI) | payer MEDICARE, OTHER, SELFPAY ==
[2024-03-18 15:23] LABS: BUN Creatinine Ratio 20.6 (6-22); Blood Urea Nitrogen 33 mg/dL (9-20); Calcium 9.9 mg/dL (8.4-10.2); Carbon Dioxide 31 mmol/L (22-32); Chloride 106 mmol/L (98-107); Estimated Glomerular Filt Rate 47 mL/min (>60); Glucose 79 mg/dL (80-110); HEMOLYSIS < 15 (0-50); Potassium 5.1 mmol/L (3.4-5.1); Sodium 141 mmol/L (137-145)
[2024-03-18 15:50] LABS: Prostate Specific Antigen 10.4 ng/mL (0.10-4.00)
== END ==
PROVIDERS: Family Provider Family Medicine; PCP Family Medicine; Referring Provider Nurse Practitioner Acute Care; Visit Provider Nurse Practitioner Acute Care
DX: I42.9 Cardiomyopathy, unspecified (principal); R97.20 Elevated prostate specific antigen [PSA]
CPT/HCPCS: 36415; 80048; 84153

== ENCOUNTER → 2024-11-20 08:30 | Outpatient (CLI) | payer MEDICARE, OTHER, SELFPAY ==
[2024-11-20 09:44] LABS: BUN Creatinine Ratio 17.5 (6-22); Blood Urea Nitrogen 28 mg/dL (9-20); Calcium 9.5 mg/dL (8.4-10.2); Carbon Dioxide 28 mmol/L (22-32); Chloride 103 mmol/L (98-107); Estimated Glomerular Filt Rate 47 mL/min (>60); Glucose 162 mg/dL (80-110); HEMOLYSIS < 15 (0-50); Potassium 4.4 mmol/L (3.4-5.1); Sodium 135 mmol/L (137-145)
== END ==
PROVIDERS: Family Provider Family Medicine; PCP Family Medicine; Referring Provider Internal Medicine; Visit Provider Internal Medicine
DX: I11.9 Hypertensive heart disease without heart failure (principal)
CPT/HCPCS: 36415; 80048

== ENCOUNTER → 2024-11-25 11:54 | Outpatient (CLI) | payer MEDICARE, OTHER, SELFPAY ==
[2024-11-25 12:31] LABS: Hemoglobin A1C% w Est Avg Glu 6.6 % (4.0-6.0)
== END ==
PROVIDERS: Family Provider Family Medicine; PCP Family Medicine; Referring Provider Internal Medicine; Visit Provider Internal Medicine
DX: R73.02 Impaired glucose tolerance (oral) (principal)
CPT/HCPCS: 36415; 83036

== ENCOUNTER → 2024-12-24 10:00 | Outpatient (CLI) | payer MEDICARE, OTHER, SELFPAY ==
--- NOTE | 2024-12-24 10:04 | DI.CT.S_ITS ---
PROCEDURE: CT LUNG LOW DOSE SCREENING INDICATIONS: lung cancer screening TECHNIQUE: Noncontrast 2.0-2.5 mm thick sections acquired from the pulmonary apices to the posterior costophrenic angles. 7 mm thick axial MIP, and 5 mm coronal and sagittal reformats were then acquired. For radiation dose reduction, the following was used: automated exposure control, adjustment of mA and/or kV according to patient size. COMPARISON: None. FINDINGS: Image quality: Diagnostic. Lower Neck: No enlarged lymph nodes. Thyroid: No thyroid nodules which require sonographic follow up, per consensus guidelines. Axillae: No enlarged lymph nodes. Chest Wall: Left-sided pacer. Bones: Unremarkable. Lungs and Pleura: No pneumothorax or pleural effusions. No consolidation or suspicious nodules. Heart: Heart size is normal. No pericardial effusion. Minimal calcification of the coronary vasculature. Transvenous cardiac leads. Thoracic Vessels: The aorta and pulmonary arteries demonstrate normal size. Mediastinum and Ginger: No enlarged lymph nodes. Esophagus: No wall thickening. No hiatal hernia. Upper Abdomen: Visualized portions of the upper abdomen demonstrate a 34 mm left adrenal nodule with noncontrast Hounsfield units of 9. IMPRESSION: No suspicious pulmonary nodules. LUNG-RADS 1; continued annual screening, if eligible. Clinically Significant Non-pulmonary Findings: Coronary artery disease.. Dictated by: Rupa Duff M.D. on 12/24/2024 at 11:31 Approved by: Rupa Duff M.D. on 12/24/2024 at 11:35
--- NOTE | 2024-12-24 10:24 | DI.US.S_ITS ---
PROCEDURE: US ABD AORTA ANEURYSM SCREEN INDICATIONS: SCREENING TECHNIQUE: Real time scanning was performed of the aorta and iliac arteries, with image documentation. COMPARISON: [facility], CT, CT LUNG LOW DOSE SCREENING, 12/24/2024, 10:08. FINDINGS: Aorta: Proximal aortic diameter measures 2.4 cm. Mid-aorta measures 2.2 cm. Distal aortic diameter is 2.1 cm. Iliac arteries: Right common iliac artery measures 1.4 cm. Left common iliac artery measures 1.4 cm. Other: Abnormal appearance of bowel just deep to the umbilical hernia. Recommend CT abdomen pelvis with contrast for complete characterization. IMPRESSION: Abnormal appearance of bowel just deep to the umbilical hernia. Recommend CT abdomen pelvis with contrast for complete characterization. No aortic aneurysm. Call report was initiated for this examination . The ordering provider will be notified by end of day . Dictated by: Manolo Underwood M.D. on 12/24/2024 at 13:34 Approved by: Manolo Underwood M.D. on 12/24/2024 at 13:38
== END ==
LOC: CT 10:03
PROVIDERS: Family Provider Family Medicine; PCP Family Medicine; Referring Provider Family Medicine; Visit Provider Family Medicine
DX: Z87.891 Personal history of nicotine dependence (principal); Z13.6 Encounter for screening for cardiovascular disorders; Z12.2 Encounter for screening for malignant neoplasm of respiratory organs; R93.5 Abnormal findings on diagnostic imaging of other abdominal regions, including retroperitoneum; I25.10 Atherosclerotic heart disease of native coronary artery without angina pectoris; Z95.0 Presence of cardiac pacemaker
CPT/HCPCS: 71271; 76706

== ENCOUNTER → 2024-12-31 08:34 | Outpatient (CLI) | payer MEDICARE, OTHER, SELFPAY ==
--- NOTE | 2024-12-31 08:38 | DI.CT.S_ITS ---
PROCEDURE: CT ABDOMEN PELVIS W CON INDICATIONS: abnormal bowel on US TECHNIQUE: After the administration of intravenous contrast, axial sections acquired from the lung bases to the pubic symphysis. Coronal and sagittal reformats were performed. For radiation dose reduction, the following was used: automated exposure control, adjustment of mA and/or kV according to patient size. COMPARISON: [facility], US, US ABD AORTA ANEURYSM SCREEN, 12/24/2024, 10:24. [facility], CT, CT IVP, 07/07/2024, 8:31. FINDINGS: Image quality: Diagnostic. Lower Chest: Pacemaker leads. ABDOMEN: Liver: No solid mass. Small cyst is unchanged. Gallbladder: No radiopaque gallstones or wall thickening. Biliary ducts: No biliary dilation. Pancreas: No ductal dilation. Spleen: Size is within normal limits. Adrenal Glands: Left adrenal benign adenoma measuring 3 cm, (246), unchanged. Kidneys and Ureters: No hydronephrosis. No solid mass. No complex renal cystic lesion which requires follow up. Multiple low-density renal cysts bilaterally. Stomach and Bowel: Stomach is within normal limits. No small bowel obstruction. No diverticulitis. Normal appendix. Peritoneum: No abnormal intraperitoneal fluid. No free air. Ventral Wall: Multifocal fat containing umbilical hernia, (265), unchanged. Apparent mesh. No fluid collection. The transverse colon is deep to the umbilical hernia appears normal. Abdominal Nodes: No retroperitoneal or mesenteric adenopathy by size criteria. Vessels: Aorta and inferior vena cava are normal in size. PELVIS: Pelvic Organs: Prostatomegaly. Bladder: No bladder wall thickening, accounting for underdistention. Pelvic Nodes: No enlarged lymph nodes. Miscellaneous: No inguinal hernias are seen. Bones: No aggressive osseous abnormality. Multilevel DDD. Right hip arthroplasty. IMPRESSION: 1. No acute inflammatory process is seen. No free fluid. 2. Complex ventral abdominal wall fat containing hernia. Dictated by: Johny Cage M.D. on 12/31/2024 at 14:11 Approved by: Johny Cage M.D. on 12/31/2024 at 14:23
[2024-12-31 09:04] LABS: Estimated Glomerular Filt Rate 47 mL/min (>60)
== END ==
PROVIDERS: Radiology Diagnostic Radiology; Family Provider Family Medicine; PCP Family Medicine; Referring Provider Family Medicine; Visit Provider Family Medicine
DX: K76.89 Other specified diseases of liver (principal); D35.02 Benign neoplasm of left adrenal gland; R93.3 Abnormal findings on diagnostic imaging of other parts of digestive tract; R79.89 Other specified abnormal findings of blood chemistry; N28.1 Cyst of kidney, acquired; K42.9 Umbilical hernia without obstruction or gangrene; N40.0 Benign prostatic hyperplasia without lower urinary tract symptoms; Z96.641 Presence of right artificial hip joint
CPT/HCPCS: 36415; 74177; 82565; Q9967

== ENCOUNTER → 2025-01-05 15:42 | Outpatient (CLI) | payer MEDICARE, OTHER, SELFPAY | PROVIDERS: Family Provider Family Medicine; PCP Family Medicine; Visit Provider Urology | DX: N39.0 Urinary tract infection, site not specified (principal); N40.1 Benign prostatic hyperplasia with lower urinary tract symptoms; N13.8 Other obstructive and reflux uropathy; R31.29 Other microscopic hematuria; R97.20 Elevated prostate specific antigen [PSA]; K43.9 Ventral hernia without obstruction or gangrene; R39.9 Unspecified symptoms and signs involving the genitourinary system; Z85.51 Personal history of malignant neoplasm of bladder; Z87.891 Personal history of nicotine dependence; Z87.898 Personal history of other specified conditions; Z98.890 Other specified postprocedural states | CPT/HCPCS: 51798; 81002; 87077; 87086; 87186; 99214 ==

== ENCOUNTER → 2025-01-14 12:18 | Outpatient (CLI) | payer MEDICARE, OTHER, SELFPAY ==
[2025-01-14 12:59] LABS: Hematocrit 44.9 % (41-53); Hemoglobin 14.8 g/dL (13.5-17.5); Mean Corpuscular Hemoglobin 30.9 PG (26-34); Mean Corpuscular Volume 93.5 fL (80-100); Platelet Count 177 X10^3/uL (150-400); Red Cell Distribution Width 13.5 % (11.6-14.8); White Blood Cell Count 7.9 X10^3/uL (4.5-11.0)
[2025-01-14 13:35] LABS: Cholesterol 149 mg/dL (140-199); HDL Cholesterol 92 mg/dL (40-60); LDL Cholesterol Calculated 34 mg/dL (<100); Triglycerides 115 mg/dL (35-150)
[2025-01-14 14:05] LABS: TSH w/ Reflex to FT4 1.89 uIU/mL (0.47-4.68)
[2025-01-15 22:41] LABS: Hep C Virus Ab w/Reflex Quant NEGATIVE s/c (NEGATIVE)
== END ==
LOC: LAB 12:19
PROVIDERS: Family Provider Family Medicine; PCP Family Medicine; Referring Provider Family Medicine; Visit Provider Family Medicine
DX: N18.30 Chronic kidney disease, stage 3 unspecified (principal); E11.9 Type 2 diabetes mellitus without complications; R53.82 Chronic fatigue, unspecified; D64.9 Anemia, unspecified
CPT/HCPCS: 36415; 80061; 84443; 85027; 86803

== ENCOUNTER → 2025-01-22 08:18 | Outpatient (CLI) | payer MEDICARE, OTHER, SELFPAY ==
[2025-01-24 07:08] LABS: PSA Free % 36.6 % (.); PSA, Total 13.7 ng/mL (0.0-4.0)
== END ==
PROVIDERS: Family Provider Family Medicine; PCP Family Medicine; Referring Provider Urology; Visit Provider Urology
DX: R97.20 Elevated prostate specific antigen [PSA] (principal)
CPT/HCPCS: 36415; 84153; 84154

== ENCOUNTER → 2025-04-15 08:39 | Outpatient (CLI) | payer MEDICARE, OTHER, SELFPAY ==
[2025-04-16 07:09] LABS: PSA Free % 31.1 % (.); PSA, Total 15.9 ng/mL (0.0-4.0)
== END ==
PROVIDERS: Family Provider Family Medicine; PCP Family Medicine; Referring Provider Urology; Visit Provider Urology
DX: N40.1 Benign prostatic hyperplasia with lower urinary tract symptoms (principal); N13.8 Other obstructive and reflux uropathy; R97.20 Elevated prostate specific antigen [PSA]
CPT/HCPCS: 36415; 84153; 84154

== ENCOUNTER 2025-06-25 07:57 | Day surgery (SDC) | payer MEDICARE, OTHER, SELFPAY ==
--- NOTE | 2025-06-25 | PATH_ITS ---
[facility] Accession Number: [id number] No. of containers..04 Tissue . 01 Material submitted: . PART A: colon - COLON, ASCENDING POLYP PART B: colon - COLON, TRANSVERSE POLYP PART C: colon - COLON, DESCENDING POLYPS - (AT TATTOO) X 3 PART D: rectum - RECTAL POLYP . 01 Diagnosis: Part A: COLON, ASCENDING POLYP: Sessile serrated adenoma. . Part B: COLON, TRANSVERSE POLYP: Tubular adenoma. . Part C: COLON, DESCENDING POLYPS - (AT TATTOO) X 3: Tubular adenoma. . Part D: RECTAL POLYP: Hyperplastic polyp. [facility] 07/01/2025 1445 Local . 01 Electronically signed: . Melchor Harrison MD, Pathologist NPI- [id number] . 01 Gross description: . Part A: COLON, ASCENDING POLYP: Received in formalin are 4 fragment(s) of norwood, soft tissue measuring 0.1 x 0.1 x 0.1 cm to 0.8 x 0.5 x 0.4 cm submitted entirely in 1 cassette(s) . Part B: COLON, TRANSVERSE POLYP: Received in formalin is 1 fragment(s) of norwood, soft tissue measuring 0.6 x 0.5 x 0.4 cm submitted entirely in 1 cassette(s) . Part C: COLON, DESCENDING POLYPS - (AT TATTOO) X 3: Received in formalin are multiple fragment(s) of norwood, soft tissue measuring 0.1 x 0.1 x 0.1 cm to 0.6 x 0.6 x 0.4 cm submitted entirely in 1 cassette(s) . Part D: RECTAL POLYP: Received in formalin is 1 fragment(s) of norwood, soft tissue measuring 0.4 x 0.3 x 0.3 cm submitted entirely in 1 cassette(s) /SHENG 07/01/2025 1445 Local . 01 Pathologist provided ICD-10: D12.2, D12.3, D12.4, K62.1 . 01 CPT . 474791, 483328, [id number], 630685 Specimen Comment: A courtesy copy of this report has been sent to [phone] Performed at: [address] [address], [place], [place] [id number] MD Melchor Harrison MD Phone: [phone]
--- NOTE | 2025-06-25 08:24 | PM.HP.IH.1 ---
History of Present Illness History of Present Illness Date Patient Seen: 06/25/25 Time Patient Seen: 08:24 Chief complaint: Colonoscopy Narrative: Bassem is a 69-year-old man with a history of polyps. [facility] Medical History Elevated PSA History of urinary tract infection Stasis dermatitis Ventral hernia History of tobacco use History of needle biopsy of prostate with negative result BPH w urinary obs/LUTS Hx of chronic congestive heart failure Hx of bladder cancer Encounter for subsequent annual wellness visit (AWV) in Medicare patient Opiate use CKD (chronic kidney disease) stage 3, GFR 30-59 ml/min Sleep apnea (~1999) History of urinary incontinence (~2009) History of elevated PSA (~2021) Low testosterone (~1999) Hypertension (~1999) Depression (~2009) Type 2 diabetes mellitus without complication, with no history of insulin use (~1999) Paroxysmal A-fib (~2015) Orthostatic syncope Hernia Bladder cancer (~2015) CTS (carpal tunnel syndrome) (~2009) Surgical History History of hip replacement Anesthesia History of cystoscopy History of hernia repair (~1984) History of testicular biopsy (~1982) History of permanent cardiac pacemaker placement (~2015) H/O knee surgery Family History Mother Hypertension Diabetes mellitus Stroke Gallstone Cancer Brother Hypertension Skin cancer Sister Diabetes mellitus Hypertension Hyperlipidemia Father Hypertension Brother Skin cancer Hypertension Sister Hypertension Restless leg syndrome Grandfather History of heart disease Social History marital status: number of children: 2 household members: spouse alcohol intake: former substance use type: marijuana caffeine: Yes Type(s) of exercise: none Meds Home Medications and Allergies Home Medications ?Medication ?Instructions ?Recorded ?Confirmed ?Type CA PANTOTHENATE/FOLIC ACID/VIT 1 tab PO QDAY #0 tabs 07/25/13 06/09/25 History (MULTIVITAMIN) tamsulosin 0.4 mg capsule (Flomax) 0.4 mg PO QDAY #90 caps 01/01/24 06/09/25 Rx apixaban 5 mg tablet (Eliquis) 5 mg PO BID 12/18/24 06/09/25 History blood sugar diagnostic (Blood #100 ea 12/18/24 06/09/25 Rx Glucose Test strips) blood-glucose meter #1 ea 12/18/24 06/09/25 Rx carvedilol 6.25 mg tablet 6.25 mg PO BID 12/18/24 06/09/25 History empagliflozin 25 mg tablet 25 mg PO DAILY #100 tabs 12/18/24 06/09/25 Rx (Jardiance) furosemide 20 mg tablet mg PO DAILY 12/18/24 06/09/25 History hydralazine 25 mg tablet mg PO 3XD 12/18/24 06/09/25 History isosorbide dinitrate 10 mg tablet mg PO 3XD 12/18/24 06/09/25 History lancets 28 gauge #100 ea 12/18/24 06/09/25 Rx magnesium 200 mg tablet 200 mg PO BID 01/05/25 06/09/25 History triamcinolone acetonide 0.1 % 1 applic topical BID PRN rash #30 01/14/25 06/09/25 Rx topical cream grams ezetimibe 10 mg tablet 10 mg PO DAILY #90 tabs 04/03/25 06/09/25 Rx rosuvastatin 40 mg tablet 40 mg PO DAILY #90 tabs 04/27/25 06/09/25 Rx sodium,potassium,mag sulfates 17.5 See Rx Instructions PO .COMPLEX 05/15/25 06/09/25 Rx gram-3.13 gram-1.6 gram oral soln #354 mL (Suprep Bowel Prep Kit) Allergies Allergy/AdvReac Type Severity Reaction Status Date / Time Penicillins Allergy Severe THROAT Verified 06/25/25 08:24 SWELLING adhesive Allergy Unknown Blister Verified 06/25/25 08:24 hydrocortisone Allergy Unknown RASH Verified 06/25/25 08:24 latex Allergy Unknown Blister Verified 06/25/25 08:24 Exam Const General: No acute distress Assessment & Plan Assessment and plan (1) History of colon polyps: Status: Acute Plan Colonoscopy for history of polyps Time-Based Coding :: [TOTAL MINUTES] spent with patient and on the chart (including review of chart, obtaining history, exam, reviewing outside data, placing orders, documenting exam and treatment plan, and counseling patient) on [DATE]. [employer] Document charge(s): No
[2025-06-25 08:31] VITALS: BP 125/69; PULSE 69; RESP 16; TEMP 36.3; O2SAT 94
[2025-06-25] MEDS: LACTATED RINGERS 1,000 ML 42 ML IV (08:47)
--- NOTE | 2025-06-25 09:33 | PM.OP.COLON ---
Operative Date/Time/Diagnoses Date of procedure: 06/25/25 Time of procedure: 09:33 Pre-op diagnosis: History of polyps Post-op diagnosis: same Procedure & Clinicians Study performed: Colonoscopy Same procedure(s) as scheduled: Yes Surgeon: Ha Shukla Anesthesia Type: MAC +/- Procedure Notes Procedure in detail: Surgeon: Ha Shukla MD Anesthesia: Raudel Bailey.Karli Procedure: The patient was brought to the endoscopy suite, placed in left lateral decubitus position. The patient was connected to monitoring devices. A time-out was performed. Sedation was administered. Once the patient was adequately sedated, a digital rectal exam was performed and was normal. The scope was then inserted and advanced to the cecum where the appendiceal orifice was identified and photographed. The scope was then slowly withdrawn over greater than 6 minutes. The mucosa was thoroughly inspected. It was a 7 mm polyp in the ascending colon removed with a cold snare. There was a 7 mm polyp in the proximal transverse colon removed with a cold snare. There were 3 7 mm polyps in the descending colon removed with cold snare and sent together. Two of these were near the adjuvant old tattoo. There was a 5 mm polyp in the proximal rectum removed with a cold snare. The scope was retroflexed in the rectum. No other abnormalities were found. The scope was straightened and removed. The patient was awakened and brought to recovery. Scope withdrawal time: 16 minutes Sedation time: 21 minutes EBL: 5 mL Findings: Ascending colon polyp, transverse colon polyp, 3 descending colon polyps and rectal polyp Post-procedure Disposition: PACU
[2025-06-25 09:39] VITALS: BP 112/64; PULSE 60; RESP 15; TEMP 36.2; O2SAT 96
== END 2025-06-25 09:53 | disposition home or self-care (01) ==
PROVIDERS: PCP Family Medicine; Referring Provider Surgery; Visit Provider Surgery
PROC: 0DJD8ZZ Inspection of Lower Intestinal Tract, Via Natural or Artificial Opening Endoscopic (ICD-10-PCS; CPT 45378; principal; 2025-06-25 09:15)
DX: Z12.11 Encounter for screening for malignant neoplasm of colon (principal); Z86.0100 Personal history of colon polyps, unspecified; D12.2 Benign neoplasm of ascending colon; D12.3 Benign neoplasm of transverse colon; D12.4 Benign neoplasm of descending colon; K62.1 Rectal polyp
CPT/HCPCS: 45385; 82962; J2704

== ENCOUNTER 2025-07-24 06:58 | Day surgery (SDC) | payer MEDICARE, OTHER, SELFPAY ==
[2025-07-17 12:55] VITALS: BMI 34.7
[2025-07-24 07:27] VITALS: BP 132/68; PULSE 51; RESP 20; TEMP 36.1; O2SAT 98; BMI 34.7
[2025-07-24] MEDS: LACTATED RINGERS 1,000 ML 42 ML IV (08:01)
[2025-07-24] MEDS: ACETAMINOPHEN 325 MG TABLET 975 MG PO (08:04)
--- NOTE | 2025-07-24 08:27 | PM.PREOP ---
Pre-operative Note COVID-19 COVID-19 status: Not tested Interval Note History & Physical reviewed/Exam performed by Physician: Yes Changes to H&P: No
--- NOTE | 2025-07-24 08:49 | SUR.OPER ---
Pt positioned on left side lateral, warm blankets applied for comfort.
[2025-07-24] MEDS: LIDOCAINE 1% 20 ML INJ (08:54)
--- NOTE | 2025-07-24 09:05 | P.OP_ITS ---
Operative Date/Time/Diagnoses Date of procedure: 07/24/25 Time of procedure: 08:55 Pre-op diagnosis: Elevated PSA Post-op diagnosis: same Procedure & Clinicians Procedure: Transrectal ultrasound guided prostate biopsy Same procedure(s) as scheduled: Yes Indications: 69 y/o M noted to have a consistently and uptrending PSA in the setting of a prior benign TRUS prostate biopsy in 2020 and inability to obtain a prostate MRI secondary to his pacemaker. Discussed elevated PSA in detail and that an elevated PSA value does not represent cancer and that it can be elevated for a multitude of reasons (recent UTI, dubois catheterization, urinary obstruction, multiple ejaculations, colonoscopy, etc...). Also discussed that a TRUS prostate biopsy may not always identify prostate cancer that is present as it is a small sampling of the prostate gland and small foci of cancer may be missed. Lastly, discussed that some men may require multiple biopsies over several years in order to properly diagnose their prostate cancer. Discussed the risks of the procedure to include but not limited to pain, bleeding, infection, blood in the stool for several weeks, blood and/or blood clots within the urine for several weeks as well as bloody ejaculate for several months. Up to 1-2% of men may get an infection from their biopsy that is severe enough that they require admission to the hospital and administration of IV antibiotics. To mitigate this risk, he will use a bowel prep the night before and the morning of the procedure as well as take an antibiotic the morning before, the morning of and the morning after his biopsy. Discussed that I would strongly recommend a repeat TRUS prostate biopsy, he would prefer this to be under anesthesia. Surgeon: Harish Almanza Click Yes if Unassisted: Yes Anesthesia Type: MAC +/- Operative Notes Findings: 88g prostate Closure Type: not applicable Specimen(s): other (prostate biopsy) Applied: none Estimated Blood Loss (mL): 2 Blood products transfused: none Procedure in detail: Transrectal Ultrasound of the Prostate with Needle Biopsy: 44131 Indication: 69 y/o M w/ an elevated PSA in the setting of a negative TRUS prostate biopsy in 2020. Following informed consent and induction of MAC anesthesia, he was transitioned into the left lateral decubitus position. The ultrasound probe was then coated in lubrication and gently inserted into his rectum. A total of 10cc of 1% Li docaine was used for local anesthetic throughout the procedure. Transrectal US images of his prostate were then performed and a volume of 88 cc was calculated. A total of 12 biopsies were taken from the prostate and submitted as six different pathologic specimens (right base, right mid, right apex, left base, left mid, left apex). Hemostasis was evaluated at the end of the procedure and noted to be excellent. He tolerated the procedure well without any complications and the ultrasound probe was gently removed from his rectum. Anesthesia was reversed and he was transferred to the PACU in stable condition for recovery. Complications: none Post-operative Condition: stable Disposition: PACU Plan for aftercare: Discharge home from PACU. Will return to Urology clinic to discuss his pathology results in 2-3 business weeks.
[2025-07-24 09:13] VITALS: BP 102/53; PULSE 56; RESP 20; TEMP 36.3; O2SAT 96
[2025-07-24 09:21] VITALS: BP 121/58; PULSE 55; RESP 21; TEMP 36.3; O2SAT 96
[2025-07-24 09:27] VITALS: BP 125/69; PULSE 61; RESP 20; TEMP 36.3; O2SAT 97
== END 2025-07-24 09:29 | disposition home or self-care (01) ==
PROVIDERS: PCP Family Medicine; Referring Provider Urology; Visit Provider Urology
PROC: 0VJ43ZZ Inspection of Prostate and Seminal Vesicles, Percutaneous Approach (ICD-10-PCS; CPT 55876; principal; 2025-07-24 08:45)
DX: R97.20 Elevated prostate specific antigen [PSA] (principal); R39.12 Poor urinary stream; R33.8 Other retention of urine; R35.1 Nocturia; Z95.0 Presence of cardiac pacemaker; I48.0 Paroxysmal atrial fibrillation; Z79.01 Long term (current) use of anticoagulants
CPT/HCPCS: 55700; 76872; 76942; 82962; J1100; J2405; J2704; J3010

== ENCOUNTER → 2025-07-28 10:46 | Outpatient (CLI) | payer MEDICARE, OTHER, SELFPAY ==
[2025-07-28 17:26] LABS: Appearance Urine UA CLEAR; Bilirubin Urine UA NEGATIVE (NEGATIVE); Color Urine UA YELLOW; Glucose Urine UA 3+ g/dL (Negative); Ketones Urine UA NEGATIVE (NEGATIVE); Leukocyte Esterase Urine UA NEGATIVE (NEGATIVE); Nitrite Urine UA NEGATIVE (Negative); Occult Blood Urine UA 1+ (Negative); Protein Urine UA NEGATIVE (Negative); Specific Gravity Urine UA <=1.005 (1.000-1.035); Urobilinogen Urine UA 0.2 E.U./dL (0.2); pH Urine UA 6.0 (4.5-8.0)
[2025-07-28 17:34] LABS: Culture Indicated Urine Cult Not Indicated
== END ==
PROVIDERS: PCP Family Medicine; Visit Provider Urology
DX: R35.0 Frequency of micturition (principal); R30.0 Dysuria; Z87.440 Personal history of urinary (tract) infections
CPT/HCPCS: 81001

== ENCOUNTER → 2025-08-13 14:01 | Outpatient (CLI) | payer MEDICARE, OTHER, SELFPAY | PROVIDERS: PCP Family Medicine; Visit Provider Urology | DX: Z87.440 Personal history of urinary (tract) infections (principal) | CPT/HCPCS: 87077; 87086 ==

== ENCOUNTER → 2025-08-27 14:03 | Outpatient (CLI) | payer MEDICARE, OTHER, SELFPAY | PROVIDERS: PCP Family Medicine; Visit Provider Urology | DX: N40.1 Benign prostatic hyperplasia with lower urinary tract symptoms (principal); N13.8 Other obstructive and reflux uropathy; R97.20 Elevated prostate specific antigen [PSA]; Z85.51 Personal history of malignant neoplasm of bladder | CPT/HCPCS: 51702; 51798; 81002; 87077; 87086; 87186; 99213 ==

== ENCOUNTER → 2025-09-17 14:46 | Outpatient (CLI) | payer MEDICARE, OTHER, SELFPAY | PROVIDERS: PCP Family Medicine; Visit Provider Urology | DX: N40.1 Benign prostatic hyperplasia with lower urinary tract symptoms (principal); N13.8 Other obstructive and reflux uropathy; R97.20 Elevated prostate specific antigen [PSA]; Z85.51 Personal history of malignant neoplasm of bladder | CPT/HCPCS: 51798; 81002; 87077; 87086; 87186; 99214 ==

== ENCOUNTER → 2025-09-24 08:50 | Outpatient (CLI) | payer MEDICARE, OTHER, SELFPAY ==
[2025-09-24 10:21] LABS: Appearance Urine UA CLEAR; Bilirubin Urine UA NEGATIVE (NEGATIVE); Color Urine UA YELLOW; Glucose Urine UA 3+ g/dL (Negative); Ketones Urine UA NEGATIVE (NEGATIVE); Leukocyte Esterase Urine UA NEGATIVE (NEGATIVE); Nitrite Urine UA NEGATIVE (Negative); Occult Blood Urine UA NEGATIVE (Negative); Protein Urine UA NEGATIVE (Negative); Specific Gravity Urine UA 1.015 (1.000-1.035); Urobilinogen Urine UA 0.2 E.U./dL (0.2); pH Urine UA 6.0 (4.5-8.0)
[2025-09-24 10:31] LABS: Culture Indicated Urine Cult Not Indicated
== END ==
PROVIDERS: PCP Family Medicine; Referring Provider Urology; Visit Provider Urology
DX: N40.1 Benign prostatic hyperplasia with lower urinary tract symptoms (principal); N13.8 Other obstructive and reflux uropathy; Z87.440 Personal history of urinary (tract) infections
CPT/HCPCS: 81001